=== PATIENT | male | born 1955 | race Caucasian/White ===

== ENCOUNTER 2020-08-30 06:54 | Outpatient (REF) | payer MEDICARE, BC, SELFPAY ==
[2020-08-30 11:08] LABS: Estimated Average Glucose 154 mg/dL
[2020-08-30 11:47] LABS: Alanine Aminotransferase 19 U/L (0-40); Albumin Level 4.5 g/dL (3.5-5.0); Alkaline Phosphatase 72 U/L (39-117); Aspartate Amino Transferase 17 U/L (5-37); Bilirubin Direct 0.6 mg/dL (0.0-0.5); Bilirubin Total 2.8 mg/dL (0.0-1.0); Cholesterol 121 mg/dL; Glucose Fasting 132 mg/dL (60-99); HDL Cholesterol 34 mg/dL; LDL Cholesterol Calculated 72 mg/dl; Total Protein 7.1 g/dL (6.5-8.0); Triglycerides 76 mg/dL
[2020-08-30 12:05] LABS: Reflex LDLD? No
== END 2020-08-30 06:55 | disposition home or self-care (01) ==
LOC: HO.WFDLDS 06:54
PROVIDERS: PCP Internal Medicine; Visit Provider Internal Medicine
DX: E78.00 Pure hypercholesterolemia, unspecified (principal); E11.9 Type 2 diabetes mellitus without complications
CPT/HCPCS: 80061; 80076; 82947; 83036

== ENCOUNTER 2020-12-03 10:57 | Outpatient (REF) | payer MEDICARE, BC, SELFPAY ==
[2020-12-03 11:55] LABS: Estimated Average Glucose 140 mg/dL; Hemoglobin A1c % 6.5 %
[2020-12-03 12:10] LABS: Blood Urea Nitrogen 22 mg/dL (9-16); Estimated Glomerular Filt Rate > 60; Glucose Fasting 138 mg/dL (60-99)
== END 2020-12-03 10:58 | disposition home or self-care (01) ==
LOC: HO.LNP 10:57
PROVIDERS: Visit Provider Internal Medicine
DX: E11.40 Type 2 diabetes mellitus with diabetic neuropathy, unspecified (principal); R79.89 Other specified abnormal findings of blood chemistry
CPT/HCPCS: 82565; 82947; 83036; 84520

== ENCOUNTER 2021-03-01 10:14 | Outpatient (REF) | payer MEDICARE, BC, SELFPAY ==
[2021-03-01 10:18] LABS: MANUAL DIFF FLAG NO
[2021-03-01 10:48] LABS: Basophils Absolute Auto 0.1 X10*3/uL (0.0-0.2); Basophils Percent Auto 0.7 % (0-2); Eosinophils Absolute Auto 0.4 X10*3/uL (0.0-0.4); Eosinophils Percent Auto 5.1 % (0-4); Hematocrit 44.6 % (42-52); Hemoglobin 14.6 g/dl (14.0-18.0); Imm Gran Abs Auto 0.03 X10*3/uL (0.00-0.03); Imm Gran Pct Auto 0.4 % (0.0-0.4); Lymphocytes Absolute Auto 1.7 X10*3/uL (1.2-4.9); Lymphocytes Percent Auto 24.7 % (20-40); Mean Corpuscular HGB Conc 32.7 g/dl (31.0-36.0); Mean Corpuscular Hemoglobin 30.9 pg (27.0-33.0); Mean Corpuscular Volume 94.5 fL (80-98); Mean Platelet Volume 11.5 fL (9.4-12.4); Monocytes Absolute Auto 0.7 X10*3/uL (0.1-1.2); Monocytes Percent Auto 10.4 % (2-11); Neutrophils Absolute Auto 4.1 X10*3/uL (2.0-8.3); Neutrophils Percent Auto 58.7 % (45-73); Platelet Count 254 X10*3/uL (160-400); Red Blood Count 4.72 X10*6/uL (4.60-5.80); White Blood Count 6.9 X10*3/uL (4.8-10.8)
[2021-03-01 11:00] LABS: Glucose Urine UA NEG (NEG); Leukocyte Esterase Urine NEG (NEG); Nitrite Urine NEG (NEG); PH 5.5 (5.0-8.0); Urine Blood NEG (NEG); Urine Ketones NEG (NEG); Urine Protein NEG (NEG-TRACE)
[2021-03-01 11:02] LABS: Estimated Average Glucose 146 mg/dL; Hemoglobin A1c % 6.7 %
[2021-03-01 11:04] LABS: Appearance Urine CLEAR; Color Urine YELLOW
[2021-03-01 11:47] LABS: Alanine Aminotransferase 18 U/L (0-40); Albumin Level 4.2 g/dL (3.5-5.0); Alkaline Phosphatase 72 U/L (39-117); Anion Gap 13 (12-20); Aspartate Amino Transferase 18 U/L (5-37); Blood Urea Nitrogen 28 mg/dL (9-16); Calcium 9.8 mg/dL (8.4-10.2); Carbon Dioxide 27 mmol/L (22-29); Chloride 106 mmol/L (96-108); Cholesterol 130 mg/dL; Estimated Glomerular Filt Rate > 60; Glucose Fasting 148 mg/dL (60-99); HDL Cholesterol 38 mg/dL; LDL Cholesterol Calculated 79 mg/dl; Sodium 142 mmol/L (135-145); Total Protein 6.8 g/dL (6.5-8.0); Triglycerides 65 mg/dL
[2021-03-01 11:50] LABS: Creatinine Urine 98.66 mg/dL; Microalbum/Creatinine Ratio Ur 10.1 ug/mg cr
[2021-03-01 12:10] LABS: PSA,Total (Free>4and<10) 1.53 ng/mL (0.00-4.00)
[2021-03-01 12:21] LABS: Reflex LDLD? No
== END 2021-03-01 10:15 | disposition home or self-care (01) ==
LOC: HO.LNP 10:14
PROVIDERS: Visit Provider Internal Medicine
DX: Z12.5 Encounter for screening for malignant neoplasm of prostate (principal); E11.9 Type 2 diabetes mellitus without complications; R79.9 Abnormal finding of blood chemistry, unspecified; I10 Essential (primary) hypertension; E78.00 Pure hypercholesterolemia, unspecified; N40.0 Benign prostatic hyperplasia without lower urinary tract symptoms
CPT/HCPCS: 80053; 80061; 81003; 82043; 83036; 84153; 85025

== ENCOUNTER 2021-07-29 10:41 | Outpatient (REF) | payer MEDICARE, BC, SELFPAY ==
[2021-07-29 10:56] LABS: Blood Urea Nitrogen 21 mg/dL (9-16); Estimated Glomerular Filt Rate > 60
== END 2021-07-29 10:42 | disposition home or self-care (01) ==
LOC: HO.LNP 10:41
PROVIDERS: Visit Provider Internal Medicine
DX: R79.9 Abnormal finding of blood chemistry, unspecified (principal)
CPT/HCPCS: 82565; 84520

== ENCOUNTER 2021-10-28 11:52 | Outpatient (REF) | payer MEDICARE, BC, SELFPAY ==
[2021-10-28 12:24] LABS: Estimated Average Glucose 148 mg/dL; Hemoglobin A1c % 6.8 %
[2021-10-28 12:29] LABS: Alanine Aminotransferase 20 U/L (0-40); Albumin Level 4.1 g/dL (3.5-5.0); Alkaline Phosphatase 69 U/L (39-117); Aspartate Amino Transferase 18 U/L (5-37); Bilirubin Direct 0.7 mg/dL (0.0-0.5); Bilirubin Total 2.3 mg/dL (0.0-1.0); Cholesterol 112 mg/dL; Glucose Fasting 149 mg/dL (60-99); HDL Cholesterol 30 mg/dL; LDL Cholesterol Calculated 68 mg/dl; Total Protein 6.9 g/dL (6.5-8.0); Triglycerides 74 mg/dL
[2021-10-28 13:41] LABS: Reflex LDLD? No
== END 2021-10-28 11:53 | disposition home or self-care (01) ==
LOC: HO.LNP 11:52
PROVIDERS: Visit Provider Internal Medicine
DX: E11.9 Type 2 diabetes mellitus without complications (principal); E78.00 Pure hypercholesterolemia, unspecified
CPT/HCPCS: 80061; 80076; 82947; 83036

== ENCOUNTER 2022-03-07 10:40 | Outpatient (REF) | payer MEDICARE, BC, SELFPAY ==
[2022-03-07 10:44] LABS: MANUAL DIFF FLAG NO
[2022-03-07 11:30] LABS: Basophils Absolute Auto 0.1 X10*3/uL (0.0-0.2); Basophils Percent Auto 0.8 % (0-2); Eosinophils Absolute Auto 0.2 X10*3/uL (0.0-0.4); Eosinophils Percent Auto 3.2 % (0-4); Hematocrit 41.5 % (42.0-52.0); Hemoglobin 13.4 g/dl (14.0-18.0); Imm Gran Abs Auto 0.01 X10*3/uL (0.00-0.03); Imm Gran Pct Auto 0.2 % (0.0-0.4); Lymphocytes Absolute Auto 1.9 X10*3/uL (1.2-4.9); Lymphocytes Percent Auto 28.8 % (20-40); Mean Corpuscular HGB Conc 32.3 g/dl (31.0-36.0); Mean Corpuscular Hemoglobin 30.5 pg (27.0-33.0); Mean Corpuscular Volume 94.5 fL (80.0-98.0); Mean Platelet Volume 12.1 fL (9.4-12.4); Monocytes Absolute Auto 0.7 X10*3/uL (0.1-1.2); Monocytes Percent Auto 10.7 % (2-11); Neutrophils Absolute Auto 3.7 x10*3/uL (2.0-8.3); Neutrophils Percent Auto 56.3 % (45-73); Platelet Count 244 X10*3/uL (160-400); Red Blood Count 4.39 X10*6/uL (4.60-5.80); Red Cell Distribution Width 14.3 % (11.0-16.0); White Blood Count 6.5 X10*3/uL (4.8-10.8)
[2022-03-07 11:39] LABS: Estimated Average Glucose 140 mg/dL; Hemoglobin A1c % 6.5 %
[2022-03-07 11:46] LABS: Alanine Aminotransferase 25 U/L (0-40); Albumin Level 4.1 g/dL (3.5-5.0); Alkaline Phosphatase 69 U/L (39-117); Anion Gap 12 (12-20); Appearance Urine CLEAR; Aspartate Amino Transferase 22 U/L (5-37); Bilirubin Total 1.6 mg/dL (0.0-1.0); Blood Urea Nitrogen 20 mg/dL (9-16); Calcium 9.5 mg/dL (8.4-10.2); Carbon Dioxide 28 mmol/L (22-29); Chloride 105 mmol/L (96-108); Cholesterol 121 mg/dL; Color Urine YELLOW; Estimated Glomerular Filt Rate > 60; Glucose Fasting 142 mg/dL (60-99); Glucose Urine UA NEG (NEG); HDL Cholesterol 38 mg/dL; LDL Cholesterol Calculated 74 mg/dl; Leukocyte Esterase Urine NEG (NEG); Nitrite Urine NEG (NEG); PH 5.5 (5.0-8.0); Potassium 3.9 mmol/L (3.3-5.1); Sodium 141 mmol/L (135-145); Specific Gravity - Urine 1.025 (1.005-1.025); Total Protein 6.5 g/dL (6.5-8.0); Triglycerides 45 mg/dL; Urine Blood NEG (NEG); Urine Ketones NEG (NEG); Urine Protein NEG (NEG-TRACE)
[2022-03-07 12:09] LABS: PSA,Total (Free>4and<10) 1.18 ng/mL (0.00-4.00)
[2022-03-07 12:18] LABS: Hyaline Casts Urine 0-2 /LPF; RBC Urine 0-2 /HPF (0); WBC Urine 0 /HPF (0-4)
[2022-03-07 12:38] LABS: Creatinine Urine 139.88 mg/dL; Microalbum/Creatinine Ratio Ur 12.1 ug/mg cr
== END 2022-03-07 10:41 | disposition home or self-care (01) ==
LOC: HO.LNP 10:40
PROVIDERS: Visit Provider Internal Medicine
DX: Z12.5 Encounter for screening for malignant neoplasm of prostate (principal); I10 Essential (primary) hypertension; E11.9 Type 2 diabetes mellitus without complications; N40.0 Benign prostatic hyperplasia without lower urinary tract symptoms
CPT/HCPCS: 80053; 80061; 81001; 82043; 83036; 84153; 85025

== ENCOUNTER 2022-06-30 11:11 | Outpatient (REF) | payer MEDICARE, BC, SELFPAY ==
--- NOTE | ~2022-06-30 | XR_ITS ---
EXAMINATION: XR CHEST CLINICAL INFORMATION: Cough COMPARISON: None TECHNIQUE: 2 views of the chest were obtained. FINDINGS: No significant abnormality is noted involving the heart, lungs, mediastinum, bony thorax or soft tissues. XR/XR chest 2V IMPRESSION: No acute disease.
== END 2022-06-30 11:12 | disposition home or self-care (01) ==
LOC: HO.XRAY 11:11
PROVIDERS: PCP Internal Medicine; Visit Provider Internal Medicine
DX: R05.9 Cough, unspecified (principal)
CPT/HCPCS: 71046

== ENCOUNTER 2022-08-01 11:28 | Outpatient (REF) | payer MEDICARE, BC, SELFPAY ==
[2022-08-01 11:32] LABS: MANUAL DIFF FLAG NO
[2022-08-01 12:16] LABS: Basophils Absolute Auto 0.1 X10*3/uL (0.0-0.2); Basophils Percent Auto 0.9 % (0-2); Eosinophils Absolute Auto 0.5 X10*3/uL (0.0-0.4); Eosinophils Percent Auto 6.1 % (0-4); Hemoglobin 14.4 g/dl (14.0-18.0); Imm Gran Abs Auto 0.03 X10*3/uL (0.00-0.03); Imm Gran Pct Auto 0.4 % (0.0-0.4); Lymphocytes Absolute Auto 2.2 X10*3/uL (1.2-4.9); Lymphocytes Percent Auto 26.3 % (20-40); Mean Corpuscular HGB Conc 32.7 g/dl (31.0-36.0); Mean Corpuscular Volume 94.6 fL (80.0-98.0); Mean Platelet Volume 11.8 fL (9.4-12.4); Monocytes Percent Auto 12.2 % (2-11); Neutrophils Absolute Auto 4.5 x10*3/uL (2.0-8.3); Neutrophils Percent Auto 54.1 % (45-73); Platelet Count 232 X10*3/uL (160-400); Red Blood Count 4.65 X10*6/uL (4.60-5.80); Red Cell Distribution Width 13.5 % (11.0-16.0); White Blood Count 8.2 X10*3/uL (4.8-10.8)
[2022-08-01 12:27] LABS: Potassium 3.7 mmol/L (3.3-5.1)
== END 2022-08-01 11:29 | disposition home or self-care (01) ==
LOC: HO.LNP 11:28
PROVIDERS: Visit Provider Internal Medicine
DX: I10 Essential (primary) hypertension (principal); D64.9 Anemia, unspecified
CPT/HCPCS: 84132; 85025

== ENCOUNTER 2022-09-05 10:32 | Outpatient (REF) | payer MEDICARE, BC, SELFPAY ==
[2022-09-05 13:41] LABS: Alanine Aminotransferase 21 U/L (0-40); Alkaline Phosphatase 64 U/L (39-117); Aspartate Amino Transferase 15 U/L (5-37); Bilirubin Direct 0.7 mg/dL (0.0-0.5); Bilirubin Total 2.3 mg/dL (0.0-1.0); Cholesterol 139 mg/dL; HDL Cholesterol 50 mg/dL; LDL Cholesterol Calculated 71 mg/dl; Total Protein 6.4 g/dL (6.5-8.0); Triglycerides 94 mg/dL
[2022-09-05 15:10] LABS: Reflex LDLD? No
== END 2022-09-05 10:33 | disposition home or self-care (01) ==
LOC: HO.LNP 10:32
PROVIDERS: Visit Provider Internal Medicine
DX: E78.00 Pure hypercholesterolemia, unspecified (principal)
CPT/HCPCS: 80061; 80076

== ENCOUNTER 2022-09-12 10:32 | Outpatient (REF) | payer MEDICARE, BC, SELFPAY ==
--- NOTE | ~2022-09-12 | US_ITS ---
EXAMINATION: US VENOUS ULTRASOUND WITH DOPPLER LOWER EXTREMITY, BILATERAL CLINICAL INFORMATION: Pain COMPARISON: None TECHNIQUE: Ultrasound of the deep veins is performed from the hip to the calf with compression sonography and color and pulse Doppler assessment. Spectral analysis with color-flow imaging is performed. FINDINGS: RIGHT: There is normal venous compression and respiratory variation and augmented flow. The visualized common femoral vein, superficial femoral vein, profunda femoral vein, popliteal vein, and the trifurcation region shows no evidence of deep venous thrombosis. There is no significant popliteal fossa cyst. LEFT: There is normal venous compression and respiratory variation and augmented flow. The visualized common femoral vein, superficial femoral vein, profunda femoral vein, popliteal vein, and the trifurcation region shows no evidence of deep venous thrombosis. There is no significant popliteal fossa cyst. US/US venous duplex LE BI IMPRESSION: No DVT demonstrated in the bilateral lower extremity.
== END 2022-09-12 10:33 | disposition home or self-care (01) ==
LOC: HO.US 10:32
PROVIDERS: PCP Internal Medicine; Visit Provider Internal Medicine
DX: M79.662 Pain in left lower leg (principal); M79.661 Pain in right lower leg
CPT/HCPCS: 93970

== ENCOUNTER 2023-03-13 10:33 | Outpatient (REF) | payer MEDICARE, BC, SELFPAY ==
[2023-03-13 10:38] LABS: MANUAL DIFF FLAG NO
[2023-03-13 11:12] LABS: Basophils Absolute Auto 0.1 X10*3/uL (0.0-0.2); Basophils Percent Auto 0.8 % (0-2); Eosinophils Absolute Auto 0.3 X10*3/uL (0.0-0.4); Eosinophils Percent Auto 3.3 % (0-4); Hematocrit 44.6 % (42.0-52.0); Hemoglobin 14.6 g/dl (14.0-18.0); Imm Gran Abs Auto 0.03 X10*3/uL (0.00-0.03); Imm Gran Pct Auto 0.4 % (0.0-0.4); Lymphocytes Percent Auto 23.1 % (20-40); Mean Corpuscular HGB Conc 32.7 g/dl (31.0-36.0); Mean Corpuscular Volume 94.7 fL (80.0-98.0); Mean Platelet Volume 11.6 fL (9.4-12.4); Monocytes Absolute Auto 1.1 X10*3/uL (0.1-1.2); Monocytes Percent Auto 12.4 % (2-11); Neutrophils Absolute Auto 5.1 x10*3/uL (2.0-8.3); Platelet Count 241 X10*3/uL (160-400); Red Blood Count 4.71 X10*6/uL (4.60-5.80); Red Cell Distribution Width 14.6 % (11.0-16.0); White Blood Count 8.5 X10*3/uL (4.8-10.8)
[2023-03-13 11:15] LABS: Appearance Urine Clear; Color Urine Yellow; Glucose Urine UA Negative (Negative); Leukocyte Esterase Urine Negative (Negative); Nitrite Urine Negative (Negative); PH 7.5 (5.0-9.0); Urine Blood Negative (Negative); Urine Ketones Trace mg/dL (Negative); Urine Protein Negative (Neg-Trace)
[2023-03-13 11:18] LABS: Bacteria Urine None Seen (None Seen); Hyaline Casts Urine 0-2 /LPF (0-2); RBC Urine 0-2 /HPF (0-2); Squamous Epithelial Cell Urine 0-2 /HPF (0-2); WBC Urine 0-5 /HPF (0-5)
[2023-03-13 11:27] LABS: Estimated Average Glucose 134 mg/dL; Hemoglobin A1c % 6.3 %
[2023-03-13 11:48] LABS: Alanine Aminotransferase 22 U/L (0-40); Albumin Level 4.2 g/dL (3.5-5.0); Alkaline Phosphatase 71 U/L (39-117); Anion Gap 15 (12-20); Aspartate Amino Transferase 21 U/L (5-37); Bilirubin Total 3.4 mg/dL (0.0-1.0); Blood Urea Nitrogen 23 mg/dL (9-16); Carbon Dioxide 28 mmol/L (22-29); Chloride 105 mmol/L (96-108); Cholesterol 147 mg/dL; Estimated Glomerular Filt Rate > 60; Glucose Fasting 164 mg/dL (60-99); HDL Cholesterol 48 mg/dL; LDL Cholesterol Calculated 88 mg/dl; Potassium 3.8 mmol/L (3.3-5.1); Sodium 144 mmol/L (135-145); Total Protein 6.7 g/dL (6.5-8.0); Triglycerides 57 mg/dL
[2023-03-13 12:01] LABS: Creatinine Urine 86.42 mg/dL; Microalbum/Creatinine Ratio Ur 17.3 ug/mg cr
[2023-03-13 12:13] LABS: PSA,Total (Free>4and<10) 1.44 ng/mL (0.00-4.00)
== END 2023-03-13 10:34 | disposition home or self-care (01) ==
LOC: HO.LNP 10:33
PROVIDERS: PCP Internal Medicine; Visit Provider Internal Medicine
DX: Z12.5 Encounter for screening for malignant neoplasm of prostate (principal); I10 Essential (primary) hypertension; E11.9 Type 2 diabetes mellitus without complications; E78.00 Pure hypercholesterolemia, unspecified; N40.0 Benign prostatic hyperplasia without lower urinary tract symptoms
CPT/HCPCS: 80053; 80061; 81001; 82043; 83036; 84153; 85025

== ENCOUNTER 2023-09-14 10:55 | Outpatient (REF) | payer MEDICARE, BC, SELFPAY ==
[2023-09-14 11:19] LABS: Alanine Aminotransferase 21 U/L (0-40); Albumin Level 4.3 g/dL (3.5-5.0); Alkaline Phosphatase 72 U/L (39-117); Aspartate Amino Transferase 20 U/L (5-37); Bilirubin Direct 0.5 mg/dL (0.0-0.5); Bilirubin Total 2.2 mg/dL (0.0-1.0); Glucose Fasting 149 mg/dL (60-99); Total Protein 7.2 g/dL (6.5-8.0)
[2023-09-14 11:21] LABS: Cholesterol 110 mg/dL (<200); HDL Cholesterol 36 mg/dL (>40); LDL Cholesterol Calculated 59 mg/dL (<100); Triglycerides 77 mg/dL (<150)
[2023-09-14 11:30] LABS: Estimated Average Glucose 154 mg/dL
[2023-09-14 12:24] LABS: Reflex LDLD? No
== END 2023-09-14 10:56 | disposition home or self-care (01) ==
LOC: HO.LNP 10:55
PROVIDERS: Visit Provider Internal Medicine
DX: E11.9 Type 2 diabetes mellitus without complications (principal); E78.00 Pure hypercholesterolemia, unspecified
CPT/HCPCS: 80061; 80076; 82947; 83036

== ENCOUNTER 2024-05-15 10:47 | Outpatient (REF) | payer MEDICARE, BC, SELFPAY ==
[2024-05-15 10:50] LABS: MANUAL DIFF FLAG NO
[2024-05-15 11:03] LABS: Basophils Absolute Auto 0.1 X10*3/uL (0.0-0.2); Basophils Percent Auto 0.9 % (0-2); Eosinophils Absolute Auto 0.4 X10*3/uL (0.0-0.4); Eosinophils Percent Auto 4.7 % (0-4); Hematocrit 43.4 % (42.0-52.0); Hemoglobin 14.6 g/dl (14.0-18.0); Imm Gran Abs Auto 0.02 X10*3/uL (0.00-0.03); Imm Gran Pct Auto 0.3 % (0.0-0.4); Lymphocytes Percent Auto 25.6 % (20-40); Mean Corpuscular HGB Conc 33.6 g/dl (31.0-36.0); Mean Corpuscular Hemoglobin 31.5 pg (27.0-33.0); Mean Corpuscular Volume 93.7 fL (80.0-98.0); Mean Platelet Volume 11.2 fL (9.4-12.4); Monocytes Absolute Auto 0.9 X10*3/uL (0.1-1.2); Monocytes Percent Auto 11.5 % (2-11); Neutrophils Absolute Auto 4.4 x10*3/uL (2.0-8.3); Platelet Count 227 X10*3/uL (160-400); Red Blood Count 4.63 X10*6/uL (4.60-5.80); Red Cell Distribution Width 13.2 % (11.0-16.0); White Blood Count 7.7 X10*3/uL (4.8-10.8)
[2024-05-15 11:04] LABS: Appearance Urine Clear; Color Urine Yellow; Glucose Urine UA Negative (Negative); Leukocyte Esterase Urine Negative (Negative); Nitrite Urine Negative (Negative); PH 6.5 (5.0-9.0); Specific Gravity - Urine 1.015 (1.005-1.025); Urine Blood Negative (Negative); Urine Ketones Negative (Negative); Urine Protein Negative (Neg-Trace)
[2024-05-15 11:07] LABS: Bacteria Urine None Seen (None Seen); Hyaline Casts Urine 0-2 /LPF (0-2); RBC Urine 0-2 /HPF (0-2); Squamous Epithelial Cell Urine 0-2 /HPF (0-2); WBC Urine 0-5 /HPF (0-5)
[2024-05-15 11:18] LABS: Estimated Average Glucose 146 mg/dL; Hemoglobin A1c % 6.7 % (<6.0)
[2024-05-15 11:28] LABS: Alanine Aminotransferase 21 U/L (0-40); Alkaline Phosphatase 64 U/L (39-117); Anion Gap 10 (12-20); Aspartate Amino Transferase 18 U/L (5-37); Bilirubin Total 2.1 mg/dL (0.0-1.0); Blood Urea Nitrogen 24 mg/dL (9-16); Calcium 10.2 mg/dL (8.4-10.2); Carbon Dioxide 29 mmol/L (22-29); Chloride 106 mmol/L (96-108); Cholesterol 107 mg/dL (<200); Estimated Glomerular Filt Rate > 60; Glucose Fasting 158 mg/dL (60-99); HDL Cholesterol 37 mg/dL (>40); LDL Cholesterol Calculated 56 mg/dL (<100); Potassium 3.6 mmol/L (3.3-5.1); Sodium 141 mmol/L (135-145); Total Protein 6.7 g/dL (6.5-8.0); Triglycerides 72 mg/dL (<150)
[2024-05-15 11:32] LABS: PSA,Total (Free>4and<10) 1.36 ng/mL (0.00-4.00)
[2024-05-15 11:59] LABS: Creatinine Urine 101.21 mg/dL; Microalbum/Creatinine Ratio Ur 17.7 ug/mg cr (<30)
== END 2024-05-15 10:48 | disposition home or self-care (01) ==
LOC: HO.LNP 10:47
PROVIDERS: Visit Provider Internal Medicine
DX: I10 Essential (primary) hypertension (principal); E11.9 Type 2 diabetes mellitus without complications; E78.00 Pure hypercholesterolemia, unspecified; N40.0 Benign prostatic hyperplasia without lower urinary tract symptoms; Z12.5 Encounter for screening for malignant neoplasm of prostate
CPT/HCPCS: 80053; 80061; 81001; 82043; 82570; 83036; 84153; 85025

== ENCOUNTER → 2024-07-29 19:30 | Outpatient (REF) | payer MEDICARE, BC, SELFPAY | LOC: HO.SL 19:30 | PROVIDERS: PCP Internal Medicine; Visit Provider Internal Medicine | DX: Z13.89 Encounter for screening for other disorder (principal) ==

== ENCOUNTER 2024-09-01 10:39 | Day surgery (SDC) | payer MEDICARE, BC, SELFPAY ==
[2024-08-28 13:22] VITALS: BMI 41.3
--- NOTE | 2024-08-29 09:32 | P.CONAN_ITS ---
Documented by User: Princess Ramirez NP 08/29/24 09:33 HPI - Anesthesia Eval Consult details Narrative: 68yo M for Colonoscopy [facility] Past Medical History Medical History Diabetes Elevated cholesterol HTN (hypertension) Surgical History Surgical History Hx of nasal polypectomy History of bilateral knee replacement H/O colonoscopy Social History Social History Are you a primary home care manager to a significant other at home: No Do you presently have visiting nurse or other home services: No Patient Tobacco Use Status: Never used Tobacco Have you been hit, kicked, punched, or otherwise hurt by someone within the past year? If so, by whom?: No Are you DNR?: No Advance Directives: No Advance Directives Information Provided: Yes Recently lost weight without trying: No Nutrition Risks: No Nutritional Risk Meds Allergies Allergy/AdvReac Type Severity Reaction Status Date / Time No Known Allergies Allergy Verified 09/01/24 10:49 [No Known Allergies*] Home Medications ?Medication ?Instructions ?Recorded ?Confirmed ?Last Taken ?Type lisinopril 20 1 tab PO DAILY 08/28/24 08/28/24 Unknown History mg-hydrochlorothiazide 25 mg tablet metformin 500 mg tablet 1,000 mg PO BID 08/28/24 08/28/24 Unknown History nifedipine 60 mg tablet,extended 60 mg PO DAILY 08/28/24 08/28/24 Unknown History release potassium chloride 10 mEq 10 meq PO DAILY 08/28/24 08/28/24 Unknown History tablet,extended release rosuvastatin 20 mg tablet 20 mg PO DAILY 08/28/24 08/28/24 Unknown History Exam Height,Weight and Vital Signs: Height 5 ft 7 in Weight 119.748 kg Assessment and Plan Assessment Anesthesia Assessment: Chart Reviewed Documented by User: Jessica Glynn MD 09/01/24 13:57 [facility] Past Medical History Medical History Diabetes Elevated cholesterol HTN (hypertension) Family History Family history of problems with anesthesia: No Surgical History Surgical History Hx of nasal polypectomy History of bilateral knee replacement H/O colonoscopy History of Problems with Anesthesia: No Social History Social History Are you a primary home care manager to a significant other at home: No Do you presently have visiting nurse or other home services: No Patient Tobacco Use Status: Never used Tobacco Have you been hit, kicked, punched, or otherwise hurt by someone within the past year? If so, by whom?: No Are you DNR?: No Advance Directives: No Advance Directives Information Provided: Yes Recently lost weight without trying: No Nutrition Risks: No Nutritional Risk Meds Allergies Allergy/AdvReac Type Severity Reaction Status Date / Time No Known Allergies Allergy Verified 09/01/24 10:49 [No Known Allergies*] Home Medications ?Medication ?Instructions ?Recorded ?Confirmed ?Last Taken ?Type lisinopril 20 1 tab PO DAILY 08/28/24 08/28/24 Unknown History mg-hydrochlorothiazide 25 mg tablet metformin 500 mg tablet 1,000 mg PO BID 08/28/24 08/28/24 Unknown History nifedipine 60 mg tablet,extended 60 mg PO DAILY 08/28/24 08/28/24 Unknown History release potassium chloride 10 mEq 10 meq PO DAILY 08/28/24 08/28/24 Unknown History tablet,extended release rosuvastatin 20 mg tablet 20 mg PO DAILY 08/28/24 08/28/24 Unknown History Exam Airway Mallampati Class: II TM Dist: >3cm Neck ROM: Full Heart: rrr Lungs: cta Assessment and Plan Assessment Anesthesia Assessment: Anesthesia Plan Discussed Final Anesthetic Review Family History of Problems with Anesthesia: No History of Problems with Anesthesia: No NPO: Yes ASA Class: III Final Preanesthetic Review: No Changes in Pt Med Stat, Meds/Allgs Chart Reviewed, Consent Obtained/Reviewed and Anes Risks/Benef Reviewed Patient Risk: Intermediate Procedure Risk: Low Anesthetic Plan Anesthetic Plan: MAC: Disposition: Standard PACU
[2024-09-01 10:50] VITALS: BMI 40.2
[2024-09-01] MEDS: Lactated Ringers 1,000 ML 100 ML IVCONT (10:57)
[2024-09-01 11:44] VITALS: BP 167/96; PULSE 67; RESP 18; TEMP 36.7; O2SAT 96
[2024-09-01 11:51] LABS: Glucose, Whole Blood 154 mg/dL (60-115)
[2024-09-01 13:40] VITALS: BP 155/92; PULSE 80; RESP 16; TEMP 36.6; O2SAT 97
--- NOTE | 2024-09-01 13:44 | P.BOP_ITS ---
Brief Operative Note Date of Service: 09/01/24 Pre-op diagnosis: Screening Post-op diagnosis: other (Diverticulosis) Procedure: Colonoscopy to the cecum and TI Surgeon: Gómez Giraldo MD Anesthesia: MAC Was an Merchandise For Resale Purchasing Agent used for this Procedure?: No Estimated blood loss (mL): 0 Pathology: none sent Condition: stable Disposition: PACU
[2024-09-01 13:55] VITALS: BP 161/96; PULSE 66; RESP 18; TEMP 36.6; O2SAT 96
--- NOTE | 2024-09-01 14:42 | OP_ITS ---
DATE OF SERVICE: 09/01/2024 SURGEON: Gómez Giraldo MD INDICATIONS: The patient presents for evaluation of colorectal cancer screening. Full consent has been obtained from him for this, including risks of bleeding and perforation. PREOPERATIVE DIAGNOSIS: Colorectal cancer screening. POSTOPERATIVE DIAGNOSIS: PROCEDURE PERFORMED: Colonoscopy to the cecum and terminal ileum. ESTIMATED BLOOD LOSS: COMPLICATIONS: ANESTHESIA: Monitored anesthesia care. ASSISTANTS: SPECIMENS: POSTOPERATIVE DIAGNOSES: Colorectal cancer screening, diverticulosis and internal hemorrhoids. DESCRIPTION OF PROCEDURE: The patient was placed in the left lateral decubitus position. The digital rectal exam revealed no abnormalities. The Olympus video pediatric colonoscope was entered into the rectum and advanced to the cecum with the assistance of abdominal wall pressure. Once in the cecum, I did identify normal-appearing cecal pouch with appendiceal orifice a normal-appearing ileocecal valve. The terminal ileum was cannulated and appeared normal. Scope was withdrawn back in the colon. The entire cecum and ileocecal valve appeared normal. The scope was slowly withdrawn assessing all mucosal surfaces carefully. Preparation was excellent. I did not visualize any sign of polyps, colitis, nor angiodysplasia. There was a mild amount of sigmoid diverticulosis. In the rectum, scope was retroflexed visualizing small internal hemorrhoids, but no other pathology. The rectal mucosa appeared normal. The scope was straightened and withdrawn from the patient. He tolerated the procedure well and was returned to the recovery area in stable condition. IMPRESSION: 1. Diverticulosis. 2. Internal hemorrhoids. PLAN: Given today's negative exam, negative previous colonoscopies, and no family history of colon cancer, I do not think he would need any further screening colonoscopies. He will otherwise see me on a p.r.n. basis. MD BRIA Brewer/JOSEFINA / [phone]
== END 2024-09-01 14:46 | disposition home or self-care (01) ==
PROVIDERS: PCP Internal Medicine; Visit Provider Internal Medicine
PROC: 0DJD8ZZ Inspection of Lower Intestinal Tract, Via Natural or Artificial Opening Endoscopic (ICD-10-PCS; CPT 45378; principal; 2024-09-01 12:40)
DX: Z12.11 Encounter for screening for malignant neoplasm of colon (principal); K57.30 Diverticulosis of large intestine without perforation or abscess without bleeding; K64.8 Other hemorrhoids; E11.9 Type 2 diabetes mellitus without complications; I10 Essential (primary) hypertension; E78.5 Hyperlipidemia, unspecified; Z79.84 Long term (current) use of oral hypoglycemic drugs; Z79.02 Long term (current) use of antithrombotics/antiplatelets; Z79.899 Other long term (current) drug therapy
CPT/HCPCS: G0121; 82947; J2003; J2704

== ENCOUNTER 2024-10-09 10:33 | Outpatient (AMB) | payer MEDICARE, BC, SELFPAY ==
[2024-10-09 10:43] VITALS: BP 108/70; PULSE 105; O2SAT 94
--- NOTE | 2024-10-09 10:43 | MHC.OFFVIS ---
Vital Signs 10/09/24 10:43 Weight 264 lb 8.875 oz BP 108/70 Blood Pressure Location Rt brachial Position Sitting Pulse 105 H Pulse Source Pulse Oximeter Pulse Oximetry (%) 94 Oxygen Delivery Method Room Air Intake Visit Reasons: sleep apnea Allergies No Known Allergies [No Known Allergies*] Allergy (Verified 10/09/24 10:46) Medication List - Last Reconciled 10/09/24 by Angie Guthrie LPN lisinopril-hydrochlorothiazide 20-25 mg 1 tab PO DAILY metformin 1,000 mg PO BID nifedipine ER 60 mg PO DAILY potassium chloride ER 10 mEq PO DAILY rosuvastatin 20 mg PO DAILY HPI HPI sleep apnea: Details: 68-year-old gentleman, nonsmoker, with underlying history moderate to severe obstructive sleep apnea on CPAP therapy who recently had a titration study showing that now he needs increase in his CPAP pressure up to 15 cm of water referred for pulmonary follow-up. Patient denies pulmonary related concerns complaints. Patient is compliant with his CPAP therapy. [facility] Medical History Diabetes Elevated cholesterol HTN (hypertension) Surgical History Hx of nasal polypectomy History of bilateral knee replacement H/O colonoscopy Social History Are you a primary patient care specialist to a significant other at home: No Do you presently have visiting nurse or other home services: No Patient Tobacco Use Status: Never used Tobacco Review of Systems Const Denies daytime sleepiness, Denies excessive sweating, Denies fatigue, Denies fever(s), Denies lethargy, Denies malaise, Denies night sweats, Denies snoring and Denies weight loss Eyes Denies blurry vision and Denies itchy eyes ENT Denies nasal congestion, Denies post nasal drip, Denies sinus pain, Denies sinus pressure and Denies other ( Thrush) Card Denies chest pain, Denies pedal edema, Denies dyspnea, Denies orthopnea and Denies paroxysmal nocturnal dyspnea Resp Denies cough, Denies hemoptysis, Denies excessive phlegm production, Denies dyspnea, Denies snoring and Denies wheezing GI Denies abdominal pain and Denies heartburn Musc Denies myalgias, Denies arthralgias and Denies joint swelling Skin/Breast Denies rash Neuro Denies memory loss and Denies seizure-like activity Psych Denies abnormal sleep pattern, Denies anxiety and Denies memory loss Endo Denies excessive sweating, Denies fatigue and Denies heat intolerance Miguelangel/Lymph Denies easy bruising Aller/Immun Denies itchy eyes, Denies seasonal rhinorrhea and Denies wheezing Physical Exam Vital Signs: Last Vital Signs Pulse 105 H 10/09/24 10:43 BP 108/70 10/09/24 10:43 Pulse Ox 94 10/09/24 10:43 Oxygen Delivery Method Room Air 10/09/24 10:43 Const General: no acute distress and alert Nutritional Appearance: obese Orientation/consciousness: Other orientation findings ( oriented) HEENT Head: Yes atraumatic Eyes General: appearance normal, both eyes and all related structures Sclerae: sclerae normal EOM: EOMs intact bilaterally Neck Neck: Yes supple Lymphatic: no lymphadenopathy noted Resp Effort & Inspection: normal respiratory effort and no use of accessory muscles Auscultation: clear to auscultation bilaterally Cardio Rate: regular rate Rhythm: regular rhythm Heart sounds: no gallops, no murmurs and no rubs Skin General skin exam: other ( warm) Extrem General: No clubbing, No cyanosis and No edema Assessment & Plan Assessment & Plan (1) ANIYAH (obstructive sleep apnea): Code(s): G47.33 - Obstructive sleep apnea (adult) (pediatric) Category: Medical Plan: Moderate to severe ANIYAH previously controlled on CPAP therapy, now with recent sleep study showing need to increase CPAP to 15 cm of water. Updated order placed with [facility]. Coding Level of Care Code New Pt Level 3 (49072) Diagnoses ANIYAH (obstructive sleep apnea) G47.33
== END 2024-10-09 11:01 | disposition home or self-care (01) ==
PROVIDERS: PCP Internal Medicine; Visit Provider Internal Medicine Pulmonary Disease
DX: G47.33 Obstructive sleep apnea (adult) (pediatric) (principal)
CPT/HCPCS: 99203

== ENCOUNTER → 2024-10-09 10:33 | Outpatient (BNVA) | payer MEDICARE, BC, SELFPAY | PROVIDERS: PCP Internal Medicine; Visit Provider Internal Medicine Pulmonary Disease | DX: G47.33 Obstructive sleep apnea (adult) (pediatric) (principal); Z99.89 Dependence on other enabling machines and devices | CPT/HCPCS: 99202 ==

== ENCOUNTER 2024-11-11 11:47 | Outpatient (REF) | payer MEDICARE, BC, SELFPAY ==
[2024-11-11 12:33] LABS: Estimated Average Glucose 169 mg/dL; Hemoglobin A1C 221.5677 umol/L; Hemoglobin A1c % 7.5 % (<6.0); Total Hemoglobin (HGBA1C) 3791.8273 umol/L
[2024-11-11 12:59] LABS: Alanine Aminotransferase 18 U/L (0-40); Alkaline Phosphatase 68 U/L (39-117); Aspartate Amino Transferase 24 U/L (5-37); Bilirubin Direct 0.5 mg/dL (0.0-0.5); Cholesterol 113 mg/dL (<200); Glucose Fasting 192 mg/dL (60-99); HDL Cholesterol 36 mg/dL (>40); LDL Cholesterol Calculated 62 mg/dL (<100); Total Protein 7.3 g/dL (6.5-8.0); Triglycerides 76 mg/dL (<150)
[2024-11-11 13:42] LABS: Reflex LDLD? No
--- OUTSIDE RECORDS SUMMARY | 2024-11-11 14:27 | XMS_ITS ---
Author Organization Pablo Schwartz MD Address [address] [place], [place] [phone] Care Team Providers Care Linseed Oil Press Tender Name Role Phone Pablo Schwartz Primary Care Provider Results Component Value Reference Range Notes Liver Panel (Not yet reviewe d by provider) Interpretation: Performing Lab:[address] [phone] Notes/Report: Bilirubin Total 2.0 0.0-1.0 mg/dL SLIGHT ICTE YOUNG Bilirubin Direct 0.5 0.0-0.5 mg/dL SLIGHT ICT ERUS Aspartate Amino Transferase 24 5-37 U/L Alanine Aminotransferase 18 0-40 U/L Total Protein 7.3 6.5-8.0 g/dL Albumin Level 4.0 3.5-5.0 g/dL Alkaline Phosphatase 68 39-117 U/L Glucose Fasting (Not yet rev iewed by provider) Interpretation: Performing Lab:[address] [phone] Notes/Report: Glucose Fasting 192 60-99 mg/dL A fasting glucose of 126 mg/dl or greater on more than one occasion is considered diagnostic of diabetes. Lipid Panel with Reflex (Not yet reviewed by provider) Interpretation: Performing Lab:[facility], [address] [place] [phone] Notes/Report: Triglycerides 76 <150 mg/dL Desirable Triglyceride: [...] A1c Reviewed date:11/11/2024 12:39:23 PM Interpretation: Performing Lab:[facility], [address] [place] [phone] Notes/Report: Hemoglobin A1c % 7.5 <6.0 % [...] average glucose, using the formula of the H7G-Yguppco Average Glucose study (ADAG), Diabetes Care, Vol.31,#8, Apr. 2007 REASON FOR VISIT fasting lipids Encounters Encounter Location Date Provider Diagnosis Pablo Schwartz MD [address] [place] [address] Drive [address] [place], [place] [phone] 11/11/2024 Pablo Schwartz Type 2 diabetes jhony itus without complication E11.9 and Pure hypercholesterolemia E78.00 Assessments Encounter Date Diagnosis (ICD Code) Assessment Notes Treatment Notes Treatment Clinical Notes Section Notes 11/11/2024 Type 2 diabetes jhony itus without complication (ICD-10 - E11.9) 11/11/2024 Pure hypercholesterolemia (ICD-10 - E78.00) Plan Of Treatment Pending Test Test Name Order Date Liver Panel 11/11/2024 Glucose Fasting 11/11/2024 Lipid Panel with Reflex 11/11/2024 Next Appt Details Provider Name:Pablo Paz Deanna ier, 11/17/2024 10:15:00 AM, [address], [address], [place], [place], [phone], Provider Name:Pablo Jackson Deanna ier, 05/15/2025 07:45:00 AM, [address], [address], [place], [place], [phone], Provider Name:Pablo Jackson Deanna ier, 05/22/2025 09:30:00 AM, [address], [address], [place], [place], [phone], Progress Notes * INDY MENDEZ MDOB: [birth year] (69 yo M)Acc No.[id number]:11/11/2024 Progress Note Patient:?INDY MENDEZ Provider:?Pablo Schwartz MD :1955???Age:69 Y???Sex:Male Juan e:11/11/2024 Address:[address] [place], [place] [phone] Subjective: * Chief Complaints: * ???1. Fasting lipids. * Medical History:? Objective: * Vitals:? Assessment: * Assessment: 1.?Type 2 diabetes mellitus without complication - E11.9 (Primary)???2.?Pure hypercholesterolemia - E78.00??? Plan: * Treatment: 2.?Pure hypercholesterolemia ?LAB: Liver Panel (Collection Date & Time - 11/11/2024 07:15 AM) ?LAB: Glucose Fasting (Collection Date & Time - 11/11/2024 07:15 AM) ?LAB: Lipid Panel with Reflex (Collection Date & Time - 11/11/2024 07:15 AM) ?LAB: Hemoglobin A1c (Collection Date & Time - 11/11/2024 07:15 AM) * Procedure Codes:?53560 VENIP UNCT, ROUTINE* * * The named appointment provid er may or may not be the originator of this progress note, and it is not deemed complete until electronically signed by the appointment provider. Sign off status: Pending * Provider:?Pablo Schwartz MD Date:?0 11/11/2024 Generated for Kenya navarrete/Carly/Jaxsonitting on:?11/11/2024 02:27 PM EST
--- OUTSIDE RECORDS SUMMARY | 2024-11-11 14:27 | XMS_ITS ---
Author Organization Pablo Schwartz MD Address [address] [place] [phone] Care Team Providers Care Bakery And Deli Sales Manager Name Role Phone Pablo Schwartz Primary Care Provider REASON FOR VISIT sleep study orders Problems Problem Type SNOMED Code ICD Code Onset Dates Problem Status W/U Status Risk Notes Problem Obstructive sleep apnea (40972951) Obstructive sleep apnea (G47.33) Active confirmed Problem Hypersomnia (16174022) Hypersomnia (G47.10) Active confirmed Problem Insomnia (754732418) Insomnia (G47.00) Active confirmed Encounters Encounter Location Date Provider Diagnosis Pablo Schwartz MD [address] [place] [phone] 07/22/2024 Pablo Schwartz Obstructive sleep apnea G47.33 [...] Next Appt Details Provider Name:Pablo Huerta ier, 11/17/2024 10:15:00 AM, [address], [address], [place], [phone], Provider Name:Pablo Huerta ier, 05/15/2025 07:45:00 AM, [address], [address], [place], [phone], Provider Name:Pablo Huerta ier, 05/22/2025 09:30:00 AM, [address], [address], [place], [phone], Progress Notes * INDY MENDEZ MDOB: [birth year] (68 yo M)Acc No.[id number]:07/22/2024 Patient:?INDY MENDEZ :1955???Age:68 Y???Sex:Male Address:[address] [place] [address], [address] Subjective: * Chief Complaints: * ???Sleep study orders * Medical History:? * Surgical History:? * Hospitalization/Major Diagno stic Procedure:? * Medications:? Objective: Assessment: * Assessment: 1.?Obstructive sleep apnea - G47.33?2.?Hypersomnia - G47.10?3.?Insomnia - G47.00? Plan: * Treatment: 2.?Hypersomnia?Imaging: Sleep Study - Baseline* FAXED TO [facility] need follow up appt with a manager of production for C-pap settings referral entered in [employer] 07-29-24 at 7:30pm [facility] Ruy [address] 3.?Insomnia?Imaging: Sleep Study - Baseline* FAXED TO [facility] need follow up appt with a manager of production for C-pap settings referral entered in [employer] 07-29-24 at 7:30pm [facility] R[address] [place] * Procedure Codes:? * true * Date:? Generated for Kenya navarrete/Carly/eTransmitting on:?11/11/2024 02:27 PM EST
--- OUTSIDE RECORDS SUMMARY | 2024-11-11 14:27 | XMS_ITS | Clinical Summary ---
Author Organization [facility] ity Address [address] [place] [address] Care Team Providers Care Body Care Manager Name Role Phone Unavailable Primary Care Provider Unavailabl e Social History Tobacco Use Types Packs/Day Years Used Date Smoking Tobacco: Never Assessed Sex and Gender Information Value Date Recorded Sex Assigned at Not on file Legal Sex Male 12:15 PM EST Gender Identity Not on file Sexual Orientation Not on file Plan of Treatment Health Maintenance Due Date Last Done Comments DTaP,Tdap,and Td Vaccines (1 - Tdap) 1972 Pneumococcal Vaccine: 50+ Ye ars (1 of 1 - PCV) 2003 Zoster Vaccines (1 of 2) 2003 COVID-19 Vaccine ( - 2023-2 5 season) 2024 Influenza Vaccine (#1) 2024 RSV Immunization Patients 60 + Years Old (1 - 1-dose 75+ series) 2028 HIB Vaccines Aged Out No longer eligi ble based on patient's age to complete this topic HPV Vaccines Aged Out No longer eligi ble based on patient's age to complete this topic Hepatitis A Vaccines Aged Out No long er eligible based on patient's age to complete this topic Hepatitis B Vaccines Aged Out No long er eligible based on patient's age to complete this topic IPV Vaccines Aged Out No longer eligi ble based on patient's age to complete this topic MMR Vaccines Aged Out No longer eligi ble based on patient's age to complete this topic Meningococcal ACWY Vaccine Aged Out N o longer eligible based on patient's age to complete this topic Meningococcal B Vacine Aged Out No lo nger eligible based on patient's age to complete this topic RSV Immunization Patients Un george 20 months Aged Out No longer eligible b ased on patient's age to complete this topic Varicella Vaccines Aged Out No longer eligible based on patient's age to complete this topic
--- OUTSIDE RECORDS SUMMARY | 2024-11-11 14:28 | XMS_ITS ---
Author Organization Pablo Schwartz MD Address [address] [place], [place] [id number] Care Team Providers Care Gaming Table Operator Name Role Phone Pablo Schwartz Primary Care Provider Allergies No Known Allergies REASON FOR VISIT needs sleep study, orders entered and faxed to [facility].. Per Medicare guide line patient needs a visit with his PCP explaining why, before he has sleep study done. This came from [facility] referral entered for [facility] judicial assistant for follow up for his setting on [...] Location Date Provider Diagnosis Pablo Schwartz MD [address] [place] [address] [place] [phone] 07/24/2024 Pablo Schwartz Obstructive sleep apnea G47.33 Assessments Encounter Date Diagnosis (ICD Code) Assessment Notes Treatment Notes Treatment Clinical Notes Section Notes 07/24/2024 Obstructive sleep apnea (ICD-10 - G47.33) has ANIYAH and in need of sleep study since his old one is too old/ patient is booked for 07-29-2024 at 7:30pm [facility] Plan Of Treatment Treatment Notes Assessment Notes Obstructive sleep apnea has ANIYAH and in n eed of sleep study since his old one is too old/ patient is booked for 07-29-2024 at 7:30pm [facility] Next Appt Details Provider Name:Pablo lozoya, 11/17/2024 10:15:00 AM, [address] [place] [address], [address] [place] [address], [phone], Provider Name:Pablo lozoya, 05/15/2025 07:45:00 AM, [address] [place] [address], [address], [phone], Provider Name:Pablo lozoya, 05/22/2025 09:30:00 AM, [address] [place] [address], [address], [phone], Progress Notes * INDY MENDEZ MDOB: [birth year] (68 yo M)Acc No.[id number]:07/24/2024 Progress Notes Patient:?INDY MENDEZ Provider:?Pablo Schwartz MD :1955???Age:68 Y???Sex:Male Juan e:07/24/2024 Address: [address], [facility] Subjective: * Chief Complaints: * ???needs sleep study, orders entered and faxed to [facility] Per Medicare guide line patient needs a visit with his PCP explaining why, before he has sleep study done. This came from [facility].referral entered for [facility] judicial assistant for follow up for his setting on the C-pap machine * HPI: ???Symptom(s):? patient is a 68 yo male has sleep apnea. needs sleep study because his machine is too old/needs new sleep study. is getting in house study/. * ROS:?General/Constitutional:?Denies?Chills.?Denies?Fatigue.?Denies?Fever.?Denies?Headache.?ENT:?Patient denies?decreased sense of smell , any loss of taste , sore throat.?Denies?Sore throat.?Respiratory:?Denies?Cough.?Denies?Shortness of breath at rest.?Denies?Shortness of breath with exertion.?Gastrointestinal:?Denies?Diarrhea.?Denies?Nausea.?Musculoskeletal:?Patient denies?muscle aches.?Peripheral Vascular:?Patient denies?red and blue toes.? * Medical History:? * Surgical History:? * Hospitalization/Major Diagno stic Procedure:? * Medications:?TakingOneTouch Verio - Strip TEST ONCE A DAY [...] reviewed and reconciled with the patient * Allergies:?N.K.D.A.yes[Aller gies Verified] Objective: * Vitals:?Ht: 68, Wt:263, BMI: 39.98, BP:122/94, Repeat BP:120/78. * Examination: ???General Examination: ?GENERAL APPEARANCE:?well developed, well nourished.?HEAD:?normocephalic.?SKIN:?good turgor.?HEART:?regular rate and rhythm , no rubs , no murmurs, rubs, gallops.?LUNGS:?no wheezes, rales, rhonchi , good air movement , clear to auscultation bilaterally.? Assessment: * Assessment: 1.?Obstructive sleep apnea - G47.33? Plan: * Treatment: * Procedure Codes:? * * Sign off status: Completed true * Provider:?Pablo Schwartz MD Date:?09/23/2023 Generated for Kenya navarrete/Carly/Jaxsonitting on:?11/11/2024 02:27 PM EST History and Physical Notes * [...]
== END 2024-11-11 11:48 | disposition home or self-care (01) ==
LOC: HO.LNP 11:47
PROVIDERS: Visit Provider Internal Medicine
DX: E11.9 Type 2 diabetes mellitus without complications (principal); E78.00 Pure hypercholesterolemia, unspecified
CPT/HCPCS: 80061; 80076; 82947; 83036

== ENCOUNTER 2025-01-27 14:31 | Outpatient (REF) | payer MEDICARE, BC, SELFPAY ==
--- NOTE | ~2025-01-27 | XR_ITS ---
EXAMINATION: XR CHEST 2 VIEWS HISTORY: COUGH COMPARISON: Comparison is made with the prior examination dated 06/30/2022. FINDINGS: PA and lateral views of the chest are submitted. There are low lung volumes. The lungs are clear. There is no pleural effusion, pneumothorax, or pulmonary vascular congestion. The heart is normal in size. There is degenerative disc disease of the spine. XR/XR chest 2V IMPRESSION: Low lung volumes. No acute cardiopulmonary abnormality. Electronically signed by: Gómez Tarore MD 01/27/2025 03:51 PM EDT
--- OUTSIDE RECORDS SUMMARY | 2025-01-27 15:39 | XMS_ITS | Patient Health Record ---
Author Organization [facility] Address [address] [place] [address] Care Team Providers Care Hypertrichologist Name Role Phone Lana SAAB, Pablo Primary Care Provider Gómez Lopez Unavailable [phone] Allergies No Known Allergies Results Component Value Reference Range Notes Glucose, Whole Blood Reviewed date:09/01/2024 10:19:54 PM Interpretation: Performing Lab:[facility], [address] [place] [phone] Notes/Report: Glucose, Whole Blood 154 60-115 mg/dL METER # : [id number] Reason For Referral No Information Medications Medication SIG (Take, Route, Frequency, Duration) Notes Start Date End Date Status NIFEdipine 62mg Acti ve Meloxicam 15 MG 1 tablet Orally Once a day for 30 day(s) Not-Taking potassium 1 tab Oral for 14 days Active Rosuvastatin Calcium 20 MG 1 tablet Oral ly Once a day for 30 day(s) Active metFORMIN HCl 500 MG 1 tablet with a michelle l Orally Once a day for 30 day(s) Active Lisinopril 20mg Acti ve hydroCHLOROthiazide 25mg Active Immunizations Vaccine Route Administration Date Status Comme nts Influenza Unknown 08/07/2023 Administered Social History Alcohol Screen Question Answer Notes Did you have a drink contain ing alcohol in the past year? Yes How often did you have a dri nk containing alcohol in the past year? 4 or more times a week (4 points) How many drinks did you have on a typical day when you were drinking in the past year? 1 or 2 drinks (0 point) How often did you have 6 or more drinks on one occasion in the past year? Never (0 point) Points 4 Interpretation Positive Section Notes: He does not smoke nor use an y significant amounts of alcohol He does not smoke; [address] duncan occasionally Problems Problem Type SNOMED Code ICD Code Onset Dates Problem Status W/U Status Risk Notes Problem Colon cancer screening (927122683) Colon cancer screening (Z12.11) Active confirmed Problem Pre-procedure evaluation check (939670471) Encounter for other preprocedural examination (Z01.818) Active confirmed Problem Diverticulosis o f large intestine without perforation or abscess without bleeding (K57.30) Active confirmed Problem Long-term current use of drug therapy (722155912) Encounter for long-term (current) use of high-risk medication (Z79.899) Active confirmed Vital Signs Temperature 98.9 degrees Fahrenheit 05/28/2024 Blood pressure diastolic 00 mm Hg 05/28/2024 Height 67 in 05/28/2024 Blood pressure systolic 000 mm Hg 05/28/2024 Weight 264 lb 4 oz lbs 05/28/2024 BMI 41.38 kg/m2 05/28/2024 Encounters Encounter Location Date Provider Diagnosis [facility] [address] [place] [phone] 09/01/2024 Gómez Giraldo Colon cancer screeni ng Z12.11 ; Diverticulosis of large intestine without perforation or abscess without bleeding K57.30 and Other hemorrhoids K64.8 [facility] [address] [place] [phone] 05/28/2024 Gómez Giraldo Colon cancer screeni ng Z12.11 ; Encounter for other preprocedural examination Z01.818 and Encounter for long-term (current) use of high-risk medication Z79.899 [facility] [address] [place] [phone] 05/28/2024 Gómez Giraldo Assessments Encounter Date Diagnosis (ICD Code) Assessment Notes Treatment Notes Treatment Clinical Notes Section Notes 09/01/2024 Colon cancer screening (ICD-10 - Z12.11) 09/01/2024 Diverticulosis of large intestine without perforation or abscess without bleeding (ICD-10 - K57.30) 05/28/2024 Colon cancer screening (ICD-10 - Z12.11) Do not take the Metformin the night before nor on the morning of the procedure. Do not take the Potassium and Hydrochlorothiazide the day before or on the day of the colonoscopy. Overall, Anselmo appears to be doing well. Given his age, his last colonoscopy being over 10 years ago, and his good clinical appearance, I did recommend a followup colonoscopy for further screening purposes. We did review the rationale for that in regard to colon cancer prevention. Full consent was obtained for this, including risks of bleeding and perforation. The procedure will be done with monitored anesthesia care. He was given the below instructions regarding adjustment of his medications for the procedure. Anselmo was comfortable with this plan. Thank you again for allowing me to participate in Anselmo's care. I shall continue to keep you advised of his progress. 05/28/2024 Encounter for other preprocedural examination (ICD-10 - Z01.818) Overall, Anselmo appears to be doing well. Given his age, his last colonoscopy being over 10 years ago, and his good clinical appearance, I did recommend a followup colonoscopy for further screening purposes. We did review the rationale for that in regard to colon cancer prevention. Full consent was obtained for this, including risks of bleeding and perforation. The procedure will be done with monitored anesthesia care. He was given the below instructions regarding adjustment of his medications for the procedure. Anselmo was comfortable with this plan. Thank you again for allowing me to participate in Anselmo's care. I shall continue to keep you advised of his progress. 09/01/2024 Other hemorrhoids (ICD-10 - K64.8) 05/28/2024 Encounter for long-term (current) use of high-risk medication (ICD-10 - Z79.899) Overall, Anselmo appears to be doing well. Given his age, his last colonoscopy being over 10 years ago, and his good clinical appearance, I did recommend a followup colonoscopy for further screening purposes. We did review the rationale for that in regard to colon cancer prevention. Full consent was obtained for this, including risks of bleeding and perforation. The procedure will be done with monitored anesthesia care. He was given the below instructions regarding adjustment of his medications for the procedure. Anselmo was comfortable with this plan. Thank you again for allowing me to participate in Anselmo's care. I shall continue to keep you advised of his progress. Plan Of Treatment Future Test Test Name Order Date COLONOSCOPY 01/07/2013 COLONOSCOPY 05/28/2024 Insurance Providers Payer Name Payer Address Payer Phone Subscriber Number Group Number Insured Name Patient Relationship to Insured Coverage Start Date Coverage End Date MEDICARE OF [place] PO [address] [place] [address] [id number] INDY MENDEZ Self - patient is the insured [facility] [address] [place], [place] [id number] INDY MENDEZ Self - patient is the insured Medical (General) History Medical History History ICD Code Hyperlipidemia Hypertension He describes a hospitalizati on in early s for some type of infectious diarrhea, and describes undergoing [facility]oscop[facility] during his evaluation-these were negative for polyps and he was advised to have another colonoscopy 10 years thereafter for screening Denies CO,CVA,Lung disease,renal disease Negative screening colonoscopy in 2012 Surgical History Surgery Date(Month/Year) Nasal polyps Bilateral knee replacements in approx 20 19
--- OUTSIDE RECORDS SUMMARY | 2025-01-27 15:39 | XMS_ITS | Patient Health Record ---
Author Organization Pablo Schwartz MD Address [address] [place], [place] [id number] Care Team Providers Care Field Sales Agent Name Role Phone Pablo Schwartz Primary Care Provider Allergies No Known Allergies Results Component Value Reference Range Notes Hemoglobin A1c Reviewed date:01/27/2025 02:03:46 PM Interpretation: Performing Lab: Notes/Report: Hemoglobin A1c 6.7 Complete Blood Count Auto Di ff Reviewed date:05/15/2024 12:10:36 PM Interpretation: Performing Lab:[facility], [address] [place] [phone] Notes/Report: White Blood Count 7.7 4.8-10.8 X10*3/uL Red Blood Count 4.63 4.60-5.80 X10*6/uL Hemoglobin 14.6 14.0-18.0 g/dl Hematocrit 43.4 42.0-52.0 % Mean Corpuscular Volume 93.7 80.0-98.0 fL Mean Corpuscular Hemoglobin 31.5 27.0-33.0 pg Mean Corpuscular HGB Conc 33.6 31.0-36.0 g/dl Red Cell Distribution Width 13.2 11.0-16.0 % Platelet Count 227 160-400 X10*3/uL Mean Platelet Volume 11.2 9.4-12.4 fL Neutrophils Percent Auto 57.0 45-73 % Imm Gran Pct Auto 0.3 0.0-0.4 % Lymphocytes Percent Auto 25.6 20-40 % Monocytes Percent Auto 11.5 2-11 % Eosinophils Percent Auto 4.7 0-4 % Basophils Percent Auto 0.9 0-2 % NRBC Pct Auto 0.0 0.0-0.2 /100WBC Neutrophils Absolute Auto 4.4 2.0-8.3 x10*3/u L Imm Gran Abs Auto 0.02 0.00-0.03 X10*3/uL Lymphocytes Absolute Auto 2.0 1.2-4.9 X10*3/u L Monocytes Absolute Auto 0.9 0.1-1.2 X10*3/uL Eosinophils Absolute Auto 0.4 0.0-0.4 X10*3/u L Basophils Absolute Auto 0.1 0.0-0.2 X10*3/uL NRBC Abs Auto 0.000 0.0-0.012 X10*3/uL Comprehensive Reading. Panel Fa st Reviewed date:05/15/2024 12:13:30 PM Interpretation: Performing Lab:[facility], [address] [place] [phone] Notes/Report: Sodium 141 135-145 mmol/L Potassium 3.6 3.3-5.1 mmol/L Chloride 106 96-108 mmol/L Carbon Dioxide 29 22-29 mmol/L Anion Gap 10 12-20 Blood Urea Nitrogen 24 9-16 mg/dL Creatinine 1.02 0.5-1.4 mg/dL Estimated Glomerular Filt Rate > 60 NOTE: For -Slovenian individuals, multiply the result by 1.210. Chronic Kidney Disease: Estimated GFR < 60 mL/min/1.73m2 Severe Kidney Disease: Estimated GFR < 15 mL/min/1.73m2 Glucose Fasting 158 60-99 mg/dL A fasting glucose of 126 mg/dl or greater on more than one occasion is considered diagnostic of diabetes. Calcium 10.2 8.4-10.2 mg/dL Bilirubin Total 2.1 0.0-1.0 mg/dL Aspartate Amino Transferase 18 5-37 U/L Alanine Aminotransferase 21 0-40 U/L Total Protein 6.7 6.5-8.0 g/dL Albumin Level 4.0 3.5-5.0 g/dL Alkaline Phosphatase 64 39-117 U/L Lipid Panel Reviewed date:05/15/2024 12:05:41 PM Interpretation: Performing Lab:[facility], [address] [place] [phone] Notes/Report: Triglycerides 72 <150 mg/dL Desirable Triglyceride: less than 150 mg/dL Borderline High Triglyceride 150-199 mg/dL High Triglyceride: 200-499 mg/dL Very High Triglyceride: greater than or equal to 5OO mg/dL Cholesterol 107 <200 mg/dL Desirable Cholesterol: less than 200 mg/dL Borderline High Cholesterol: 200-239 mg/dL High Cholesterol: greater than 239 mg/dL LDL Cholesterol Calculated 56 <100 mg/dL Desirable LDL: less than 100 mg/dL Near Optimal/Above Optimal LDL: 110-129 mg/dL Borderline High LDL: 130-159 mg/dL High LDL: 160-189 mg/dL Very High LDL: greater than or equal to 190 mg/dL HDL Cholesterol 37 >40 mg/dL Desirable HDL: greater than 40 mg/dL Note: This HDL assay may give artificially low results in patients with liver disease. PSA,Total (Free>4and<10) Reviewed date:05/15/2024 12:05:01 PM Interpretation: Performing Lab:[address] [phone] Notes/Report: PSA,Total (Free>4and<10) 1.36 0.00-4.00 ng/mL A Free PSA was not performed: The percentage of Free PSA can be used to enhance the differentiation of prostate cancer from benign prostatic disease in subjects whose PSA levels are between 4.0 and 10.0 ng/mL. For subjects whose PSA levels are below 4.0 or above 10.0 ng/mL, the risk of prostate cancer is determined on the basis of the PSA alone. Therefore the % Free PSA is recommended only for those subjects whose PSA levels are between 4.0 and 10.0 ng/mL. PSA methodology: Pyle Alinity i Chemiluminescent Microparticle Immunoassay (CMIA) Microalbumin, Random Reviewed date:05/15/2024 12:09:01 PM Interpretation: Performing Lab:[address] [phone] Notes/Report: Creatinine Urine 101.21 Microalbumin Urine 18.0 Microalbum/Creatinine Ratio Ur 17.7 <30 ug/mg cr Albumin/Creatinine Ratio Reference Ranges: Normal: < 30 ug/mg creatinine Microalbuminuria: 30 - 300 ug/mg creatinine Clinical Albuminuria: > 300 ug/mg creatinine Hemoglobin A1c Reviewed date:05/15/2024 12:02:46 PM Interpretation: Performing Lab:[address] [phone] Notes/Report: Hemoglobin A1c % 6.7 <6.0 % Hemoglobin A1C Reference Range Adults: 4.8 - 6.0 % Non diabetic: < 6.0 % Goal: < 7.0 % Additional Action Suggested: > 8.0 % Note: Hemoglobin A1c results are invalid for patients with abnormal amounts of HbF. Blood transfusions may impact the HbA1c concentration in the patient sample. Estimated Average Glucose 146 eAG = Estimated average glucose which is %A1C expressed as average glucose, using the formula of the E9M-Jacmlti Average Glucose study (ADAG), Diabetes Care, Vol.31,#8, Apr. 2007 UA ClnCatch+Micro w/rflx Cul t Reviewed date:05/15/2024 05:09:09 PM Interpretation: Performing Lab:[address] [phone] Notes/Report: Urine, Clean Catch Color Urine Yellow Appearance Urine Clear PH 6.5 5.0-9.0 Glucose Urine UA Negative Negative mg/dL Urine Blood Negative Negative Specific [place] - Urine 1.015 1.005-1.025 Urine Protein Negative Neg-Trace mg/dL Urine Ketones Negative Negative mg/dL Nitrite Urine Negative Negative Leukocyte Esterase Urine Negative Negative RBC Urine 0-2 0-2 /HPF WBC Urine 0-5 0-5 /HPF Squamous Epithelial Cell Urine 0-2 0-2 /HPF Bacteria Urine None Seen None Seen Hyaline Casts Urine 0-2 0-2 /LPF Liver Panel Reviewed date:11/11/2024 02:49:48 PM Interpretation: Performing Lab:[address] [phone] Notes/Report: Bilirubin Total 2.0 0.0-1.0 mg/dL SLIGHT ICTE YOUNG Bilirubin Direct 0.5 0.0-0.5 mg/dL SLIGHT ICT ERUS Aspartate Amino Transferase 24 5-37 U/L Alanine Aminotransferase 18 0-40 U/L Total Protein 7.3 6.5-8.0 g/dL Albumin Level 4.0 3.5-5.0 g/dL Alkaline Phosphatase 68 39-117 U/L Glucose Fasting Reviewed date:11/11/2024 02:41:45 PM Interpretation: Performing Lab:[address] [phone] Notes/Report: Glucose Fasting 192 60-99 mg/dL A fasting glucose of 126 mg/dl or greater on more than one occasion is considered diagnostic of diabetes. Lipid Panel with Reflex Reviewed date:11/11/2024 04:44:08 PM Interpretation: Performing Lab:[facility], [address] [place] [phone] Notes/Report: Triglycerides 76 <150 mg/dL Desirable Triglyceride: [...] A1c Reviewed date:11/11/2024 12:39:23 PM Interpretation: Performing Lab:[address] [phone] Notes/Report: Hemoglobin A1c % 7.5 <6.0 % [...] average glucose, using the formula of the S4Y-Bgrhurz Average Glucose study (ADAG), Diabetes Care, Vol.31,#8, Apr. 2007 Glucose, finger stick Reviewed date:01/27/2025 01:57:03 PM Interpretation: Performing Lab: Notes/Report: Value 146 Occult Blood, Stool, Guaiac Reviewed date:05/20/2024 12:14:00 PM Interpretation:Negative Performing Lab: Notes/Report: Negative Occult Blood, Stool, Guaiac Neg Glucose, finger stick Reviewed date:11/17/2024 10:07:43 AM Interpretation: Performing Lab: Notes/Report: Value 191 Glucose, Whole Blood Reviewed date:09/01/2024 12:18:10 PM Interpretation: Performing Lab:[facility], [address] [place] [phone] Notes/Report: Glucose, Whole Blood 154 60-115 mg/dL METER # : [id number] Derek Briones Reviewed date:11/11/2024 12:27:43 PM Interpretation: Performing Lab:[facility], [address] [place] [phone] Notes/Report: Derek Briones See Note Specimen held untested for 24 hours; Call to request Chemistry testing. Reason For Referral Reason left rotator cuff Diagnosis 1 Strain of left rotat or cuff capsule, initial encounter (S46.012A) Referral Organization Pablo Schwartz MD Referring Provider First Name Pablo Referring Provider Last Name Lana Referring Provider Speciality Internal M edicine Referred Provider KARTHIK POOL Referred Provider Specialty Orthopedic S urgery General Notes Alisson Dyson 09:23:39 AM EDT > patient will be calling to make his own appt , Alisson Dyson 06/17/2024 01:34:31 PM EDT > left message for candice to call Referral Priority Routine Referral Appointment Date 06/26/2024 Reason ANIYAH need to go over sleep study result for C-pap settings Diagnosis 1 Obstructive sleep ap rosario (G47.33) Diagnosis 2 Hypersomnia (G47.10) Diagnosis 3 Insomnia (G47.00) Referral Organization Pablo Schwartz MD Referring Provider First Name Pablo Referring Provider Last Name Lana Referring Provider Speciality Internal M edicine Referred Provider VALENTINA DUMONT Referred Provider Specialty Pulmonary Di seases General Notes Alisson Dyson 11:06:41 AM EST > Sleep study booked for 07-29-2024 at 7:30pm being done [place] [facility] [place] Darrel SamanKiel Annette 07/22/2024 11:09:55 AM EST > needs sleep study, orders entered and faxed to [facility] CS dept.. Per Medicare guide line patient needs a visit with his PCP explaining why, before he has sleep study done. This came from [facility] referral entered for [facility] vulnerability assessment analyst for follow up for his setting on the C-pap machine. appt with PC on 07-24-2024, Alisson Dyson 09/04/2024 12:52:58 PM EST > left message for the [facility] to call, no reports yet , Alisson Dyson 09/04/2024 03:17:50 PM EST >referral , notes and Sleep study report faxed , Alisson Dyson 09/12/2024 10:45:53 AM EST > was told by office patient is aware of appt Referral Priority Routine Referral Appointment Date 10/09/2024 Reason prostatism Diagnosis 1 Prostatism (N40.0) Referral Organization Pablo Schwartz MD Referring Provider First Name Pablo Referring Provider Last Name Lana Referring Provider Speciality Internal edicine Referred Provider KATE DACOSTA Referred Provider Specialty Urology Referral Priority Routine Medications Medication SIG (Take, Route, Frequency, Duration) Notes Start Date End Date Status OneTouch Verio - TEST ONCE A DAY for 90 Active OneTouch Verio - as directed In Vitro daily for 90 days 04/28/2019 Active metFORMIN HCl 500 MG TAKE 2 TABLET BY MO UTH TWICE A DAY WITH MEALS Active Sildenafil Citrate 100 MG TAKE ONE TABLE T BY MOUTH ONCE DAILY IF NEEDED for 30 Active Tamsulosin HCl 0.4 MG take 1 capsule by mouth every day for 90 days twice a day Active Rosuvastatin Calcium 20 MG TAKE 1 TABLET BY MOUTH EVERY DAY for 90 Active NIFEdipine ER 60 MG TAKE 1 TABLET BY CARMEN TH EVERY DAY Active Potassium Chloride ER 10 MEQ TAKE 1 TABLET BY MOUTH EVERY DAY WITH FOOD for 90 Active Lisinopril-hydroCHLOROthiaz shyla 20-25 MG TAKE 1 TABLET BY MOUTH EVERY DAY for 90 Active Immunizations Vaccine Route Administration Date Status Comme nts Flu Vaccine Unknown 07/05/2015 Administered recived it at work at [facility] Fluarix Quadrivalent Unknown 06/26/2016 Administered BM C Tetanus Unknown 07/18/2016 Administered given at [facility] Flu Vaccine Unknown 07/03/2017 Administered given at [facility]. PPSV23 (Pnemovax) IM Intramuscular 01/28/2018 Administered Fluarix Quadrivalent IM Intramuscular 08/13/2018 Administe red Prevnar 13 IM Intramuscular 02/17/2019 Administered Influenza High Dose IM Intramuscular 07/31/2019 Administer ed pt was given the vaccine at [facility]. Fluarix Quadrivalent Unknown 07/30/2020 Administered CV S SARS-COV-2 Pfizer Unknown 11/23/2020 Administered SARS-COV-2 Pfizer Unknown 11/09/2020 Administered Influenza High Dose IM Intramuscular 07/29/2021 Administer ed Influenza High Dose IM Intramuscular 08/01/2022 Administer ed Influenza High Dose IM Intramuscular 06/14/2023 Administer ed Influenza High Dose Unknown 07/03/2024 Administered Social History Tobacco Use: Social History Observation [...] Never (0 point) Points 3 Interpretation Negative Problems Problem Type SNOMED Code ICD Code Onset Dates Problem Status W/U Status Risk Notes Problem Prostatism (76376602) Prostatism (N40.0) Active confirmed Problem Insomnia (577451332) Insomnia (G47.00) Active confirmed Problem Gilbert syndrome (64714554) Gilbert syndrome (E80.4) Active confirmed Problem 39566107 Essential hypert ension (I10) Active confirmed Problem 72438471 Type 2 diabetes mellitus without complication (E11.9) Active confirmed Problem 98963097 Type 2 diabetes, controlled, with neuropathy (E11.40) Active confirmed Problem Obstructive sleep apnea (15674734) Obstructive sleep apnea (G47.33) Active confirmed Problem 4276512585153 Vasculogenic ere ctile dysfunction, unspecified vasculogenic erectile dysfunction type (N52.9) Active confirmed Problem 95598453 Dysthymia (F34.1) Active confirmed Problem Hypersomnia (43241979) Hypersomnia (G47.10) Active confirmed Problem 362356079 Pure hypercholesterolemia (E78.00) Active confirmed Vital Signs Blood pressure diastolic 90 mm Hg 01/27/2025 michael ght is down 5 pounds since 11-17-24 Height 68 in 01/27/2025 weight is down 5 pounds since 11-17-24 Blood pressure systolic 142 mm Hg 01/27/2025 weig ht is down 5 pounds since 11-17-24 Weight 258 lbs 01/27/2025 weight is down 5 pounds since 11-17-24 BMI 39.22 kg/m2 01/27/2025 weight is down 5 pounds since 11-17-24 Encounters Encounter Location Date Provider Diagnosis Pablo Schwartz MD [address] [place] [id number] 05/15/2024 Pablo Schwartz Essential hypertensi on I10 ; Type 2 diabetes mellitus without complication E11.9 ; Pure hypercholesterolemia E78.00 and Prostatism N40.0 Pablo Schwartz MD [address] [place] [id number] 11/11/2024 Pablo Schwartz Type 2 diabetes jhony itus without complication E11.9 and Pure hypercholesterolemia E78.00 Pablo Schwartz MD [address] [place] [id number] 01/27/2025 Pablo Schwartz Type 2 diabetes jhony itus without complication E11.9 ; Cough R05.9 and Prostatism N40.0 Pablo Schwartz MD [address] [place] [id number] 05/20/2024 Pablo Schwartz Strain of left rotat or cuff capsule, initial encounter S46.012A ; Essential hypertension I10 ; Type 2 diabetes mellitus without complication E11.9 ; Prostatism N40.0 ; Pure hypercholesterolemia E78.00 ; Colon cancer screening Z12.11 and Depression screening Z13.31 Pablo Schwartz MD [address] [place] [id number] 07/24/2024 Pablo Schwartz Obstructive sleep ap rosario G47.33 Pablo Schwartz MD [address] [place] [id number] 11/17/2024 Pablo Schwartz Type 2 diabetes jhony itus without complication E11.9 ; Pure hypercholesterolemia E78.00 and Cough R05.9 Pablo Schwartz MD [address] [place] [id number] 07/22/2024 Pablo Schwartz Obstructive sleep ap rosario G47.33 ; Hypersomnia G47.10 and Insomnia G47.00 Assessments Encounter Date Diagnosis (ICD Code) Assessment Notes Treatment Notes Treatment Clinical Notes Section Notes 05/15/2024 Essential hypertensi on (ICD-10 - I10) 05/15/2024 Type 2 diabetes mellitus without complication (ICD-10 - E11.9) 11/11/2024 Type 2 diabetes mellitus without complication (ICD-10 - E11.9) 01/27/2025 Type 2 diabetes mellitus without complication (ICD-10 - E11.9) stable, will continue current regiment 01/27/2025 Cough (ICD-10 - R05.9) pendi ng diagnostic testing/ order given to patient 05/20/2024 Strain of left rotat or cuff capsule, initial encounter (ICD-10 - S46.012A) referral to dr alexandra 07/24/2024 Obstructive sleep ap rosario (ICD-10 - G47.33) has ANIYAH and in need of sleep study since his old one is too old/ patient is booked for 07-29-2024 at 7:30pm [facility] site 11/17/2024 Type 2 diabetes mellitus without complication (ICD-10 - E11.9) stable, running a bit high, will continue current regiment and continue to monitor 11/17/2024 Pure hypercholesterolemia (ICD-10 - E78.00) stable, will continue current regiment 05/15/2024 Pure hypercholesterolemia (ICD-10 - E78.00) 11/11/2024 Pure hypercholesterolemia (ICD-10 - E78.00) 01/27/2025 Prostatism (ICD-10 - N40.0) referral to dr dacosta in [place] 05/20/2024 Essential hypertensi on (ICD-10 - I10) stable, at goal, albert continue current regiment 05/20/2024 Type 2 diabetes mellitus without complication (ICD-10 - E11.9) will continue current regiment and will continue to monitor 11/17/2024 Cough (ICD-10 - R05.9) patie nt states that it started out as an illness like the flu. sounds allergic at present 07/22/2024 Obstructive sleep ap rosario (ICD-10 - G47.33) 05/15/2024 Prostatism (ICD-10 - N40.0) 05/20/2024 Prostatism (ICD-10 - N40.0) patient verbalized understanding of medication and directions for use 07/22/2024 Hypersomnia (ICD-10 - G47.10) 05/20/2024 Pure hypercholesterolemia (ICD-10 - E78.00) stable, willcontinue current regiment 07/22/2024 Insomnia (ICD-10 - G47.00) 05/20/2024 Colon cancer screeni ng (ICD-10 - Z12.11) guaiac negative 05/20/2024 Depression screening (ICD-10 - Z13.31) negative screen Plan Of Treatment Pending Test Test Name Order Date Electrocardiogram (EKG) 02/21/2019 XR CHEST 2 VIEW PA & LAT 01/27/2025 US LEG BILATERAL VENOUS DOPPLER 09/12/20 22 Sleep Study - Baseline 07/22/2024 Next Appt Details Provider Name:Pablo lozoya, 05/15/2025 07:45:00 AM, [address] [place] [address], [address], [place], [place], [phone], Provider Name:Pablo lozoya, 05/22/2025 09:30:00 AM, [address] [place] [address], [address], [place], [place], [phone], Insurance Providers Payer Name Payer Address Payer Phone Subscriber Number Group Number Insured Name Patient Relationship to Insured Coverage Start Date Coverage End Date [employer] [address] [place] [address] [id number] INDY MENDEZ Self - patient is the insured 9 [employer] [address] [place], [place] [phone] [id number] INDY MENDEZ Self - patient is the insured Medical (General) History Medical History History ICD Code 2002 had an infection from [employer] was in hospital for 6 mo. colonoscopy 01/2013. repeat 1 0 years09/01/24 colonoscopy, no further testing required Surgical History Surgery Date(Month/Year) Excision of dermal lesion in lt buttocks by Dr. Mandujano 08/2016
--- OUTSIDE RECORDS SUMMARY | 2025-01-27 15:39 | XMS_ITS ---
Author Organization [facility] Address [address] [place] [address] Care Team Providers Care Public Safety Director Name Role Phone Pabol Schwartz MD Primary Care Provider Gómez Lopez [phone] REASON FOR VISIT screening Problems Problem Type SNOMED Code ICD Code Onset Dates Problem Status W/U Status Risk Notes Problem Diverticular disease of colon (800255160) Diverticulosis of large intestine without perforation or abscess without bleeding (K57.30) Active confirmed Encounters Encounter Location Date Provider Diagnosis [facility] [address] [place] [id number] 09/01/2024 Gómez Giraldo Colon cancer scree [facility]erson [...] * INDY MENDEZDOB: 4 (69 yo M)Acc No.[id number]:09/01/2024 COLON WITH MAC Patient:?VANESSA INDY Provider:?Gómez Giraldo MD :1955???Age:68 Y???Sex:Male Juan e:09/01/2024 Address:[address] [place], [place] [phone] Pcp:Pablo Schwartz MD Subjective: * Chief Complaints: * ???1. Screening. * Medical History:? Objective: * Vitals:? Assessment: * Assessment: 1.?Colon cancer screening - Z12.11 (Primary)???2.?Diverticulosis of large intestine without perforation or abscess without bleeding - K57.30???3.?Other hemorrhoids - K64.8??? Plan: * Treatment: * Procedure Codes:?G0121 COLOR EC CNCR SCR;COLNSCPY NO HI RSK, 0529F INTRVL 3+YRS PTS CLNSCP DOCD, 0528F RCMND FLW-UP 10 YRS DOCD, Modifiers: 1P * * The named appointment provid er may or may not be the originator of this progress note, and it is not deemed complete until electronically signed by the appointment provider. Sign off status: Pending * Provider:?Gómez Giraldo MD Date:? 024 Generated for Kenya navarrete/Carly/eTloismitting on:?01/27/2025 12:49 PM EDT
--- OUTSIDE RECORDS SUMMARY | 2025-01-27 15:39 | XMS_ITS ---
Author Organization Pablo Schwartz MD Address [address] [place], [place] [id number] Care Team Providers Care Weed Thinner Name Role Phone Pablo Schwartz Primary Care Provider Results Component Value Reference Range Notes Liver Panel Reviewed date:11/11/2024 02:49:48 PM Interpretation: Performing Lab:[facility], [address] [place] [phone] Notes/Report: Bilirubin Total 2.0 0.0-1.0 mg/dL SLIGHT ICTE YOUNG Bilirubin Direct 0.5 0.0-0.5 mg/dL SLIGHT ICT ERUS Aspartate Amino Transferase 24 5-37 U/L Alanine Aminotransferase 18 0-40 U/L Total Protein 7.3 6.5-8.0 g/dL Albumin Level 4.0 3.5-5.0 g/dL Alkaline Phosphatase 68 39-117 U/L Glucose Fasting Reviewed date:11/11/2024 02:41:45 PM Interpretation: Performing Lab:[facility], [address] [place] [phone] Notes/Report: Glucose Fasting 192 60-99 mg/dL A fasting glucose of 126 mg/dl or greater on more than one occasion is considered diagnostic of diabetes. Lipid Panel with Reflex Reviewed date:11/11/2024 04:44:08 PM Interpretation: Performing Lab:[facility], [address] [place] [phone] Notes/Report: Triglycerides 76 <150 mg/dL Desirable Triglyceride: [...] A1c Reviewed date:11/11/2024 12:39:23 PM Interpretation: Performing Lab:[facility], [address] [place] [phone] Notes/Report: Hemoglobin A1c % 7.5 <6.0 % [...] average glucose, using the formula of the Q5K-Oevaflg Average Glucose study (ADAG), Diabetes Care, Vol.31,#8, 2007 REASON FOR VISIT fasting lipids Encounters Encounter Location Date Provider Diagnosis Pablo Schwartz MD [address] [place] [address] [address] [place], [place] [phone] 11/11/2024 Pablo Schwartz Type 2 diabetes jhony itus without complication E11.9 and Pure hypercholesterolemia E78.00 Assessments Encounter Date Diagnosis (ICD Code) Assessment Notes Treatment Notes Treatment Clinical Notes Section Notes 11/11/2024 Type 2 diabetes jhony itus without complication (ICD-10 - E11.9) 11/11/2024 Pure hypercholesterolemia (ICD-10 - E78.00) Plan Of Treatment Next Appt Details Provider Name:Pablo Paz Deanna lozoya, 05/15/2025 07:45:00 AM, [address], [address], [place], [place], [phone], Provider Name:Pablo Jackson Richardosmin daciar, 05/22/2025 09:30:00 AM, [address], [address], [place], [place], [phone], Progress Notes * INDY MENDEZ MDOB: [birth year] (69 yo M)Acc No.[id number]:11/11/2024 Progress Note Patient:?VANESSAINDY LUIS Provider:?Pablo Schwartz MD :1955???Age:69 Y???Sex:Male Juan e:11/11/2024 Address:[address] [place], [place] [phone] Subjective: * Chief Complaints: * ???1. Fasting [...] Time - 11/11/2024 07:15 AM) * Procedure Codes:?19885 VENIP UNCT, ROUTINE* * * The named appointment provid er may or may not be the originator of this progress note, and it is not deemed complete until electronically signed by the appointment provider. Sign off status: Pending * Provider:?Pablo Schwartz MD Date:?0 11/11/2024 Generated for Kenya navarrete/Carly/Jaxsnoitting on:?01/27/2025 03:39 PM EDT
--- OUTSIDE RECORDS SUMMARY | 2025-01-27 15:39 | XMS_ITS | Clinical Summary ---
Author Organization [facility] ity Address [address] [place] [address] Care Team Providers Care Quality Checker Name Role Phone Unavailable Primary Care Provider [...] - 2023-2 5 season) 2024 Influenza Vaccine (Season Ended) 2025 RSV Immunization Adult Patie nts (1 - 1-dose 75+ series) 2028 HIB [...] age to complete this topic Meningococcal B Vaccine Aged Out No l onger eligible based on patient's age to complete this topic RSV Immunization Patients Un george 20 months Aged Out No longer eligible b ased on patient's age to complete this topic Varicella Vaccines Aged Out No longer eligible based on patient's age to complete this topic
--- OUTSIDE RECORDS SUMMARY | 2025-01-27 15:39 | XMS_ITS ---
Author Organization [facility] Address [address] [place] [phone] Care Team Providers Care Potash Flaker Name Role Phone Pbalo Schwartz MD Primary Care Provider Gómez Lopez [phone] Encounters Encounter Location Date Provider Diagnosis [facility] [address] [place] [phone] 05/28/2024 Gómez Giraldo Plan Of Treatment No Information Progress Notes * INDY MENDEZDOB: (68 yo M)Acc No.[id number]:05/28/2024 Patient:?INDY MENDEZ :1955???Age:68 Y???Sex:Male Address:[address] [place] [address], [address] Subjective: * Chief Complaints: * ??? * Medical History:? * Surgical History:? * Hospitalization/Major Diagno stic Procedure:? * Medications:? Objective: Assessment: Plan: * Treatment: * Procedure Codes:? * Preventive Medicine:? ??Screenings:?Fall Risk Screening?Plan of Care:?Documented,?Type of fall plan of care:?Balance, strength and gait training or instruction provided.? * true * Date:? Generated for Kenya navarrete/Carly/eTloismitting on:?01/27/2025 12:49 PM EDT
--- OUTSIDE RECORDS SUMMARY | 2025-01-27 15:40 | XMS_ITS ---
Author Organization Pablo Schwartz MD Address [address] [place], [place] [phone] Care Team Providers Care Color Television Console Monitor Name Role Phone Pablo Schwartz Primary Care [...] Referred Provider Specialty Urology Referral Priority Routine REASON FOR VISIT Wants a referral to [...] kg/m2 01/27/2025 weight is down 5 pounds [facility] e 11-17-24 Encounters Encounter Location Date Provider Diagnosis Pablo Schwartz MD [address] [place] [address] [place] [phone] 01/27/2025 Pablo Schwartz Type 2 diabetes mellitus [...] - N40.0) referral to dr dacosta in [place] Plan Of Treatment Medication Medication Name Sig [...] patient Prostatism referral to dr dacosta [place] Pending Test Test Name Order Date XR CHEST 2 VIEW PA & LAT 01/27/2025 Referrals Referral Date Details 01/27/2025 01/27/2025, prostati KATE rice Next Appt Details Provider Name:Pablo lozoya, 05/15/2025 07:45:00 AM, [address], [address], [place], [phone], Provider Name:Pablo Huerta ier, 05/22/2025 09:30:00 AM, [address], [address], [place], [phone], Progress Notes * INDY MENDEZ MDOB: [birth year] (69 yo M)Acc No.[id number]:01/27/2025 Progress Notes Patient:?INDY MENDEZ Provider:?Pablo Schwartz MD :1955???Age:69 Y???Sex:Male Juan e:01/27/2025 Address:[address] [place], [place] [phone] Subjective: * Chief Complaints: * ???1. Wants a referral to Ur ology. * HPI: ???Symptom(s):?patient is a 69 yo male here to discuss referral to Urology/ having frequent uriantion. / also having a lot of coughing and phlegm. losing voice when talking and getting diarrhea from the metformin. having erectile dysfunction. * ROS:?General/Constitutional:?Denies?Chills.?Denies?Fatigue.?Denies?Fever.?Denies?Headache.?ENT:?Denies?Sore throat.?Endocrine:?Admits?Difficulty sleeping.?Denies?Dizziness.?Denies?Excessive sweating.?Denies?Excessive thirst.?Admits?Frequent urination.?Respiratory:?Denies?Cough.?Denies?Shortness of breath at rest.?Denies?Shortness of breath with exertion.?Gastrointestinal:?Admits?Diarrhea.?Denies?Nausea.?Genitourinary:?Denies?Abdominal pain/swelling.?Denies?Blood in urine.?Denies?Difficulty urinating.?Admits?Frequent urination.? * Medical History:?2002 had an infection from nereida lozadaard was in hospital for 6 mo., Colonoscopy 01/2013. repeat 10 09/01/24 colonoscopy, no further testing required. * Medications:?Taking OneTouch Verio - Strip TEST ONCE A DAY , Taking OneTouch Verio - Strip as directed In Vitro daily , Taking Sildenafil Citrate 100 MG Tablet TAKE ONE TABLET BY MOUTH ONCE DAILY IF NEEDED , Taking Tamsulosin HCl 0.4 MG Capsule take 1 capsule by mouth every day for 90 days twice a day , Taking NIFEdipine ER 60 MG Tablet Extended Release 24 Hour TAKE 1 TABLET BY MOUTH EVERY DAY , Taking metFORMIN HCl 500 MG Tablet TAKE 2 TABLET BY MOUTH TWICE A DAY WITH MEALS , Taking Rosuvastatin Calcium 20 MG Tablet TAKE 1 TABLET BY MOUTH EVERY DAY , Taking Potassium Chloride ER 10 MEQ Tablet Extended Release TAKE 1 TABLET BY MOUTH EVERY DAY WITH FOOD , Taking Lisinopril-hydroCHLOROthiazide 20-25 MG Tablet TAKE 1 TABLET BY MOUTH EVERY DAY , Medication List reviewed and reconciled with the patient * Allergies:?N.K.D.A. Objective: * Vitals:?Ht: 68, Wt: 258, BMI :39.22, BP:142/90, Repeat BP:120/78, Wt-k.03. weight is down 5 pounds since 11-17-24. * Examination: ???General Examination: ?GENERAL APPEARANCE:?hoarse voice at times. comes and goes..?HEAD:?normocephalic.?SKIN:?good turgor.?HEART:?regular rate and rhythm.?LUNGS:?no wheezes, rales, rhonchi, good air movement, clear to auscultation bilaterally.? Assessment: * Assessment: 1.?Type 2 diabetes mellitus without complication - E11.9 (Primary)???2.?Cough - R05.9???3.?Prostatism - N40.0??? Plan: * Treatment: ? Value Reference Range ?Hemoglobin A1c 6.7 ?LAB: Glucose, finger stick (Collection Date & Time - 01/27/2025)* ? Value Reference Range ?Value 146 Notes: stable, will continue current regiment??2.?Cough?Imaging: XR CHEST 2 VIEW PA & LAT Notes: pending diagnostic testing/ order given to patient??3.?Prostatism? Continue Tamsulosin HCl Capsule, 0.4 MG, take 1 capsule by mouth every day for 90 days, twice a day.?? Notes: referral to dr dacosta in [place]? Referral To:KATE DACOSTA??Urology ?Reason:prostatism * Procedure Codes:?93326 ASSAY , GLUCOSE, BLOOD QUANT, Modifiers: QW , 65259 GLYCATED HEMOGLOBIN TEST, Modifiers: QW * * The named appointment provid er may or may not be the originator of this progress note, and it is not deemed complete until electronically signed by the appointment provider. Sign off status: Pending * Provider:?Pablo Schwartz MD Date:?0 01/27/2025 Generated for Kenya navarrete/Carly/Jaxsonitting on:?01/27/2025 03:39 PM EDT History and Physical Notes * HPI [...] Provider Not es 01/27/2025 Pablo Schwartz ADAM prostatisjewel
--- OUTSIDE RECORDS SUMMARY | 2025-01-27 15:40 | XMS_ITS ---
Author Organization Pablo Schwartz MD Address [address] [place], [place] [phone] Care Team Providers Care Manager Packaging Name Role Phone Pablo Schwartz Primary Care [...] Location Date Provider Diagnosis Pablo Schwartz MD [address] [place] [phone] 11/17/2024 Pablo Schwartz Type 2 diabetes jhony [...] Up: 6 Months, Reason: Provider Name:Pablo lozoya, 05/15/2025 07:45:00 AM, [address] [place] [address], [address], [phone], Provider Name:Pablo lozoya, 05/22/2025 09:30:00 AM, [address] [place] [address], [address], [phone], Progress Notes * INDY MENDEZ MDOB: [birth year] (69 yo M)Acc No.[id number]:11/17/2024 Progress Notes Patient:?INDY MENDEZ Provider:?Pablo Schwartz MD :1955???Age:69 Y???Sex:Male Juan e:11/17/2024 Address: [place] , [facility] Subjective: * Chief Complaints: * ???6 months * HPI: ???Symptom(s):?patient is a 69 yo male her for 6 month follow up visit, complaining he ?has been coughing and sneezing for 5 weeks. going to rehab for shoulder. at times bad to sleep on. * ROS:?General/Constitutional:?Denies?Chills.?Denies?Fatigue.?Denies?Fever.?Denies?Headache.?ENT:?Patient denies?decreased sense of smell, any loss of taste, sore throat.?Patient complaining of?sneezing and congestion x 5 weeks.?Denies?Sore throat.?Respiratory:?Admits?Cough,?c/o cough x 5 weeks.?Denies?Shortness of breath at rest.?Denies?Shortness of breath with [...] Allergies:?N.K.D.A.yes[Aller gies Verified] Objective: * Vitals:?Ht: 68, Wt: 263, BMI :39.98, BP:120/78, Wt-k.3. * ???Past Orders: ???Lab:Lipid Panel with Refl ex (Order Date - 11/11/2024) (Collection Date & Time - 11/11/2024 07:15 AM) ? Value Reference Range ?Triglycerides 76 <150 - mg/dL ?Cholesterol 113 <200 - m g/dL ?LDL Cholesterol Calculated 62 <100 - mg/dL ?HDL Cholesterol 36 L >40 - mg/dL ???Lab:Hemoglobin A1c (Order - 11/11/2024) (Collection Date & Time - 11/11/2024 07:15 AM) ? Value Reference Range ?Hemoglobin A1c % 7.5 H <6. 0 - % ?Estimated Average Glucose 169 - mg/dL ???Lab:Liver Panel (Order Da te 11/11/2024) (Collection Date & Time - 11/11/2024 07:15 AM) ? Value Reference Range ?Bilirubin Total 2.0 H 0.0- 1.0 - mg/dL ?Bilirubin Direct 0.5 0.0 -0.5 - mg/dL ?Aspartate Amino Transferase 24 5-37 - U/L ?Alanine Aminotransferase 18 0-40 - U/L ?Total Protein 7.3 6.5-8. 0 - g/dL ?Albumin Level 4.0 3.5-5. 0 - g/dL ?Alkaline Phosphatase 68 39-117 - U/L ???Lab:Glucose Fasting (Orde r Date - 11/11/2024) (Collection Date & Time - 11/11/2024 07:15 AM) ? Value Reference Range ?Glucose Fasting 192 H 60-9 9 - mg/dL * Examination: ???General Examination: ?GENERAL APPEARANCE:?alert, well hydrated, in no distress.?HEAD:?normocephalic.?SKIN:?good turgor.?HEART:?regular rate and rhythm, no murmurs, rubs, gallops.?LUNGS:?no wheezes, rales, rhonchi, good air movement, clear to auscultation bilaterally.? Assessment: * Assessment: 1.?Type 2 diabetes mellitus without complication - E11.9 (Primary)???2.?Pure hypercholesterolemia - E78.00???3.?Cough - R05.9??? Plan: * Treatment: ? Value Reference Range ?Value 191 Notes: stable, running a bit high, will continue current regiment and continue to monitor? 2.?Pure hypercholesterolemia? Notes: stable, will continue current regiment??3.?Cough? Notes: patient states that it started out as an illness like the flu. sounds allergic at present ? * Procedure Codes:?80347 ASSAY , GLUCOSE, BLOOD QUANT, Modifiers: QW * Follow Up:?6 Months * * Sign off status: Completed true * Provider:?Pablo Schwartz MD Date:?0 11/17/2024 Generated for Kenya navarrete/Carly/eTransmitting on:?01/27/2025 03:39 PM EDT History and Physical [...]
--- OUTSIDE RECORDS SUMMARY | 2025-01-27 15:40 | XMS_ITS | Clinical Summary ---
Author Organization [facility] Address [address] [place] [address] Care Team Providers Care Cuff Presser Name Role Phone Pablo Schwartz MD Primary Care Provider [phone] Encounters Date Type Department Care Team Description 01/22/2025 Telephone [facility] [address] [facility] [address] [place] [phone] Provider, Generic Appointment; Other from Last 3 Months Social History Tobacco Use Types Packs/Day Years Used Date Smoking Tobacco: Never Assessed Sex and Gender Information Value Date Recorded Sex Assigned at Not on file Legal Sex Male 8:51 AM EDT Gender Identity Not on file Sexual Orientation Not on file Plan of Treatment Upcoming Encounters Date Type Department Care Team (Late st Contact Info) Description 06/11/2025 11:15 AM EDT Office Visit [facility] Urologic Surgery [address] [place] [phone] Mark Navarro MD [address] [place] [address] [place] [phone] Health Maintenance Due Date Last Done Comments Hepatitis C Virus Screening 1955 DTaP/Tdap/Td Vaccines (1 - Tdap) 1972 Colonoscopy 1998 Pneumococcal Vaccines 50+ (1 of 1 - PCV) 2003 Zoster (Shingles) Vaccine (1 of 2) 2003 RSV Vaccine 60 years and old er and Patients (1 - Risk 60-74 years 1-dose series) 2013 COVID-19 Vaccine (2023-2 5 season) 2024 Influenza Vaccine 04/17/2025 Hepatitis B Vaccines Aged Out No long er eligible based on patient's age to complete this topic Insurance [facility] MEDICARE PART A & B Care Teams Cuff Presser Relationship Specialty Start Date End Date Pablo Schwartz MD [address] [place] [address] [place] [address] PCP - General Internal Medicine 01/22/25
--- OUTSIDE RECORDS SUMMARY | 2025-01-27 15:40 | XMS_ITS ---
Author Organization [facility] Address [address] [place] [phone] Care Team Providers Care Mortgage Loan Reviewer Name Role Phone Pablo Schwartz MD Primary Care Provider Gómez Lopez Unavailable [phone] Allergies No Known Allergies REASON FOR VISIT Patient presents today for a COLON SCREENING Medications Medication SIG (Take, Route, Frequency, Duration) Notes Start Date End Date Status NIFEdipine 62mg Acti ve Meloxicam 15 MG 1 tablet Orally Once a day for 30 day(s) Not-Taking Lisinopril 20mg Acti ve hydroCHLOROthiazide 25mg Active potassium 1 tab Oral for 14 days Active Rosuvastatin Calcium 20 MG 1 tablet Oral ly Once a day for 30 day(s) Active metFORMIN HCl 500 MG 1 tablet with a michelle l Orally Once a day for 30 day(s) Active Social History Tobacco Use: Social History Observation Description Date Details (start date - stop date) Never Smoker NA - NA Tobacco Use/Smoking Question Answer Notes Patient is a nonsmoker Alcohol Screen Question Answer Notes Did you [...] Interpretation Positive Section Notes: He does not smoke; [address] inks occasionally Problems Problem Type SNOMED Code ICD Code Onset Dates Problem Status W/U Status Risk Notes Problem Colon cancer screening (967294856) Colon cancer screening (Z12.11) Active confirmed Problem Pre-procedure evaluation check (487894239) Encounter for other preprocedural examination (Z01.818) Active confirmed Problem Long-term current use of drug therapy (330710429) Encounter for long-term (current) use of high-risk medication (Z79.899) Active confirmed Vital Signs Temperature 98.9 degrees Fahrenheit 05/28/20 24 Blood pressure systolic 000 mm Hg 05/28/20 24 Blood pressure diastolic 00 mm Hg 024 Height 67 in 05/28/2024 Weight 264 lb 4 oz lbs 05/28/2024 BMI 41.38 kg/m2 05/28/2024 Encounters Encounter Location Date Provider Diagnosis [facility] [address] [place] [address] 05/28/2024 Gómez Giraldo Colon cancer screeni ng Z12.11 ; Encounter for other preprocedural examination Z01.818 and Encounter for long-term (current) use of high-risk medication Z79.899 Assessments Encounter Date Diagnosis (ICD Code) Assessment Notes Treatment Notes Treatment Clinical Notes Section Notes 05/28/2024 Colon cancer screening (ICD-10 - Z12.11) [...] again for allowing me to participate in Anselom's care. I shall continue to keep you advised of his progress. 05/28/2024 Encounter for long-term (current) use of [...] advised of his progress. Plan Of Treatment Treatment Notes Assessment Notes Colon cancer screening Do not take the Metformin the night before nor on the morning of the procedure. Do not take the Potassium and Hydrochlorothiazide the day before or on the day of the colonoscopy. Future Test Test Name Order Date COLONOSCOPY 05/28/2024 Next Appt Details Follow Up: prn, Reason: Progress Notes * INDY MENDEZDOB: [birth year] (68 yo M)Acc No.[id number]:05/28/2024 Progress Notes Patient:?INDY MENDEZ Provider:?Gómez Giraldo MD :1955???Age:68 Y???Sex:Male Juan e:05/28/2024 Address:[address] [place], [place] [phone] Pcp:Pablo Schwartz MD Subjective: * Chief Complaints: * ???Patient presents today fo r a COLON SCREENING * HPI: ???incontinence:? I saw Anselmo in the office today for evaluation of colorectal cancer screening. ?I last saw Anselmo in 2012, at which time he underwent a negative screening colonoscopy. He presently feels well. He enjoys a good appetite, without any significant heartburn or dysphagia. His bowel movements have been regular and without any signs of bleeding. He denies abdominal pain, jaundice, nor unintentional weight loss. He denies any known family history of colon cancer. * ROS:?General/Constitutional:?Change in appetite?denies.?Chills?denies.?Fatigue?denies.?Ophthalmologic:?Patient denies? Negative..?ENT:?Patient denies?Negative..?Respiratory:?Patient denies?No coughing/hemoptysis..?Cardiovascular:?Patient denies? No chest pain/orthopnea..?Gastrointestinal:?Comments?See HPI for details.?Genitourinary:?Patient denies? No dysuria/hematuria..?Musculoskeletal:?Patient denies? No specific arthralgias/myalgias..?Skin:?Patient denies?No rash/pruritus..?Neurologic:?Patient denies? No headaches/seizures..?Psychiatric:?Patient denies?Negative..? * Medical History:? * Surgical History:?Nasal poly ps Bilateral knee replacements in approx 2018 * Hospitalization/Major Diagno stic Procedure:?No Hospitalization History. * Family History:?Father: dece ased.?Mother: .? Negative for colorectal cancer. Brother of pancreatic cancer. * Social History:?Tobacco Use:?Tobacco Use/Smoking?Patient is a?nonsmoker.?Drugs/Alcohol:?Alcohol Screen?Did you have a drink containing alcohol in the past year??Yes,?How often did you have a drink containing alcohol in the past year??4 or more times a week (4 points),?How many drinks did you have on a typical day when you were drinking in the past year??1 or 2 drinks (0 point),?How often did you have 6 or more drinks on one occasion in the past year??Never (0 point),?Points?4,?Interpretation?Positive.?Miscellaneous:?Marital status: . Occupation: Retired. ???He does not smoke; 2 or 3 drinks occasionally. * Medications:?Takingpotassium 1 tab Oral Rosuvastatin Calcium 20 MG Tablet 1 tablet Orally Once a daymetFORMIN HCl 500 MG Tablet 1 tablet with a meal Orally Once a dayLisinopril 20mg hydroCHLOROthiazide 25mg NIFEdipine 62mg Taking potassium 1 tab Oral Taking Rosuvastatin Calcium 20 MG Tablet 1 tablet Orally Once a dayTaking metFORMIN HCl 500 MG Tablet 1 tablet with a meal Orally Once a dayTaking Lisinopril 20mg Taking hydroCHLOROthiazide 25mg Taking NIFEdipine 62mg Not- Taking/PRNMeloxicam 15 MG Tablet 1 tablet Orally Once a dayNot-Taking/PRN Meloxicam 15 MG Tablet 1 tablet Orally Once a dayDiscontinuedMoviPrep 100 GM Solution Reconstituted as directed Orally as directedMedication List reviewed and reconciled with the patientDiscontinued MoviPrep 100 GM Solution Reconstituted as directed Orally as directedMedication List reviewed and reconciled with the patient * Allergies:?N.K.D.A.yes[Aller gies Verified] Objective: * Vitals:?Wt: 264 lb 4 oz, Ht: 67 in, BMI:41.38 Index, BP: 000/00 mm Hg, Temp: 98.9. * Examination: ???General Examination: ?GENERAL APPEARANCE:?pleasant, well nourished, well developed, in no acute distress.?EYES:?sclera non-icteric.?ORAL CAVITY:?mucosa moist.?NECK/THYROID:?no cervical lymphadenopathy, neck supple.?SKIN:?nonjaundiced, no spider angiomata..?HEART:?S1, S2 normal.?LUNGS:?clear to auscultation bilaterally.?ABDOMEN:?normal bowel sounds, no guarding or rigidity, no hepatosplenomegaly, no masses palpable, soft, nontender, nondistended..?EXTREMITIES:?no edema.?NEUROLOGIC:?alert and oriented.? Assessment: * Assessment: 1.?Encounter for other prepr ocedural examination - Z01.818 (Primary)?2.?Colon cancer screening - Z12.11?3.?Encounter for long-term (current) use of high-risk medication - Z79.899? Overall, Anselmo appears to be d oing well. Given his age, his last colonoscopy [...] to keep you advised of his progress. Plan: * Treatment: Notes: Do not take the Metformin the night before nor on the morning of the procedure. Do not take the Potassium and Hydrochlorothiazide the day before or on the day of the colonoscopy. ? * Procedure Codes:?3017F COLOR ECTAL CA SCREEN DOC [id number] TOBACCO [id number] BP SCR NOT PRFRM REC REASON NOS * Preventive Medicine:? ??Counseling:?Care goal follow-up plan:?Above Normal BMI Follow-up?Giving encouragement to exercise,?BMI management provided?Yes.? ??Screenings:?Fall Risk Screening?Fall Risk Assessment:?One fall with injury in the past year.? * Follow Up:?prn * * Sign off status: Completed true * Provider:?Gómez Giraldo MD Date:? 024 Generated for Kenya navarrete/Carly/Max on:?01/27/2025 12:50 PM EDT History and Physical Notes * HPI (History of Present Illness) Category Sub-Category Detail Notes Category Not es incontinence I saw Anselmo in the office today for evaluation of colorectal cancer screening. I last saw Anselmo in 2012, at which time he underwent a negative screening colonoscopy. He presently feels well. He enjoys a good appetite, without any significant heartburn or dysphagia. His bowel movements have been regular and without any signs of bleeding. He denies abdominal pain, jaundice, nor unintentional weight loss. He denies any known family history of colon cancer. Examination Category Sub-Category Detail Notes Category Not es General Examination GENERAL APPEARANCE: pleasant , well nourished, well developed, in no acute distress EYES: sclera non-icteric NECK/THYROID: no cervical lymphade nopathy, neck supple HEART: S1, S2 normal LUNGS: clear to auscultatio n bilaterally ABDOMEN: normal bowel sounds, no guarding or rigidity, no hepatosplenomegaly, no masses palpable, soft, nontender, nondistended. NEUROLOGIC: alert and oriented SKIN: nonjaundiced, no spi george angiomata. EXTREMITIES: no edema ORAL CAVITY: mucosa moist
--- OUTSIDE RECORDS SUMMARY | 2025-01-27 15:40 | XMS_ITS ---
[facility] Care Team Organization Name Specialty Phone Email Start Date End Da te [facility] NARESH BLAKE Primary Care 01/22/2025 [facility] NO PCP Primary Care 06/03/2024
--- OUTSIDE RECORDS SUMMARY | 2025-01-27 15:40 | XMS_ITS | Data Portability ---
Author Organization [place] - [facility], [facility] Address [address] [place] [address] Care Team Providers Care [place] Tribunal Member Name Role Phone NARESH BLAKE Primary Care Provider Assessment No assessment recorded. Plan of Treatment Reminders Order Date Submit Date Provider Last Modified By Organization Details Last Modified Time Details Appointments None recorded. Lab None recorded. Referral physical therapist referral - DIAGNOSIS : Left shoulder calcific tendoniti s, slight contractu res; cervicalg ia2-3x/we ek x 6 weeksEval uate and TreatGoal : - Decrease pain/swel ling - Increase range of motion - Increase strength and/or endurance Recommend ed Modalitie s: - Heat prior to stretchin g- Ice at the end of the session- Additiona l modalitie s prn, but emphasis should be on manual therapyPr ecautions : WBAT, no motion restricti onsTherap eutic Exercise: - Cervical spine ROM and care - Passive, active-as sist, active range of motion as tolerated , focusing on gradual progressi on over time- Scapular shrugs/re tractions - should be major focus!- Submaxima l isometric rotator cuff strengthe jerson- Build to theraband and weight resistanc e (max 3lbs) as ableEmpha size importanc e of home program, 2x/day 2024 025 cstamand Not available 12:47:28 Procedures None recorded. Surgeries None recorded. Imaging XR, shoulder, 2 or more view - rm 111 l shoulder 4v 2023 024 [facility], [address], [place], [address], 07:44:19 Medication Orders None recorded. Patient TargetsNo targets recorded. Patient InstructionsNo instructions recorded. Reason for Referral Physical Therapist Referral for Calcific tendinitis of left shoulder DIAGNOSIS: Left shoulder calcific tendonitis, slight contractures; cervicalgia2-3x/week x 6 weeksEvaluate and TreatGoal: - Decrease pain/swelling - Increase range of motion - Increase strength and/or enduranceRecommended Modalities: - Heat prior to stretching- Ice at the end of the session- Additional modalities prn, but emphasis should be on manual therapyPrecautions: WBAT, no motion restrictionsTherapeutic Exercise: - Cervical spine ROM and care - Passive, active-assist, active range of motion as tolerated, focusing on gradual progression over time- Scapular shrugs/retractions - should be major focus!- Submaximal isometric rotator cuff strengthening- Build to theraband and weight resistance (max 3lbs) as ableEmphasize importance of home program, 2x/day Referring Physician: Soni Akins, Orthopedic Surgery, Encounter Date: 09/19/2024 Results Created Date Observation Date Name Description Value Unit Range Abnormal Flag Note LastModifiedBy Organization Detail LastModifiedTime 06/26/2006/26/2024 XR, shoul george, 2 or more view http:/ [email or web address] ?Encry pted=s hAaTro YD8dLq bEUv6g %2BXZw aYqtaq 0bqfl% 2Fg9IQ a4ajBk vP9nXo QUaueC m3YtLR FvZlgJ JJ8mAn HZtai3 0k5621 AC0Kqa 3iHVKG mKiQtr MwF INTERFACE [facility] [address] [facility] [address], [place], [address], 06/26/2024 11:01:19 06/26/2006/26/2024 XR, shoul george, 2 or more view http:/ [email or web address] ?Encry pted=s hAaTro YD8dLq bEUv6g %2BXZw aYqtaq 0bqfl% 2Fg9IQ a4ajBk vP9nXo QUaueC m3YtLR FvZlgJ JJ8mAn HZtai3 9j9960 AC0Kqa 3iHVKG mKiQtr MwF INTERFACE [facility] [address], [place], [address], 06/26/2024 11:01:22 09/07/20 24 09/06/2024 MRI, shoul george, w/o contr ast No observ ation record ed. [facility] [address], [place], [address], 09/08/2024 15:56:42 Result Notes None recorded. Problems Name Problem SNOMED Code Status Onset Date Resolution Date Notes Provider Name and Address Organization Details Recorded Time No complaints 426334851 Active Status : 'A'; Not Available [facility] 09:10:52 Problem Notes None recorded. Procedures Surgical History Date Name Laterality Status Provider Name and Address Organization Details Recorded Time Sports Shoulder completed Vilma Harry, SURVEY CREW CHIEF [address] [facility], [place], [address], [place] - [facility] 06/26/2024 12:08:39 Imaging Results Imaging Date Name Status LastModified by Organiz ation Details LastModified Time 06/26/2024 XR, shoulder, 2 or more view completed INTERFACE [facility] [address], [place], [address], 06/26/2024 11:01:19 06/26/2024 XR, shoulder, 2 or more view completed INTERFACE [facility] [address], [place], [address], 06/26/2024 11:01:22 09/06/2024 MRI, shoulder, w/o contrast [facility] [address], [place], [address], 09/08/2024 15:56:42 Procedure Notes None recorded. Medical Equipment None Reported. Allergies No known drug allergies Medications Name Sig Start Date Stop Date Status Note LastModified by Organization Details LastModified Time metformin 500 mg tablet TAKE 2 TABLET BY MOUTH TWICE A DAY WITH MEALS 90 active Not Available Not Available No t Available azithromycin 250 mg tablet TAKE 2 TABLETS BY MOUTH TODAY, THEN TAKE 1 TABLET DAILY FOR 4 DAYS DIRECTED active Not Available Not Available No t Available potassium chloride ER 10 mEq tablet,extende d release TAKE 1 TABLET BY MOUTH EVERY DAY WITH FOOD active Not Available Not Available No t Available sildenafil 100 mg tablet TAKE ONE TABLET BY MOUTH ONCE A DAY IF NEEDED active Not Available Not Available No t Available tamsulosin 0.4 mg capsule TAKE 1 CAPSULE BY MOUTH EVERY DAY active Not Available Not Available No t Available cephalexin 500 mg capsule TAKE 2 CAPSULES BY MOUTH 1 HOUR BEFORE APPT AND 2 CAPSULES 6 HOURS LATER active Not Available Not Available No t Available lisinopril 20 mg-hydrochloro thiazide 25 mg tablet TAKE 1 TABLET BY MOUTH EVERY DAY active Not Available Not Available No t Available nifedipine ER 60 mg tablet,extende d release TAKE 1 TABLET BY MOUTH EVERY DAY active Not Available Not Available No t Available rosuvastatin 20 mg tablet TAKE 1 TABLET BY MOUTH EVERY DAY active Not Available Not Available No t Available Vitals Date Recorded Body height Body mass index (BMI) Body weight Provider Name and Address Organization Details Last Updated DateTime 06/26/2024 175.26 cm 36.9 kg/m2 150285.[address] [facility] 06/26/2024 10:54:30 Date Recorded Body height Body mass index (BMI) Body weight Provider Name and Address Organization Details Last Updated DateTime 09/19/2024 175.26 cm 36.9 kg/m2 421337.09 g NARA ROBLERO [facility] 09/19/2024 14:55:33 Date Recorded Body height Body mass index (BMI) Body weight Provider Name and Address Organization Details Last Updated DateTime 11/13/2024 175.26 cm 36.9 kg/m2 138020.[address] [facility] 11/13/2024 08:34:45 Social History None recorded. Functional Status None recorded. Mental Status None recorded. Family History Nothing Reported. Medical History Condition Response Coronary Artery Disease N Anxiety/Depression N Emphysema N COPD N Pacemaker N Vascular Disease N Heart Trouble N Gastrointestinal Disease N Autoimmune disease N Inflammatory Joint disease N Orthotics N Arthritis N Blood Clot N Acid Reflux (GERD) N Cancer N Stroke N Circulation Problems N Rheumatoid Arthritis N Arrhythmia N Headaches N Fibromyalgia N Allergies/Hayfever N Breathing or lung disorders N Nerve Disorders N Thyroid Problems N Kidney/Bladder Problems N Anemia N Heart Attack (MS) N Cholesterol N Diabetes Y Bleeding Disorder N Seizures/Epilepsy N AIDS/HIV N Congestive Heart Failure (CHF) N Asthma N Peripheral Vascular Disease N Sleep Apnea Y Hepatitis N Heart Disease N Pulmonary Embolism N Hypertension Y Osteoporosis N Past Encounters Encounter ID Performer Location Encounter Start Date Encounter Closed Date Diagnosis/Indication Diagnosis SNOMED-CT Code Diagnosis ICD10 Code Diagnosis Note [id number] Vilma Piero, SURVEY CREW CHIEF [facility] [address] [place] [address] 06/26/2024 09:54:32 07/16/2024 07:44:18 Pain of left shoulder joint 4674591930 [id number] M25.788 [id number] MD [facility] [address] [place] [address] [place] [address] 09/19/2024 14:11:22 10/03/2024 12:47:28 Calcific tendinitis of left shoulder [id number] 57291 M75.32 [id number] Vilma Harry CNP [facility] [address] [place] [address] 11/13/2024 08:24:28 11/25/2024 12:47:26 Health Concerns Section Related Observation LastModified by Organization Detai ls LastModified Time None Recorded Concern Status LastModified by Organization Details LastModified Time None Recorded Advance Directives Directive None Recorded Payers Encounter Date Sequence Insurance Name Policy Number Policy [place] Covered Member ID [place] Member ID Guarantor Name 06/26/2024 1 [place] [employer] James Quintanilla [id number] James Quintanilla 06/26/2024 2 [place] [id number] James Quintanilla [id number] James Quintanilla 09/19/2024 2 [place] [id number] James Quintanilla [id number] James Quintanilla 09/19/2024 1 [place] [facility] James Quintanilla [id number] James Quintanilla 11/13/2024 2 [facility] [id number] James Quintanilla [id number] James Quintanilla 11/13/2024 1 [place] [facility] James Quintanilla [id number] James Quintanilla Notes Date Note Type Note Provider Name and Address Organization Details Recorded Time 06/26/2024 text/html is a 68-year-old gentleman who is here today for evaluation of his left shoulder. He reports that he was on a deck when he fell injuring his left shoulder. He reports ongoing shoulder pain since then no neurovascular changes no obvious weakness. He is here today for further evaluation. Vilma Harry, SURVEY CREW CHIEF [address] [facility] [address], [place], [address], [facility] 06/26/2024 12:09:07 09/19/2024 text/html Issue: Cervicalg ia, left shoulder impingement, calcific tendonitis Interval History: This is a 68-year-old gentleman who presents to clinic today for discussion of options for management of left shoulder pain. Notes a fall in February with mild pain following this episode. No improvement in symptoms with injection. It has been getting gradually worse over time. Pain is felt over the anterior aspect of the shoulder as well as in the neck and trapezial region. Exacerbated by abduction but also by neck range of motion. Aware of pain at nighttime. Past family, medical, social history and review of systems have been reviewed and updated on the medical history sheet saved to the patient's chart. A 12-point review of systems is negative x12 except as noted above and/or on the medical history sheet. Examination: Pleasant 68-year-old gentleman in no acute distress. 5 feet 9 inches, 250 pounds. On exam of the left upper extremity, skin over the shoulder is intact. No effusion, no gross atrophy. No point tenderness to palpation about the shoulder. Active and passive forward elevation 155 with fairly firm endpoint. Passive external rotation 60 with negative ER lag. Internal rotation L4. Mild pain at all end ranges of motion. 5/5 strength with scaption, IR, ER. Does have some pain with empty can testing. Negative Yergason's. Sensation intact in an axillary distribution. Fires EPL, FPL and intrinsics. Hand is warm and well-perfused. Cervical spine range of motion is well-preserved, however lateral rotation to the left and Spurling's to the left both reproduce some of his presenting complaint, particularly pain radiating over the superior aspect of the shoulder. Imagin views of the left shoulder ordered and obtained at [facility] 06/26/2024 were reviewed during the visit. These demonstrate a medium sized calcium deposit sitting within the substance of the rotator cuff on Grashey view. Type III acromion. Humeral head centered on axillary view. No proximal migration humeral head. Left shoulder MRI performed at [facility] 09/06/2024 independently reviewed by me on Ortho PACS during the visit today. This demonstrates mild tendinopathy of the posterior superior cuff. Possible calcific tendinitis. At least moderate AC arthrosis. Quite degenerative appearance to the biceps anchor, consistent with at least type I SLAP tear. Focal glenohumeral articular cartilage degeneration. Subscapularis appears to be intact with tendinopathy, no full-thickness tears that I can appreciate. Sublabral foramen is not Dundee complex anatomy. Long head biceps tendon once more normally within the bicipital groove. Modest subcoracoid effusion. Type III acromion. She is well I will Impression: 68-year-old xuhzr-nevm-pmszlcid gentleman with left shoulder pain following a fall in February, getting gradually worse over time. Imaging consistent with impingement and calcific tendinitis. On exam, also has evidence for impingement and rotator cuff distribution pain. His biggest complaint, however, is more neck and trapezial discomfort, which is elicited on cervical spine range of motion exam today. Plan: Findings and options for management reviewed with the patient. Given failure of cortisone injection to provide any meaningful relief, again some concern that some of the symptoms may actually be manifestation of cervical spine pathology. Would recommend a course of physical therapy to work both on shoulder range of motion and scapular posture as well as cervical spine range of motion care. Hopefully this helps alleviate a lot of his symptoms. If not, surgery for the shoulder would be last resort, to include calcium excision, SAD DCE and likely biceps tenotomy versus tenodesis. I would have some trepidation about recommending surgery, however, given the absence of improvement in his symptoms with previous cortisone injection and would reserve this for last resort only. [facility] speech recognition mobile battery technician software was used to create portions of this document. An attempt at proofreading has been made to minimize errors. Please call for corrections. Soni Akins MD [address], [place], [address], [facility] 10/08/2024 16:19:09 11/13/2024 text/html This is a 69-year-old gentleman here today for follow-up of his left shoulder. He had previous cortisone injection with limited relief followed up with Dr. Akins he had some calcific tendinitis along with a component of the discomfort coming from his cervical spine. He was referred to therapy and is here today for follow-up. He reports that he is feeling better in 2 nights where she developed some discomfort through the shoulder that seems to resolve Vilma Haryr CNP [address], [place], [address], [facility] 11/13/2024 09:02:57
--- OUTSIDE RECORDS SUMMARY | 2025-01-27 15:40 | XMS_ITS | Encounter Summary ---
Author Organization [facility] Address [address] [place] [address] Care Team Providers Care Fountain Helper Name Role Phone Pablo Schwartz MD Primary Care Provider [phone] Reason for Visit * Reason Onset Date Comments Appointment 01/22/2025 Other 01/22/2025 Encounter Details Date Type Department Care Team (Late st Contact Info) Description 01/22/2025 Telephone [facility] CALL [facility] [address] [facility] [address] [place] [address] Provider, Generic Appointment; Other Social History Tobacco Use Types Packs/Day Years Used Date Smoking Tobacco: Never Assessed Sex and Gender Information Value Date Recorded Sex Assigned at Not on file Legal Sex Male 8:51 AM EDT Gender Identity Not on file Sexual Orientation Not on file documented as of this encounter Plan of Treatment Upcoming Encounters Date Type Department Care Team (Late st Contact Info) Description 06/11/2025 11:15 AM EDT Office Visit [facility] Urologic Surgery [address] [place] [phone] Mark Navarro MD [address] [place] [address] [address] [place] [address] documented as of this encounter Visit Diagnoses Not on filedocumented in this encounter Care Teams Fountain Helper Relationship Specialty Start Date End Date Pablo Schwartz MD [address] [place] [address] [place] [address] PCP - General Internal Medicine 5/8/25 documented as of this encounter
== END 2025-01-27 14:32 | disposition home or self-care (01) ==
LOC: HO.XRAY 14:31
PROVIDERS: PCP Internal Medicine; Visit Provider Internal Medicine
DX: R05.9 Cough, unspecified (principal)
CPT/HCPCS: 71046

== ENCOUNTER → 2025-01-27 14:50 | Outpatient (BNV) | payer MEDICARE, BC, SELFPAY | PROVIDERS: PCP Internal Medicine; Visit Provider Radiology Diagnostic Radiology | DX: R05.9 Cough, unspecified (principal) | CPT/HCPCS: 71046 ==

== ENCOUNTER 2025-03-31 06:17 | Outpatient (REF) | payer MEDICARE, BC, SELFPAY ==
--- OUTSIDE RECORDS SUMMARY | 2025-03-31 06:21 | XMS_ITS | Clinical Summary ---
Author Organization [facility] Address [address] [place] [address] Care Team Providers Care [employer] Flatbed Truck Driver Name Role Phone Unavailable Primary Care Provider [...] 2023-2 5 season) 2024 Influenza Vaccine (#1) 2025 RSV Immunization Adult Patie nts (1 [...]
--- OUTSIDE RECORDS SUMMARY | 2025-03-31 06:21 | XMS_ITS ---
Author Name [facility] Unknown Care Team Organization Name Specialty Phone Email Start Date End Da te [facility] NARESH BLAKE Primary Care 01/22/2025 [facility] NO PCP Primary Care 06/03/2024
--- OUTSIDE RECORDS SUMMARY | 2025-03-31 06:21 | XMS_ITS | Encounter Summary ---
Author Organization [facility] Address [address] [place] [address] Care Team Providers Care White Goods Appliance Tech Name Role Phone Pablo Schwartz MD Primary Care Provider [phone] Reason for Visit * Reason Onset Date Comments Appointment 01/22/2025 Other 01/22/2025 Encounter Details Date Type Department Care Team (Late st Contact Info) Description 01/22/2025 Telephone [facility] UROLOGY CALL [facility] [address] [facility] [address] [place] [phone] Provider, Generic Appointment; Other Social History Tobacco [...] Office Visit [facility] Urolog[facility] Surgery [address] [place] [phone] Mark Navarro MD [address] [place] [address] [address] [place] [address] documented as of this encounter Visit Diagnoses Not on filedocumented in this encounter Care Teams [employer] App[employer] Tech Relationship Specialty Start Date End Date Pablo Schwartz MD [address] [place] [address] [place] [address] PCP - General Internal Medicine 5/8/25 documented as of this encounter
--- OUTSIDE RECORDS SUMMARY | 2025-03-31 06:21 | XMS_ITS | Data Portability ---
Author Organization [place] [facility], [facility] Address [address] [place] [address] Care Team Providers Care Warp Tier Name Role Phone NARESH BLAKE Primary Care Provider [phone] Assessment No assessment recorded. Plan of Treatment Reminders Order Date Submit Date Provider Last Modified By Organization Details Last Modified Time Details Appointments None recorded. Lab None recorded. Referral physical therapist referral - DIAGNOSIS : Left shoulder calcific tendoniti s, slight contractu res; cervicalg ia 2-3x/week x 6 weeks Evaluate and Treat Goal: - Decrease pain/swel ling - Increase range of motion - Increase strength and/or endurance Recommend ed Modalitie s: - Heat prior to stretchin g - Ice at the end of the session - Additiona l modalitie s prn, but emphasis should be on manual therapy Precautio ns: WBAT, no motion restricti ons Therapeut ic Exercise: - Cervical spine ROM and care - Passive, active-as sist, active range of motion as tolerated , focusing on gradual progressi on over time - Scapular shrugs/re tractions - should be major focus! - Submaxima l isometric rotator cuff strengthe jerson - Build to theraband and weight resistanc e (max 3lbs) as able Emphasize importanc e of home program, 2x/day 2024 025 cstamand Not available 12:47:28 Procedures None recorded. Surgeries None recorded. Imaging XR, shoulder, 2 or more view - rm 111 l shoulder 4v 2023 024 uyen [facility], [address], [place], [address], 07:44:19 Medication Orders None recorded. Patient TargetsNo [...] Flag Note LastModifiedBy Organization Detail LastModifiedTime 06/26/2006/26/2024 sheyla APONTE, 2 or more view [email or web address]:/ [email or web address] ?Encry pted=s hAaTro YD8dLq bEUv6g %2BXZw aYqtaq 0bqfl% 2Fg9IQ a4ajBk vP9nXo QUaueC m3YtLR FvZlgJ JJ8mAn HZtai3 1f1217 AC0Kqa 3iHVKG mKiQtr MwF INTERFACE [facility] Office [address] [facility] [address], [place], [address], 06/26/2024 11:01:19 06/26/20 24 06/26/2024 XRsheyla, 2 or more view http:/ [email or web address] ?Encry pted=s hAaTro YD8dLq bEUv6g %2BXZw aYqtaq 0bqfl% 2Fg9IQ a4ajBk vP9nXo QUaueC m3YtLR FvZlgJ JJ8mAn HZtai3 5a9404 AC0Kqa 3iHVKG mKiQtr MwF INTERFACE [facility] [address], [place], [address], 06/26/2024 11:01:22 09/07/20 24 09/06/2024 MRI, shoul george, w/o contr ast No observ ation record ed. ecarreiro [facility] [address], [place], [address], 09/08/2024 15:56:42 Result Notes Documentation Provider Name and Address Organization Details Recorded Time Xr, Shoulder, 2 Or More View : [email or web address] Encrypted=yrQeOtbCW9cJqtL Uv6g%1LPSlsWkdhr8fpwi%2Fg 0CJa5egQsyU0sOeQNkwnIh1Uq MMUvKcjHDL8sOyKOzvo84v271 4CO2Hem4fPXYWrZxUlzUkQ Not Available [facility] 06/26/2024 11:01: 20 Xr, Shoulder, 2 Or More View : [email or web address] Encrypted=jnPtHfnIE8jTkqK Uv6g%0JCHwpSridi4galy%2Fg 0ZRb1bzFqgW6dOrPIedzIn5Mw YZVeYipDJN9oVeXIslh13f127 7TJ7Bua3fWSXYyKhImaMrD Not Available [facility] 06/26/2024 11:01: 23 Problems Name Problem SNOMED Code Status Onset Date Resolution Date Notes Provider Name and Address Organization Details Recorded Time No complaints [id number] Active Status : 'A'; Not Available [facility] 4 09:10:52 Problem Notes None recorded. Procedures Surgical History Date Name Laterality Status Provider Name and Address Organization Details Recorded Time 4 Sports Shoulder completed Vilma Harry, DIRECTOR CHEMISTRY [address], [place], [address], [facility] 06/26/2024 12:08:39 Imaging Results None recorded. Procedure Notes None recorded. Medical Equipment None [...] Updated DateTime 09/19/2024 175.26 cm 36.9 kg/m2 600697.09 g NARA ROBLERO [facility] 09/19/2024 14:55:33 Date Recorded Body height Body mass index (BMI) Body weight Provider Name and Address Organization Details Last Updated DateTime 11/13/2024 175.26 cm 36.9 kg/m2 865637.09 g MOISÉS BUTLER [facility] 11/13/2024 08:34:45 Date Recorded Body height Body mass index (BMI) Body weight Provider Name and Address Organization Details Last Updated DateTime 06/26/2024 175.26 cm 36.9 kg/m2 982378.09 g MOISÉS BUTLER [facility] 06/26/2024 10:54:30 Social History None recorded. Functional Status None recorded. Mental Status None recorded. Family History Nothing Reported. Medical History Condition Response Allergies/Hayfever N Coronary Artery Disease N Anxiety/Depression N Breathing or lung disorders N Emphysema N Nerve Disorders N Thyroid Problems N COPD N Pacemaker N Anemia N Kidney/Bladder Problems N Vascular Disease N Heart Trouble N Heart Attack (AL) N Gastrointestinal Disease N Cholesterol N Diabetes Y Autoimmune disease N Bleeding Disorder N Inflammatory Joint disease N Orthotics N Arthritis N Seizures/Epilepsy N Blood Clot N AIDS/HIV N Congestive Heart Failure (CHF) N Acid Reflux (GERD) N Cancer N Stroke N Asthma N Circulation Problems N Peripheral Vascular Disease N Sleep Apnea Y Hepatitis N Heart Disease N Rheumatoid Arthritis N Arrhythmia N Pulmonary Embolism N Headaches N Fibromyalgia N Hypertension Y Osteoporosis N Past Encounters Encounter ID Performer Location Encounter Start Date Encounter Closed Date Diagnosis/Indication Diagnosis SNOMED-CT Code Diagnosis ICD10 Code Diagnosis Note [id number] Vilma Harry CNP [facility] [address] [place] [address] 06/26/2024 09:54:32 07/16/2024 07:44:18 Pain of left shoulder joint [id number] 9669841 M25.642 [id number] MD [facility] [place] [address] 09/19/2024 14:11:22 10/03/2024 12:47:28 Calcific tendinitis of left shoulder 9836295828 37575 M75.32 [id number] Vilma Harry CNP K[facility] [address] [address] 11/13/2024 08:24:28 11/25/2024 12:47:26 Health Concerns Section Related Observation LastModified by Organization Detai ls LastModified Time None Recorded Concern Status LastModified by Organization Details LastModified Time None Recorded Advance Directives Directive None Recorded Payers Insurance Date Sequence Insurance Name Policy Number Policy [place] Covered Member ID [place] Member ID Guarantor Name 11/11/2024 1 [place] [employer] James Quintanilla [id number] James Quintanilla 11/25/2024 2 [place] [id number] James Quintanilla [id number] James Quintanilla Notes Date Note Type Note [...] here today for further evaluation. Vilma Harry, DIRECTOR CHEMISTRY [address], [place], [address], [facility] 06/26/2024 12:09:07 09/19/2024 text/html Issue: Cervicalg ia, [...] the left shoulder ordered and obtained at [facility] 06/26/2024 were reviewed during the visit. These demonstrate a medium sized calcium deposit sitting within the substance of the rotator cuff on Grashey view. Type III acromion. Humeral head centered on axillary view. No proximal migration humeral head. Left shoulder MRI performed at [facility] 09/06/2024 independently reviewed by me on Ortho [...] I can appreciate. Sublabral foramen is not Trout complex anatomy. Long head biceps tendon once more normally within the bicipital groove. Modest subcoracoid effusion. Type III acromion. She is well I will Impression: 68-year-old kbazr-pmua-npszkbkn gentleman with left shoulder pain following a [...] would reserve this for last resort only. [facility] speech recognition marketing graphics specialist software was used to create portions of this document. An attempt at proofreading has been made to minimize errors. Please call for corrections. Soni Akins MD [address] [place], [address], [facility] 10/08/2024 16:19:09 11/13/2024 text/html This is a [...] the shoulder that seems to resolve Vilma Harry, DIRECTOR CHEMISTRY [address], [place], [address], [facility] 11/13/2024 09:02:57
--- OUTSIDE RECORDS SUMMARY | 2025-03-31 06:21 | XMS_ITS | Patient Health Record ---
Author Organization [facility] Address [address] [place] [address] Care Team Providers Care Lacing Operator Name Role Phone Lana SAAB, Pablo Primary Care Provider Gómez Lopez Unavailable [phone] Allergies No Known Allergies Results Component Value Reference Range Notes Glucose, Whole Blood Reviewed date:09/01/2024 10:19:54 PM Interpretation: Performing Lab:[facility], [address] [place] [address] Notes/Report: Glucose, Whole Blood 154 60-115 mg/dL METER # : [id number] Reason For Referral No Information Medications Medication [...] Status Risk Notes Problem Colon cancer screening (933452256) Colon cancer screening (Z12.11) Active confirmed Problem Pre-procedure evaluation check (693227895) Encounter for other preprocedural examination (Z01.818) Active confirmed Problem Diverticulosis o f large intestine without perforation or abscess without bleeding (K57.30) Active confirmed Problem Long-term current use of drug therapy (122851735) Encounter for long-term (current) use of high-risk medication (Z79.899) Active confirmed Vital Signs Temperature 98.9 degrees Fahrenheit 05/28/2024 Blood pressure diastolic 00 mm Hg 05/28/2024 Height 67 in 05/28/2024 Blood pressure systolic 000 mm Hg 05/28/2024 Weight 264 lb 4 oz lbs 05/28/2024 BMI 41.38 kg/m2 05/28/2024 Encounters Encounter Location Date Provider Diagnosis [facility] [address] [place] [id number] 09/01/2024 Gómez Giraldo Colon cancer screeni ng Z12.11 ; Diverticulosis of large intestine without perforation or abscess without bleeding K57.30 and Other hemorrhoids K64.8 [facility] [place] [address] 05/28/2024 Gómez Giraldo Colon cancer screeni ng Z12.11 ; Encounter for other preprocedural examination Z01.818 and Encounter for long-term (current) use of high-risk medication Z79.899 [facility] [address] [place] [address] 05/28/2024 Gómez Giraldo Assessments Encounter Date Diagnosis [...] [place] PO THELMA [address] [place] [address] [id number] INDY MENDEZ Self - patient is the insured [facility] [address] [place], [place] [id number] INDY MENDEZ Self - patient is the insured Medical (General) History Medical History History ICD Code Hyperlipidemia Hypertension He describes a hospitalizati on in early s for some type of infectious diarrhea, and describes undergoing colonoscopies at [facility] and [facility] during his evaluation-these were negative for polyps and he was advised to have another colonoscopy 10 years thereafter for screening Denies MT,CVA,Lung disease,renal disease Negative screening colonoscopy in 2012 Surgical History Surgery Date(Month/Year) Nasal polyps Bilateral knee replacements in approx 20 19
[2025-03-31 08:51] LABS: Prostate Specific Antigen 1.48 ng/mL (<0.05-4.0)
== END 2025-03-31 06:18 | disposition home or self-care (01) ==
LOC: HO.LAB 06:17
PROVIDERS: PCP Internal Medicine; Visit Provider Urology
DX: N40.1 Benign prostatic hyperplasia with lower urinary tract symptoms (principal); Z12.5 Encounter for screening for malignant neoplasm of prostate
CPT/HCPCS: 36415; 84153

== ENCOUNTER 2025-05-15 10:49 | Outpatient (REF) | payer MEDICARE, BC, SELFPAY ==
--- OUTSIDE RECORDS SUMMARY | 2024-09-01 08:40 | XMS_ITS ---
Author Organization [facility] Address [address] [place] [address] Care Team Providers Care Hostage Negotiator Name Role Phone Lana SAAB, Pablo Primary Care Provider Gómez Lopez [phone] REASON FOR VISIT screening Problems Problem Type SNOMED Code ICD Code Onset Dates Problem Status W/U Status Risk Notes Problem Diverticulosis o f large intestine without perforation or abscess without bleeding (K57.30) Active confirmed Encounters Encounter Location Date Provider Diagnosis [facility] [place] [address] [place] [phone] 09/01/2024 Gómez Giraldo Colon cancer scree jerson [...] Of Treatment No Information Progress Notes * INDY MENDEZDOB: 4 (69 yo M)Acc No.[id number]:09/01/2024 COLON WITH MAC Patient: INDY OLIVAS Provider: Adriana Giraldo MD :1955 A ge:68 Y S ex:Male Date:09/01/2024 Address:[address] [place], [place] [phone] Pcp:Pablo Schwartz MD Subjective: * Chief Complaints: [...] Pending * Provider: Adriana Giraldo MD Date: 1 11/02/2023 Generated for Kenya navarrete/Carly/Jaxsonitting on: 0 05/15/2025 11:28 AM EDT
--- OUTSIDE RECORDS SUMMARY | 2024-11-11 03:15 | XMS_ITS ---
Author Organization Pablo Schwartz MD Address [address] [place], [place] [phone] Care Team Providers Care Ship'S Pilot Name Role Phone Pablo Schwartz Primary Care Provider [phone] Results Component Value Reference Range Notes Liver Panel Reviewed date:11/11/2024 02:49:48 PM Interpretation: Performing Lab:[facility], [address] [place] [phone] Notes/Report: Bilirubin Total 2.0 0.0-1.0 mg/dL SLIGHT ICTE YOUNG Bilirubin Direct 0.5 0.0-0.5 mg/dL SLIGHT ICT ERUS Aspartate Amino Transferase 24 5-37 U/L Alanine Aminotransferase 18 0-40 U/L Total Protein 7.3 6.5-8.0 g/dL Albumin Level 4.0 3.5-5.0 g/dL Alkaline Phosphatase 68 39-117 U/L Glucose Fasting Reviewed date:11/11/2024 02:41:45 PM Interpretation: Performing Lab:[facility], [address] [place] [phone] Notes/Report: Glucose Fasting 192 60-99 mg/dL A fasting glucose of 126 mg/dl or greater on more than one occasion is considered diagnostic of diabetes. Lipid Panel with Reflex Reviewed date:11/11/2024 04:44:08 PM Interpretation: Performing Lab:[facility], [address] [place] [phone] Notes/Report: Triglycerides 76 <150 mg/dL Desirable Triglyceride: [...] A1c Reviewed date:11/11/2024 12:39:23 PM Interpretation: Performing Lab:[facility], [address] [place] [phone] Notes/Report: Hemoglobin A1c % 7.5 <6.0 % [...] average glucose, using the formula of the R5O-Xeujgow Average Glucose study (ADAG), Diabetes Care, Vol.31,#8, 2007 REASON FOR VISIT fasting lipids Encounters Encounter Location Date Provider Diagnosis Pablo Schwartz MD [address] [place] [address] [address] [place], [place] [phone] 11/11/2024 Pablo Schwartz Type 2 diabetes jhony itus without complication E11.9 and Pure hypercholesterolemia E78.00 Assessments Encounter Date Diagnosis (ICD Code) Assessment Notes Treatment Notes Treatment Clinical Notes Section Notes 11/11/2024 Type 2 diabetes jhony itus without complication (ICD-10 - E11.9) 11/11/2024 Pure hypercholesterolemia (ICD-10 - E78.00) Plan Of Treatment Next Appt Details Provider Name:Pablo Huerta ier, 05/22/2025 09:30:00 AM, [address] [facility] [address], [address], [place], [place], [phone], Progress Notes * INDY MENDEZ MDOB: [birth year] (69 yo M)Acc No.[id number]:11/11/2024 Progress Note Patient: INDY OLIVAS Provider: Prabhu Schwartz MD :1955 A ge:69 Y S ex:Male Date:11/11/2024 Address:[address] [place], [place] [phone] Subjective: * Chief Complaints: * 1 . [...] 0 11/11/2024 Generated for Kenya navarrete/Carly/Jaxsonitting on: 0 05/15/2025 11:29 AM EDT
--- OUTSIDE RECORDS SUMMARY | 2024-11-17 06:15 | XMS_ITS ---
Author Organization Pablo Schwartz MD Address [address] [place], [place] [phone] Care Team Providers Care Professor Of Historical Theology Name Role Phone Pablo Schwartz Primary Care Provider [phone] Allergies No Known Allergies Results Component Value [...] Location Date Provider Diagnosis Pablo Schwartz MD [address] [place] [address] [address] [place], [place] [phone] 11/17/2024 Pablo Schwartz Type 2 diabetes jhony [...] Follow Up: 6 Months, Reason: Provider Name:Pablo Huerta ier, 05/22/2025 09:30:00 AM, [address], [address], [place], [place], [phone], Progress Notes * INDY MENDEZ MDOB: [birth year] (69 yo M)Acc No.[id number]:11/17/2024 Progress Notes Patient: INDY OLIVAS Provider: Prabhu Schwartz MD :1955 A ge:69 Y S ex:Male Date:11/17/2024 Address:[address] [place], [place] [phone] Subjective: * Chief Complaints: * 6 months [...] Hospitalization/Major Diagno stic Procedure: * Medications: T akingOneTbhanuch Verio - Strip TEST ONCE A DAY [...] - mg/dL L ab:Liver Panel (Order Date 11/11/2024) (Collection Date & Time - 11/11/2024 [...] MD Date: 0 11/17/2024 Generated for [place] navarrete/Carly/eTloismitting on: 0 05/15/2025 11:29 AM EDT History and Physical Notes * HPI (History [...]
--- OUTSIDE RECORDS SUMMARY | 2025-01-27 10:30 | XMS_ITS ---
Author Organization Pablo Schwartz MD Address [address] [place], [place] [phone] Care Team Providers Care Traffic Engineering Director Name Role Phone Pablo Schwartz Primary Care [...] kg/m2 01/27/2025 weight is down 5 pounds [facility] e 11-17-24 Encounters Encounter Location Date Provider Diagnosis Pablo Schwartz MD [address] [place] [address] [place] [phone] 01/27/2025 Pablo Schwartz Type 2 diabetes mellitus [...] - N40.0) referral to dr dacosta in [place] Plan Of Treatment Medication Medication Name Sig [...] patient Prostatism referral to dr dacosta in [place] Pending Test Test Name Order Date XR CHEST 2 VIEW PA & LAT 01/27/2025 Referrals Referral Date Details 01/27/2025 01/27/2025, prostati sm, KATE DACOSTA Next Appt Details Provider Name:Pablo Huerta ier, 05/22/2025 09:30:00 AM, [address], [address], [place], [place], [phone], Progress Notes * INDY MENDEZ MDOB: [birth year] (69 yo M)Acc No.[id number]:01/27/2025 Progress Notes Patient: Gilberto MARTINEZTOBY INDY June Provider: Prabhu Schwartz MD :1955 A ge:69 Y S ex:Male Date:01/27/2025 Address:[address] [place], [place] [phone] Subjective: * Chief Complaints: * W ants [...] day.?? Notes: referral to dr dacosta in [place]? Referral To:KATE DACOSTA??Urology ?Reason:prostatism * Procedure Codes: 8 2947 ASSAY, GLUCOSE, BLOOD QUANT, Modifiers: QW 02257 GLYCATED HEMOGLOBIN TEST, Modifiers: QW * * Sign off status: Completed true * Provider: Prabhu Schwartz MD Date: 0 01/27/2025 Generated for Kenya navarrete/Carly/eTransmitting on: 0 05/15/2025 11:29 AM EDT History [...] Provider Not es 01/27/2025 Pablo Schwartz ADAM prostdomo
--- OUTSIDE RECORDS SUMMARY | 2025-02-05 05:46 | XMS_ITS ---
Author Organization Pablo Schwartz MD Address [address] [place] [phone] Care Team Providers Care All Source Collection Manager Name Role Phone Pablo Schwartz Primary Care Provider [phone] REASON FOR VISIT chest x-ray results Encounters Encounter Location Date Provider Diagnosis Pablo Schwartz MD [address] [facility] [address] [place] [phone] 02/05/2025 Pablo Schwartz Plan Of Treatment Next Appt Details Provider Name:Pablo Huerta ier, 05/22/2025 09:30:00 AM, [address] [place] [address], [address] [facility], [place], [place], [phone], Progress Notes * INDY MENDEZ MDOB: [birth year] (69 yo M)Acc No.[id number]:02/05/2025 Patient: INDY OLIVAS :1955 A ge:69 Y S ex:Male Address:[address] [place], [address] * true * Date: Generated for Printi ng/Faxing/eTransmitting on: 0 05/15/2025 11:28 AM EDT
--- OUTSIDE RECORDS SUMMARY | 2025-05-15 03:45 | XMS_ITS ---
Author Organization Pablo Schwartz MD Address [address] [place], [place] [phone] Care Team Providers Care Endocrinology Specialist Name Role Phone Pablo Schwartz Primary Care Provider Results Component Value Reference Range Notes Complete Blood Count Auto Di ff (Not yet reviewed by provider) Interpretation: Performing Lab:[facility], [address] [place] [phone] Notes/Report: White Blood Count 8.0 4.8-10.8 X10*3/uL [...] X10*3/uL NRBC Abs Auto 0.000 0.0-0.012 X10*3/uL UA ClnCatch+Micro w/rflx Cul t (Not yet reviewed by provider) Interpretation: Performing Lab:[facility], [address] [place] [phone] Notes/Report: Urine, Clean Catch Color Urine Dark Yellow Appearance Urine Clear PH 6.0 5.0-9.0 Glucose Urine UA 100 Negative mg/dL Urine Blood Negative Negative Specific [place] - Urine 1.025 1.005-1.025 Urine Protein Trace [...] Encounters Encounter Location Date Provider Diagnosis Pablo cShwartz MD [address] [place], [place] [phone] 05/15/2025 Pablo Schwartz Essential hypertensi on I10 [...] Prostatism (ICD-10 - N40.0) Plan Of Treatment Pending Test Test Name Order Date Complete Blood Count Auto Diff Comprehensive [place]. Panel Fast Lipid Panel 05/15/2025 PSA,Total (Free>4and<10) 05/15/2025 Microalbumin, Random 05/15/2025 Hemoglobin A1c 05/15/2025 UA ClnCatch+Micro w/rflx Cult 05/15/2025 Next Appt Details Provider Name:Pablo Huerat ier, 05/22/2025 09:30:00 AM, [address] [place] [address], [address], [place], [place], [phone], Progress Notes * INDY MENDEZ MDOB: [birth year] (69 yo M)Acc No.[id number]:05/15/2025 Progress Note Patient: Gilberto INDY MICHAUD Provider: Prabhu Schwartz MD :1955 A ge:69 Y S ex:Male Date:05/15/2025 Address:[address] [place], [place] [phone] Subjective: * Chief Complaints: * 1 . [...] - 05/15/2025 07:45 AM) L AB: Comprehensive [place]. Panel Fast L AB: Lipid Panel L AB: PSA,Total (Free>4and<10) L AB: Microalbumin, Random L AB: Hemoglobin A1c L AB: UA ClnCatch+Micro w/rflx Cult (Collection Date & Time - 05/15/2025 07:45 AM) 3. P ure hypercholesterolemia L AB: Complete Blood Count Auto Diff (Collection Date & Time - 05/15/2025 07:45 AM) L AB: Comprehensive [place]. Panel Fast L AB: Lipid Panel L AB: PSA,Total (Free>4and<10) L AB: Microalbumin, Random L AB: Hemoglobin A1c L AB: UA ClnCatch+Micro w/rflx Cult (Collection Date & Time - 05/15/2025 07:45 AM) 4. P rostatism L AB: Complete Blood Count Auto Diff (Collection Date & Time - 05/15/2025 07:45 AM) L AB: Comprehensive [place]. Panel Fast L AB: Lipid Panel L AB: PSA,Total (Free>4and<10) L AB: Microalbumin, Random L AB: Hemoglobin A1c L AB: UA ClnCatch+Micro w/rflx Cult (Collection [...] 0 05/15/2025 Generated for [place] navarrete/Carly/Jaxsonitting on: 0 05/15/2025 11:29 AM EDT
[2025-05-15 10:54] LABS: MANUAL DIFF FLAG NO
[2025-05-15 11:10] LABS: Appearance Urine Clear; Glucose Urine UA 100 mg/dL (Negative); PH 6.0 (5.0-9.0); Specific Gravity - Urine 1.025 (1.005-1.025)
[2025-05-15 11:11] LABS: Hematocrit 44.2 % (42.0-52.0); Hemoglobin 14.3 g/dl (14.0-18.0); Imm Gran Abs Auto 0.03 X10*3/uL (0.00-0.03); Imm Gran Pct Auto 0.4 % (0.0-0.4); Lymphocytes Absolute Auto 0.8 X10*3/uL (1.2-4.9); Mean Corpuscular HGB Conc 32.4 g/dl (31.0-36.0); Mean Corpuscular Hemoglobin 30.8 pg (27.0-33.0); Mean Corpuscular Volume 95.3 fL (80.0-98.0); NRBC Abs Auto 0.000 X10*3/uL (0.0-0.012); NRBC Pct Auto 0.0 /100WBC (0.0-0.2); Platelet Count 224 X10*3/uL (160-400); Red Blood Count 4.64 X10*6/uL (4.60-5.80); White Blood Count 8.0 X10*3/uL (4.8-10.8)
--- OUTSIDE RECORDS SUMMARY | 2025-05-15 11:29 | XMS_ITS | Clinical Summary ---
Author Organization [facility] Address [address] [place] [phone] Phone Care Team Providers Care Electric Screw Driver Operator Name Role Phone Pablo Schwartz MD Primary Care Provider Allergies No known active allergies Active Problems No known active problems Social History Tobacco Use Types Packs/Day Years Used Date Smoking Tobacco: Never Assessed Education Answer Date Recorded Are you interested in more education? Not on erica e 01/28/2023 Are you concerned about learning? Not on file 01/28/2023 No 01/28/2023 No 01/28/2023 Digital Access Answer Date Recorded No 02/11/2023 No 02/11/2023 No 02/11/2023 Reliable internet access at home? Not on file 02/11/2023 Device with a working camera? Not on file Sex and Gender Information Value Date Recorded Sex Assigned at Not on file Legal Sex Male 4:49 PM EST Gender Identity Not on file Sexual Orientation Not on file Plan of Treatment Health Maintenance Due Date Last Done Comments Adult Td,Tdap Booster 1955 LIPID PANEL 1955 DEPRESSION SCREENING 1965 SMOKING Hx and SMOKELESS TOB ACCO SCREENING 1966 HEPATITIS C SCREENING 1971 COLOGUARD 1998 FIT TEST 1998 FOBT 1998 SIGMOIDOSCOPY 1998 VIRTUAL COLONOSCOPY 1998 PNEUMOCOCCAL VACCINES (50+ y ears) (1 of 1 - PCV) 2003 ZOSTER VACCINES (1 of 2) 2003 COLONOSCOPY 10/06/2014 10/06/2004 COLORECTAL CANCER SCREENING 10/06/2014 COVID-19 VACCINE (2023-2 5 season) 2024 RSV VACCINE (1 - 1-dose 75+ series) 2028 HEPATITIS A VACCINES Aged Out No long er eligible based on patient's age to complete this topic HIB VACCINES Aged Out No longer eligi ble based on patient's age to complete this topic MENINGOCOCCAL VACCINES (ACWY) Aged Out No longer eligible based on patient's age to complete this topic MENINGOCOCCAL VACCINES (B) Aged Out N o longer eligible based on patient's age to complete this topic Medical Devices Not on file Procedures Procedure Name Priority Date/Time Associated Diagnosis Comments ENDOSCOPY, COLON 10/06/2004 12:0 0 AM EST from Last 3 Months or Most Recently Relevant to Health Maintenance Results * ENDOSCOPY, COLON (10/06/2004 12:00 AM EST) 10/06/2004 Narrative 10/06/2004 12:00 AM EST Report Number: [id number] Report Status: Final Type: Colonoscopy Date: 10/06/2004 Gastrointestinal Endoscopy Unit Patient Name: James Quintanilla Gender: M Exam Date: 10/06/2004 02:50 PM Procedure: Colonoscopy Indications: Chronic diarrhea, Weight loss. Previous colonoscopy showing colitis Providers: Gómez Ramos MD, Viola Shaffer RN Medicines: Midazolam 3 mg IV, Meperidine 60 mg IV Complications: No immediate complications Procedure: The risks and benefits of the procedure and the sedation options and risks were discussed with the patient. All questions were answered and informed consent was obtained. ASA Grade Assessment: P2 A patient with mild systemic disease. After obtaining informed consent, the endoscope was passed under direct vision. Throughout the procedure, the patient's blood pressure, pulse, and oxygen saturations were monitored continuously. The Colonoscope was introduced through the anus and advanced to the the ileum. The quality of the prep was excellent. The colonoscopy was accomplished without difficulty. The patient tolerated the procedure well. Findings: The terminal ileum was normal. Biopsies were taken with a cold forceps for histology. The colon (entire examined portion) was normal. Random biopsies were taken with a cold forceps for histology. Impression: - The terminal ileum is normal. This was biopsied. - The colon is normal. This was biopsied. - This procedure was done in [facility] [place], [id number] Signed Date: 10/06/2004 3:12:47 PM Note generated on 10/06/2004 2:51:06 PM CC letter to: Procedure Note Sys, Conversion Provider Not In - 10/06/2004 12:00 AM EST Report Number: [id number] Report Status:Final Type: Colonoscopy Date: 10/06/2004 Gastrointestinal Endoscopy Unit Patient Name: James Quintanilla Gender: M Exam Date: 10/06/2004 02:50 PM Procedure: Colonoscopy Indications: Chronic diarrhea, Weight loss. Previous colonoscopy showing colitis Providers: Gómez Ramos MD, Viola Shaffer RN Medicines: Midazolam 3 mg IV, Meperidine 60 mg IV Complications: No immediate complications Procedure: The risks and benefits of the procedure and the sedation options and risks were discussed with the patient. All questions were answered and informed consent was obtained. ASA Grade Assessment: P2 A patient with mild systemic disease. After obtaining informed consent, the endoscope was passed under direct vision. Throughout the procedure, the patient's blood pressure, pulse, and oxygen saturations were monitored continuously. The Colonoscope was introduced through the anus and advanced to the the ileum. The quality of the prep was excellent. The colonoscopy was accomplished without difficulty. The patient tolerated the procedure well. Findings: The terminal ileum was normal. Biopsies were taken with a cold forceps for histology. The colon (entire examined portion) was normal. Random biopsies were taken with a cold forceps for histology. Impression: - The terminal ileum is normal. This was biopsied. - The colon is normal. This was biopsied. - This procedure was done in [facility] [place], [address] Signed Date: 10/06/2004 3:12:47 PM Note generated on 10/06/2004 2:51:06 PM CC letter to: us Conversion Provider Not In Sys GI PROCEDURE ORDE RABHAM Final Result from Last 3 Months or Most Recently Relevant to Health Maintenance Insurance MEDICARE PART A & B Member Subscriber Plan / Payer (Ef fective 2018-Present) Name:James Quintanilla Member ID:[id number] Relation to Subscriber:Self Name:James Quintanilla Subscriber ID:[id number] Payer ID:[id number] Group ID:Not on file Type:Medicare Address: [employer] [address] MEDICARE PART A & B Member Subscriber Plan / Payer ( fective 2018-Present) Name:James Quintanilla Member ID:[id number] Relation to Subscriber:Self Name:James Quintanilla Subscriber ID:[id number] Payer ID:[id number] Group ID:Not on file Type:Medicare Address: [employer] [address] [place] [phone] [place] [address] MEDICARE PART A & B Member Subscriber Plan / Payer (Ef fective 2018-Present) Name:James Quintanilla Member ID:[id number] Relation to Subscriber:Self Name:James Quintanilla Subscriber ID:[id number] Payer ID:[id number] Group ID:Not on file Type:Medicare Address: [employer] [address] [place] [address] MEDICARE PART A & B Member Subscriber Plan / Payer (Ef fective 2018-Present) Name:James Quintanilla Member ID:[id number] Relation to Subscriber:Self Name:James Quintanilla Subscriber ID:[id number] Payer ID:[id number] Group ID:Not on file Type:Medicare Address: [employer] [address] [place] [address] MEDICARE PART A & B Member Subscriber Plan / Payer (Ef fective 2018-Present) Name:James Quintanilla Member ID:[id number] Relation to Subscriber:Self Name:James Quintanilla Subscriber ID:[id number] Payer ID:[id number] Group ID:Not on file Type:Medicare Address: [employer] [address] [place] [phone] [facility] MEDICARE PART A & B Member Subscriber Plan / Payer ( fective 2018-) Name:James Quintanilla Member ID:[id number] Relation to Subscriber:Self Name:James Quintanilla Subscriber ID:[id number] Payer ID:[id number] Group ID:Not on file Type:Medicare Address: [employer] [address] [place] [phone] [facility] MEDICARE PART A & B Member Subscriber Plan / Payer ( fective 2018-Present) Name:James Quintanilla Member ID:[id number] Relation to Subscriber:Self Name:James Qunitanilla June Subscriber ID:[id number] Payer ID:[id number] Group ID:Not on file Type:Medicare Address: [employer] [address] [place] [address] [place] [address] MEDICARE PART A & B Member Subscriber Plan / Payer (Ef fective 2018-Present) Name:James Quintanilla Member ID:[id number] Relation to Subscriber:Self Name:SocorroJames Subscriber ID:[id number] Payer ID:[id number] Group ID:Not on file Type:Medicare Address: [employer] [address] [place], [place] [phone] MEDICARE PART A & B Member Subscriber Plan / Payer (Ef fective 2018-Present) Name:James Quintanilla Member ID:[id number] Relation to Subscriber:Self Name:James Quintanilla Subscriber ID:[id number] Payer ID:[id number] Group ID:Not on file Type:Medicare Address: [employer] [address] [facility] [place] [address] [facility] Care Teams Electric Screw Driver Operator Relationship Specialty Start Date End Date Pablo Schwartz MD [address] [place] [address] [place] [address] PCP - General Internal Medicine 06/21/22 Additional Source Comments The information contained in this document represents components of the legal health record. It is not the complete legal health record.[facility]
--- OUTSIDE RECORDS SUMMARY | 2025-05-15 11:29 | XMS_ITS | Clinical Summary ---
Author Organization [facility] Address [address] [place] [address] Care Team Providers Care Metals Sales Representative Name Role Phone Unavailable Primary Care Provider [...] Vaccine ( - 2023-2 5 season) 2024 Depression Screening 09/17/2024 Influenza Vaccine (#1) 2025 RSV Immunization Adult [...]
--- OUTSIDE RECORDS SUMMARY | 2025-05-15 11:29 | XMS_ITS | Patient Health Record ---
Author Organization [facility] Address [address] [place] [address] Care Team Providers Care Refractory Products Supervisor Name Role Phone Lana SAAB, Pablo Primary Care Provider Gómez Lopez Unavailable [phone] Allergies No Known Allergies Results Component Value Reference Range Notes Glucose, Whole Blood Reviewed date:09/01/2024 10:19:54 PM Interpretation: Performing Lab:[facility], [address] [place] [phone] Notes/Report: Glucose, Whole Blood 154 60-115 mg/dL METER # : [id number] Reason For Referral No Information Medications Medication [...] Status Risk Notes Problem Colon cancer screening (899686560) Colon cancer screening (Z12.11) Active confirmed Problem Pre-procedure evaluation check (385601484) Encounter for other preprocedural examination (Z01.818) Active confirmed Problem Diverticulosis o f large intestine without perforation or abscess without bleeding (K57.30) Active confirmed Problem Long-term current use of drug therapy (742337270) Encounter for long-term (current) use of high-risk medication (Z79.899) Active confirmed Vital Signs Temperature 98.9 degrees Fahrenheit 05/28/2024 Blood pressure diastolic 00 mm Hg 05/28/2024 Height 67 in 05/28/2024 Blood pressure systolic 000 mm Hg 05/28/2024 Weight 264 lb 4 oz lbs 05/28/2024 BMI 41.38 kg/m2 05/28/2024 Encounters Encounter Location Date Provider Diagnosis [facility] [address] [place] [phone] 09/01/2024 Gómez Giraldo Colon cancer screeni ng Z12.11 ; Diverticulosis of large intestine without perforation or abscess without bleeding K57.30 and Other hemorrhoids K64.8 [facility] [address] [place] [phone] 05/28/2024 Gómez Giraldo Colon cancer screeni ng Z12.11 ; Encounter for other preprocedural examination Z01.818 and Encounter for long-term (current) use of high-risk medication Z79.899 [facility] [address] [place] [phone] 05/28/2024 Gómez Giraldo Assessments Encounter Date Diagnosis [...] [place] PO THELMA [address] [place] [address] [id number] INDY MENDEZ Self - patient is the insured [facility] [address] [place], [place] [phone] [id number] INDY MENDEZ Self - patient is the insured Medical (General) History Medical History History ICD Code Hyperlipidemia Hypertension He describes a hospitalizati on in early s for some type of infectious diarrhea, and describes undergoing [place] [facility] during his evaluation-these were negative for polyps and he was advised to have another colonoscopy 10 years thereafter for screening Denies OK,CVA,Lung disease,renal disease Negative screening colonoscopy in 2012 Surgical History Surgery Date(Month/Year) Nasal polyps Bilateral knee replacements in approx 20 19
--- OUTSIDE RECORDS SUMMARY | 2025-05-15 11:29 | XMS_ITS | Encounter Summary ---
Author Organization [facility] Address [address] [place] [address] Care Team Providers Care Biscuit Factory Worker Name Role Phone Pablo Schwartz MD Primary Care Provider [phone] Reason for Visit * Reason Onset Date Comments Appointment 01/22/2025 Other 01/22/2025 Encounter Details Date Type Department Care Team (Late st Contact Info) Description 01/22/2025 Telephone [facility] [address] [facility] [address] [place] [phone] Provider, Generic Appointment; Other Social History Tobacco [...] Description 06/11/2025 11:15 AM EDT Office Visit [facility] Urologic Surgery [address] [place] [phone] Mark Navarro MD [address] [place] [address] [address] [place] [address] documented as of this encounter Visit Diagnoses Not on filedocumented in this encounter Care Teams Biscuit Factory Worker Relationship Specialty Start Date End Date Pablo Schwartz MD [address] [place] [address] [place] [address] PCP - General Internal Medicine 5/8/25 documented as of this encounter
--- OUTSIDE RECORDS SUMMARY | 2025-05-15 11:29 | XMS_ITS | Patient Health Record ---
Author Organization Pablo Schwartz MD Address [address] [place], [place] [id number] Care Team Providers Care Technology Auditor Name Role Phone Pablo Schwartz Primary Care Provider Allergies No Known Allergies Results Component Value Reference Range Notes Hemoglobin A1c Reviewed date:01/27/2025 02:03:46 PM Interpretation: Performing Lab: Notes/Report: Hemoglobin A1c 6.7 Complete Blood Count Auto Di ff Reviewed date:05/15/2024 12:10:36 PM Interpretation: Performing Lab:[facility], [address] [place] [phone] Notes/Report: White Blood Count 7.7 4.8-10.8 X10*3/uL [...] 0.0-0.2 /100WBC Neutrophils Absolute Auto 4.4 2.0-8.3 x10*3/uL Imm Gran Abs Auto 0.02 0.00-0.03 X10*3/uL Lymphocytes Absolute Auto 2.0 1.2-4.9 X10*3/uL Monocytes Absolute Auto 0.9 0.1-1.2 X10*3/uL Eosinophils Absolute Auto 0.4 0.0-0.4 X10*3/uL Basophils Absolute Auto 0.1 0.0-0.2 X10*3/uL NRBC Abs Auto 0.000 0.0-0.012 X10*3/uL Comprehensive [place]. Panel Fa st Reviewed date:05/15/2024 12:13:30 PM Interpretation: Performing Lab:[facility], [address] [place] [phone] Notes/Report: Sodium 141 135-145 mmol/L Potassium 3.6 3.3-5.1 mmol/L Chloride 106 96-108 mmol/L Carbon Dioxide 29 22-29 mmol/L Anion Gap 10 12-20 Blood Urea Nitrogen 24 9-16 mg/dL Creatinine 1.02 0.5-1.4 mg/dL Estimated Glomerular Filt Rate > 60 NOTE: For -Bahrain[place] individuals, multiply the result by 1.210. Chronic [...] Panel Reviewed date:05/15/2024 12:05:41 PM Interpretation: Performing Lab:[address] [phone] Notes/Report: Triglycerides 72 <150 mg/dL Desirable Triglyceride: [...] (Free>4and<10) Reviewed date:05/15/2024 12:05:01 PM Interpretation: Performing Lab:[address] [phone] Notes/Report: PSA,Total (Free>4and<10) 1.36 0.00-4.00 ng/mL A [...] Random Reviewed date:05/15/2024 12:09:01 PM Interpretation: Performing Lab:[address] [address] Notes/Report: Creatinine Urine 101.21 Microalbumin Urine 18.0 Microalbum/Creatinine Ratio Ur 17.7 <30 ug/mg cr Albumin/Creatinine Ratio Reference Ranges: Normal: < 30 ug/mg creatinine Microalbuminuria: 30 - 300 ug/mg creatinine Clinical Albuminuria: > 300 ug/mg creatinine Hemoglobin A1c Reviewed date:05/15/2024 12:02:46 PM Interpretation: Performing Lab:[address] [phone] Notes/Report: Hemoglobin A1c % 6.7 <6.0 % [...] average glucose, using the formula of the M7J-Dbnswsm Average Glucose study (ADAG), Diabetes Care, Vol.31,#8, Apr. 2007 UA ClnCatch+Micro w/rflx Cul t Reviewed date:05/15/2024 05:09:09 PM Interpretation: Performing Lab:[address] [address] Notes/Report: Urine, Clean Catch Color Urine Yellow Appearance Urine Clear PH 6.5 5.0-9.0 Glucose Urine UA Negative Negative mg/dL Urine Blood Negative Negative Specific [place] - Urine 1.015 1.005-1.025 Urine Protein Negative Neg-Trace mg/dL Urine Ketones Negative Negative mg/dL Nitrite Urine Negative Negative Leukocyte Esterase Urine Negative Negative RBC Urine 0-2 0-2 /HPF WBC Urine 0-5 0-5 /HPF Squamous Epithelial Cell Urine 0-2 0-2 /HPF Bacteria Urine None Seen None Seen Hyaline Casts Urine 0-2 0-2 /LPF Liver Panel Reviewed date:11/11/2024 02:49:48 PM Interpretation: Performing Lab:[address] [phone] Notes/Report: Bilirubin Total 2.0 0.0-1.0 mg/dL SLIGHT ICTE YOUNG Bilirubin Direct 0.5 0.0-0.5 mg/dL SLIGHT ICT ERUS Aspartate Amino Transferase 24 5-37 U/L Alanine Aminotransferase 18 0-40 U/L Total Protein 7.3 6.5-8.0 g/dL Albumin Level 4.0 3.5-5.0 g/dL Alkaline Phosphatase 68 39-117 U/L Glucose Fasting Reviewed date:11/11/2024 02:41:45 PM Interpretation: Performing Lab:[address] [address] Notes/Report: Glucose Fasting 192 60-99 mg/dL A fasting glucose of 126 mg/dl or greater on more than one occasion is considered diagnostic of diabetes. Lipid Panel with Reflex Reviewed date:11/11/2024 04:44:08 PM Interpretation: Performing Lab:[facility], [address] [place] [phone] Notes/Report: Triglycerides 76 <150 mg/dL Desirable Triglyceride: [...] A1c Reviewed date:11/11/2024 12:39:23 PM Interpretation: Performing Lab:[address] [address] Notes/Report: Hemoglobin A1c % 7.5 <6.0 % [...] average glucose, using the formula of the O7J-Uqxmrtp Average Glucose study (ADAG), Diabetes Care, Vol.31,#8, Apr. 2007 Complete Blood Count Auto Di ff (Not yet reviewed by provider) Interpretation: Performing Lab:[facility], [address] [place] [phone] Notes/Report: White Blood Count 8.0 4.8-10.8 X10*3/uL [...] 0.0-0.2 /100WBC Neutrophils Absolute Auto 6.0 2.0-8.3 x10*3/uL Imm Gran Abs Auto 0.03 0.00-0.03 X10*3/uL Lymphocytes Absolute Auto 0.8 1.2-4.9 X10*3/uL Monocytes Absolute Auto 0.9 0.1-1.2 X10*3/uL Eosinophils Absolute Auto 0.3 0.0-0.4 X10*3/uL Basophils Absolute Auto 0.1 0.0-0.2 X10*3/uL NRBC Abs Auto 0.000 0.0-0.012 X10*3/uL UA ClnCatch+Micro w/rflx Cul t (Not yet reviewed by provider) Interpretation: Performing Lab:[facility], [address] [place] [phone] Notes/Report: Urine, Clean Catch Color Urine Dark Yellow Appearance Urine Clear PH 6.0 5.0-9.0 Glucose Urine UA 100 Negative mg/dL Urine Blood Negative Negative Specific [place] - Urine 1.025 1.005-1.025 Urine Protein Trace Neg-Trace mg/dL Urine Ketones Trace Negative mg/dL Nitrite Urine Negative Negative Leukocyte Esterase Urine Negative Negative RBC Urine 0-2 0-2 /HPF WBC Urine 0-5 0-5 /HPF Squamous Epithelial Cell Urine 0-2 0-2 /HPF Bacteria Urine None Seen None Seen Hyaline Casts Urine 0-2 0-2 /LPF Occult Blood, Stool, Guaiac Reviewed date:05/20/2024 12:14:00 PM Interpretation:Negative Performing Lab: Notes/Report: Negative Occult Blood, Stool, Guaiac Neg Glucose, finger stick Reviewed date:11/17/2024 10:07:43 AM Interpretation: Performing Lab: Notes/Report: Value 191 Glucose, finger stick Reviewed date:01/27/2025 01:57:03 PM Interpretation: Performing Lab: Notes/Report: Value 146 Glucose, Whole Blood Reviewed date:09/01/2024 12:18:10 PM Interpretation: Performing Lab:[facility], [address] [place] [phone] Notes/Report: Glucose, Whole Blood 154 60-115 mg/dL METER # : [id number] Derek Briones Reviewed date:11/11/2024 12:27:43 PM Interpretation: Performing Lab:[facility], [address] [place] [phone] Notes/Report: Derek Briones See Note Specimen held untested for 24 hours; Call to request Chemistry testing. XR chest 2V Reviewed date:01/27/2025 08:16:26 PM Interpretation: Performing Lab: Notes/Report: [address] [address] XRay Report Signed Patient: Indy Mendez MR#: [id number] : 1955 Acct:[id number] Age/Sex: 69 / M ADM Date: 01/27/25 Loc: HO.XRAY Attending Dr: Pablo Schwartz MD Ordering Physician: Pablo Schwartz MD Date of Service: 01/27/25 Procedure(s): XR chest 2V Accession Number(s): [id number] cc: Pablo Schwartz MD EXAMINATION: XR CHEST 2 VIEWS HISTORY: COUGH COMPARISON: Comparison is made with the prior examination dated 06/30/2022. FINDINGS: PA and lateral views of the chest are submitted. There are low lung volumes. The lungs are clear. There is no pleural effusion, pneumothorax, or pulmonary vascular congestion. The heart is normal in size. There is degenerative disc disease of the spine. XR/XR chest 2V IMPRESSION: Low lung volumes. No acute cardiopulmonary abnormality. Electronically signed by: Gómez Traore MD 01/27/2025 03:51 PM EDT RP Dictated By: Gómez Traore MD Signed By: <Electronically signed by Gómez Traore MD in OV> 01/27/25 1551 DD/ 1450 TD/TT: 01/27/25 1455 Collections Attorney: [place] [phone] XRay Report Signed Patient: Felipe Mendez MR#: [id number] : 1955 Acct:[id number] Age/Sex: 69 / M ADM Date: 01/27/25 Loc: [facility] Attending Dr: Pablo Schwartz MD Ordering Physician: Pablo Schwartz MD Date of Service: 01/27/25 Procedure(s): XR cristine st 2V Accession Number(s): [id number] cc: Pablo Schwartz MD EXAMINATION: XR CHES T 2 VIEWS HISTORY: COUGH COMPARISON: Comparis on is made with the prior examination dated 06/30/2022. FINDINGS: PA and lateral views of the chest are submitted. There are low lung volumes. Th e lungs are clear. There is no pleural effusion, pneumothorax, or pulmonary vascular congestion. The heart is normal in size. There is degenerative disc disease of the spine. XR/XR chest 2V IMPRESSION: Low lung volumes. No acute cardiopulmonary abnormality. Electronically yomaira d by: Gómez Traore MD 01/27/2025 03:51 PM EDT RP Dictated By: Gómez Traore MD Signed By: <Electronically signed by Gómez Traore MD in OV> 01/27/25 1551 DD/ 1450 TD/TT: 01/27/25 1455 Collections Attorney: Reason For Referral Reason left rotator cuff [...] 01:34:31 PM EDT > left message for pateitn to call Referral Priority Routine Referral Appointment Date 06/26/2024 Reason ANIYAH need to go over sleep study result for C-pap settings Diagnosis 1 Obstructive sleep ap rosario (G47.33) Diagnosis 2 Hypersomnia (G47.10) Diagnosis 3 Insomnia (G47.00) Referral Organization Pablo Schwartz MD Referring Provider First Name Pablo Referring Provider Last Name Lana Referring Provider Speciality Internal edicine Referred Provider VALENTINA DUMONT Referred Provider Specialty Pulmonary Di seases General Notes Alisson Dyson 11:06:41 AM EST > Sleep study booked for 07-29-2024 at 7:30pm [place] [facility] [address], Annette 07/22/2024 11:09:55 AM EST > needs sleep study, orders entered and faxed to [facility] dept.. Per Medicare guide line patient needs a visit with his PCP explaining why, before he has sleep study done. This came from [facility] referral entered for [facility] client technical support associate for follow up for his setting on the C-pap machine. appt with PC on 07-24-2024Kiel Annette 09/04/2024 12:52:58 PM EST > left message for the Sleep Center to call, no reports yet , Alisson Dyson 09/04/2024 03:17:50 PM EST >referral , notes and Sleep study report faxed Kiel Annette 09/12/2024 10:45:53 AM EST > was told [...] Referral Priority Routine Referral Appointment Date 02/13/2025 Medications Medication SIG (Take, Route, Frequency, Duration) Notes Start Date End Date Status Tamsulosin HCl 0.4 MG TAKE 1 CAPSULE BY MOUTH EVERY DAY for 90 Active OneTouch Verio - TEST ONCE A DAY for 90 Active OneTouch Verio - as directed In Vitro daily for 90 days 04/28/2019 Active Sildenafil Citrate 100 MG TAKE ONE TABLE T BY MOUTH ONCE DAILY IF NEEDED for 30 Active metFORMIN HCl 500 MG TAKE 2 TABLET BY MO UTH TWICE A DAY WITH MEALS 90 for 90 Active Rosuvastatin Calcium 20 MG TAKE 1 TABLET BY MOUTH EVERY DAY for 90 Active Potassium Chloride ER 10 MEQ TAKE 1 TABLET BY MOUTH EVERY DAY WITH FOOD for 90 Active NIFEdipine ER 60 MG TAKE 1 TABLET BY CARMEN TH EVERY DAY for 90 Active Lisinopril-hydroCHLOROthiaz shyla 20-25 MG TAKE 1 TABLET BY MOUTH EVERY DAY for 90 Active Immunizations Vaccine Route Administration Date Status Comme nts Flu Vaccine Unknown 07/05/2015 Administered recived it at work at [facility] Fluarix Quadrivalent Unknown 06/26/2016 Administered BM C Tetanus Unknown 07/18/2016 Administered given at [facility] Flu Vaccine Unknown 07/03/2017 Administered given at [facility]. PPSV23 (Pnemovax) IM Intramuscular 01/28/2018 Administered Fluarix Quadrivalent IM Intramuscular 08/13/2018 Administe red Prevnar 13 IM Intramuscular 02/17/2019 Administered Influenza High Dose IM Intramuscular 07/31/2019 Administer ed pt was given the vaccine at [facility]. Fluarix Quadrivalent Unknown 07/30/2020 Administered CV S [...] Status W/U Status Risk Notes Problem Prostatism (83916200) Prostatism (N40.0) Active confirmed Problem Insomnia (881130502) Insomnia (G47.00) Active confirmed Problem Gilbert syndrome (69357474) Gilbert syndrome (E80.4) Active confirmed Problem 12258503 Essential hypert ension (I10) Active confirmed Problem 02347243 Type 2 diabetes mellitus without complication (E11.9) Active confirmed Problem 65117697 Type 2 diabetes, controlled, with neuropathy (E11.40) Active confirmed Problem Obstructive slee p apnea (G47.33) Active confirmed Problem 1456601336789 Vasculogenic ere ctile dysfunction, unspecified vasculogenic erectile dysfunction type (N52.9) Active confirmed Problem 95252391 Dysthymia (F34.1) Active confirmed Problem Hypersomnia (84999568) Hypersomnia (G47.10) Active confirmed Problem 695374437 Pure hypercholesterolemia (E78.00) Active confirmed Vital Signs [...] Pablo Schwartz MD [address] [place] [id number] 05/15/2024 Pablo Schwartz Essential hypertensi on I10 ; Type 2 diabetes mellitus without complication E11.9 ; Pure hypercholesterolemia E78.00 and Prostatism N40.0 Pablo Schwartz MD [address] [place] [id number] 11/11/2024 Pablo Schwartz Type 2 diabetes jhony itus without complication E11.9 and Pure hypercholesterolemia E78.00 Pablo Schwartz MD [address] [place] [id number] 05/15/2025 Pablo Schwartz Essential hypertensi on I10 ; Type 2 diabetes mellitus without complication E11.9 ; Pure hypercholesterolemia E78.00 and Prostatism N40.0 Pablo Schwartz MD [address] [place] [id number] 05/20/2024 Pablo Schwartz Strain of left rotat or cuff capsule, initial encounter S46.012A ; Essential hypertension I10 ; Type 2 diabetes mellitus without complication E11.9 ; Prostatism N40.0 ; Pure hypercholesterolemia E78.00 ; Colon cancer screening Z12.11 and Depression screening Z13.31 Pablo Schwartz MD [address] [place] [id number] 07/24/2024 Pablo Schwartz Obstructive sleep ap rosario G47.33 Pablo Schwartz MD [address] [facility] [address] [place] [id number] 11/17/2024 Pablo Schwartz Type 2 diabetes jhony itus without complication E11.9 ; Pure hypercholesterolemia E78.00 and Cough R05.9 Pablo Schwartz MD [address] [place] [id number] 01/27/2025 Pablo Schwartz Type 2 diabetes jhony itus without complication E11.9 ; Cough R05.9 and Prostatism N40.0 Pablo Schwartz MD [address] [facility] [address] [place] [id number] 07/22/2024 Pablo Schwartz Obstructive sleep ap rosario G47.33 ; Hypersomnia G47.10 and Insomnia G47.00 Pablo Schwartz MD [address] [facility] [address] [place] [id number] 02/05/2025 Pablo Schwartz Assessments Encounter Date Diagnosis (ICD Code) Assessment Notes Treatment Notes Treatment Clinical Notes Section Notes 05/15/2024 Essential hypertensi on (ICD-10 - I10) 05/15/2024 Type 2 diabetes mellitus without complication (ICD-10 - E11.9) 11/11/2024 Type 2 diabetes mellitus without complication (ICD-10 - E11.9) 05/15/2025 Essential hypertensi on (ICD-10 - I10) 05/20/2024 Strain of left rotat or cuff capsule, initial encounter (ICD-10 - S46.012A) referral to dr alexandra 07/24/2024 Obstructive sleep ap rosario (ICD-10 - G47.33) has ANIYAH and in need of sleep study since his old one is too old/ patient is booked for 07-29-2024 at 7:30pm [facility] site 11/17/2024 Type 2 diabetes mellitus without complication (ICD-10 - E11.9) stable, running a bit high, will continue current regiment and continue to monitor 11/17/2024 Pure hypercholesterolemia (ICD-10 - E78.00) stable, will continue current regiment 01/27/2025 Type 2 diabetes mellitus without complication (ICD-10 - E11.9) stable, will continue current regiment 01/27/2025 Cough (ICD-10 - R05.9) pendi ng diagnostic testing/ order given to patient 05/15/2024 Pure hypercholesterolemia (ICD-10 - E78.00) 11/11/2024 Pure hypercholesterolemia (ICD-10 - E78.00) 05/15/2025 Type 2 diabetes mellitus without complication (ICD-10 - E11.9) 05/20/2024 Essential hypertensi on (ICD-10 - I10) stable, at goal, albert continue current regiment 05/20/2024 Type 2 diabetes mellitus without complication (ICD-10 - E11.9) will continue current regiment and will continue to monitor 11/17/2024 Cough (ICD-10 - R05.9) taras nt states that it started out as an illness like the flu. sounds allergic at present 01/27/2025 Prostatism (ICD-10 - N40.0) referral to dr dacosta in [place] 07/22/2024 Obstructive sleep ap rosario (ICD-10 - G47.33) 05/15/2024 Prostatism (ICD-10 - N40.0) 05/15/2025 Pure hypercholesterolemia (ICD-10 - E78.00) 05/20/2024 Prostatism (ICD-10 - N40.0) patient verbalized understanding of medication and directions for use 07/22/2024 Hypersomnia (ICD-10 - G47.10) 05/15/2025 Prostatism (ICD-10 - N40.0) 05/20/2024 Pure hypercholesterolemia (ICD-10 - E78.00) stable, [...] 09/12/20 22 Sleep Study - Baseline 07/22/2024 Complete Blood Count Auto Diff 5 Comprehensive [place]. Panel Fast 5 Lipid Panel 05/15/2025 PSA,Total (Free>4and<10) 05/15/2025 Microalbumin, Random 05/15/2025 Hemoglobin A1c 05/15/2025 UA ClnCatch+Micro w/rflx Cult 05/15/2025 Next Appt Details Provider Name:Pablo lozoya, 05/22/2025 09:30:00 AM, [address], [address], [place], [place], [id number], Insurance Providers Payer Name Payer Address Payer Phone Subscriber Number Group Number Insured Name Patient Relationship to Insured Coverage Start Date Coverage End Date [employer] [address] [place] [address] [id number] INDY MENDEZ Self - patient is the insured [address] [employer] [facility] [address] [place], [place] [id number] INDY MENDEZ Self - patient is the insured Medical (General) History Medical History History ICD Code 2002 had an infection from [employer] [place] was in hospital for 6 mo. colonoscopy 01/2013. repeat 1 0 years09/01/24 colonoscopy, no further testing required Surgical History Surgery Date(Month/Year) Excision of dermal lesion in lt buttocks by Dr. Mandujano 08/2016
--- OUTSIDE RECORDS SUMMARY | 2025-05-15 11:30 | XMS_ITS | Clinical Summary ---
Author Organization [facility] Address [address] [place] [address] Care Team Providers Care Technician'S Helper Name Role Phone Pablo Schwartz MD Primary Care Provider [phone] Social History Tobacco Use Types Packs/Day Years Used Date Smoking Tobacco: Never Assessed Sex and Gender Information Value Date Recorded Sex Assigned at Not on file Legal Sex Male 8:51 AM EDT Gender Identity Not on file Sexual Orientation Not on file Plan of Treatment Upcoming Encounters Date Type Department Care Team (Late st Contact Info) Description 06/11/2025 11:15 AM EDT Office Visit [facility] Urologic Surgery [address] [place] [phone] Mark Navarro MD [address] [place] [address] [place] [phone] Health Maintenance Due Date Last Done Comments Advance Care Planning 1955 Hepatitis C Virus Screening 1955 DTaP/Tdap/Td Vaccines (1 - Tdap) 1972 Colonoscopy 1998 Pneumococcal Vaccines 50+ (1 of 1 - PCV) 2003 Zoster (Shingles) Vaccine (1 of 2) 2003 COVID-19 Vaccine ( - 2023-2 5 season) 2024 Influenza Vaccine 04/17/2025 RSV Vaccine 60 years and old er and Patients (1 - 1-dose 75+ series) 2028 Hepatitis B Vaccines Aged Out No long er eligible based on patient's age to complete this topic Insurance [facility] MEDICARE PART A & B Care Teams Technician'S Helper Relationship Specialty Start Date End Date Pablo Schwartz MD [address] [place] [address] [place] [address] PCP - General Internal Medicine 01/22/25
[2025-05-15 11:40] LABS: Alanine Aminotransferase 27 U/L (0-40); Albumin Level 4.0 g/dL (3.5-5.0); Alkaline Phosphatase 67 U/L (39-117); Anion Gap 12 (12-20); Aspartate Amino Transferase 31 U/L (5-37); Blood Urea Nitrogen 25 mg/dL (9-16); Calcium 9.5 mg/dL (8.4-10.2); Carbon Dioxide 28 mmol/L (22-29); Chloride 105 mmol/L (96-108); Cholesterol 119 mg/dL (<200); Estimated Glomerular Filt Rate > 60; HDL Cholesterol 42 mg/dL (>40); Hemoglobin A1C 202.4791 umol/L; Potassium 4.1 mmol/L (3.3-5.1); Sodium 141 mmol/L (135-145); Total Hemoglobin (HGBA1C) 3731.5487 umol/L; Total Protein 6.7 g/dL (6.5-8.0); Triglycerides 52 mg/dL (<150)
[2025-05-15 12:05] LABS: PSA,Total (Free>4and<10) 1.37 ng/mL (0.00-4.00)
[2025-05-15 12:09] LABS: Microalbum/Creatinine Ratio Ur 16.9 ug/mg cr (<30)
== END 2025-05-15 10:50 | disposition home or self-care (01) ==
LOC: HO.LNP 10:49
PROVIDERS: Visit Provider Internal Medicine
DX: Z12.5 Encounter for screening for malignant neoplasm of prostate (principal); I10 Essential (primary) hypertension; E11.9 Type 2 diabetes mellitus without complications; E78.00 Pure hypercholesterolemia, unspecified; N40.0 Benign prostatic hyperplasia without lower urinary tract symptoms
CPT/HCPCS: 80053; 80061; 81001; 82043; 82570; 83036; 84153; 85025

== ENCOUNTER 2025-07-24 11:13 | Outpatient (REF) | payer MEDICARE, BC, SELFPAY ==
--- OUTSIDE RECORDS SUMMARY | 2024-05-20 06:00 | XMS_ITS ---
Author Organization Pablo Schwartz MD Address [address] [place], [place] [id number] Care Team Providers Care Kitchen Mechanic Name Role Phone Pablo Schwartz Primary Care Provider Allergies No Known Allergies Results Component Value Reference Range Notes Occult Blood, Stool, Guaiac Reviewed date:05/20/2024 12:14:00 PM Interpretation:Negative Performing Lab: Notes/Report: Negative Occult Blood, Stool, Guaiac Neg REASON FOR VISIT labs reviewed, c/o left shoulder pain after a fall 3 months ago Medications Medication SIG (Take, Route, Frequency, Duration) Notes Start Date End Date Status Tamsulosin HCl 0.4 MG take 1 capsule by mouth every day for 90 days twice a day Active NIFEdipine ER 60 MG TAKE 1 TABLET BY CARMEN TH EVERY DAY Active Sildenafil Citrate 100 MG TAKE ONE TABLE T BY MOUTH ONCE DAILY IF NEEDED for 30 Active Rosuvastatin Calcium 20 MG TAKE 1 TABLET BY MOUTH EVERY DAY Active metFORMIN HCl 500 MG take 2 tablet by mo uth twice a day with meals Orally twice a day Active Lisinopril-hydroCHLOROthiaz shyla 20-25 MG TAKE 1 TABLET BY MOUTH EVERY DAY FOR 90 DAYS Active OneTouch Verio - TEST ONCE A DAY for 90 Active Potassium Chloride ER 10 MEQ TAKE 1 TABLET BY MOUTH EVERY DAY WITH FOOD for 90 Active OneTouch Verio - as directed In Vitro daily for 90 days 04/28/2019 Active Social History Tobacco Use: Social History Observation Description Date Details (start date - stop date) Never Smoker NA - NA Tobacco Use/Smoking Question Answer Notes Patient is a nonsmoker Additional Findings: Tobacco Non-User Cu rrent non-smoker, currently using no form of tobacco Alcohol Screen Question Answer Notes Did you have a drink contain ing alcohol in the past year? Yes How often did you have a dri nk containing alcohol in the past year? 2 to 3 times a week (3 points) How many drinks did you have on a typical day when you were drinking in the past year? 1 or 2 drinks (0 point) How often did you have 6 or more drinks on one occasion in the past year? Never (0 point) Points 3 Interpretation Negative Vital Signs Blood pressure systolic 128 mm Hg 05/20/20 24 Blood pressure diastolic 80 mm Hg 024 Height 68 in 05/20/2024 Weight 263 lbs 05/20/2024 BMI 39.98 kg/m2 05/20/2024 weight is up 13 pounds since 24 Encounters Encounter Location Date Provider Diagnosis Pablo Schwartz MD [address] [place] [address] [place] [phone] 05/20/2024 Pablo Schwartz Strain of left rotat or cuff capsule, initial encounter S46.012A ; Essential hypertension I10 ; Type 2 diabetes mellitus without complication E11.9 ; Prostatism N40.0 ; Pure hypercholesterolemia E78.00 ; Colon cancer screening Z12.11 and Depression screening Z13.31 Assessments Encounter Date Diagnosis (ICD Code) Assessment Notes Treatment Notes Treatment Clinical Notes Section Notes 05/20/2024 Strain of left rotat or cuff capsule, initial encounter (ICD-10 - S46.012A) referral to dr alexandra 05/20/2024 Essential hypertensi on (ICD-10 - I10) stable, at goal, albert continue current regiment 05/20/2024 Type 2 diabetes mellitus without complication (ICD-10 - E11.9) will continue current regiment and will continue to monitor 05/20/2024 Prostatism (ICD-10 - N40.0) patient verbalized understanding of medication and directions for use 05/20/2024 Pure hypercholesterolemia (ICD-10 - E78.00) stable, willcontinue current regiment 05/20/2024 Colon cancer screeni ng (ICD-10 - Z12.11) guaiac negative 05/20/2024 Depression screening (ICD-10 - Z13.31) negative screen Plan Of Treatment Medication Medication Name Sig Start Date Stop Date Notes Tamsulosin HCl 0.4 MG take 1 capsule by mouth every day for 90 days twice a day NIFEdipine ER 60 MG TAKE 1 TABLET BY CARMEN TH EVERY DAY Rosuvastatin Calcium 20 MG TAKE 1 TABLET BY MOUTH EVERY DAY metFORMIN HCl 500 MG take 2 tablet by mo uth twice a day with meals Orally twice a day Lisinopril-hydroCHLOROthiazi de 20-25 MG TAKE 1 TABLET BY MOUTH EVERY DAY FOR 90 DAYS Treatment Notes Assessment Notes Strain of left rotator cuff capsule, initial encounter referral to dr alexandra Essential hypertension stable, at goal, albert continue current regiment Type 2 diabetes mellitus without complic ation will continue current regiment and will continue to monitor Prostatism patient verbalized u nderstanding of medication and directions for use Pure hypercholesterolemia stable, willco ntinue current regiment Colon cancer screening guaiac negative Depression screening negative screen Next Appt Details Follow Up: 6 Months, Reason: Provider Name:Pablo lozoya, 08/25/2025 10:15:00 AM, [address] [place] [address], [address], [phone], Provider Name:Pablo lozoya, 11/20/2025 07:30:00 AM, [address] [place] [address], [address], [phone], Provider Name:Pablo lozoya, 11/26/2025 09:00:00 AM, [address] [place] [address], [address], [phone], Provider Name:Pablo lozoya, 05/18/2026 07:45:00 AM, [address] [place] [address], [address], [phone], Provider Name:Pablo lozoya, 05/25/2026 10:30:00 AM, [address] [place] [address], [address], [phone], Progress Notes * INDY MENDEZ MDOB: [birth year] (68 yo M)Acc No.[id number]:05/20/2024 Patient: INDY OLIVAS Provider: Prabhu Schwartz MD :1955 A ge:68 Y S ex:Male Date:05/20/2024 Address:[address] [place], [place] [phone] Subjective: * Chief Complaints: * L abs reviewedC/o left shoulder pain after a fall 3 months ago * HPI: D epression Screening: PHQ-9 L ittle interest or pleasure in doing things N ot at all, F eeling down, depressed, or hopeless N ot at all, T rouble falling or staying asleep, or sleeping too much N ot at all, F eeling tired or having little energy N ot at all, P oor appetite or overeating N ot at all, F eeling bad about yourself or that you are a failure, or have let yourself or your family down N ot at all, T rouble concentrating on things, such as reading the newspaper or watching television N ot at all, M oving or speaking so slowly that other people could have noticed; or the opposite, being so fidgety or restless that you have been moving around a lot more than usual N ot at all, T houghts that you would be better off or of hurting yourself in some way N ot at all, T otal Score 0 . I nterpretation and Intervention D epression Screening Findings N egative, F ollow-Up for Depression : review of PHQ-9 found negative result, no follow-up needed. pt is a 68 yo male here today for follow up of BP and has complaint that his shoulder hurts every so often. C ommunication Needs: Communication Needs D oes the patient have a hearing impairment N o, D oes the patient have a vision impairment? Y es, I f yes, what is the vision impairment? G lasses, D oes the patient have a cognition impairment? N o. S VIV Questions: SDOH Questions I n the past year have you been worried about losing housing? N o, I n the past year have you or any family members you live with been unable to get any of the following when it was really needed? Check all that apply: N one. F all Risk: History H ave you had any falls with injury in the past year? Y es Fell 3 months ago building a deck fell on left shoulder did not go to the ER, H ave you had two or more falls in the past year? N o. * ROS: R espiratory: Patient denies s hortness of breath at rest shortness of breath with exertion. P atient complaining of c oughing occasionally and then loses voice.? C ardiovascular: Patient denies c hest pain with exertion chest pain with exertion. G astrointestinal: Patient denies c hange in bowel habits change in bowel habits. G enitourinary: Patient complaining of f requent urination. ? * Medical History: * Surgical History: * Hospitalization/Major Diagno stic Procedure: * Family History: F ather: 89 yrs, diagnosed with Diabetes, Hypertension. M other: 95 yrs.?4 brother(s) , 3 sister(s) . 1 son(s) , 1 daughter(s) . . Mother-Healthy, Denies mental health/substance abuse family history, Denies mental health/substance abuse family history, No pertinent family medical history, No pertinent family medical history. * Social History: T obacco Use: T obacco Use/Smoking P atkristy is a n onsmoker, A dditional Findings: Tobacco Non-User C urrent non-smoker, currently using no form of tobacco. D rugs/Alcohol: A lcohol Screen D id you have a drink containing alcohol in the past year? Y es, H ow often did you have a drink containing alcohol in the past year? 2 to 3 times a week (3 points), H ow many drinks did you have on a typical day when you were drinking in the past year? 1 or 2 drinks (0 point), H ow often did you have 6 or more drinks on one occasion in the past year? N ever (0 point), P oints 3 , I nterpretation N egative. M iscellaneous: C affeine: yes, frequency:, 3-4 cups per day. Children: yes. Exercise: yes, walks daily for 30 minutes. Home smoke detector use: yes. Housing: owning. Living with: alone. Marital status: single. Occupation: works part-time. Pets: none. no Travel outside of the [place]. * Medications: T akingOneTouch Verio - Strip TEST ONCE A DAY OneTouch Verio - Strip as directed In Vitro dailyPotassium Chloride ER 10 MEQ Tablet Extended Release TAKE 1 TABLET BY MOUTH EVERY DAY WITH FOOD Rosuvastatin Calcium 20 MG Tablet TAKE 1 TABLET BY MOUTH EVERY DAY metFORMIN HCl 500 MG Tablet take 2 tablet by mouth twice a day with meals Orally twice a dayTamsulosin HCl 0.4 MG Capsule TAKE 1 CAPSULE BY MOUTH EVERY DAY FOR 90 DAYS Lisinopril-hydroCHLOROthiazide 20-25 MG Tablet TAKE 1 TABLET BY MOUTH EVERY DAY FOR 90 DAYS NIFEdipine ER 60 MG Tablet Extended Release 24 Hour TAKE 1 TABLET BY MOUTH EVERY DAY Sildenafil Citrate 100 MG Tablet TAKE ONE TABLET BY MOUTH ONCE DAILY IF NEEDED Medication List reviewed and reconciled with the patientTaking OneTouch Verio - Strip TEST ONCE A DAY Taking OneTouch Verio - Strip as directed In Vitro dailyTaking Potassium Chloride ER 10 MEQ Tablet Extended Release TAKE 1 TABLET BY MOUTH EVERY DAY WITH FOOD Taking Rosuvastatin Calcium 20 MG Tablet TAKE 1 TABLET BY MOUTH EVERY DAY Taking metFORMIN HCl 500 MG Tablet take 2 tablet by mouth twice a day with meals Orally twice a dayTaking Tamsulosin HCl 0.4 MG Capsule TAKE 1 CAPSULE BY MOUTH EVERY DAY FOR 90 DAYS Taking Lisinopril-hydroCHLOROthiazide 20-25 MG Tablet TAKE 1 TABLET BY MOUTH EVERY DAY FOR 90 DAYS Taking NIFEdipine ER 60 MG Tablet Extended Release 24 Hour TAKE 1 TABLET BY MOUTH EVERY DAY Taking Sildenafil Citrate 100 MG Tablet TAKE ONE TABLET BY MOUTH ONCE DAILY IF NEEDED Medication List reviewed and reconciled with the patient * Allergies: N .K.D.A.yes[Allergies Verified] Objective: * Vitals: H t: 68, Wt:263, BMI:39.98, BP:128/80 weight is up 13 pounds since 01-21-24. * P ast Orders: L ab:Microalbumin, Random (Order Date - 05/15/2024) (Collection Date - 05/15/2024) Value Reference Range Creatinine Urine 101.21 - mg/dL Microalbumin Urine 18.0 - mg/L Microalbum Creatinine Ratio Ur 17.7 <30 - ug/ mg cr L ab:Hemoglobin A1c (Order Date - 05/15/2024) (Collection Date - 05/15/2024) Value Reference Range Hemoglobin A1c % 6.7 H <6.0 - % Estimated Average Glucose 146 - mg/dL L ab:Complete Blood Count Auto Diff (Order Date - 05/15/2024) (Collection Date - 05/15/2024) Value Reference Range White Blood Count 7.7 4.8-10.8 - X10*3/uL Red Blood Count 4.63 4.60-5.80 - X10*6/uL Hemoglobin 14.6 14.0-18.0 - g/dl Hematocrit 43.4 42.0-52.0 - % Mean Corpuscular Volume 93.7 80.0-98.0 - fL Mean Corpuscular Hemoglobin 31.5 27.0-33.0 - pg Mean Corpuscular HGB Conc 33.6 31.0-36.0 - g/ dl Red Cell Distribution Width 13.2 11.0-16.0 - % Platelet Count 227 160-400 - X10*3/uL Mean Platelet Volume 11.2 9.4-12.4 - fL Neutrophils Percent Auto 57.0 45-73 - % Imm Gran Pct Auto 0.3 0.0-0.4 - % Lymphocytes Percent Auto 25.6 20-40 - % Monocytes Percent Auto 11.5 H 2-11 - % Eosinophils Percent Auto 4.7 H 0-4 - % Basophils Percent Auto 0.9 0-2 - % NRBC Pct Auto 0.0 0.0-0.2 - /100WBC Neutrophils Absolute Auto 4.4 2.0-8.3 - x10* 3/uL Imm Gran Abs Auto 0.02 0.00-0.03 - X10*3/uL Lymphocytes Absolute Auto 2.0 1.2-4.9 - X10* 3/uL Monocytes Absolute Auto 0.9 0.1-1.2 - X10*3/ uL Eosinophils Absolute Auto 0.4 0.0-0.4 - X10* 3/uL Basophils Absolute Auto 0.1 0.0-0.2 - X10*3/ uL NRBC Abs Auto 0.000 0.0-0.012 - X10*3/uL L ab:Comprehensive [place]. Panel Fast (Order Date - 05/15/2024) (Collection Date - 05/15/2024) Value Reference Range Sodium 141 135-145 - mmol/L Bilirubin Total 2.1 H 0.0-1.0 - mg/dL Aspartate Amino Transferase 18 5-37 - U/L Alanine Aminotransferase 21 0-40 - U/L Total Protein 6.7 6.5-8.0 - g/dL Albumin Level 4.0 3.5-5.0 - g/dL Alkaline Phosphatase 64 39-117 - U/L Potassium 3.6 3.3-5.1 - mmol/L Chloride 106 96-108 - mmol/L Carbon Dioxide 29 22-29 - mmol/L Anion Gap 10 L 12-20 - Blood Urea Nitrogen 24 H 9-16 - mg/dL Creatinine 1.02 0.5-1.4 - mg/dL Estimated Glomerular Filt Rate > 60 - Glucose Fasting 158 H 60-99 - mg/dL Calcium 10.2 8.4-10.2 - mg/dL L ab:Lipid Panel (Order Date - 05/15/2024) (Collection Date - 05/15/2024) Value Reference Range Triglycerides 72 <150 - mg/dL Cholesterol 107 <200 - mg/dL LDL Cholesterol Calculated 56 <100 - mg/dL HDL Cholesterol 37 L >40 - mg/dL L ab:PSA,Total (Free>4and<10) (Order Date - 05/15/2024) (Collection Date - 05/15/2024) Value Reference Range PSA,Total (Free>4and<10) 1.36 0.00-4.00 - ng/ mL * Examination: G eneral Examination: GENERAL APPEARANCE: alert, well hydrated, in no distress . HEAD: normocephalic. EYES: BOTH EYES, normal. EARS: BOTH EARS, normal. THROAT: clear, no erythema, no exudate, pharynx normal.? NECK/THYROID: no cervical lymphadenopathy, no carotid bruit. SKIN: good turgor. HEART: no murmurs, rubs, gallops, regular rate and rhythm. LUNGS: no wheezes, rales, rhonchi, good air movement.? ABDOMEN: soft, nontender, nondistended, no rebound tenderness, no organomegaly . RECTAL EXAM: no masses palpable, prostate enlarged, firm, stool guaiac negative. MALE GENITOURINARY: uncircumcised, testes descended bilaterally, no testicular mass. PODIATRIC: n ormal pinprick,normal pulse, normal light touch. FOOT EXAM: . Assessment: * Assessment: 1. E ssential hypertension - I10 (Primary) 2 . S train of left rotator cuff capsule, initial encounter - S46.012A 3 . T ype 2 diabetes mellitus without complication - E11.9 4 . P rostatism - N40.0 5 . P ure hypercholesterolemia - E78.00 6 . C olon cancer screening - Z12.11 7 . D epression screening - Z13.31 Plan: * Treatment: 2. S train of left rotator cuff capsule, initial encounter Notes: referral to dr alexandra 3. T ype 2 diabetes mellitus without complication Continue metFORMIN HCl Tablet, 500 MG, take 2 tablet by mouth twice a day with meals, Orally, twice a day. Notes: will continue current regiment and will continue to monitor 4. P rostatism Increase Tamsulosin HCl Capsule, 0.4 MG, take 1 capsule by mouth every day for 90 days, twice a day. Notes: patient verbalized understanding of medication and directions for use 5. P ure hypercholesterolemia Continue Rosuvastatin Calcium Tablet, 20 MG, TAKE 1 TABLET BY MOUTH EVERY DAY. Notes: stable, willcontinue current regiment 6. C olon cancer screening L AB: Occult Blood, Stool, Guaiac N egative Value Reference Range O ccult Blood, Stool, Guaiac Neg Notes: guaiac negative??7.?Depression screening? Notes: negative screen?? * Procedure Codes: 8 2270 TEST FOR BLOOD, FECES * Preventive Medicine: Counseling: C are goal follow-up plan: C bhanunseling for abnormal BMI provided?Yes, A fernando Normal BMI Follow-up G tali encouragement to exercise. Diabetes Care Plan: P atient Lifestyle Goals N eeds to maintain diet control.?Treatment Goals A 1C< 7. B arriers m gisela good diet control. S elf-Managment Plan I ncrease light exercise to 3 times a week for 30 minutes. * Follow Up: 6 Months * * Sign off status: Completed true * Provider: Prabhu Schwartz MD Date: 0 05/20/2024 Generated for Kenya navarrete/Carly/Khadarsmitting on: 1 09/23/2024 01:34 PM EST History and Physical Notes * HPI (History of Present Illness) Category Sub-Category Detail Notes Category Not es Depression Screening PHQ-9 Little inte rest or pleasure in doing things: Not at all pt is a 68 yo male here today for follow up of BP and has complaint that his shoulder hurts every so often Feeling down, depressed, or hopeless: No t at all Trouble falling or staying asleep, or sl eeping too much: Not at all Feeling tired or having little energy: N ot at all Poor appetite or overeating: Not at all Feeling bad about yourself o r that you are a failure, or have let yourself or your family down: Not at all Trouble concentrating on thi ngs, such as reading the newspaper or watching television: Not at all Moving or speaking so slowly that other people could have noticed; or the opposite, being so fidgety or restless that you have been moving around a lot more than usual: Not at all Thoughts that you would be b joy off or of hurting yourself in some way: Not at all Total Score: 0 Interpretation and Intervention Depression Romain arthur Findings: Negative Follow-Up for Depression: : review of PH Q-9 found negative result, no follow-up needed SDOH Questions SDOH Questions In the past year have you been worried about losing housing?: No In the past year have you or any family members you live with been unable to get any of the following when it was really needed? Check all that apply:: None Fall Risk History Have you had any falls with injury in the past year?: Yes Fell 3 months ago building a deck fell on left shoulder did not go to the ER Have you had two or more falls in the year?: No Communication Needs Communication Needs Does the patient have a hearing impairment: No Does the patient have a vision impairmen t?: Yes If yes, what is the vision impairment?: Glasses Does the patient have a cognition impair ment?: No Examination Category Sub-Category Detail Notes Category Not es General Examination GENERAL APPEARANCE: alert, w ell hydrated, in no distress HEAD: normocephalic EYES: BOTH EYES, normal EARS: BOTH EARS, normal THROAT: clear, no erythema, no exudate, pharynx normal NECK/THYROID: no cervical lymphade nopathy, no carotid bruit HEART: no murmurs, rubs, ga llops, regular rate and rhythm LUNGS: no wheezes, rales, r honchi, good air movement ABDOMEN: soft, nontender, non distended, no rebound tenderness, no organomegaly SKIN: good turgor MALE GENITOURINARY: uncircumcised, teste s descended bilaterally, no testicular mass RECTAL EXAM: no masses palpable, prostate enlarged, firm, stool guaiac negative FOOT EXAM: Date: 05/20/2024 normal pinprick . normal pulse. normal light touch. PODIATRIC: normal pinprick,norm al pulse, normal light touch
--- OUTSIDE RECORDS SUMMARY | 2024-07-22 03:24 | XMS_ITS ---
Author Organization Pablo Schwartz MD Address [address] [place] [phone] Care Team Providers Care Chemical Instrumentation Officer Name Role Phone Pablo Schwartz Primary Care Provider REASON FOR VISIT sleep study orders Problems Problem Type SNOMED Code ICD Code Onset Dates Problem Status W/U Status Risk Notes Problem Obstructive sleep apnea (21392644) Obstructive sleep apnea (G47.33) Active confirmed Problem Hypersomnia (06887133) Hypersomnia (G47.10) Active confirmed Problem Insomnia (346943629) Insomnia (G47.00) Active confirmed Encounters Encounter Location Date Provider Diagnosis Pablo Schwartz MD [address] [place] [phone] 07/22/2024 Pablo Schwartz Obstructive sleep apnea G47.33 ; Hypersomnia G47.10 and Insomnia G47.00 Assessments Encounter Date Diagnosis (ICD Code) Assessment Notes Treatment Notes Treatment Clinical Notes Section Notes 07/22/2024 Obstructive sleep apnea (ICD-10 - G47.33) 07/22/2024 Hypersomnia (ICD-10 - G47.10) 07/22/2024 Insomnia (ICD-10 - G47.00) Plan Of Treatment Pending Test Test Name Order Date Sleep Study - Baseline 07/22/2024 Next Appt Details Provider Name:Pablo Huerta ier, 08/25/2025 10:15:00 AM, [address], [address], [place], [phone], Provider Name:Pablo Huerta ier, 11/20/2025 07:30:00 AM, [address], [address], [place], [id number], Provider Name:Pablo Huerta ier, 11/26/2025 09:00:00 AM, [address], [address], [place], [id number], Provider Name:Pablo Huerta ier, 05/18/2026 07:45:00 AM, [address], [address], [place], [phone], Provider Name:Pablo Huerta ier, 05/25/2026 10:30:00 AM, [address], [address], [place], [phone], Progress Notes * INDY MENDEZ MDOB: [birth year] (68 yo M)Acc No.[id number]:07/22/2024 Patient: Gilberto MICHELLETOBYINDY :1955 A ge:68 Y S ex:Male Address:[address] [place] [address], [id number] Subjective: * Chief Complaints: * S leep study orders * Medical History: * Surgical History: * Hospitalization/Major Diagno stic Procedure: * Medications: Objective: Assessment: * Assessment: 1. O bstructive sleep apnea - G47.33 2 . H ypersomnia - G47.10 3 . I nsomnia - G47.00 Plan: * Treatment: 2.?Hypersomnia?Imaging: Sleep Study - Baseline* FAXED TO [facility]-My need follow up appt with a bee raiser for C-pap settings referral entered in systemappt 07-29-24 at 7:30pm [facility] Ruy Davison 3.?Insomnia?Imaging: Sleep Study - Baseline* FAXED TO [facility]-My need follow up appt with a bee raiser for C-pap settings referral entered in systemappt 07-29-24 at 7:30pm [facility] Ruy Davison * Procedure Codes: * true * Date: Generated for Kenya navarrete/Carly/Max on: 09/23/2024 01:35 PM EST
--- OUTSIDE RECORDS SUMMARY | 2024-07-24 05:30 | XMS_ITS ---
Author Organization Pablo Schwartz MD Address [address] [place], [place] [id number] Care Team Providers Care Customer Service Driver Name Role Phone Pablo Schwartz Primary Care Provider Allergies No Known Allergies REASON FOR VISIT needs sleep study, orders entered and faxed to [facility] de[facility].. Per Medicare guide line patient needs a visit with his PCP explaining why, before he has sleep study done. 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 Medications Medication SIG (Take, Route, Frequency, Duration) Notes Start Date End Date Status Potassium Chloride ER 10 MEQ TAKE 1 TABLET BY MOUTH EVERY DAY WITH FOOD for 90 Active Sildenafil Citrate 100 MG TAKE ONE TABLE T BY MOUTH ONCE DAILY IF NEEDED for 30 Active Tamsulosin HCl 0.4 MG take 1 capsule by mouth every day for 90 days twice a day Active OneTouch Verio - TEST ONCE A DAY for 90 Active OneTouch Verio - as directed In Vitro daily for 90 days 04/28/2019 Active Lisinopril-hydroCHLOROthiaz shyla 20-25 MG TAKE 1 TABLET BY MOUTH EVERY DAY FOR 90 DAYS Active metFORMIN HCl 500 MG take 2 tablet by mo uth twice a day with meals Orally twice a day Active Rosuvastatin Calcium 20 MG TAKE 1 TABLET BY MOUTH EVERY DAY Active NIFEdipine ER 60 MG TAKE 1 TABLET BY CARMEN TH EVERY DAY Active Vital Signs Blood pressure systolic 122 mm Hg 07/24/20 24 Blood pressure diastolic 94 mm Hg 024 Height 68 in 07/24/2024 Weight 263 lbs 07/24/2024 BMI 39.98 kg/m2 07/24/2024 Encounters Encounter Location Date Provider Diagnosis Pablo Schwartz MD [address] [place] [phone] 07/24/2024 Pablo Schwartz Obstructive sleep apnea G47.33 Assessments Encounter Date Diagnosis (ICD Code) Assessment Notes Treatment Notes Treatment Clinical Notes Section Notes 07/24/2024 Obstructive sleep apnea (ICD-10 - G47.33) has ANIYAH and in need of sleep study since his old one is too old/ patient is booked for 07-29-2024 at 7:30pm [facility] Plan Of Treatment Treatment Notes Assessment Notes Obstructive sleep apnea has ANIYAH and in n eed of sleep study since his old one is too old/ patient is booked for 07-29-2024 at 7:30pm [facility] Next Appt Details Provider Name:Pablo lozoya, 08/25/2025 10:15:00 AM, [address] [place] [address], [address], [phone], Provider Name:Pablo lozoya, 11/20/2025 07:30:00 AM, [address] [place] [address], [address], [phone], Provider Name:Pablo lozoya, 11/26/2025 09:00:00 AM, [address] [place] [address], [address], [phone], Provider Name:Pablo lozoya, 05/18/2026 07:45:00 AM, [address] [place] [address], [address], [phone], Provider Name:Pablo lozoya, 05/25/2026 10:30:00 AM, [address] [place] [address], [address], [phone], Progress Notes * INDY MENDEZ MDOB: [birth year] (68 yo M)Acc No.[id number]:07/24/2024 Progress Notes Patient: INDY OLIVAS Provider: Prabhu Schwartz MD :1955 A ge:68 Y S ex:Male Date:07/24/2024 Address:[address] [place] [address], [id number] Subjective: * Chief Complaints: * n eeds sleep study, orders entered and faxed to [facility] de[facility].. Per Medicare guide line patient needs a visit with his PCP explaining why, before he has sleep study done. 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 needs sleep study because his machine is too old/needs new sleep study. is getting in house study/. * ROS: G eneral/Constitutional: Denies C hills. D enies F atigue. D enies F ever. D enies H eadache. E NT: Patient denies d ecreased sense of smell , any loss of taste , sore throat. D enies S ore throat. R espiratory: Denies C ough. D enies S hortness of breath at rest. D enies S hortness of breath with exertion. G astrointestinal: Denies D iarrhea. D enies N ausea. M usculoskeletal: Patient denies m uscle aches. P eripheral Vascular: Patient denies r ed and blue toes. * Medical History: * Surgical History: * Hospitalization/Major Diagno stic Procedure: * Medications: T akingOneTouch Verio - Strip TEST ONCE A DAY OneTouch Verio - Strip as directed In Vitro dailyPotassium Chloride ER 10 MEQ Tablet Extended Release TAKE 1 TABLET BY MOUTH EVERY DAY WITH FOOD Sildenafil Citrate 100 MG Tablet TAKE ONE TABLET BY MOUTH ONCE DAILY IF NEEDED Tamsulosin HCl 0.4 MG Capsule take 1 capsule by mouth every day for 90 days twice a dayLisinopril-hydroCHLOROthiazide 20-25 MG Tablet TAKE 1 TABLET BY MOUTH EVERY DAY FOR 90 DAYS NIFEdipine ER 60 MG Tablet Extended Release 24 Hour TAKE 1 TABLET BY MOUTH EVERY DAY metFORMIN HCl 500 MG Tablet take 2 tablet by mouth twice a day with meals Orally twice a dayRosuvastatin Calcium 20 MG Tablet TAKE 1 TABLET BY MOUTH EVERY DAY Medication List reviewed and reconciled with the patientTaking OneTouch Verio - Strip TEST ONCE A DAY Taking OneTouch Verio - Strip as directed In Vitro dailyTaking Potassium Chloride ER 10 MEQ Tablet Extended Release TAKE 1 TABLET BY MOUTH EVERY DAY WITH FOOD Taking Sildenafil Citrate 100 MG Tablet TAKE ONE TABLET BY MOUTH ONCE DAILY IF NEEDED Taking Tamsulosin HCl 0.4 MG Capsule take 1 capsule by mouth every day for 90 days twice a dayTaking Lisinopril-hydroCHLOROthiazide 20-25 MG Tablet TAKE 1 TABLET BY MOUTH EVERY DAY FOR 90 DAYS Taking NIFEdipine ER 60 MG Tablet Extended Release 24 Hour TAKE 1 TABLET BY MOUTH EVERY DAY Taking metFORMIN HCl 500 MG Tablet take 2 tablet by mouth twice a day with meals Orally twice a dayTaking Rosuvastatin Calcium 20 MG Tablet TAKE 1 TABLET BY MOUTH EVERY DAY Medication List reviewed and reconciled with the patient * Allergies: N .K.D.A.yes[Allergies Verified] Objective: * Vitals: H t: 68, Wt:263, BMI:39.98, BP:122/94, Repeat BP:120/78. * Examination: G eneral Examination: GENERAL APPEARANCE: w ell developed, well nourished. HEAD: n ormocephalic. SKIN: g ood turgor. HEART: r egular rate and rhythm , no rubs , no murmurs, rubs, gallops. LUNGS: n o wheezes, rales, rhonchi , good air movement , clear to auscultation bilaterally. Assessment: * Assessment: 1. O bstructive sleep apnea - G47.33 Plan: * Treatment: * Procedure Codes: * * Sign off status: Completed true * Provider: Prabhu Schwartz MD Date: 09/23/2023 Generated for Kenya navarrete/Carly/Max on: 09/23/2024 01:33 PM EST History and Physical Notes * HPI (History of Present Illness) Category Sub-Category Detail Notes Category Not es Symptom(s) patient is a 68 yo male has sleep apnea. needs sleep study because his machine is too old/needs new sleep study. is getting in house study/ Examination Category Sub-Category Detail Notes Category Not es General Examination GENERAL APPEARANCE: well developed , well nourished HEAD: normocephalic HEART: regular rate and rhy thm , no rubs , no murmurs, rubs, gallops LUNGS: no wheezes, rales, r honchi , good air movement , clear to auscultation bilaterally SKIN: good turgor
--- OUTSIDE RECORDS SUMMARY | 2024-09-01 07:40 | XMS_ITS ---
Author Organization [facility] Address [address] [place] [address] Care Team Providers Care Product Strategy Director Name Role Phone Pablo Schwartz MD Primary Care Provider Gómez Lopez [phone] REASON FOR VISIT screening Problems Problem Type SNOMED Code ICD Code Onset Dates Problem Status W/U Status Risk Notes Problem Diverticular disease of colon (362890757) Diverticulosis of large intestine without perforation or abscess without bleeding (K57.30) Active confirmed Encounters Encounter Location Date Provider Diagnosis [facility] [place] [address] [place] [phone] 09/01/2024 Gómez Giraldo Colon cancer scree jerson [...] * VANESSAINDY LUISDOB: 4 (69 yo M)Acc No.[id number]:09/01/2024 COLON WITH MAC Patient: INDY OLIVAS Provider: Adriana Giraldo MD :1955 A ge:68 Y S ex:Male Date:09/01/2024 Address:[address] [place], [place] [phone] Pcp:Pablo Schwartz MD Subjective: * Chief Complaints: * 1 . Screening. * Medical History: Objective: * Vitals: Assessment: * Assessment: 1. C olon cancer screening - Z12.11 (Primary) 2 . D iverticulosis of large intestine without perforation or abscess without bleeding - K57.30 3 . O ther hemorrhoids - K64.8 Plan: * Treatment: * Procedure Codes: G 0121 COLOREC CNCR SCR;COLNSCPY NO HI RSK, 0529F INTRVL 3+YRS PTS CLNSCP DOCD, 0528F RCMND FLW-UP 10 YRS DOCD, Modifiers: 1P * * The named appointment provid er may or may not be the originator of this progress note, and it is not deemed complete until electronically signed by the appointment provider. Sign off status: Pending * Provider: Adriana Giraldo MD Date: 11/02/2023 Generated for Kenya navarrete/Carly/Jaxsonitting on: 09/23/2024 01:33 PM EST
--- OUTSIDE RECORDS SUMMARY | 2024-11-11 02:15 | XMS_ITS ---
Author Organization Pablo Schwartz MD Address [address] [place], [place] [phone] Care Team Providers Care Twisting Frame Changer Name Role Phone Pablo Schwartz Primary Care Provider Results Component Value Reference Range Notes Liver Panel Reviewed date:11/11/2024 02:49:48 PM Interpretation: Performing Lab:[facility], [address] [place] [phone] Notes/Report: Bilirubin Total 2.0 0.0-1.0 mg/dL SLIGHT ICTE YOUNG Bilirubin Direct 0.5 0.0-0.5 mg/dL SLIGHT ICT ERUS Aspartate Amino Transferase 24 5-37 U/L Alanine Aminotransferase 18 0-40 U/L Total Protein 7.3 6.5-8.0 g/dL Albumin Level 4.0 3.5-5.0 g/dL Alkaline Phosphatase 68 39-117 U/L Glucose Fasting Reviewed date:11/11/2024 02:41:45 PM Interpretation: Performing Lab:[facility], [address] [place] [phone] Notes/Report: Glucose Fasting 192 60-99 mg/dL A fasting glucose of 126 mg/dl or greater on more than one occasion is considered diagnostic of diabetes. Lipid Panel with Reflex Reviewed date:11/11/2024 04:44:08 PM Interpretation: Performing Lab:[facility], [address] [place] [phone] Notes/Report: Triglycerides 76 <150 mg/dL Desirable Triglyceride: [...] A1c Reviewed date:11/11/2024 12:39:23 PM Interpretation: Performing Lab:[facility], [address] [place] [phone] Notes/Report: Hemoglobin A1c % 7.5 <6.0 % [...] average glucose, using the formula of the O7D-Jzlpple Average Glucose study (ADAG), Diabetes Care, Vol.31,#8, 2007 REASON FOR VISIT fasting lipids Encounters Encounter Location Date Provider Diagnosis Pablo Schwartz MD [address] [place] [address] [address] [place], [place] [phone] 11/11/2024 Pablo Schwartz Type 2 diabetes jhony [...] 10:15:00 AM, [address], [address], [place], [place], [phone], Provider Name:Pablo Huerta ier, 11/20/2025 07:30:00 AM, [address], [address], [place], [place], [phone], Provider Name:Pablo Huerta ier, 11/26/2025 09:00:00 AM, [address], [address], [place], [place], [phone], Provider Name:Pablo Huerta ier, 05/18/2026 07:45:00 AM, [address], Suite [facility], [place], [place], [phone], Provider Name:Pablo Huerta ier, 05/25/2026 10:30:00 AM, [address], [address], [place], [place], [phone], Progress Notes * INDY MENDEZ MDOB: [birth year] (69 yo M)Acc No.[id number]:11/11/2024 Progress Note Patient: INDY OLIVAS Provider: Prabhu Schwartz MD :1955 A ge:69 Y S ex:Male Date:11/11/2024 Address:[address] [place], [place] [phone] Subjective: * Chief Complaints: * 1 . [...] 11/11/2024 Generated for Kenya navarrete/Carly/Jaxsonitting on: 1 09/23/2024 01:35 PM EST
--- OUTSIDE RECORDS SUMMARY | 2024-11-17 05:15 | XMS_ITS ---
Author Organization Pablo Schwartz MD Address [address] [place], [place] [id number] Care Team Providers Care Process Manager Name Role Phone Pablo Schwartz Primary Care Provider [phone] Allergies No Known Allergies Results Component Value Reference Range Notes Glucose, finger stick Reviewed date:11/17/2024 10:07:43 AM Interpretation: Performing Lab: Notes/Report: Value 191 REASON FOR VISIT 6 months Medications Medication SIG (Take, Route, Frequency, Duration) Notes Start Date End Date Status Rosuvastatin Calcium 20 MG TAKE 1 TABLET BY MOUTH EVERY DAY for 90 Active Tamsulosin HCl 0.4 MG take 1 capsule by mouth every day for 90 days twice a day Active Lisinopril-hydroCHLOROthiaz shyla 20-25 MG TAKE 1 TABLET BY MOUTH EVERY DAY FOR 90 DAYS Active NIFEdipine ER 60 MG TAKE 1 TABLET BY CARMEN TH EVERY DAY Active metFORMIN HCl 500 MG TAKE 2 TABLET BY MO UTH TWICE A DAY WITH MEALS for 90 Active OneTouch Verio - TEST ONCE A DAY for 90 Active OneTouch Verio - as directed In Vitro daily for 90 days 04/28/2019 Active Potassium Chloride ER 10 MEQ TAKE 1 TABLET BY MOUTH EVERY DAY WITH FOOD for 90 Active Sildenafil Citrate 100 MG TAKE ONE TABLE T BY MOUTH ONCE DAILY IF NEEDED for 30 Active Vital Signs Blood pressure systolic 120 mm Hg 11/18/19 25 Blood pressure diastolic 78 mm Hg 025 Height 68 in 11/17/2024 Weight 263 lbs 11/17/2024 BMI 39.98 kg/m2 11/17/2024 Encounters Encounter Location Date Provider Diagnosis Pablo Schwartz MD [address] [place] [phone] 11/17/2024 Pablo Schwartz Type 2 diabetes jhony itus without complication E11.9 ; Pure hypercholesterolemia E78.00 and Cough R05.9 Assessments Encounter Date Diagnosis (ICD Code) Assessment Notes Treatment Notes Treatment Clinical Notes Section Notes 11/17/2024 Type 2 diabetes jhony itus without complication (ICD-10 - E11.9) stable, running a bit high, will continue current regiment and continue to monitor 11/17/2024 Pure hypercholesterolemia (ICD-10 - E78.00) stable, will continue current regiment 11/17/2024 Cough (ICD-10 - R05.9) patie nt states that it started out as an illness like the flu. sounds allergic at present Plan Of Treatment Treatment Notes Assessment Notes Type 2 diabetes mellitus without complic ation stable, running a bit high, will continue current regiment and continue to monitor Pure hypercholesterolemia stable, will c ontinue current regiment Cough patient states that it started out as an illness like the flu. sounds allergic at present Next Appt Details Follow Up: 6 Months, Reason: Provider Name:Pablo lozoya, 08/25/2025 10:15:00 AM, [address] [place] [address], [address], [phone], Provider Name:Pablo lozoya, 11/20/2025 07:30:00 AM, [address] [place] [address], [address], [phone], Provider Name:Pablo lozoya, 11/26/2025 09:00:00 AM, [address] [place] [address], [phone], Provider Name:Pablo lozoya, 05/18/2026 07:45:00 AM, [address] [place] [address], [address], [phone], Provider Name:Pablo Huerta ier, 05/25/2026 10:30:00 AM, [address], [address], [place], [phone], Progress Notes * INDY MENDEZ MDOB: [birth year] (69 yo M)Acc No.[id number]:11/17/2024 Progress Notes Patient: INDY OLIVAS Provider: Prabhu Schwartz MD :1955 A ge:69 Y S ex:Male Date:11/17/2024 Address:[address] [place], [place] [phone] Subjective: * Chief Complaints: * 6 months * HPI: S ymptom(s): patient is a 69 yo male her for 6 month follow up visit, complaining he h as been coughing and sneezing for 5 weeks. going to rehab for shoulder. at times bad to sleep on. * ROS: G eneral/Constitutional: Denies C hills. D enies F atigue. D enies F ever. D enies H eadache. E NT: Patient denies d ecreased sense of smell, any loss of taste, sore throat. P atient complaining of s neezing and congestion x 5 weeks. D enies S ore throat. R espiratory: Admits C ough, c /o cough x 5 weeks. D enies S hortness of breath at [...] Verio - Strip as directed In Vitro daily Potassium Chloride ER 10 MEQ Tablet Extended Release TAKE 1 TABLET BY MOUTH EVERY DAY WITH FOOD Sildenafil Citrate 100 MG Tablet TAKE ONE TABLET BY MOUTH ONCE DAILY IF NEEDED Tamsulosin HCl 0.4 MG Capsule take 1 capsule by mouth every day for 90 days twice a day Lisinopril-hydroCHLOROthiazide 20-25 MG Tablet TAKE 1 TABLET BY MOUTH EVERY DAY FOR 90 DAYS NIFEdipine ER 60 MG Tablet Extended Release 24 Hour TAKE 1 TABLET BY MOUTH EVERY DAY metFORMIN HCl 500 MG Tablet TAKE 2 TABLET BY MOUTH TWICE A DAY WITH MEALS Rosuvastatin Calcium 20 MG Tablet TAKE 1 TABLET BY MOUTH EVERY DAY Medication List reviewed and reconciled with the patientTaking OneTouch Verio - Strip TEST ONCE A DAY Taking OneTouch Verio - Strip as directed In Vitro daily Taking Potassium Chloride ER 10 MEQ Tablet Extended Release TAKE 1 TABLET BY MOUTH EVERY DAY WITH FOOD Taking Sildenafil Citrate 100 MG Tablet TAKE ONE TABLET BY MOUTH ONCE DAILY IF NEEDED Taking Tamsulosin HCl 0.4 MG Capsule take 1 capsule by mouth every day for 90 days twice a day Taking Lisinopril-hydroCHLOROthiazide 20-25 MG Tablet TAKE 1 TABLET BY MOUTH EVERY DAY FOR 90 DAYS Taking NIFEdipine ER 60 MG Tablet Extended Release 24 Hour TAKE 1 TABLET BY MOUTH EVERY DAY Taking metFORMIN HCl 500 MG Tablet TAKE 2 TABLET BY MOUTH TWICE A DAY WITH MEALS Taking Rosuvastatin Calcium 20 MG Tablet TAKE 1 TABLET BY MOUTH EVERY DAY Medication List reviewed and reconciled with the patient * Allergies: N .K.D.A.yes[Allergies Verified] Objective: * Vitals: H t: 68, Wt: 263, BMI:39.98, BP:120/78, Wt-k.3. * P ast Orders: L ab:Lipid Panel with Reflex (Order Date - 11/11/2024) (Collection Date & Time - 11/11/2024 07:15 AM) Value Reference Range Triglycerides 76 <150 - mg/dL Cholesterol 113 <200 - mg/dL LDL Cholesterol Calculated 62 <100 - mg/dL HDL Cholesterol 36 L >40 - mg/dL L ab:Hemoglobin A1c (Order Date - 11/11/2024) (Collection Date & Time - 11/11/2024 07:15 AM) Value Reference Range Hemoglobin A1c % 7.5 H <6.0 - % Estimated Average Glucose 169 - mg/dL L ab:Liver Panel (Order Date - 11/11/2024) (Collection Date & Time - 11/11/2024 07:15 AM) Value Reference Range Bilirubin Total 2.0 H 0.0-1.0 - mg/dL Bilirubin Direct 0.5 0.0-0.5 - mg/dL Aspartate Amino Transferase 24 5-37 - U/L Alanine Aminotransferase 18 0-40 - U/L Total Protein 7.3 6.5-8.0 - g/dL Albumin Level 4.0 3.5-5.0 - g/dL Alkaline Phosphatase 68 39-117 - U/L L ab:Glucose Fasting (Order Date - 11/11/2024) (Collection Date & Time - 11/11/2024 07:15 AM) Value Reference Range Glucose Fasting 192 H 60-99 - mg/dL * Examination: G eneral Examination: GENERAL APPEARANCE: a lert, well hydrated, in no distress.? HEAD: n ormocephalic. SKIN: g ood turgor. HEART: r egular rate and rhythm, no murmurs, rubs, gallops.? LUNGS: n o wheezes, rales, rhonchi, good air movement, clear to auscultation bilaterally. Assessment: * Assessment: 1. T ype 2 diabetes mellitus without complication - E11.9 (Primary) 2 . P ure hypercholesterolemia - E78.00 3 . C ough - R05.9 Plan: * Treatment: Value Reference Range V alue 191 Notes: stable, running a bit high, will continue current regiment and continue to monitor? 2.?Pure hypercholesterolemia? Notes: stable, will continue current regiment??3.?Cough? Notes: patient states that it started out as an illness like the flu. sounds allergic at present ? * Procedure Codes: 8 2947 ASSAY, GLUCOSE, BLOOD QUANT, Modifiers: QW * Follow Up: 6 Months * * Sign off status: Completed true * Provider: Prabhu Schwartz MD Date: 0 11/17/2024 Generated for [place] navarrete/Carly/aJxsonitting on: 1 09/23/2024 01:35 PM EST History and Physical Notes * HPI (History of Present Illness) Category Sub-Category Detail Notes Category Not es Symptom(s) patient is a 69 yo male her for 6 month follow up visit, complaining he has been coughing and sneezing for 5 weeks. going to rehab for shoulder. at times bad to sleep on. Examination Category Sub-Category Detail Notes Category Not es General Examination GENERAL APPEARANCE: alert, w ell hydrated, in no distress HEAD: normocephalic HEART: regular rate and rhy thm, no murmurs, rubs, gallops LUNGS: no wheezes, rales, r honchi, good air movement, clear to auscultation bilaterally SKIN: good turgor
--- OUTSIDE RECORDS SUMMARY | 2025-01-27 09:30 | XMS_ITS ---
Author Organization Pablo Schwartz MD Address [address] [place], [place] [phone] Care Team Providers Care Flooring Sales Manager Name Role Phone Pablo Schwartz Primary Care Provider [phone] Allergies No Known Allergies Results Component Value [...] kg/m2 01/27/2025 weight is down 5 pounds [facility] e 11-17-24 Encounters Encounter Location Date Provider Diagnosis Pablo Schwartz MD [address] [place] [address] [place] [phone] 01/27/2025 Pablo Schwartz Type 2 diabetes mellitus [...] - N40.0) referral to dr dacosta in [place] Plan Of Treatment Medication Medication Name Sig [...] patient Prostatism referral to dr dacosta in [place] Pending Test Test Name Order Date XR CHEST 2 VIEW PA & LAT 01/27/2025 Referrals Referral Date Details 01/27/2025 01/27/2025, prostati sm, KATE DACOSTA Next Appt Details Provider Name:Pablo Huerta ier, 08/25/2025 10:15:00 AM, [address], [place], [place], [phone], Provider Name:Pablo Ramososmin ier, 11/20/2025 07:30:00 AM, [address], [place], [place], [phone], Provider Name:Pablo Huerta ier, 11/26/2025 09:00:00 AM, [address] [place] [address], Suite [facility], [place], [place], [phone], Provider Name:Pablo Huerta ier, 05/18/2026 07:45:00 AM, [address], [address] [facility], [place], [place], [phone], Provider Name:Pablo Huerta ier, 05/25/2026 10:30:00 AM, [address] [place] [address] Drive, Suite [facility], [place], [place], [phone], Progress Notes * INDY MENDEZ MDOB: [birth year] (69 yo M)Acc No.[id number]:01/27/2025 Progress Notes Patient: Gilberto INDY MICHAUD Provider: Prabhu Schwartz MD :1955 A ge:69 Y S ex:Male Date:01/27/2025 Address:[address] [place], [place] [phone] Subjective: * Chief Complaints: * W ants [...] day.?? Notes: referral to dr dacosta in [place]? Referral To:KATE DACOSTA??Urology ?Reason:prostatism * Procedure Codes: 8 2947 ASSAY, GLUCOSE, BLOOD QUANT, Modifiers: QW 57613 GLYCATED HEMOGLOBIN TEST, Modifiers: QW * * Sign off status: Completed true * Provider: Prabhu Schwartz MD Date: 0 01/27/2025 Generated for Printi ng/Carly/eTransmitting on: 09/23/2024 01:35 PM EST History and Physical [...]
--- OUTSIDE RECORDS SUMMARY | 2025-02-05 04:46 | XMS_ITS ---
Author Organization Pablo Schwartz MD Address [address] [place] [phone] Care Team Providers Care Rush Seater Name Role Phone Pablo Schwartz Primary Care Provider REASON FOR VISIT chest x-ray results Encounters Encounter Location Date Provider Diagnosis Pablo Schwartz MD [address] [place] [address] [place] [phone] 02/05/2025 Pablo Schwartz Plan Of Treatment Next Appt Details Provider Name:Pablo lozoya, 08/25/2025 10:15:00 AM, [address] [place] [address], [address], [phone], Provider Name:Pablo lozoya, 11/20/2025 07:30:00 AM, [address] [place] [address], [address], [phone], Provider Name:Pablo lzooya, 11/26/2025 09:00:00 AM, [address] [place] [address], [address], [phone], Provider Name:Pablo lozoya, 05/18/2026 07:45:00 AM, [address], [place], [place], [phone], Provider Name:Pablo Huerta ier, 05/25/2026 10:30:00 AM, [address], [address], [place], [place], [phone], Progress Notes * INDY MENDEZ MDOB: [birth year] (69 yo M)Acc No.[id number]:02/05/2025 Patient: INDY OLIVAS :1955 A ge:69 Y S ex:Male Address: [address], [place] [address] * true * Date: Generated for Kenya navarrete/Carly/Khadarsmitting on: 09/23/2024 01:33 PM EST
--- OUTSIDE RECORDS SUMMARY | 2025-05-15 02:45 | XMS_ITS ---
Author Organization Pablo Schwartz MD Address [address] [place], [place] [id number] Care Team Providers Care Sys Dir Name Role Phone Pablo Schwartz Primary Care Provider Results Component Value Reference Range Notes Complete Blood Count Auto Di ff Reviewed date:05/15/2025 06:51:54 PM Interpretation: Performing Lab:[facility], [address] [place] [phone] Notes/Report: White Blood Count 8.0 4.8-10.8 X10*3/uL [...] NRBC Abs Auto 0.000 0.0-0.012 X10*3/uL Comprehensive [place]. Panel Fa st Reviewed date:05/15/2025 06:51:36 PM Interpretation: Performing Lab:[facility], [address] [place] [phone] Notes/Report: Sodium 141 135-145 mmol/L Potassium 4.1 [...] Panel Reviewed date:05/15/2025 06:41:15 PM Interpretation: Performing Lab:[facility], [address] [place] [phone] Notes/Report: Triglycerides 52 <150 mg/dL Desirable Triglyceride: [...] (Free>4and<10) Reviewed date:05/15/2025 06:40:45 PM Interpretation: Performing Lab:[facility], [address] [place] [phone] Notes/Report: PSA,Total (Free>4and<10) 1.37 0.00-4.00 ng/mL A [...] Random Reviewed date:05/15/2025 06:41:04 PM Interpretation: Performing Lab:[facility], [address] [place] [phone] Notes/Report: Creatinine Urine 147.30 Microalbumin Urine 25.0 Microalbum/Creatinine Ratio Ur 16.9 <30 ug/mg cr Albumin/Creatinine Ratio Reference Ranges: Normal: < 30 ug/mg creatinine Microalbuminuria: 30 - 300 ug/mg creatinine Clinical Albuminuria: > 300 ug/mg creatinine Hemoglobin A1c Reviewed date:05/15/2025 06:40:56 PM Interpretation: Performing Lab:[facility], [address] [place] [phone] Notes/Report: Hemoglobin A1c % 7.1 <6.0 % [...] average glucose, using the formula of the T7U-Puunzjj Average Glucose study (ADAG), Diabetes Care, Vol.31,#8, Apr. 2007 UA ClnCatch+Micro w/rflx Cul t Reviewed date:05/15/2025 06:52:13 PM Interpretation: Performing Lab:[facility], [address] [place] [phone] Notes/Report: Urine, Clean Catch Color Urine Dark Yellow Appearance Urine Clear PH 6.0 5.0-9.0 Glucose Urine UA 100 Negative mg/dL Urine Blood Negative Negative Specific [place] - Urine 1.025 1.005-1.025 Urine Protein Trace [...] Date Provider Diagnosis Pablo Schwartz MD [address] [place], [place] [phone] 05/15/2025 Pablo Schwartz Essential hypertensi on I10 [...] Appt Details Provider Name:Pablo Paz Deanna ier, 08/25/2025 10:15:00 AM, [address], Suite [facility], [place], [place], [phone], Provider Name:Pablo Jackson Deanna ier, 11/20/2025 07:30:00 AM, [address] [place] [address], Suite [facility], [place], [place], [phone], Provider Name:Pablo Paz Deanna ier, 11/26/2025 09:00:00 AM, [address] [place] [address], Suite [facility], [place], [place], [phone], Provider Name:Pablo Jackson Deanna ier, 05/18/2026 07:45:00 AM, [address] [place] [address], Suite [facility], [place], [place], [phone], Provider Name:Pablo Huerta ier, 05/25/2026 10:30:00 AM, [address] [place] [address] Drive, Suite [facility], [place], [place], [phone], Progress Notes * INDY MENDEZ MDOB: [birth year] (69 yo M)Acc No.[id number]:05/15/2025 Progress Note Patient: Gilberto MICHAUDINDY Provider: Prabhu Schwartz MD :1955 A ge:69 Y S ex:Male Date:05/15/2025 Address:[address] [place], [place] [phone] Subjective: * Chief Complaints: * 1 . [...] - 05/15/2025 07:45 AM) L AB: Comprehensive [place]. Panel Fast (Collection Date & Time - [...] - 05/15/2025 07:45 AM) L AB: Comprehensive [place]. Panel Fast (Collection Date & Time - [...] - 05/15/2025 07:45 AM) L AB: Comprehensive [place]. Panel Fast (Collection Date & Time - [...] 05/15/2025 Generated for [place] navarrete/Carly/Max on: 1 09/23/2024 01:34 PM EST
--- OUTSIDE RECORDS SUMMARY | 2025-05-22 04:30 | XMS_ITS ---
Author Organization Pablo Schwartz MD Address [address] [place], [place] [id number] Care Team Providers Care Bank Accountant Name Role Phone Pablo Schwartz Primary Care Provider [phone] Allergies No Known Allergies REASON FOR VISIT Comp visit Medications Medication SIG (Take, Route, Frequency, Duration) Notes Start Date End Date Status NIFEdipine ER 60 MG TAKE 1 TABLET BY CARMEN TH EVERY DAY Active Sildenafil Citrate 100 MG TAKE ONE TABLE T BY MOUTH ONCE DAILY IF NEEDED for 30 Active Potassium Chloride ER 10 MEQ TAKE 1 TABLET BY MOUTH EVERY DAY WITH FOOD for 90 Active OneTouch Verio - TEST ONCE A DAY for 90 Active OneTouch Verio - as directed In Vitro daily for 90 days 04/28/2019 Active metFORMIN HCl 500 MG TAKE 2 TABLET BY MO UTH TWICE A DAY WITH MEALS 90 Active Tamsulosin HCl 0.4 MG TAKE 1 CAPSULE BY MOUTH EVERY DAY Active Lisinopril-hydroCHLOROthiaz shyla 20-25 MG TAKE 1 TABLET BY MOUTH EVERY DAY Active Rosuvastatin Calcium 20 MG TAKE 1 TABLET BY MOUTH EVERY DAY Active Immunizations Vaccine Route Administration Date Status Comme nts Influenza High Dose IM Intramuscular 05/22/2025 Administer ed Social History Tobacco Use: Social History Observation [...] Interpretation Negative Vital Signs Blood pressure systolic 122 mm Hg 05/22/20 25 Blood pressure diastolic 60 mm Hg 025 Height 68 in 05/22/2025 Weight 250 lbs 05/22/2025 BMI 38.01 kg/m2 05/22/2025 weight is down 8 pounds [facility] tania 01-27-25 Encounters Encounter Location Date Provider Diagnosis Pablo Schwartz MD [address] [place] [address] [place] [phone] 05/22/2025 Pablo Schwartz Obstructive sleep ap rosario G47.33 ; Type 2 diabetes mellitus without complication E11.9 ; Pure hypercholesterolemia E78.00 ; Essential hypertension I10 ; Prostatism N40.0 ; Encounter for administration of vaccine Z23 ; Colon cancer screening Z12.11 and Depression screening Z13.31 Assessments Encounter Date Diagnosis (ICD Code) Assessment Notes Treatment Notes Treatment Clinical Notes Section Notes 05/22/2025 Obstructive sleep ap rosario (ICD-10 - G47.33) cpap machine is broken was using it all the time and benefits from it 05/22/2025 Type 2 diabetes mellitus without complication (ICD-10 - E11.9) needs to diet, will continue current regiment 05/22/2025 Pure hypercholesterolemia (ICD-10 - E78.00) order calcium score/ booked for 06-09-25 at 11am at [facility], stable, will cntinue current regiment 05/22/2025 Essential hypertensi on (ICD-10 - I10) stable, will continue current regiment 05/22/2025 Prostatism (ICD-10 - N40.0) 05/22/2025 Encounter for administration of vaccine (ICD-10 - Z23) HD flu vaccine admnistered 05/22/2025 Colon cancer screeni ng (ICD-10 - Z12.11) guaiac negative 05/22/2025 Depression screening (ICD-10 - Z13.31) Negative screen Plan Of Treatment Medication Medication Name Sig Start Date Stop Date Notes NIFEdipine ER 60 MG TAKE 1 TABLET BY CARMEN TH EVERY DAY metFORMIN HCl 500 MG TAKE 2 TABLET BY MO UTH TWICE A DAY WITH MEALS 90 Tamsulosin HCl 0.4 MG TAKE 1 CAPSULE BY MOUTH EVERY DAY Lisinopril-hydroCHLOROthiazi de 20-25 MG TAKE 1 TABLET BY MOUTH EVERY DAY Rosuvastatin Calcium 20 MG TAKE 1 TABLET BY MOUTH EVERY DAY Treatment Notes Assessment Notes Obstructive sleep apnea cpap machine is broken was using it all the time and benefits from it Type 2 diabetes mellitus without complic ation needs to diet, will continue current regiment Pure hypercholesterolemia order calcium score/ booked for 06-09-25 at 11am at [facility], stable, will cntinue current regiment Essential hypertension stable, will cont inue current regiment Encounter for administration of vaccine HD flu vaccine admnistered Colon cancer screening guaiac negative Depression screening Negative screen Pending Test Test Name Order Date CT Coronary Calcium Score 05/22/2025 Next Appt Details Follow Up: 2 Months, Reason: Provider Name:Pablo lozoya, 08/25/2025 10:15:00 AM, [address] [place] [address], [address], [phone], Provider Name:Pablo lozoya, 11/20/2025 07:30:00 AM, [address] [place] [address], [address], [phone], Provider Name:Pablo lozoya, 11/26/2025 09:00:00 AM, [address] [place] [address], [address], [phone], Provider Name:Pablo lozoya, 05/18/2026 07:45:00 AM, [address] [place] [address], [address], [phone], Provider Name:Pablo lozoya, 05/25/2026 10:30:00 AM, [address] [place] [address], [address], [phone], Progress Notes * INDY MENDEZ MDOB: [birth year] (69 yo M)Acc No.[id number]:05/22/2025 Patient: INDY OLIVAS Provider: Prabhu Schwartz MD :1955 A ge:69 Y S ex:Male Date:05/22/2025 Address:[address] [place], [place] [phone] Subjective: * Chief Complaints: * C omp visit * HPI: D epression Screening: PHQ-9 L [...] PHQ-9 found negative result, no follow-up needed. C ommunication Needs: Communication Needs D oes the patient have a hearing impairment N o, D oes the patient have a vision impairment? Y es, I f yes, what is the vision impairment? G lasses, D oes the patient have a cognition impairment? N o. F all Risk: History H ave you had any falls with injury in the past year? N o, H ave you had two or more falls in the past year? N o. S VIV Questions: SDOH Questions I n the past year have you been worried about losing housing? N o, I n the past year have you or any family members you live with been unable to get any of the following when it was really needed? Check all that apply: N one. S ymptom(s): patient is a 69 yo male here for visit with review of recent labs and follow up of chronic issues. * ROS: G eneral/Constitutional: Change in appetite d enies. C hills d enies. F ever d enies. O phthalmologic: Blurred vision d enies. D ischarge d enies. P ain d enies. E NT: Decreased hearing d enies. S ore throat d enies.?Swollen glands d enies. E ndocrine: Cold intolerance d enies. E xcessive thirst d enies. H eat intolerance d enies. W eight loss d enies. R espiratory: Cough d enies. S hortness of breath at rest d enies. S hortness of breath with exertion d enies. W heezing d enies. C ardiovascular: Chest pain at rest d enies. C hest pain with exertion?denies. I rregular heartbeat d enies. S hortness of breath d enies. ? G astrointestinal: Abdominal pain d enies. C hange in bowel habits d enies. D iarrhea d enies. N ausea d enies. R ectal bleeding d enies. V omiting d enies . G enitourinary: Blood in urine d enies. D ifficulty urinating d enies. F requent urination d enies. M usculoskeletal: Painful joints d enies. W eakness d enies. ? S kin: Dry skin d enies. I tching d enies. D enies?Mole(s), changes in moles, new moles or any lesions of concern. D enies P hotosensitivity. R earnest d enies. N eurologic: Dizziness d enies. F ainting d enies. H eadache?denies. * Medical History: * Surgical History: * Hospitalization/Major Diagno stic Procedure: * Family History: F ather: 89 yrs, diagnosed with Hypertension, Diabetes. M other: 95 yrs.?4 brother(s) , 3 sister(s) . 1 son(s) , 1 daughter(s) . . Mother-Healthy, Denies mental health/substance abuse family history, Denies mental health/substance abuse family history, No pertinent family medical history, No pertinent family medical history. * Social History: T obacco Use: T obacco Use/Smoking P atient is a n onsmoker, A dditional Findings: [...] status: single. Occupation: works part-time. Pets: none. * Medications: T akingOneTouch Verio - Strip TEST ONCE A DAY OneTouch Verio - Strip as directed In Vitro daily Sildenafil Citrate 100 MG Tablet TAKE ONE TABLET BY MOUTH ONCE DAILY IF NEEDED Rosuvastatin Calcium 20 MG Tablet TAKE 1 TABLET BY MOUTH EVERY DAY Potassium Chloride ER 10 MEQ Tablet Extended Release TAKE 1 TABLET BY MOUTH EVERY DAY WITH FOOD Lisinopril-hydroCHLOROthiazide 20-25 MG Tablet TAKE 1 TABLET BY MOUTH EVERY DAY Tamsulosin HCl 0.4 MG Capsule TAKE 1 CAPSULE BY MOUTH EVERY DAY metFORMIN HCl 500 MG Tablet TAKE 2 TABLET BY MOUTH TWICE A DAY WITH MEALS 90 NIFEdipine ER 60 MG Tablet Extended Release 24 Hour TAKE 1 TABLET BY MOUTH EVERY DAY Medication List reviewed and reconciled with the patientTaking OneTouch Verio - Strip TEST ONCE A DAY Taking OneTouch Verio - Strip as directed In Vitro daily Taking Sildenafil Citrate 100 MG Tablet TAKE ONE TABLET BY MOUTH ONCE DAILY IF NEEDED Taking Rosuvastatin Calcium 20 MG Tablet TAKE 1 TABLET BY MOUTH EVERY DAY Taking Potassium Chloride ER 10 MEQ Tablet Extended Release TAKE 1 TABLET BY MOUTH EVERY DAY WITH FOOD Taking Lisinopril-hydroCHLOROthiazide 20-25 MG Tablet TAKE 1 TABLET BY MOUTH EVERY DAY Taking Tamsulosin HCl 0.4 MG Capsule TAKE 1 CAPSULE BY MOUTH EVERY DAY Taking metFORMIN HCl 500 MG Tablet TAKE 2 TABLET BY MOUTH TWICE A DAY WITH MEALS 90 Taking NIFEdipine ER 60 MG Tablet Extended Release 24 Hour TAKE 1 TABLET BY MOUTH EVERY DAY Medication List reviewed and reconciled with the patient * Allergies: N .K.D.A.yes[Allergies Verified] Objective: * Vitals: H t: 68, Wt: 250, BMI:38.01, BP:122/60, Wt-k.4. weight is down 8 pounds since 01-27-25. * P ast Orders: L ab:Microalbumin, Random (Order Date - 05/15/2025) (Collection Date & Time - 05/15/2025 07:45 AM) Value Reference Range Creatinine Urine 147.30 - mg/dL Microalbumin Urine 25.0 - mg/L Microalbum Creatinine Ratio Ur 16.9 <30 - ug/ mg cr L ab:Hemoglobin A1c (Order Date - 05/15/2025) (Collection Date & Time - 05/15/2025 07:45 AM) Value Reference Range Hemoglobin A1c % 7.1 H <6.0 - % Estimated Average Glucose 157 - mg/dL L ab:Complete Blood Count Auto Diff (Order Date - 05/15/2025) (Collection Date & Time - 05/15/2025 07:45 AM) Value Reference Range White Blood Count 8.0 4.8-10.8 - X10*3/uL Red Blood Count 4.64 4.60-5.80 - X10*6/uL Hemoglobin 14.3 14.0-18.0 - g/dl Hematocrit 44.2 42.0-52.0 - % Mean Corpuscular Volume 95.3 80.0-98.0 - fL Mean Corpuscular Hemoglobin 30.8 27.0-33.0 - pg Mean Corpuscular HGB Conc 32.4 31.0-36.0 - g/ dl Red Cell Distribution Width 14.0 11.0-16.0 - % Platelet Count 224 160-400 - X10*3/uL Mean Platelet Volume 11.3 9.4-12.4 - fL Neutrophils Percent Auto 74.3 H 45-73 - % Imm Gran Pct Auto 0.4 0.0-0.4 - % Lymphocytes Percent Auto 10.5 L 20-40 - % Monocytes Percent Auto 10.6 2-11 - % Eosinophils Percent Auto 3.6 0-4 - % Basophils Percent Auto 0.6 0-2 - % NRBC Pct Auto 0.0 0.0-0.2 - /100WBC Neutrophils Absolute Auto 6.0 2.0-8.3 - x10* 3/uL Imm Gran Abs Auto 0.03 0.00-0.03 - X10*3/uL Lymphocytes Absolute Auto 0.8 L 1.2-4.9 - X10* 3/uL Monocytes Absolute Auto 0.9 0.1-1.2 - X10*3/ uL Eosinophils Absolute Auto 0.3 0.0-0.4 - X10* 3/uL Basophils Absolute Auto 0.1 0.0-0.2 - X10*3/ uL NRBC Abs Auto 0.000 0.0-0.012 - X10*3/uL L ab:UA ClnCatch+Micro w/rflx Cult (Order Date - 05/15/2025) (Collection Date & Time - 05/15/2025 07:45 AM) Value Reference Range Color Urine Dark Yellow - Appearance Urine Clear - PH 6.0 5.0-9.0 - Glucose Urine UA 100 A Negative - mg/dL Urine Blood Negative Negative - Specific [place] - Urine 1.025 1.005-1.025 - Urine Protein Trace Neg-Trace - mg/dL Urine Ketones Trace Negative - mg/dL Nitrite Urine Negative Negative - Leukocyte Esterase Urine Negative Negative - RBC Urine 0-2 0-2 - /HPF WBC Urine 0-5 0-5 - /HPF Squamous Epithelial Cell Urine 0-2 0-2 - /HP F Bacteria Urine None Seen None Seen - Hyaline Casts Urine 0-2 0-2 - /LPF L ab:Comprehensive [place]. Panel Fast (Order Date - 05/15/2025) (Collection Date & Time - 05/15/2025 07:45 AM) Value Reference Range Sodium 141 135-145 - mmol/L Bilirubin Total 1.4 H 0.0-1.0 - mg/dL Aspartate Amino Transferase 31 5-37 - U/L Alanine Aminotransferase 27 0-40 - U/L Total Protein 6.7 6.5-8.0 - g/dL Albumin Level 4.0 3.5-5.0 - g/dL Alkaline Phosphatase 67 39-117 - U/L Potassium 4.1 3.3-5.1 - mmol/L Chloride 105 96-108 - mmol/L Carbon Dioxide 28 22-29 - mmol/L Anion Gap 12 12-20 - Blood Urea Nitrogen 25 H 9-16 - mg/dL Creatinine 1.00 0.5-1.4 - mg/dL Estimated Glomerular Filt Rate > 60 - Glucose Fasting 189 H 60-99 - mg/dL Calcium 9.5 8.4-10.2 - mg/dL L ab:Lipid Panel (Order Date - 05/15/2025) (Collection Date & Time - 05/15/2025 07:45 AM) Value Reference Range Triglycerides 52 <150 - mg/dL Cholesterol 119 <200 - mg/dL LDL Cholesterol Calculated 67 <100 - mg/dL HDL Cholesterol 42 >40 - mg/dL L ab:PSA,Total (Free>4and<10) (Order Date - 05/15/2025) (Collection Date & Time - 05/15/2025 07:45 AM) Value Reference Range PSA,Total (Free>4and<10) 1.37 0.00-4.00 - ng/ mL * Examination: G eneral Examination: GENERAL APPEARANCE: w ell developed, well nourished, in no acute distress. HEAD: n ormocephalic, atraumatic. EYES: p upils equal, round, reactive to light and accommodation, sclera non-icteric. EARS: n ormal. ORAL CAVITY: m ucosa moist. THROAT: c lear. NECK/THYROID: n moe supple, full range of motion, no cervical lymphadenopathy, no bruits. SKIN: w arm and dry, no suspicious lesions. HEART: r egular rate and rhythm, S1, S2 normal, no murmurs.? LUNGS: c lear to auscultation bilaterally. ABDOMEN: s oft, nontender, nondistended, bowel sounds present, normal, no organomegaly , no masses palpable. RECTAL EXAM: n ormal tone, no external hemorrhoids, no masses palpable, prostate normal, stool guaiac negative. MALE GENITOURINARY: c ircumcised, no penile lesions or discharge, no testicular mass, testes descended bilaterally rt one hard to palpate. EXTREMITIES: n o clubbing, cyanosis, or edema. NEUROLOGIC: n onfocal, motor strength normal upper and lower extremities, sensory exam intact. FOOT EXAM: . Assessment: * Assessment: 1. O bstructive sleep apnea - G47.33 (Primary) 2 . T ype 2 diabetes mellitus without complication - E11.9 3 . P ure hypercholesterolemia - E78.00 ? 4 . E ssential hypertension - I10 5 . P rostatism - N40.0 6. E ncounter for administration of vaccine - Z23 7 . C olon cancer screening - Z12.11 8 . D epression screening - Z13.31 Plan: * Treatment: 2. T ype 2 diabetes mellitus without complication Continue metFORMIN HCl Tablet, 500 MG, TAKE 2 TABLET BY MOUTH TWICE A DAY WITH MEALS 90. Notes: needs to diet, will continue current regiment 3. P ure hypercholesterolemia Continue Rosuvastatin Calcium Tablet, 20 MG, TAKE 1 TABLET BY MOUTH EVERY DAY. I maging: CT Coronary Calcium Score Notes: order calcium score/ booked for 06-09-25 at 11am at [facility], stable, will cntinue current regiment 4. E ssential hypertension Continue Lisinopril-hydroCHLOROthiazide Tablet, 20-25 MG, TAKE 1 TABLET BY MOUTH EVERY DAY; C ontinue NIFEdipine ER Tablet Extended Release 24 Hour, 60 MG, TAKE 1 TABLET BY MOUTH EVERY DAY. ? Notes: stable, will continue current regiment 5. P rostatism Continue Tamsulosin HCl Capsule, 0.4 MG, TAKE 1 CAPSULE BY MOUTH EVERY DAY. 6. E ncounter for administration of vaccine Notes: HD flu vaccine admnistered 7. C olon cancer screening Notes: guaiac negative 8. D epression screening Notes: Negative screen * Immunizations: Influenza High Dose : 0.5 mL (Dose No:1) (Route: Intramuscular) given by Rani Beck , Office Staff on Left Deltoid * Procedure Codes: 9 0662 FLU VACC PRSV FREE INC [id number] ADMN FLU VAC NO FEE SCHED SAME DAY * Preventive Medicine: Diabetes Care Plan: P atient Lifestyle Goals N eeds to maintain diet control.?Treatment Goals A 1C< 7. B arriers N o specific barriers, doing well. S elf-Managment Plan I ncrease light exercise to 3 times a week for 30 minutes. E xpected Outcome maintaining stable blood sugar levels within a target range. * Follow Up: 2 Months * * Sign off status: Completed true * Provider: Prabhu Schwartz MD Date: 0 05/22/2025 Generated for Kenya navarrete/Carly/eTransmitting on: 1 09/23/2024 01:34 PM EST History and Physical Notes * HPI (History of Present Illness) Category Sub-Category Detail Notes Category Not es Symptom(s) patient is a 69 yo male here for visit with review of recent labs and follow up of chronic issues Depression Screening PHQ-9 Little inte rest or pleasure in doing things: Not at all Feeling down, depressed, or hopeless: No t [...] Total Score: 0 Interpretation and Intervention Depression Carolinee jerson Findings: Negative Follow-Up for Depression: : review [...] Have you had any falls with injury i n the past year?: No Have you had two or more falls in the year?: No Communication Needs Communication Needs Does the patient have a hearing impairment: No Does the patient have a vision impairmen t?: Yes If yes, what is the vision impairment?: Glasses Does the patient have a cognition impair ment?: No Examination Category Sub-Category Detail Notes Category Not es General Examination GENERAL APPEARANCE: well dev eloped, well nourished, in no acute distress HEAD: normocephalic, atrau matic EYES: pupils equal, round, reactive to light and accommodation, sclera non-icteric EARS: normal THROAT: clear NECK/THYROID: neck supple, full ra nge of motion, no cervical lymphadenopathy, no bruits HEART: regular rate and rhy thm, S1, S2 normal, no murmurs LUNGS: clear to auscultatio n bilaterally ABDOMEN: soft, nontender, non distended, bowel sounds present, normal, no organomegaly , no masses palpable NEUROLOGIC: nonfocal, motor stre ngth normal upper and lower extremities, sensory exam intact SKIN: warm and dry, no nivia picious lesions EXTREMITIES: no clubbing, cyanosi s, or edema MALE GENITOURINARY: circumcised, no peni le lesions or discharge, no testicular mass, testes descended bilaterally rt one hard to palpate RECTAL EXAM: normal tone, no exte rnal hemorrhoids, no masses palpable, prostate normal, stool guaiac negative ORAL CAVITY: mucosa moist FOOT EXAM: Date: 05/22/2025 normal pinprick . normal pulse. normal light touch.
--- OUTSIDE RECORDS SUMMARY | 2025-07-24 04:00 | XMS_ITS ---
Author Organization Pablo Schwartz MD Address [address] [place], [place] [phone] Care Team Providers Care Brand Development Manager Name Role Phone Pablo Schwartz Primary Care Provider Allergies No Known Allergies Results Component Value Reference Range Notes Glucose, finger stick Reviewed date:07/24/2025 08:47:59 AM Interpretation: Performing Lab: Notes/Report: Value 178 TSH reflex Free T4 Reviewed date:07/24/2025 12:26:24 PM Interpretation: Performing Lab:[facility], [address] [place] [phone] Notes/Report: TSH reflex Free T4 0.84 0.32-4.0 [...] Location Date Provider Diagnosis Pablo Schwartz MD [address] [place] [address] [place] [phone] 07/24/2025 Pablo Schwartz Type 2 diabetes mellitus [...] Up: 6 Weeks, Reason: Provider Name:Pablo lozoya, 08/25/2025 10:15:00 AM, [address] [place] [address], [place] [address], [place], [place], [phone], Provider Name:Pablo lozoya, 11/20/2025 07:30:00 AM, [address] [place] [address], [place] [address], [place], [place], [phone], Provider Name:Pablo Huerta ier, 11/26/2025 09:00:00 AM, [address], [address], [place], [phone], Provider Name:Pablo Huerta ier, 05/18/2026 07:45:00 AM, [address], [address], [place], [phone], Provider Name:Pablo Huerta ier, 05/25/2026 10:30:00 AM, [address], [address], [place], [place], [phone], Progress Notes * INDY MENDEZ MDOB: [birth year] (69 yo M)Acc No.[id number]:07/24/2025 Progress Notes Patient: Gilberto MARTINEZTOBY INDY Watkins Provider: Prabhu Schwartz MD :1955 A ge:69 Y S ex:Male Date:07/24/2025 Address:[address] [place], [place] [phone] Subjective: * Chief Complaints: * 1 . 2 MO F/U. * HPI: S ymptom(s): patient is a [...] D enies N ausea. 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 repeat 10 years12/16/24 colonoscopy, no further testing required. * Medications: T aking OneTouch Verio - Strip TEST ONCE A DAY , Taking OneTouch Verio - Strip as directed In Vitro daily , Taking Potassium Chloride ER 10 MEQ Tablet Extended Release TAKE 1 TABLET BY MOUTH EVERY DAY WITH FOOD , Taking Rosuvastatin Calcium 20 MG Tablet TAKE 1 TABLET BY MOUTH EVERY DAY , Taking Lisinopril-hydroCHLOROthiazide 20-25 MG Tablet TAKE 1 TABLET BY MOUTH EVERY DAY , Taking Tamsulosin HCl 0.4 MG Capsule TAKE 1 CAPSULE BY MOUTH EVERY DAY , Taking metFORMIN HCl 500 MG Tablet TAKE 2 TABLET BY MOUTH TWICE A DAY WITH MEALS 90 , Taking NIFEdipine ER 60 MG Tablet Extended Release 24 Hour TAKE 1 TABLET BY MOUTH EVERY DAY , Taking Sildenafil Citrate 100 MG Tablet TAKE ONE TABLET BY MOUTH ONCE A DAY IF NEEDED , Medication List reviewed and reconciled with the patient * Allergies: N .K.D.A. Objective: * Vitals: H t: 68, Wt: [...] regiment?? * Procedure Codes: 3 6415 VENIPUNCT, ROUTINE*, 54576 ASSAY, GLUCOSE, BLOOD QUANT, Modifiers: QW * Follow Up: 6 Weeks * * The named appointment provid er may or may not be the originator of this progress note, and it is not deemed complete until electronically signed by the appointment provider. Sign off status: Pending * Provider: Prabhu Schwartz MD Date: 09/23/2024 Generated for [place] navarrete/Carly/Jaxsonitting on: 09/23/2024 01:35 PM EST History and [...]
--- OUTSIDE RECORDS SUMMARY | 2025-07-24 13:33 | XMS_ITS | Clinical Summary ---
Author Organization [facility] Address [address] [place] [phone] Phone Care Team Providers Care Director Of Cardiology Name Role Phone Unavailable Primary Care Provider Unavailabl e Social History Tobacco Use Types Packs/Day Years Used Date Smoking Tobacco: Never Assessed Sex and Gender Information Value Date Recorded Sex Assigned at Not on file Legal Sex Male 12:15 PM EST Gender Identity Not on file Sexual Orientation Not on file Plan of Treatment Upcoming Encounters Date Type Department Care Team (Latest Contact Info) Description 09/04/2025 7:30 AM EST Hospital Encounter [address] [phone] Augustine Adan MD [address] [phone] 09/04/2025 7:30 AM EST - 09/04/2025 9:00 AM EST Surgery [address] [phone] Augustine Adan MD [address] [phone] CYSTOSCOPY TUR PROSTATE [61001 (CPT )] Scheduled Procedures Name Priority Associated Diagnoses Date/Ti me CYSTOSCOPY TUR PROSTATE Benign prostatic hyperplasia with lower urinary tract symptoms 09/04/2025 7:30 AM EST Health Maintenance Due Date Last Done Comments Colorectal Cancer Screening: Colonoscopy 1955 DTaP,Tdap,and Td Vaccines (1 - Tdap) 1972 Pneumococcal Vaccine: 50+ Years (1 of 1 - PCV) 2003 Zoster Vaccines (1 of 2) 2003 Depression Screening 09/17/2024 COVID-19 Vaccine (3 - 2024-2 6 season) 2025 11/23/2020, 11/02/2020 Influenza Vaccine (#1) 2025 Abdominal Aortic Aneurysm (AAA) Screen 06/26/2025 Cholesterol Screening (Lipid Panel) 06/26/2025 Falls Risk Assessment 06/26/2025 Hepatitis C Screening 06/26/2025 Medicare Annual Wellness Visit 06/26/2025 Social Influencers of Health Screening 06/26/2025 RSV Immunization Adult Patients (1 - 1-dose 75+ series) 2028 HIB [...] to complete this topic RSV Immunization Patients Under 20 months Aged Out No longer eligible b ased on patient's age to complete this topic Varicella Vaccines Aged Out No longer eligible based on patient's age to complete this topic Goals Goal Patient Goal Type Associated Problems Recent Progress Patient-Stated? Author Autogenerat ed Goal Care Plan Autogenerated Problem No Urmila Rushing Additional Health Concerns Active Problems Noted Date Diagnosed Date Autogenerated Problem 06/25/2025 Insurance MEDICARE [facility]
--- OUTSIDE RECORDS SUMMARY | 2025-07-24 13:34 | XMS_ITS | Patient Health Record ---
Author Organization Pablo Schwartz MD Address [address] [place], [place] [address] Care Team Providers Care Air Traffic Control Manager Name Role Phone Pablo Schwartz Primary Care Provider [phone] Allergies No Known Allergies Results Component Value Reference Range Notes Hemoglobin A1c Reviewed date:01/27/2025 02:03:46 PM Interpretation: Performing Lab: Notes/Report: Hemoglobin A1c 6.7 Liver Panel Reviewed date:11/11/2024 02:49:48 PM Interpretation: Performing Lab:[facility], [address] [place] [phone] Notes/Report: Bilirubin Total 2.0 0.0-1.0 mg/dL SLIGHT ICTE YOUNG Bilirubin Direct 0.5 0.0-0.5 mg/dL SLIGHT ICT ERUS Aspartate Amino Transferase 24 5-37 U/L Alanine Aminotransferase 18 0-40 U/L Total Protein 7.3 6.5-8.0 g/dL Albumin Level 4.0 3.5-5.0 g/dL Alkaline Phosphatase 68 39-117 U/L Glucose Fasting Reviewed date:11/11/2024 02:41:45 PM Interpretation: Performing Lab:[facility], [address] [place] [address] Notes/Report: Glucose Fasting 192 60-99 mg/dL A fasting glucose of 126 mg/dl or greater on more than one occasion is considered diagnostic of diabetes. Lipid Panel with Reflex Reviewed date:11/11/2024 04:44:08 PM Interpretation: Performing Lab:[facility], [address] [place] [address] Notes/Report: Triglycerides 76 <150 mg/dL Desirable Triglyceride: [...] A1c Reviewed date:11/11/2024 12:39:23 PM Interpretation: Performing Lab:[facility], [address] [place] [address] Notes/Report: Hemoglobin A1c % 7.5 <6.0 % [...] average glucose, using the formula of the Z7F-Kznlkjy Average Glucose study (ADAG), Diabetes Care, Vol.31,#8, Apr. 2007 Complete Blood Count Auto Di ff Reviewed date:05/15/2025 06:51:54 PM Interpretation: Performing Lab:[facility], [address] [place] [address] Notes/Report: White Blood Count 8.0 4.8-10.8 X10*3/uL [...] NRBC Abs Auto 0.000 0.0-0.012 X10*3/uL Comprehensive Sawyer. Panel Fa st Reviewed date:05/15/2025 06:51:36 PM Interpretation: Performing Lab:[facility], [address] [place] [address] Notes/Report: Sodium 141 135-145 mmol/L Potassium 4.1 [...] Panel Reviewed date:05/15/2025 06:41:15 PM Interpretation: Performing Lab:[address] [address] Notes/Report: Triglycerides 52 <150 mg/dL Desirable Triglyceride: [...] (Free>4and<10) Reviewed date:05/15/2025 06:40:45 PM Interpretation: Performing Lab:[address] [address] Notes/Report: PSA,Total (Free>4and<10) 1.37 0.00-4.00 ng/mL A [...] Random Reviewed date:05/15/2025 06:41:04 PM Interpretation: Performing Lab:[address] [address] Notes/Report: Creatinine Urine 147.30 Microalbumin Urine 25.0 Microalbum/Creatinine Ratio Ur 16.9 <30 ug/mg cr Albumin/Creatinine Ratio Reference Ranges: Normal: < 30 ug/mg creatinine Microalbuminuria: 30 - 300 ug/mg creatinine Clinical Albuminuria: > 300 ug/mg creatinine Hemoglobin A1c Reviewed date:05/15/2025 06:40:56 PM Interpretation: Performing Lab:[address] [address] Notes/Report: Hemoglobin A1c % 7.1 <6.0 % [...] average glucose, using the formula of the G1E-Opfqlxt Average Glucose study (ADAG), Diabetes Care, Vol.31,#8, Apr. 2007 UA ClnCatch+Micro w/rflx Cul t Reviewed date:05/15/2025 06:52:13 PM Interpretation: Performing Lab:[address] [address] Notes/Report: Urine, Clean Catch Color Urine Dark Yellow Appearance Urine Clear PH 6.0 5.0-9.0 Glucose Urine UA 100 Negative mg/dL Urine Blood Negative Negative Specific [place] - Urine 1.025 1.005-1.025 Urine Protein Trace Neg-Trace mg/dL Urine Ketones Trace Negative mg/dL Nitrite Urine Negative Negative Leukocyte Esterase Urine Negative Negative RBC Urine 0-2 0-2 /HPF WBC Urine 0-5 0-5 /HPF Squamous Epithelial Cell Urine 0-2 0-2 /HPF Bacteria Urine None Seen None Seen Hyaline Casts Urine 0-2 0-2 /LPF Glucose, finger stick Reviewed date:07/24/2025 08:47:59 AM Interpretation: Performing Lab: Notes/Report: Value 178 TSH reflex Free T4 Reviewed date:07/24/2025 12:26:24 PM Interpretation: Performing Lab:[facility], [address] [place] [address] Notes/Report: TSH reflex Free T4 0.84 0.32-4.0 uIU/mL Glucose, finger stick Reviewed date:11/17/2024 10:07:43 AM Interpretation: Performing Lab: Notes/Report: Value 191 Glucose, finger stick Reviewed date:01/27/2025 01:57:03 PM Interpretation: Performing Lab: Notes/Report: Value 146 Glucose, Whole Blood Reviewed date:09/01/2024 12:18:10 PM Interpretation: Performing Lab:[facility], [address] [place] [address] Notes/Report: Glucose, Whole Blood 154 60-115 mg/dL METER # : [id number] Derek Briones Reviewed date:11/11/2024 12:27:43 PM Interpretation: Performing Lab:[facility], [address] [place] [phone] Notes/Report: Derek Briones See Note Specimen held untested for 24 hours; Call to request Chemistry testing. XR chest 2V Reviewed date:01/27/2025 08:16:26 PM Interpretation: Performing Lab: Notes/Report: [address] [address] XRay Report Signed Patient: Indy Mendez MR#: [id number] : 1955 Acct:[id number] Age/Sex: 69 / M ADM Date: 01/27/25 Loc: LY Attending Dr: Pablo Schwartz MD Ordering Physician: Pablo Schwartz MD Date of Service: 01/27/25 Procedure(s): XR chest 2V Accession Number(s): [id number] cc: Pablo Schwartz MD EXAMINATION: XR CHEST [...] in OV> 01/27/25 1551 DD/ 1450 TD/TT: 01/27/251454 Die Sinking Machine Operator: [place] [address] XRay Report Signed Patient: Felipe Mendez MR#: [id number] : 1955 Acct:[id number] Age/Sex: 69 / M ADM Date: 01/27/25 Loc: HO.XRAY Attending Dr: Pablo Schwartz MD Ordering Physician: Pablo Schwartz MD Date of Service: 01/27/25 Procedure(s): XR cristine st 2V Accession Number(s): [id number] cc: Pablo Schwartz MD EXAMINATION: XR CHES [...] 01/27/25 1551 DD/ 1450 TD/TT: 01/27/25 1455 Die Sinking Machine Operator: Derek Briones Reviewed date:07/24/2025 12:26:16 PM Interpretation: Performing Lab:[facility], [address] [place] [address] Notes/Report: Derek Briones See Note Specimen held untested for 24 hours; Call to request Chemistry testing. Reason For Referral Reason prostatism Diagnosis 1 Prostatism (N40.0) Referral Organization Pablo Schwartz MD Referring Provider First Name Pablo Referring Provider Last Name Lana Referring Provider Speciality Internal edicine Referred Provider KATE DACOSTA Referred Provider Specialty Urology General Notes Alisson Dyson 0 01/29/2025 08:58:59 AM > info Kiel aviles Annette 02/06/2025 03:20:45 PM > patient is aware of appt, Concha Mandujano 02/13/2025 01:00:14 PM >OFFICE NOTE RECD Referral Priority Routine Referral Appointment Date 02/13/[address] heart Diagnosis 1 Abnormal CAT scan (R 93.89) Referral Organization Pablo Schwartz MD Referring Provider First Name Pablo Referring Provider Last Name Lana Referring Provider Speciality Internal edicine Referred Provider JHONNY RYAN Referred Provider Specialty Cardiology General Notes Alisson Dyson 0 06/12/2025 12:40:17 PM >referral info Kiel aviles Annette 07/06/2025 03:11:20 PM >patient is aware of appt Referral Priority Routine Referral Appointment Date 08/10/2025 Medications Medication SIG (Take, Route, Frequency, Duration) [...] TABLET BY CARMEN TH EVERY DAY Active Tamsulosin HCl 0.4 MG TAKE 1 CAPSULE BY MOUTH EVERY DAY Active Sildenafil Citrate 100 MG TAKE ONE TABLE T BY MOUTH ONCE A DAY IF NEEDED for 30 Active Immunizations Vaccine Route Administration Date Status Comme nts Flu Vaccine Unknown 07/05/2015 Administered recived it at work at [facility] Fluarix Quadrivalent Unknown 06/26/2016 Administered BM C Tetanus Unknown 07/18/2016 Administered given at [facility] Flu Vaccine Unknown 07/03/2017 Administered given at [facility]. PPSV23 (Pnemovax) IM Intramuscular 01/28/2018 Administered Fluarix Quadrivalent IM Intramuscular 08/13/2018 Administe red Prevnar 13 IM Intramuscular 02/17/2019 Administered Influenza High Dose IM Intramuscular 07/31/2019 Administer ed pt was given the vaccine at [facility]. Fluarix Quadrivalent Unknown 07/30/2020 Administered CV S SARS-COV-2 Pfizer Unknown 11/23/2020 Administered SARS-COV-2 Pfizer Unknown 11/09/2020 Administered Influenza High Dose IM Intramuscular 07/29/2021 Administer ed Influenza High Dose IM Intramuscular 08/01/2022 Administer ed Influenza High Dose IM Intramuscular 06/14/2023 Administer ed Influenza High Dose Unknown 07/03/2024 Administered Influenza High Dose IM Intramuscular 05/22/2025 Administer [...] Status W/U Status Risk Notes Problem Prostatism (65236789) Prostatism (N40.0) Active confirmed Problem Insomnia (696194675) Insomnia (G47.00) Active confirmed Problem Gilbert syndrome (90508069) Gilbert syndrome (E80.4) Active confirmed Problem 83587686 Essential hypert ension (I10) Active confirmed Problem 46390700 Type 2 diabetes mellitus without complication (E11.9) Active confirmed Problem 74298144 Type 2 diabetes, controlled, with neuropathy (E11.40) Active confirmed Problem Obstructive sleep apnea (15093074) Obstructive sleep apnea (G47.33) Active confirmed Problem 4714798226484 Vasculogenic ere ctile dysfunction, unspecified vasculogenic erectile dysfunction type (N52.9) Active confirmed Problem 61702499 Dysthymia (F34.1) Active confirmed Problem Hypersomnia (61978961) Hypersomnia (G47.10) Active confirmed Problem 402824882 Pure hypercholesterolemia (E78.00) Active confirmed Problem Computed tomography result abnormal (838234190) Abnormal CAT scan (R93.89) Active confirmed Vital Signs Blood pressure diastolic 72 mm Hg 07/24/2025 michael ght is up 20 pounds since 05-22-25 Height 68 in 07/24/2025 weight is up 20 pounds since 05-22-25 Blood pressure systolic 140 mm Hg 07/24/2025 weig ht is up 20 pounds since 05-22-25 Weight 270 lbs 07/24/2025 weight is up 20 pounds since 05-22-25 BMI 41.05 kg/m2 07/24/2025 weight is up 20 pounds since 05-22-25 Encounters Encounter Location Date Provider Diagnosis Pablo Schwartz MD [address] [place] [id number] 11/11/2024 Pablo Schwartz Type 2 diabetes jhony itus without complication E11.9 and Pure hypercholesterolemia E78.00 Pablo Schwartz MD [address] [place] [id number] 05/15/2025 Pablo Schwartz Essential hypertensi on I10 ; Type 2 diabetes mellitus without complication E11.9 ; Pure hypercholesterolemia E78.00 and Prostatism N40.0 Pablo Schwartz MD [address] [place] [id number] 07/24/2025 Pablo Schwartz Type 2 diabetes jhony itus without complication E11.9 ; Lethargy R53.83 and Essential hypertension I10 Pablo Schwartz MD [address] [place] [id number] 07/24/2024 Pablo Schwartz Obstructive sleep ap rosario G47.33 Pablo Schwartz MD [address] [place] [id number] 11/17/2024 Pablo Schwartz Type 2 diabetes jhony itus without complication E11.9 ; Pure hypercholesterolemia E78.00 and Cough R05.9 Palbo Schwartz MD [address] [place] [id number] 01/27/2025 Pablo Schwartz Type 2 diabetes jhony itus without complication E11.9 ; Cough R05.9 and Prostatism N40.0 Pablo Schwartz MD [address] [place] [id number] 05/22/2025 Pablo Schwartz Obstructive sleep ap rosario G47.33 ; Type 2 diabetes mellitus without complication E11.9 ; Pure hypercholesterolemia E78.00 ; Essential hypertension I10 ; Prostatism N40.0 ; Encounter for administration of vaccine Z23 ; Colon cancer screening Z12.11 and Depression screening Z13.31 Pablo Schwartz MD [address] [place] [id number] 02/05/2025 Pablo Schwartz Assessments Encounter Date Diagnosis (ICD Code) Assessment Notes Treatment Notes Treatment Clinical Notes Section Notes 11/11/2024 Type 2 diabetes mellitus without complication (ICD-10 - E11.9) 05/15/2025 Essential hypertensi on (ICD-10 - I10) 07/24/2025 Type 2 diabetes mellitus without complication (ICD-10 - E11.9) stable, will continue current regiment and will continue to monitor 07/24/2025 Lethargy (ICD-10 - R53.83) 07/24/2024 Obstructive sleep ap rosario (ICD-10 - G47.33) has ANIYAH and in need of sleep study since his old one is too old/ patient is booked for 07-29-2024 at 7:30pm [facility] site 11/17/2024 Type [...] ng diagnostic testing/ order given to patient 05/22/2025 Obstructive sleep ap rosario (ICD-10 - G47.33) cpap machine is broken was using it all the time and benefits from it 05/22/2025 Type 2 diabetes mellitus without complication (ICD-10 - E11.9) needs to diet, will continue current regiment 11/11/2024 Pure hypercholesterolemia (ICD-10 - E78.00) 05/15/2025 Type 2 diabetes mellitus without complication (ICD-10 - E11.9) 07/24/2025 Essential hypertensi on (ICD-10 - I10) stable, will continue current regiment 11/17/2024 Cough (ICD-10 - R05.9) patie nt states that it started out as an illness like the flu. sounds allergic at present 01/27/2025 Prostatism (ICD-10 - N40.0) referral to dr dacosta in [place] [facility] 05/22/2025 Pure hypercholesterolemia (ICD-10 - E78.00) order calcium score/ booked for 06-09-25 at 11am at [facility], stable, will cntinue current regiment 05/15/2025 Pure hypercholesterolemia (ICD-10 - E78.00) 05/22/2025 Essential hypertensi on (ICD-10 - I10) stable, will continue current regiment 05/15/2025 Prostatism (ICD-10 - N40.0) 05/22/2025 Prostatism (ICD-10 - N40.0) 05/22/2025 Encounter for administration of vaccine (ICD-10 - Z23) HD flu vaccine admnistered 05/22/2025 Colon cancer screeni ng (ICD-10 - Z12.11) guaiac negative 05/22/2025 Depression screening (ICD-10 - Z13.31) Negative screen Plan Of Treatment Pending Test Test Name Order Date Electrocardiogram (EKG) 02/21/2019 XR CHEST 2 VIEW PA & LAT 01/27/2025 US LEG BILATERAL VENOUS DOPPLER 09/12/20 22 Sleep Study - Baseline 07/22/2024 CT Coronary Calcium Score 05/22/2025 Next Appt Details Provider Name:Pablo Huerta ier, 08/25/2025 10:15:00 AM, [address] [facility], [address], [place], [phone], Provider Name:Pablo Huerta ier, 11/20/2025 07:30:00 AM, [address], [address], [place], [phone], Provider Name:Pablo Huerta ier, 11/26/2025 09:00:00 AM, [address] [place] [address], [address], [place], [phone], Provider Name:Pablo Huerta ier, 05/18/2026 07:45:00 AM, [address] [place] [address], [address], [place], [phone], Provider Name:Pablo Huerta ier, 05/25/2026 10:30:00 AM, [address] [place] [address], [place] [address], [place], [phone], Insurance Providers Payer Name Payer Address Payer Phone Subscriber Number Group Number Insured Name Patient Relationship to Insured Coverage Start Date Coverage End Date [employer] [address] [place] [address] [id number] INDY MENDEZ Self - patient is the insured 9 [facility] [facility] [address] [place], [place] [id number] INDY MENDEZ Self - patient is the insured Medical (General) History Medical History History ICD Code 2002 had an infection from [place] was in hospital for 6 mo. colonoscopy 01/2013. repeat 1 0 years09/01/24 colonoscopy, no further testing required Surgical History Surgery Date(Month/Year) Excision of dermal lesion in lt buttocks by Dr. Mandujano 08/2016
--- OUTSIDE RECORDS SUMMARY | 2025-07-24 13:34 | XMS_ITS | Data Portability ---
Author Organization [place] [facility], [facility] Address [address] [place] [address] Care Team Providers Care Wine Consultant Name Role Phone NARESH BLAKE Primary Care Provider [phone] Assessment No assessment recorded. Plan of Treatment [...] [facility], [address], [place], [address], 07:44:19 Medication Orders None recorded. Patient TargetsNo [...] a4ajBk vP9nXo QUaueC m3YtLR FvZlgJ JJ8mAn HZtai3 3r4328 AC0Kqa 3iHVKG mKiQtr MwF INTERFACE [facility] Office [address] [facility] [address], [place], [address], 06/26/2024 11:01:19 06/26/20 24 06/26/2024 XRsheyla, 2 or more view http:/ [email or web address] ?Encry pted=s hAaTro YD8dLq bEUv6g %2BXZw aYqtaq 0bqfl% 2Fg9IQ a4ajBk vP9nXo QUaueC m3YtLR FvZlgJ JJ8mAn HZtai3 3r3105 AC0Kqa 3iHVKG mKiQtr MwF INTERFACE [facility] [address], [place], [address], 06/26/2024 11:01:22 09/07/20 24 09/06/2024 MRI, shoul george, w/o contr ast No observ ation record ed. ecarreiro [facility] [address], [place], [address], 09/08/2024 15:56:42 Result Notes Documentation Provider Name and Address Organization Details Recorded Time Xr, Shoulder, 2 Or More View : [email or web address]? Encrypted=ppSsLlyKN5sVljI Uv6g%9ZHTobFhuiq8llhy%2Fg 5RGb5qcVcsJ5nHjFAgdoRr9Ag VEScUipFAH1kOkVEwsb21p611 3QD1Xpo2nNIMFxCyRtcCaZ Not Available [facility] 06/26/2024 11:01: 20 Xr, Shoulder, 2 Or More View : [email or web address]? Encrypted=nmVfPcjKZ8gDxuQ Uv6g%8WQUsrRabzo4hssq%2Fg 8YEx8jpYmjE1tTlCKzjxGh2Rr JIGhVsiPMJ5sMwJBnjt74i540 8KM4Bye5cUKVGtOmIjvFaP Not Available [facility] 06/26/2024 11:01: 23 Problems Name Problem SNOMED Code Status Onset Date Resolution Date Notes Provider Name and Address Organization Details Recorded Time No complaints 410213029 Active Status : 'A'; Not Available [facility] 4 09:10:52 Problem Notes None recorded. Procedures Surgical History Date Name Laterality Status Provider Name and Address Organization Details Recorded Time 4 Sports Shoulder completed Vilma Harry, ACETYLENE BURNER [address], [place], [address], [facility] 06/26/2024 12:08:39 Imaging [...] Updated DateTime 09/19/2024 175.26 cm 36.9 kg/m2 245785.09 g NARA ROBLERO [facility] 09/19/2024 14:55:33 Date Recorded Body height Body mass index (BMI) Body weight Provider Name and Address Organization Details Last Updated DateTime 11/13/2024 175.26 cm 36.9 kg/m2 580782.09 g MOISÉS BUTLER [facility] 11/13/2024 08:34:45 Date Recorded Body height Body mass index (BMI) Body weight Provider Name and Address Organization Details Last Updated DateTime 06/26/2024 175.26 cm 36.9 kg/m2 097858.09 g MOISÉS BUTLER [facility] 06/26/2024 10:54:30 Social History None recorded. Functional Status None recorded. Mental Status None recorded. Family History Nothing Reported. Medical History Condition Response Allergies/Hayfever N Coronary Artery Disease N Breathing or lung disorders N Anxiety/Depression N Emphysema N Nerve Disorders N Thyroid Problems N COPD N Pacemaker N Kidney/Bladder Problems N Anemia N Vascular Disease N Heart Trouble N Gastrointestinal Disease N Heart Attack (RI) N Cholesterol N Diabetes Y Autoimmune disease [...] Diagnosis SNOMED-CT Code Diagnosis ICD10 Code Diagnosis IMO Codes Diagnosis Note [id number] Vilma Harry CNP [facility] [address] [place] [address] 06/26/2024 09:54:32 07/16/2024 07:44:18 Pain of left shoulder joint [id number] 9152218 M25.222 [id number] MD KAT [facility] [address] [place] [address] 09/19/2024 14:11:22 10/03/2024 12:47:28 Calcific tendinitis of left shoulder 8141032298 86618 M75.32 [id number] Vilma Harry CNP [facility] - [facility] [address] [place] [address] 11/13/2024 08:24:28 11/25/2024 12:47:26 Health Concerns Section Related Observation LastModified by Organization Detai ls LastModified Time None Recorded Concern Status LastModified by Organization Details LastModified Time None Recorded Advance Directives Directive None Recorded Payers Insurance Date Sequence Insurance Name Policy Number Policy [place] Covered Member ID [place] Member ID Guarantor Name 11/11/2024 1 [place] [employer] James Quintanilla [id number] James Quintanilla 11/25/2024 2 [place] [place] [id number] James Quintanilla [id number] James Quintanilla Notes Date Note Type Note Provider Name and Address Organization Details Recorded Time 06/26/2024 text/html ROS as noted in the HPI is a 68-year-old gentleman who is here today for evaluation of his left shoulder. He reports that he was on a deck when he fell injuring his left shoulder. He reports ongoing shoulder pain since then no neurovascular changes no obvious weakness. He is here today for further evaluation. Vilma Harry, ACETYLENE BURNER [address], [place], [address], [facility] 06/26/2024 12:09:07 09/19/2024 text/html Issue: Cervicalgia, left shoulder impingement, calcific tendonitis Interval History: [...] the left shoulder ordered and obtained at [facility] 06/26/2024 were reviewed during the visit. These demonstrate a medium sized calcium deposit sitting within the substance of the rotator cuff on Grashey view. Type III acromion. Humeral head centered on axillary view. No proximal migration humeral head. Left shoulder MRI performed at [facility] 09/06/2024 independently reviewed by me on [...] I can appreciate. Sublabral foramen is not [place] complex anatomy. Long head biceps tendon once more normally within the bicipital groove. Modest subcoracoid effusion. Type III acromion. She is well I will Impression: 68-year-old yqwqa-wgtg-wmasbnyj gentleman with left shoulder pain following a [...] would reserve this for last resort only. [email or web address] speech recognition senior oracle developer software was used to create portions of this document. An attempt at proofreading has been made to minimize errors. Please call for corrections. Soni Akins MD [address], [place], [address], [facility] 10/08/2024 16:19:09 11/13/2024 text/html ROS as noted in the HPI This is a 69-year-old gentleman here today [...] the shoulder that seems to resolve Vilma Harry CNP [address], [place], [address], [facility] 11/13/2024 09:02:57
--- OUTSIDE RECORDS SUMMARY | 2025-07-24 13:35 | XMS_ITS | Patient Health Record ---
Author Organization [facility] Address [address] [place] [address] Care Team Providers Care Well Point Pumping Supervisor Name Role Phone Lana SAAB, Pablo Primary Care Provider Gómez Lopez Unavailable [phone] Allergies No Known Allergies Results Component Value Reference Range Notes Glucose, Whole Blood Reviewed date:09/01/2024 10:19:54 PM Interpretation: Performing Lab:[facility], [address] [place] [phone] Notes/Report: Glucose, Whole Blood 154 60-115 mg/dL METER # : [id number] Reason For Referral No Information Medications Medication SIG (Take, Route, Frequency, Duration) Notes Start Date End Date Status NIFEdipine 62mg Acti ve Meloxicam 15 MG 1 tablet Orally Once a day; Duration: 30 day(s) Not-Taking potassium 1 tab Oral; Duration : 14 days Active Rosuvastatin Calcium 20 MG 1 tablet Oral ly Once a day; Duration: 30 day(s) Active metFORMIN HCl 500 MG 1 tablet with a michelle l Orally Once a day; Duration: 30 day(s) Active Lisinopril 20mg Acti ve [...] Status Risk Notes Problem Colon cancer screening (442338090) Colon cancer screening (Z12.11) Active confirmed Problem Pre-procedure evaluation check (742663169) Encounter for other preprocedural examination (Z01.818) Active confirmed Problem Diverticular disease of colon (265661334) Diverticulosis of large intestine without perforation or abscess without bleeding (K57.30) Active confirmed Problem Long-term current use of drug therapy (105835512) Encounter for long-term (current) use of high-risk medication (Z79.899) Active confirmed Encounters Encounter Location Date Provider Diagnosis [facility] [place] [address] [place] [phone] 09/01/2024 Gómez Giraldo Colon cancer scree jerson [...] hemorrhoids (ICD-10 - K64.8) Plan Of Treatment Future Test Test Name Order Date COLONOSCOPY 01/07/2013 COLONOSCOPY 05/28/2024 Insurance Providers Payer Name Payer Address Payer Phone Subscriber Number Group Number Insured Name Patient Relationship to Insured Coverage Start Date Coverage End Date MEDICARE OF [place] [address] [place] [address] [phone] [id number] INDY MENDEZ Self - patient is the insured [facility] [address] [place], [place] [id number] [phone] [id number] INDY MENDEZ Self - patient is the insured Medical (General) History Medical History History ICD Code Hyperlipidemia Hypertension He describes a hospitalizati on in early for some type of infectious diarrhea, and describes undergoing colonoscopies at [facility] during his evaluation-these were negative for polyps and he was advised to have another colonoscopy 10 years thereafter for screening Denies NC,CVA,Lung disease,renal disease Negative screening colonoscopy in 2013 Surgical History Surgery Date(Month/Year) Nasal polyps Bilateral knee replacements in approx 20 19
== END 2025-07-24 11:14 | disposition home or self-care (01) ==
LOC: HO.LNP 11:13
PROVIDERS: Visit Provider Internal Medicine
DX: E11.9 Type 2 diabetes mellitus without complications (principal)
CPT/HCPCS: 84443

== ENCOUNTER 2025-08-10 14:47 | Outpatient (AMB) | payer MEDICARE, BC, SELFPAY ==
[2025-08-10 14:54] VITALS: BP 120/62; PULSE 86; BMI 41.4
--- NOTE | 2025-08-10 14:54 | A.OFFVIS_ITS ---
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 He underwent a calcium scoring CT scan which was abnormal and hence he has been referred here. Patient does not have any known cardiac issues including coronary disease or myocardial infarction or cardiomyopathy. Multiple cardiovascular risk factors including obesity, hypertension, diabetes, dyslipidemia. Within limits of his activity, he does not have any clear-cut cardiac concerns. No angina or other symptoms. [facility] Medical History (Updated 08/10/25 @ 15:33 by Zay Kovacs MD) Diabetes Elevated cholesterol HTN (hypertension) Surgical History Hx of nasal polypectomy History of bilateral knee replacement H/O colonoscopy Family History (Updated 08/10/25 @ 15:04 by Imelda Johnson) Mother No problems noted. Father Heart attack Social History (Updated 08/10/25 @ 15:04 by Imelda Johnson) Are you a primary day care supervisor to a significant other at home: No Do you presently have visiting nurse or other home services: No Alcohol intake: never Patient Tobacco Use Status: Never used Tobacco Review of Systems Const Denies weakness ENT Denies dizziness Card Denies chest pain, Denies chest pain with activity, Denies syncope, Denies rapid heart rate, Denies pedal edema, Denies edema, Denies leg edema, Denies lightheadedness, Denies palpitations, Denies dyspnea, Denies dyspnea on exertion and Denies orthopnea Resp Denies cough, Denies dyspnea and Denies dyspnea on exertion GI Denies hematochezia and Denies change in stool character Musc Denies abnormal gait, Denies muscle cramps, Denies muscle weakness, Denies numbness, Denies radiating pain into limb and Denies tingling Neuro Denies abnormal gait, Denies dizziness, Denies syncope, Denies numbness, Denies tingling and Denies weakness Endo Denies palpitations Physical Exam Vital Signs: Last Vital Signs Pulse 86 08/10/25 14:54 BP 120/62 08/10/25 14:54 BMI result Body Mass Index 41.4 Const General: comfortable and no acute distress Orientation/consciousness: patient oriented x3 HEENT Other: Unremarkable Head: Yes normal to inspection Neck Neck: Yes normal visual inspection Chest Chest palpation & inspection: normal inspection of the chest Resp Auscultation: clear to auscultation bilaterally Cardio Palpation: normal PMI Heart sounds: S1 normal heart sound present, S2 normal heart sound present, no gallops, no murmurs and no rubs GI Palpation (GI): Soft to palpation Back/Spine/Pelvis Other: unremarkable Skin General skin exam: no rashes or lesions noted Neuro General: patient oriented x3 Extrem General: Yes normal to inspection Psych Mental Status: mental status grossly normal Office Procedures EKG Details: EKG with underlying sinus rhythm at 86/Min; no ischemic changes; [place] [address]-Ufaqajohpgvejukdl, Complete Assessment & Plan Assessment & Plan (1) Coronary artery calcification seen on CAT scan: Code(s): I25.10 - Atherosclerotic heart disease of [place] coronary artery without angina pectoris Category: Medical (2) Ascending aorta dilatation: Code(s): I77.810 - Thoracic aortic ectasia Category: Medical (3) Diabetes: Code(s): E11.9 - Type 2 diabetes mellitus without complications Category: Medical (4) HTN (hypertension): Code(s): I10 - Essential (primary) hypertension Category: Medical (5) Elevated cholesterol: Code(s): E78.00 - Pure hypercholesterolemia, unspecified Category: Medical Plan Calcium scoring CT reviewed. Total score 1124. Left main 97. LAD 550. Circumflex 5.85. Right coronary artery 459. Ramus 13. Ascending aortic size 4.2 cm. Small pericardial effusion. Findings discussed with patient. Overall, he has no symptoms, but numerous cardiovascular risk factors and above evidence of coronary disease. We will investigate this further with an exercise stress perfusion imaging study on an echocardiogram. Plan discussed with patient and he agrees. Orders: Orders NM cardiolite stress test Today I25.10 - Atherosclerotic heart disease of [place] coronary artery without angina pectoris CA echo transthoracic complete Today I25.10 - Atherosclerotic heart disease of [place] coronary artery without angina pectoris CA stress test Today I25.10 - Atherosclerotic heart disease of [place] coronary artery without angina pectoris Coding Level of Care Code New Pt Level 4 (77182) Complex visit Add On G2211 Diagnoses Coronary artery calcification seen on CAT scan I25.10 Ascending aorta dilatation I77.810 Diabetes E11.9 HTN (hypertension) I10 Elevated cholesterol E78.00 CPT Codes EKG - CPT: 77082-Yknopvgzxvcnwfzyg, Complete ([id number])
--- OUTSIDE RECORDS SUMMARY | 2025-08-10 19:37 | XMS_ITS | Clinical Summary ---
Author Organization [facility] Address [address] [place] [address] Phone Care Team Providers Care Biometrics Experimentalist Name Role Phone Pablo Schwartz MD Primary [...] COLONOSCOPY 10/06/2014 10/06/2004 COLORECTAL CANCER SCREENING 10/06/2014 INFLUENZA VACCINE (#1) 2025 COVID-19 VACCINE ( - 2024-2 6 season) 2025 RSV VACCINE (1 - 1-dose 75+ series) [...] Narrative 10/06/2004 12:00 AM EST Report Number: [id number] Report Status: Final Type: Colonoscopy Date: 10/06/2004 [...] biopsied. - This procedure was done in [facility] [place], [id number] Signed Date: 10/06/2004 3:12:47 PM Note generated on 10/06/2004 2:51:06 PM CC letter to: Procedure Note Sys, Conversion Provider Not In - 10/06/2004 12:00 AM EST Report Number: [id number] Report Status:Final Type: Colonoscopy Date: 10/06/2004 Gastrointestinal [...] biopsied. - This procedure was done in [facility] [place], [id number] Signed Date: 10/06/2004 3:12:47 PM Note generated on 10/06/2004 2:51:06 PM CC letter to: us Conversion Provider Not In Sys GI PROCEDURE ORDE LORENZO Final Result from Last 3 Months or Most Recently Relevant to Health Maintenance Insurance MEDICARE PART A & B [facility] MEDICARE PART A & B [facility] MEDICARE PART A & B MEDICARE PART A & B MEDICARE PART A & B [facility] MEDICARE PART A & B [facility] MEDICARE PART A & B MEDICARE PART A & B MEDICARE PART A & B [facility] Care Teams Biometrics Experimentalist Relationship Specialty Start Date End Date Pablo Schwartz MD [address] [place] [address] [place] [address] PCP - General Internal Medicine 06/21/22 Additional Source Comments The information contained in this document represents components of the legal health record. It is not the complete legal health record.[facility]
--- OUTSIDE RECORDS SUMMARY | 2025-08-10 19:37 | XMS_ITS | Clinical Summary ---
Author Organization [facility] Address [address] [place] [address] Phone Care Team Providers Care Administration Manager Name Role Phone Unavailable Primary Care [...] Description 09/04/2025 7:30 AM EST Hospital Encounter [address] [phone] Augustine Adan MD [address] [phone] 09/04/2025 7:30 AM EST - 09/04/2025 9:00 AM EST Surgery [address] [phone] Augustine Adan MD [address] [phone] CYSTOSCOPY TUR PROSTATE [75760 (CPT )] Scheduled Procedures Name Priority Associated [...] Diagnosed Date Autogenerated Problem 06/25/2025 Insurance MEDICARE [facility]
--- OUTSIDE RECORDS SUMMARY | 2025-08-10 19:37 | XMS_ITS | Data Portability ---
Author Organization [place] - [facility] Address [address] [place] [address] Care Team Providers Care Enterprise Software Developer Name Role Phone NARESH BLAKE Primary Care [...] [facility], [address], [place], [address], 07:44:19 Medication Orders None recorded. Patient TargetsNo [...] a4ajBk vP9nXo QUaueC m3YtLR FvZlgJ JJ8mAn HZtai3 2j5484 AC0Kqa 3iHVKG mKiQtr MwF INTERFACE [facility] Office [address] [facility] [address], [place], [address], 06/26/2024 11:01:19 06/26/20 24 06/26/2024 XRsheyla, 2 or more view http:/ [email or web address]:[email or web address] ?Encry pted=s hAaTro YD8dLq bEUv6g %2BXZw aYqtaq 0bqfl% 2Fg9IQ a4ajBk vP9nXo QUaueC m3YtLR FvZlgJ JJ8mAn HZtai3 3g5543 AC0Kqa 3iHVKG mKiQtr MwF INTERFACE [facility] [address], [place], [address], 06/26/2024 11:01:22 09/07/20 24 09/06/2024 MRI, shoul george, w/o contr ast No observ ation record ed. ecarreiro [facility] [address], [place], [address], 09/08/2024 15:56:42 Result Notes Documentation Provider Name and Address Organization Details Recorded Time Xr, Shoulder, 2 Or More View : [email or web address] Encrypted=enPaYcuST0uHciQ Uv6g%5ESNajTbugv6sofh%2Fg 3BVl8beTxfP4yRpMNpcuJy1He UKLiPheDUF0rKmHJzyx37z708 6FN5Egm7yPFMEdRrKtjKlQ Not Available [facility] 06/26/2024 11:01: 20 Xr, Shoulder, 2 Or More View : [email or web address] Encrypted=muTlYygXT7xLzxK Uv6g%3PTLjkBckbt5oxly%2Fg 2HSj1loQykG2yCtBDtooTh9Oq FWItAigIYB6oClYYslh44m717 9YP9Cmh8qAAIQmImFvcIbM Not Available [facility] 06/26/2024 11:01: 23 Problems Name Problem SNOMED Code Status Onset Date Resolution Date Notes Provider Name and Address Organization Details Recorded Time No complaints 608876434 Active Status : 'A'; Not Available [facility] 4 09:10:52 Problem Notes None recorded. Procedures Surgical History Date Name Laterality Status Provider Name and Address Organization Details Recorded Time 4 Sports Shoulder completed Vilma Harry, CASE MANAGEMENT SPECIALIST [address], [place], [address], [facility] 06/26/2024 12:08:39 Imaging Results [...] Updated DateTime 09/19/2024 175.26 cm 36.9 kg/m2 193758.09 g NARA ROBLERO [facility] 09/19/2024 14:55:33 Date Recorded Body height Body mass index (BMI) Body weight Provider Name and Address Organization Details Last Updated DateTime 11/13/2024 175.26 cm 36.9 kg/m2 130719.09 g MOISÉS BUTLER [facility] 11/13/2024 08:34:45 Date Recorded Body height Body mass index (BMI) Body weight Provider Name and Address Organization Details Last Updated DateTime 06/26/2024 175.26 cm 36.9 kg/m2 880786.09 g MOISÉS BUTLER [facility] 06/26/2024 10:54:30 Social History [...] Trouble N Gastrointestinal Disease N Heart Attack ([place]) N Cholesterol N Diabetes Y Autoimmune disease [...] ICD10 Code Diagnosis IMO Codes Diagnosis Note [id number] Vilma Harry CNP [facility] [address] [place] [address] 06/26/2024 09:54:32 07/16/2024 07:44:18 Pain of left shoulder joint 0358651620 [id number] M25.891 [id number] MD KAT [address] [place] [address] 09/19/2024 14:11:22 10/03/2024 12:47:28 Calcific tendinitis of left shoulder [id number] 43438 M75.32 [id number] Vilma Harry CNP [facility] - [facility] [address] [place] [place] [address] 11/13/2024 08:24:28 11/25/2024 12:47:26 Health Concerns Section Related Observation LastModified by Organization Detai ls LastModified Time None Recorded Concern Status LastModified by Organization Details LastModified Time None Recorded Advance Directives Directive None Recorded Payers Insurance Date Sequence Insurance Name Policy Number Policy [place] Covered Member ID [place] Member ID Guarantor Name 11/11/2024 1 [place] [employer] James Quintanilla [id number] James Quintanilla 11/25/2024 2 [place] [id number] James Quintanilla [id number] James Quintanilla Notes Date Note Type Note [...] here today for further evaluation. Vilma Harry, CASE MANAGEMENT SPECIALIST [address] [facility] [facility], [place], [address], [facility] 06/26/2024 12:09:07 09/19/2024 text/html [...] the left shoulder ordered and obtained at [facility] 06/26/2024 were reviewed during the visit. These demonstrate a medium sized calcium deposit sitting within the substance of the rotator cuff on Grashey view. Type III acromion. Humeral head centered on axillary view. No proximal migration humeral head. Left shoulder MRI performed at [facility] 09/06/2024 independently reviewed by me on [...] I can appreciate. Sublabral foramen is not Liberty complex anatomy. Long head biceps tendon once more normally within the bicipital groove. Modest subcoracoid effusion. Type III acromion. She is well I will Impression: 68-year-old vllca-espv-vfrlwaum gentleman with left shoulder pain following a [...] would reserve this for last resort only. [employer] speech recognition veterinary hospital shift lead software was used to create portions of this document. An attempt at proofreading has been made to minimize errors. Please call for corrections. Soni Akins MD [address], [place], [address], [facility] 10/08/2024 16:19:09 11/13/2024 text/html [...] Harry CNP [address], [place], [address], [facility] 11/13/2024 09:02:57
== END 2025-08-10 15:24 | disposition home or self-care (01) ==
LOC: HO.HCS 14:48
PROVIDERS: PCP Internal Medicine; Visit Provider Internal Medicine
DX: I25.10 Atherosclerotic heart disease of native coronary artery without angina pectoris (principal); I77.810 Thoracic aortic ectasia; E11.9 Type 2 diabetes mellitus without complications; I10 Essential (primary) hypertension; E78.00 Pure hypercholesterolemia, unspecified
CPT/HCPCS: 93010; 99204; G2211

== ENCOUNTER → 2025-08-10 14:47 | Outpatient (BNVA) | payer MEDICARE, BC, SELFPAY | PROVIDERS: PCP Internal Medicine; Visit Provider Internal Medicine | DX: I10 Essential (primary) hypertension (principal); I25.10 Atherosclerotic heart disease of native coronary artery without angina pectoris; I25.84 Coronary atherosclerosis due to calcified coronary lesion; I77.810 Thoracic aortic ectasia; E11.9 Type 2 diabetes mellitus without complications; Z79.84 Long term (current) use of oral hypoglycemic drugs; E78.00 Pure hypercholesterolemia, unspecified; E66.9 Obesity, unspecified; Z68.41 Body mass index [BMI] 40.0-44.9, adult | CPT/HCPCS: 93005; 99202 ==

== ENCOUNTER → 2025-08-12 07:39 | Outpatient (REF) | payer MEDICARE, BC, SELFPAY ==
--- OUTSIDE RECORDS SUMMARY | 2024-07-24 05:30 | XMS_ITS ---
Author Organization Pablo Schwartz MD Address [address] [place], [place] [id number] Care Team Providers Care Foster Winder Name Role Phone Pablo Schwartz Primary Care Provider Allergies No Known Allergies REASON FOR VISIT needs sleep study, orders entered and faxed to [facility] dept.. Per Medicare guide line patient needs a visit with his PCP explaining why, before he has sleep study done. 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 on [...] Location Date Provider Diagnosis Pablo Schwartz MD [address] [place] [phone] 07/24/2024 Pablo Schwartz Obstructive sleep apnea G47.33 Assessments Encounter Date Diagnosis (ICD Code) Assessment Notes Treatment Notes Treatment Clinical Notes Section Notes 07/24/2024 Obstructive sleep apnea (ICD-10 - G47.33) has ANIYAH and in need of sleep study since his old one is too old/ patient is booked for 07-29-2024 at 7:30pm [facility] Plan Of Treatment Treatment Notes Assessment Notes Obstructive sleep apnea has ANIYAH and in n eed of sleep study since his old one is too old/ patient is booked for 07-29-2024 at 7:30pm [facility] Next Appt Details Provider Name:Pablo lozoya, 09/14/2025 10:00:00 AM, [address] [place] [address], [address], [phone], Provider Name:Pablo lozoya, 11/20/2025 07:30:00 AM, [address] [place] [address], [address], [phone], Provider Name:Pablo lozoya, 11/26/2025 09:00:00 AM, [address] [place] [address], [address], [phone], Provider Name:Pablo loozya, 05/18/2026 07:45:00 AM, [address] [place] [address], [address], [phone], Provider Name:Pablo lozoya, 05/25/2026 10:30:00 AM, [address] [place] [address], [address], [phone], Progress Notes * INDY MENDEZ MDOB: [birth year] (68 yo M)Acc No.[id number]:07/24/2024 Progress Notes Patient: INDY OLIVAS Provider: Prabhu Schwartz MD :1955 A ge:68 Y S ex:Male Date:07/24/2024 Address:[address] [place] [address], [id number] Subjective: * Chief Complaints: * n eeds sleep study, orders entered and faxed to [facility] dept.. Per Medicare guide line patient needs a visit with his PCP explaining why, before he has sleep study done. 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
--- OUTSIDE RECORDS SUMMARY | 2024-09-01 07:40 | XMS_ITS ---
Author Organization [facility] Address [address] [place] [address] Care Team Providers Care Gas Load Dispatcher Name Role Phone Pablo Schwartz MD Primary Care Provider Gómez Lopez [phone] REASON FOR VISIT screening Problems Problem Type SNOMED Code ICD Code Onset Dates Problem Status W/U Status Risk Notes Problem Diverticular disease of colon (692438467) Diverticulosis of large intestine without perforation or abscess without bleeding (K57.30) Active confirmed Encounters Encounter Location Date Provider Diagnosis [facility] [place] [address] [place] [phone] 09/01/2024 Gómez Giraldo Colon cancer scree jerson [...] * VANESSAINDY LUISDOB: 4 (69 yo M)Acc No.[id number]:09/01/2024 COLON WITH MAC Patient: INDY OLIVAS Provider: Adriana Giraldo MD :1955 A ge:68 Y S ex:Male Date:09/01/2024 Address:[address] [place], [place] [phone] Pcp:Pablo Schwartz MD Subjective: * Chief Complaints: * S creening Assessment: * Assessment: 1. C olon cancer screening - Z12.11 (Primary) 2 . D iverticulosis of large intestine without perforation or abscess without bleeding - K57.30 3 . O ther hemorrhoids - K64.8 Plan: * Procedure Codes: G 0121 COLOREC CNCR SCR;COLNSCPY NO HI [id number] INTRVL 3+YRS PTS CLNSCP [id number] RCMND FLW-UP 10 YRS DOCD, Modifiers: 1P [...] Date: 11/02/2023 Generated for Kenya navarrete/Carly/Jaxsonitting on: 10/12/2024 07:42 AM EST
--- OUTSIDE RECORDS SUMMARY | 2024-11-11 02:15 | XMS_ITS ---
Author Organization Pablo Schwartz MD Address [address] [place], [place] [phone] Care Team Providers Care Cargo And Ramp Services Manager Name Role Phone Pablo Schwartz Primary Care Provider Results Component Value Reference Range Notes Liver Panel Reviewed date:11/11/2024 02:49:48 PM Interpretation: Performing Lab:[facility], [address] [place] [phone] Notes/Report: Bilirubin Total 2.0 0.0-1.0 mg/dL SLIGHT ICTE YOUNG Bilirubin Direct 0.5 0.0-0.5 mg/dL SLIGHT ICT ERUS Aspartate Amino Transferase 24 5-37 U/L Alanine Aminotransferase 18 0-40 U/L Total Protein 7.3 6.5-8.0 g/dL Albumin Level 4.0 3.5-5.0 g/dL Alkaline Phosphatase 68 39-117 U/L Glucose Fasting Reviewed date:11/11/2024 02:41:45 PM Interpretation: Performing Lab:[facility], [address] [place] [phone] Notes/Report: Glucose Fasting 192 60-99 mg/dL A fasting glucose of 126 mg/dl or greater on more than one occasion is considered diagnostic of diabetes. Lipid Panel with Reflex Reviewed date:11/11/2024 04:44:08 PM Interpretation: Performing Lab:[facility], [address] [place] [phone] Notes/Report: Triglycerides 76 <150 mg/dL Desirable Triglyceride: less than 150 mg/dL Borderline High Triglyceride 150-199 mg/dL High Triglyceride: 200-499 mg/dL Very High Triglyceride: greater than or equal to 5OO mg/dL Cholesterol 113 <200 mg/dL Desirable Cholesterol: less than 200 mg/dL Borderline High Cholesterol: 200-239 mg/dL High Cholesterol: greater than 239 mg/dL LDL Cholesterol Calculated 62 <100 mg/dL Desirable LDL: less than 100 mg/dL Near Optimal/Above Optimal LDL: 110-129 mg/dL Borderline High LDL: 130-159 mg/dL High LDL: 160-189 mg/dL Very High LDL: greater than or equal to 190 mg/dL HDL Cholesterol 36 >40 mg/dL Desirable HDL: greater than 40 mg/dL Note: This HDL assay may give artificially low results in patients with liver disease. Hemoglobin A1c Reviewed date:11/11/2024 12:39:23 PM Interpretation: Performing Lab:[facility], [address] [place] [phone] Notes/Report: Hemoglobin A1c % 7.5 <6.0 % Hemoglobin A1C Reference Range Adults: 4.8 - 6.0 % Non diabetic: < 6.0 % Goal: < 7.0 % Additional Action Suggested: > 8.0 % Note: Hemoglobin A1c results are invalid for patients with abnormal amounts of HbF. Blood transfusions may impact the HbA1c concentration in the patient sample. Estimated Average Glucose 169 eAG = Estimated average glucose which is %A1C expressed as average glucose, using the formula of the N6P-Gssmnmp Average Glucose study (ADAG), Diabetes Care, Vol.31,#8, 2007 REASON FOR VISIT fasting lipids Encounters Encounter Location Date Provider Diagnosis Pablo Schwartz MD [address] [place] [address] [address] [place], [place] [phone] 11/11/2024 Pablo Schwartz Type 2 diabetes jhony itus without complication E11.9 and Pure hypercholesterolemia E78.00 Assessments Encounter Date Diagnosis (ICD Code) Assessment Notes Treatment Notes Treatment Clinical Notes Section Notes 11/11/2024 Type 2 diabetes jhony itus without complication (ICD-10 - E11.9) 11/11/2024 Pure hypercholesterolemia (ICD-10 - E78.00) Plan Of Treatment Next Appt Details Provider Name:Pablo Huerta ier, 09/14/2025 10:00:00 AM, [address], [address], [place], [place], [phone], Provider Name:Pablo Huerta ier, 11/20/2025 07:30:00 AM, [address], [address], [place], [place], [id number], Provider Name:Pablo Huerta ier, 11/26/2025 09:00:00 AM, [address], [address], [place], [place], [phone], Provider Name:Pablo Huerta ier, 05/18/2026 07:45:00 AM, [address], Suite [facility], [place], [place], [phone], Provider Name:Pablo Huerta ier, 05/25/2026 10:30:00 AM, [address], [address], [place], [place], [phone], Progress Notes * INDY MENDEZ MDOB: [birth year] (69 yo M)Acc No.[id number]:11/11/2024 Progress Note Patient: INDY OLIVAS Provider: Prabhu Schwartz MD :1955 A ge:69 Y S ex:Male Date:11/11/2024 Address:[address] [place], [place] [phone] Subjective: * Chief Complaints: * 1 . Fasting lipids. * Medical History: Objective: * Vitals: Assessment: * Assessment: 1. T ype 2 diabetes mellitus without complication - E11.9 (Primary) 2 . P ure hypercholesterolemia - E78.00 Plan: * Treatment: 2. P ure hypercholesterolemia L AB: Liver Panel (Collection Date & Time - 11/11/2024 07:15 AM) L AB: Glucose Fasting (Collection Date & Time - 11/11/2024 07:15 AM) L AB: Lipid Panel with Reflex (Collection Date & Time - 11/11/2024 07:15 AM) L AB: Hemoglobin A1c (Collection Date & Time - 11/11/2024 07:15 AM) * Procedure Codes: 3 6415 VENIPUNCT, ROUTINE* * * The named appointment provid er may or may not be the originator of this progress note, and it is not deemed complete until electronically signed by the appointment provider. Sign off status: Pending * Provider: Prabhu Schwartz MD Date: 0 11/11/2024 Generated for Kenya navarrete/Carly/Jaxsonitting on: 1 10/12/2024 07:44 AM EST
--- OUTSIDE RECORDS SUMMARY | 2024-11-17 05:15 | XMS_ITS ---
Author Organization Pablo Schwartz MD Address [address] [place], [place] [phone] Care Team Providers Care Contractor Broomcorn Threshing Name Role Phone Pablo Schwartz Primary Care Provider [phone] Allergies No Known Allergies Results Component Value [...] Location Date Provider Diagnosis Pablo Schwartz MD [address] [place] [phone] 11/17/2024 Pablo Schwartz Type 2 diabetes jhony [...] Up: 6 Months, Reason: Provider Name:Pablo lozoya, 09/14/2025 10:00:00 AM, [address] [place] [address], [address], [phone], Provider Name:Pablo lozoya, 11/20/2025 07:30:00 AM, [address] [place] [address], [address], [phone], Provider Name:Pablo lozoya, 11/26/2025 09:00:00 AM, [address] [place] [address], [address], [phone], Provider Name:Pablo olzoya, 05/18/2026 07:45:00 AM, [address] [place] [address], [address], [phone], Provider Name:Pablo Huerta ier, 05/25/2026 10:30:00 AM, [address], [address], [place], [phone], Progress Notes * INDY MENDEZ MDOB: [birth year] (69 yo M)Acc No.[id number]:11/17/2024 Progress Notes Patient: INDY OLIVAS Provider: Prabhu Schwartz MD :1955 A ge:69 Y S ex:Male Date:11/17/2024 Address:[address] [place], [place] [phone] Subjective: * Chief Complaints: * 6 months [...] MD Date: 0 11/17/2024 Generated for [place] navarrete/Carly/Jaxsonitting on: 1 10/12/2024 07:44 AM EST History and Physical Notes * [...]
--- OUTSIDE RECORDS SUMMARY | 2025-01-27 09:30 | XMS_ITS ---
Author Organization Pablo Schwartz MD Address [address] [place], [place] [phone] Care Team Providers Care Physician Scientist Name Role Phone Pablo Schwartz Primary Care Provider [phone] Allergies No Known Allergies Results Component Value [...] Provider Speciality Internal M edicine Referred Provider AKTE DACOSTA Referred Provider Specialty Urology General Notes [...] kg/m2 01/27/2025 weight is down 5 pounds [facility] e 11-17-24 Encounters Encounter Location Date Provider Diagnosis Pablo Schwartz MD [address] [place] [address] [place] [phone] 01/27/2025 Pablo Schwartz Type 2 diabetes mellitus [...] - N40.0) referral to dr dacosta in [place] Plan Of Treatment Medication Medication Name Sig [...] patient Prostatism referral to dr dacosta in [place] Pending Test Test Name Order Date XR CHEST 2 VIEW PA & LAT 01/27/2025 Referrals Referral Date Details 01/27/2025 01/27/2025, prostati sm, KATE DACOSTA Next Appt Details Provider Name:Pablo Huerta ier, 09/14/2025 10:00:00 AM, [address], [place], [place], [phone], Provider Name:Pablo Huerta ier, 11/20/2025 07:30:00 AM, [address], [place], [place], [phone], Provider Name:Pablo Huerta ier, 11/26/2025 09:00:00 AM, [address] [place] [address] Drive, Suite [facility], [place], [place], [phone], Provider Name:Pablo Huerta ier, 05/18/2026 07:45:00 AM, [address], Suite [facility], [place], [place], [phone], Provider Name:Pablo Huerta ier, 05/25/2026 10:30:00 AM, [address] [place] [address] Drive, Suite [facility], [place], [place], [phone], Progress Notes * INDY MENDEZ MDOB: [birth year] (69 yo M)Acc No.[id number]:01/27/2025 Progress Notes Patient: Gilberto INDY MICHAUD Provider: Prabhu Schwartz MD :1955 A ge:69 Y S ex:Male Date:01/27/2025 Address:[address] [place], [place] [phone] Subjective: * Chief Complaints: * W ants [...] Hospitalization/Major Diagno stic Procedure: * Medications: T akingOneTmila Verio - Strip TEST ONCE A DAY [...] day.?? Notes: referral to dr dacosta in [place]? Referral To:KATE DACOSTA??Urology ?Reason:prostatism * Procedure Codes: 8 2947 ASSAY, GLUCOSE, BLOOD QUANT, Modifiers: QW 35359 GLYCATED HEMOGLOBIN TEST, Modifiers: QW * * Sign off status: Completed true * Provider: Prabhu Schwartz MD Date: 0 01/27/2025 Generated for Printi ng/Caryl/eTransmitting on: 10/12/2024 07:44 AM EST History and Physical [...]
--- OUTSIDE RECORDS SUMMARY | 2025-02-05 04:46 | XMS_ITS ---
Author Organization Pablo Schwartz MD Address [address] [place] [phone] Care Team Providers Care Sea Kayaking Guide Name Role Phone Pablo Schwartz Primary Care Provider REASON FOR VISIT chest x-ray results Encounters Encounter Location Date Provider Diagnosis Pablo Schwartz MD [address] [place] [address] [place] [phone] 02/05/2025 Pablo Schwartz Plan Of Treatment Next Appt Details Provider Name:Pablo lozoya, 09/14/2025 10:00:00 AM, [address] [place] [address], [address], [phone], Provider Name:Pablo lozoya, 11/20/2025 07:30:00 AM, [address] [place] [address], [address], [phone], Provider Name:Pablo lozoya, 11/26/2025 09:00:00 AM, [address] [place] [address], [address], [phone], Provider Name:Pablo lozoya, 05/18/2026 07:45:00 AM, [address], [place], [place], [phone], Provider Name:Pablo Huerta ier, 05/25/2026 10:30:00 AM, [address], [address], [place], [place], [phone], Progress Notes * INDY MENDEZ MDOB: [birth year] (69 yo M)Acc No.[id number]:02/05/2025 Patient: INDY OLIVAS :1955 A ge:69 Y S ex:Male [facility] [address] [address] * true * Date: Generated for Kenya navarrete/Carly/hKadarsmitting on: 10/12/2024 07:42 AM EST
--- OUTSIDE RECORDS SUMMARY | 2025-05-15 02:45 | XMS_ITS ---
Author Organization Pablo Schwartz MD Address [address] [place], [place] [id number] Care Team Providers Care Air Control Electronics Operator Name Role Phone Pablo Schwartz Primary Care Provider [phone] Results Component Value Reference Range Notes Complete Blood Count Auto Di ff Reviewed date:05/15/2025 06:51:54 PM Interpretation: Performing Lab:[facility], [address] [place] [address] Notes/Report: White Blood Count 8.0 4.8-10.8 X10*3/uL Red Blood Count 4.64 4.60-5.80 X10*6/uL Hemoglobin 14.3 14.0-18.0 g/dl Hematocrit 44.2 42.0-52.0 % Mean Corpuscular Volume 95.3 80.0-98.0 fL Mean Corpuscular Hemoglobin 30.8 27.0-33.0 pg Mean Corpuscular HGB Conc 32.4 31.0-36.0 g/dl Red Cell Distribution Width 14.0 11.0-16.0 % Platelet Count 224 160-400 X10*3/uL Mean Platelet Volume 11.3 9.4-12.4 fL Neutrophils Percent Auto 74.3 45-73 % Imm Gran Pct Auto 0.4 0.0-0.4 % Lymphocytes Percent Auto 10.5 20-40 % Monocytes Percent Auto 10.6 2-11 % Eosinophils Percent Auto 3.6 0-4 % Basophils Percent Auto 0.6 0-2 % NRBC Pct Auto 0.0 0.0-0.2 /100WBC Neutrophils Absolute Auto 6.0 2.0-8.3 x10*3/u L Imm Gran Abs Auto 0.03 0.00-0.03 X10*3/uL Lymphocytes Absolute Auto 0.8 1.2-4.9 X10*3/u L Monocytes Absolute Auto 0.9 0.1-1.2 X10*3/uL Eosinophils Absolute Auto 0.3 0.0-0.4 X10*3/u L Basophils Absolute Auto 0.1 0.0-0.2 X10*3/uL NRBC Abs Auto 0.000 0.0-0.012 X10*3/uL Comprehensive Wet[place]. Panel Fa st Reviewed date:05/15/2025 06:51:36 PM Interpretation: Performing Lab:[facility], [address] [place] [address] Notes/Report: Sodium 141 135-145 mmol/L Potassium 4.1 3.3-5.1 mmol/L Chloride 105 96-108 mmol/L Carbon Dioxide 28 22-29 mmol/L Anion Gap 12 12-20 Blood Urea Nitrogen 25 9-16 mg/dL Creatinine 1.00 0.5-1.4 mg/dL Estimated Glomerular Filt Rate > 60 Chronic Kidney Disease: Estimated GFR < 60 mL/min/1.73m2 Severe Kidney Disease: Estimated GFR < 15 mL/min/1.73m2 Glucose Fasting 189 60-99 mg/dL A fasting glucose of 126 mg/dl or greater on more than one occasion is considered diagnostic of diabetes. Calcium 9.5 8.4-10.2 mg/dL Bilirubin Total 1.4 0.0-1.0 mg/dL Aspartate Amino Transferase 31 5-37 U/L Alanine Aminotransferase 27 0-40 U/L Total Protein 6.7 6.5-8.0 g/dL Albumin Level 4.0 3.5-5.0 g/dL Alkaline Phosphatase 67 39-117 U/L Lipid Panel Reviewed date:05/15/2025 06:41:15 PM Interpretation: Performing Lab:[facility], [address] [place] [address] Notes/Report: Triglycerides 52 <150 mg/dL Desirable Triglyceride: less than 150 mg/dL Borderline High Triglyceride 150-199 mg/dL High Triglyceride: 200-499 mg/dL Very High Triglyceride: greater than or equal to 5OO mg/dL Cholesterol 119 <200 mg/dL Desirable Cholesterol: less than 200 mg/dL Borderline High Cholesterol: 200-239 mg/dL High Cholesterol: greater than 239 mg/dL LDL Cholesterol Calculated 67 <100 mg/dL Desirable LDL: less than 100 mg/dL Near Optimal/Above Optimal LDL: 110-129 mg/dL Borderline High LDL: 130-159 mg/dL High LDL: 160-189 mg/dL Very High LDL: greater than or equal to 190 mg/dL HDL Cholesterol 42 >40 mg/dL Desirable HDL: greater than 40 mg/dL Note: This HDL assay may give artificially low results in patients with liver disease. PSA,Total (Free>4and<10) Reviewed date:05/15/2025 06:40:45 PM Interpretation: Performing Lab:[facility], [address] [place] [address] Notes/Report: PSA,Total (Free>4and<10) 1.37 0.00-4.00 ng/mL A Free PSA was not [...] Chemiluminescent Microparticle Immunoassay (CMIA) Microalbumin, Random Reviewed date:05/15/2025 06:41:04 PM Interpretation: Performing Lab:[facility], [address] [place] [address] Notes/Report: Creatinine Urine 147.30 Microalbumin Urine 25.0 Microalbum/Creatinine Ratio Ur 16.9 <30 ug/mg cr Albumin/Creatinine Ratio Reference Ranges: Normal: < 30 ug/mg creatinine Microalbuminuria: 30 - 300 ug/mg creatinine Clinical Albuminuria: > 300 ug/mg creatinine Hemoglobin A1c Reviewed date:05/15/2025 06:40:56 PM Interpretation: Performing Lab:[facility], [address] [place] [address] Notes/Report: Hemoglobin A1c % 7.1 <6.0 % Hemoglobin A1C Reference Range Adults: 4.8 - 6.0 % Non diabetic: < 6.0 % Goal: < 7.0 % Additional Action Suggested: > 8.0 % Note: Hemoglobin A1c results are invalid for patients with abnormal amounts of HbF. Blood transfusions may impact the HbA1c concentration in the patient sample. Estimated Average Glucose 157 eAG = Estimated average glucose which is %A1C expressed as average glucose, using the formula of the U9V-Bfuvxze Average Glucose study (ADAG), Diabetes Care, Vol.31,#8, Apr. 2007 UA ClnCatch+Micro w/rflx Cul t Reviewed date:05/15/2025 06:52:13 PM Interpretation: Performing Lab:[facility], [address] [place] [address] Notes/Report: Urine, Clean Catch Color Urine Dark Yellow Appearance Urine Clear PH 6.0 5.0-9.0 Glucose Urine UA 100 Negative mg/dL Urine Blood Negative Negative Specific [place] - Urine 1.025 1.005-1.025 Urine Protein Trace Neg-Trace mg/dL Urine Ketones Trace Negative mg/dL Nitrite Urine Negative Negative Leukocyte Esterase Urine Negative Negative RBC Urine 0-2 0-2 /HPF WBC Urine 0-5 0-5 /HPF Squamous Epithelial Cell Urine 0-2 0-2 /HPF Bacteria Urine None Seen None Seen Hyaline Casts Urine 0-2 0-2 /LPF REASON FOR VISIT yearly fasting labs Encounters Encounter Location Date Provider Diagnosis Pablo Schwartz MD [address] [place], [place] [phone] 05/15/2025 Pablo Schwartz Essential hypertensi on I10 ; Type 2 diabetes mellitus without complication E11.9 ; Pure hypercholesterolemia E78.00 and Prostatism N40.0 Assessments Encounter Date Diagnosis (ICD Code) Assessment Notes Treatment Notes Treatment Clinical Notes Section Notes 05/15/2025 Essential hypertensi on (ICD-10 - I10) 05/15/2025 Type 2 diabetes jhony itus without complication (ICD-10 - E11.9) 05/15/2025 Pure hypercholesterolemia (ICD-10 - E78.00) 05/15/2025 Prostatism (ICD-10 - N40.0) Plan Of Treatment Next Appt Details Provider Name:Pablo Huerta ier, 09/14/2025 10:00:00 AM, [address], [address] [facility], [place], [place], [phone], Provider Name:Pablo Huerta ier, 11/20/2025 07:30:00 AM, [address] [place] [address], [address] [facility], [place], [place], [phone], Provider Name:Pablo Huerta ier, 11/26/2025 09:00:00 AM, [address] [place] [address], [address] [facility], [place], [place], [phone], Provider Name:Pablo Huerta ier, 05/18/2026 07:45:00 AM, [address] [place] [address], [address] [facility], [place], [place], [id number], Provider Name:Pablo Huerta ier, 05/25/2026 10:30:00 AM, [address] [place] [address] Drive, [address] [facility], [place], [place], [phone], Progress Notes * INDY MENDEZ MDOB: [birth year] (69 yo M)Acc No.[id number]:05/15/2025 Progress Note Patient: Gilberto MICHAUDINDY Provider: Prabhu Schwartz MD :1955 A ge:69 Y S ex:Male Date:05/15/2025 Address:[address] [place], [place] [phone] Subjective: * Chief Complaints: * 1 . Yearly fasting labs. * Medical History: Objective: * Vitals: Assessment: * Assessment: 1. E ssential hypertension - I10 (Primary) 2 . T ype 2 diabetes mellitus without complication - E11.9 3 . P ure hypercholesterolemia - E78.00 ?4. P rostatism - N40.0 Plan: * Treatment: 2. T ype 2 diabetes mellitus without complication L AB: Complete Blood Count Auto Diff (Collection Date & Time - 05/15/2025 07:45 AM) L AB: Comprehensive [place]. Panel Fast (Collection Date & Time - 05/15/2025 07:45 AM) L AB: Lipid Panel (Collection Date & Time - 05/15/2025 07:45 AM) L AB: PSA,Total (Free>4and<10) (Collection Date & Time - 05/15/2025 07:45 AM) L AB: Microalbumin, Random (Collection Date & Time - 05/15/2025 07:45 AM) L AB: Hemoglobin A1c (Collection Date & Time - 05/15/2025 07:45 AM) L AB: UA ClnCatch+Micro w/rflx Cult (Collection Date & Time - 05/15/2025 07:45 AM) 3. P ure hypercholesterolemia L AB: Complete Blood Count Auto Diff (Collection Date & Time - 05/15/2025 07:45 AM) L AB: Comprehensive [place]. Panel Fast (Collection Date & Time - 05/15/2025 07:45 AM) L AB: Lipid Panel (Collection Date & Time - 05/15/2025 07:45 AM) L AB: PSA,Total (Free>4and<10) (Collection Date & Time - 05/15/2025 07:45 AM) L AB: Microalbumin, Random (Collection Date & Time - 05/15/2025 07:45 AM) L AB: Hemoglobin A1c (Collection Date & Time - 05/15/2025 07:45 AM) L AB: UA ClnCatch+Micro w/rflx Cult (Collection Date & Time - 05/15/2025 07:45 AM) 4. P rostatism L AB: Complete Blood Count Auto Diff (Collection Date & Time - 05/15/2025 07:45 AM) L AB: Comprehensive [place]. Panel Fast (Collection Date & Time - 05/15/2025 07:45 AM) L AB: Lipid Panel (Collection Date & Time - 05/15/2025 07:45 AM) L AB: PSA,Total (Free>4and<10) (Collection Date & Time - 05/15/2025 07:45 AM) L AB: Microalbumin, Random (Collection Date & Time - 05/15/2025 07:45 AM) L AB: Hemoglobin A1c (Collection Date & Time - 05/15/2025 07:45 AM) L AB: UA ClnCatch+Micro w/rflx Cult (Collection Date & Time - 05/15/2025 07:45 AM) * Procedure Codes: 3 6415 VENIPUNCT, ROUTINE* * * The named appointment provid er may or may not be the originator of this progress note, and it is not deemed complete until electronically signed by the appointment provider. Sign off status: Pending * Provider: Prabhu Schwartz MD Date: 0 05/15/2025 Generated for Kenya navarrete/Carly/Max on: 1 10/12/2024 07:43 AM EST
--- OUTSIDE RECORDS SUMMARY | 2025-05-22 04:30 | XMS_ITS ---
Author Organization Pablo Schwartz MD Address [address] [place], [place] [id number] Care Team Providers Care Canal Equipment Mechanic Name Role Phone Pablo Schwartz Primary [...] kg/m2 05/22/2025 weight is down 8 pounds [facility] tania 01-27-25 Encounters Encounter Location Date Provider Diagnosis Pablo Schwartz MD [address] [place] [address] [place] [phone] 05/22/2025 Pablo Schwartz Obstructive sleep ap rosario [...] score/ booked for 06-09-25 at 11am at [facility], stable, will cntinue current regiment 05/22/2025 Essential [...] score/ booked for 06-09-25 at 11am at [facility], stable, will cntinue current regiment Essential hypertension stable, will cont inue current regiment Encounter for administration of vaccine HD flu vaccine admnistered Colon cancer screening guaiac negative Depression screening Negative screen Pending Test Test Name Order Date CT Coronary Calcium Score 05/22/2025 Next Appt Details Follow Up: 2 Months, Reason: Provider Name:Pablo lozoya, 09/14/2025 10:00:00 AM, [address] [place] [address], [address], [phone], Provider Name:Pablo lozoya, 11/20/2025 07:30:00 AM, [address] [place] [address], [address], [phone], Provider Name:Pablo lozoya, 11/26/2025 09:00:00 AM, [address] [place] [address], [address], [phone], Provider Name:Pablo lozoya, 05/18/2026 07:45:00 AM, [address] [place] [address], [address], [phone], Provider Name:Pablo lozoya, 05/25/2026 10:30:00 AM, [address] [place] [address], [address], [phone], Progress Notes * INDY MENDEZ MDOB: [birth year] (69 yo M)Acc No.[id number]:05/22/2025 Patient: INDY OLIVAS Provider: Prabhu Schwartz MD :1955 A ge:69 Y S ex:Male Date:05/22/2025 Address:[address] [place], [place] [phone] Subjective: * Chief Complaints: * C omp [...] mg/dL Urine Blood Negative Negative - Specific [place] - Urine 1.025 1.005-1.025 - Urine Protein [...] Urine 0-2 0-2 - /LPF L ab:Comprehensive [place]. Panel Fast (Order Date - 05/15/2025) (Collection [...] score/ booked for 06-09-25 at 11am at [facility], stable, will cntinue current regiment 4. E [...] 9 0662 FLU VACC PRSV FREE INC [id number] ADMN FLU VAC NO FEE SCHED SAME [...] 05/22/2025 Generated for Kenya navarrete/Carly/eTransmitting on: 1 10/12/2024 07:44 AM EST History [...]
--- OUTSIDE RECORDS SUMMARY | 2025-07-24 04:00 | XMS_ITS ---
Author Organization Pablo Schwartz MD Address [address] [place], [place] [phone] Care Team Providers Care Card Feeder Name Role Phone Pablo Schwartz Primary Care Provider [phone] Allergies No Known Allergies Results Component Value Reference Range Notes Glucose, finger stick Reviewed date:07/24/2025 08:47:59 AM Interpretation: Performing Lab: Notes/Report: Value 178 TSH reflex Free T4 Reviewed date:07/24/2025 12:26:24 PM Interpretation: Performing Lab:[facility], [address] [place] [phone] Notes/Report: TSH reflex Free T4 0.84 0.32-4.0 [...] Location Date Provider Diagnosis Pablo Schwartz MD [address] [place] [address] [place] [phone] 07/24/2025 Pablo Schwartz Type 2 diabetes mellitus [...] Up: 6 Weeks, Reason: Provider Name:Pablo lozoya, 09/14/2025 10:00:00 AM, [address] [place] [address], [place] [address], [place], [place], [phone], Provider Name:Pablo lozoya, 11/20/2025 07:30:00 AM, [address] [place] [address], [place] [address], [place], [place], [phone], Provider Name:Pablo Huerta ier, 11/26/2025 09:00:00 AM, [address], [address], [place], [phone], Provider Name:Pablo Huerta ier, 05/18/2026 07:45:00 AM, [address], [address], [place], [phone], Provider Name:Pablo Huerta ier, 05/25/2026 10:30:00 AM, [address], [address], [place], [phone], Progress Notes * INDY MENDEZ MDOB: [birth year] (69 yo M)Acc No.[id number]:07/24/2025 Progress Notes Patient: Gilberto MARTINEZTOBY INDY Watkins Provider: Prabhu Schwartz MD :1955 A ge:69 Y S ex:Male Date:07/24/2025 Address:[address] [place], [place] [phone] Subjective: * Chief Complaints: * 2 MO [...] regiment?? * Procedure Codes: 3 6415 VENIPUNCT, ROUTINE*32345 ASSAY, GLUCOSE, BLOOD QUANT, Modifiers: QW * Follow Up: 6 Weeks * * Sign off status: Completed true * Provider: Prabhu Schwartz MD Date: 09/23/2024 Generated for [place] navarrete/Carly/eTransmitting on: 10/12/2024 07:44 AM EST History and [...]
--- OUTSIDE RECORDS SUMMARY | 2025-07-30 06:15 | XMS_ITS ---
Author Organization Pablo Schwartz MD Address [address] [place], [place] [phone] Care Team Providers Care Respiratory Scientist Name Role Phone Pablo Schwartz Primary Care Provider Allergies No Known Allergies REASON FOR VISIT running nose, tingling in throat x 2 months Video [phone] [phone], Covid results are negative from this AM [...] Status W/U Status Risk Notes Problem Sinusitis (49591268) Sinusitis (J32.9) Active confirmed Vital Signs Height 68 in 07/30/2025 weight is 270 at home BP not taken at home no temp Encounters Encounter Location Date Provider Diagnosis Pablo Schwartz MD [address] [place] [phone] 07/30/2025 Pablo Schwartz Sinusitis J32.9 Assessments Encounter [...] use Next Appt Details Provider Name:Pablo lozoya, 09/14/2025 10:00:00 AM, [address] [place] [address], [phone], Provider Name:Pablo lozoya, 11/20/2025 07:30:00 AM, [address] [place] [address], [phone], Provider Name:Pablo lozoya, 11/26/2025 09:00:00 AM, [address] [place] [address], [phone], Provider Name:Pablo lozoya, 05/18/2026 07:45:00 AM, [address] [place] [address], [phone], Provider Name:Pablo lozoya, 05/25/2026 10:30:00 AM, [address] [place] [address], [phone], Progress Notes * INDY MENDEZ MDOB: [birth year] (69 yo M)Acc No.[id number]:07/30/2025 Patient: INDY OLIVAS Provider: Prabhu Schwartz MD :1955 A ge:69 Y S ex:Male Date:07/30/2025 Address:[address], [id number] Subjective: * Chief Complaints: * 1 . running nose, tingling in throat x 2 months Video [phone]. 2. Covid results are negative from this AM. * HPI: S ymptom(s): Telehealth L ocation of provider rendering services: [address], [address], L ocation of patient: a [...] 2 months. * ROS: G eneral/Constitutional: Admits C hills. D enies F atigue. D [...] 09/01/24 colonoscopy, no further testing required. * Medications: [...] CAPSULE BY MOUTH EVERY DAY , Taking Sildenafil Citrate 100 MG Tablet TAKE ONE TABLET BY MOUTH ONCE A DAY IF NEEDED , Taking Lisinopril-hydroCHLOROthiazide 20-25 MG Tablet TAKE [...] N .K.D.A. Objective: * Vitals: H t: 68. weight is 270 at home BP not taken at home no temp. * Examination: G eneral Examination: GENERAL APPEARANCE: a lert, well hydrated, in no distress.? Assessment: * Assessment: Tracy davis - J32.9 (Primary) Plan: * Treatment: * * The named appointment provid er may or may not be the originator of this progress note, and it is not deemed complete until electronically signed by the appointment provider. Sign off status: Pending * Provider: Prabhu Schwartz MD Date: 09/29/2024 Generated for Kenya navarrete/Carly/Khadarsmitting on: 10/12/2024 07:43 AM EST History and Physical Notes * HPI (History of Present Illness) Category Sub-Category Detail Notes Category Not es Symptom(s) Telehealth Location of [facility] rendering services:: [address], [address] patient is a 69 [...]
--- OUTSIDE RECORDS SUMMARY | 2025-08-10 04:23 | XMS_ITS ---
Author Organization Pablo Schwartz MD Address [address] [place] [phone] Care Team Providers Care Supportability Engineer Name Role Phone Pablo Schwartz Primary Care Provider Encounters Encounter Location Date Provider Diagnosis Pablo Schwartz MD [address] [place] [address] [place] [phone] 08/10/2025 Pablo Schwartz Plan Of Treatment Next Appt Details Provider Name:Pablo lozoya, 09/14/2025 10:00:00 AM, [address] [place] [address], [address], [phone], Provider Name:Pablo lozoya, 11/20/2025 07:30:00 AM, [address] [place] [address], [address], [phone], Provider Name:Pablo lozoya, 11/26/2025 09:00:00 AM, [address] [place] [address], [address], [phone], Provider Name:Pablo lozoya, 05/18/2026 07:45:00 AM, [address], [address], [place], [phone], Provider Name:Pablotisha Ramososmin ier, 05/25/2026 10:30:00 AM, [address], [address], [place], [phone], Progress Notes * INDY MENDEZ MDOB: [birth year] (69 yo M)Acc No.[id number]:08/10/2025 Patient: Gilberto INDY MICHAUD :1955 A ge:69 Y S ex:Male Address: [address], [facility] [place], [address] * true * Date: Generated for Kenya navarrete/Carly/Khadarsmitting on: 10/12/2024 07:44 AM EST
--- NOTE | ~2025-08-12 | NM_ITS ---
EXERCISE MYOCARDIAL PERFUSION STUDY INDICATION: Positive coronary artery calcium TECHNIQUE: The patient was brought in for an exercise perfusion study on 08/12/2025. Patient performed exercise as per Camacho protocol and was injected 40 mCi of sestamibi once target heart rate was achieved. Images were obtained using the SPECT gamma camera interlaced with the gating device. Images were obtained in supine position. Resting perfusion study was performed on 08/18/2025. Patient was administered 40 mCi of sestamibi intravenously at rest. Images were then obtained in supine position. Total DLP 135 mGy-cm. Images were processed with the software and compared side to side in short axis, horizontal long axis and vertical long axis views. FINDINGS: Raw aquisition reviewed. The stress perfusion study showed decreased tracer uptake in the inferior wall. There is improvement with CT attenuation correction suggestive of diaphragmatic attenuation artifact. The gated study shows normal LV systolic function with calculated LVEF of 56%. LV cavity is normal in size. The gated study shows normal wall thickening and contraction of segments. Resting study shows diminished tracer uptake along the inferior wall. There is improvement with CT attenuation correction suggestive of diaphragmatic attenuation artifact. Gating at rest reveals normal wall motion with ejection fraction at 69%. The findings are consistent with fixed inferior perfusion defect probably from diaphragmatic attenuation artifact. No clear reversible defects. NM/NM cardiolite stress test IMPRESSION: 1. Myocardial perfusion imaging study shows probably normal myocardial perfusion. 2. Gated LVEF is 56% during stress and 69% during rest. Correlate with echocardiogram. 3. Transient ischemic dilatation not present. EKG component of the test reported separately. Electronically signed by: Zay Kovacs MD 08/18/2025 04:01 PM [facility]
--- OUTSIDE RECORDS SUMMARY | 2025-08-12 07:43 | XMS_ITS | Clinical Summary ---
Author Organization [facility] Address [address] [place] [address] Phone Care Team Providers Care Grain Processor Name Role Phone Unavailable Primary Care Provider [...] 09/04/2025 7:30 AM EST Hospital Encounter [address] [phone] Augustine Adan MD [address] [phone] 09/04/2025 7:30 AM EST - 09/04/2025 9:00 AM EST Surgery [address] [phone] Augustine Adan MD [address] [address] CYSTOSCOPY TUR PROSTATE [85615 (CPT )] Scheduled Procedures Name Priority Associated [...] Diagnosed Date Autogenerated Problem 06/25/2025 Insurance MEDICARE [facility]
--- OUTSIDE RECORDS SUMMARY | 2025-08-12 07:44 | XMS_ITS | Clinical Summary ---
Author Organization [facility] Address [address] [place] [address] Phone Care Team Providers Care Firer Boiler Name Role Phone Pablo Schwartz MD Primary [...] Narrative 10/06/2004 12:00 AM EST Report Number: [id number] Report Status: Final Type: Colonoscopy Date: 10/06/2004 [...] biopsied. - This procedure was done in [facility], [place], [address] Signed Date: 10/06/2004 3:12:47 PM Note generated on 10/06/2004 2:51:06 PM CC letter to: Procedure Note Sys, Conversion Provider Not In - 10/06/2004 12:00 AM EST Report Number: [id number] Report Status:Final Type: Colonoscopy Date: 10/06/2004 Gastrointestinal [...] biopsied. - This procedure was done in [facility] [place], [address] Signed Date: 10/06/2004 3:12:47 PM Note generated on 10/06/2004 2:51:06 PM CC letter to: us Conversion Provider Not In Sys GI PROCEDURE ORDE LORENZO Final Result from Last 3 Months or Most Recently Relevant to Health Maintenance Insurance MEDICARE PART A & B [facility] MEDICARE PART A & B [facility] MEDICARE PART A & B MEDICARE PART A & B MEDICARE PART A & B [facility] MEDICARE PART A & B [facility] MEDICARE PART A & B MEDICARE PART A & B MEDICARE PART A & B [facility] [employer] Care Teams Firer Boiler Relationship Specialty Start Date End Date Pablo Schwartz MD [address] [place] [address] [place] [address] PCP - General Internal Medicine 06/21/22 Additional Source Comments The information contained in this document represents components of the legal health record. It is not the complete legal health record.[facility]
--- OUTSIDE RECORDS SUMMARY | 2025-08-12 07:44 | XMS_ITS | Patient Health Record ---
Author Organization Pablo Schwartz MD Address [address] [place], [place] [phone] Care Team Providers Care Special Weapons Unit Officer Name Role Phone Pablo Schwartz Primary Care Provider Allergies No Known Allergies Results Component Value Reference Range Notes Hemoglobin A1c Reviewed date:01/27/2025 02:03:46 PM Interpretation: Performing Lab: Notes/Report: Hemoglobin A1c 6.7 Liver Panel Reviewed date:11/11/2024 02:49:48 PM Interpretation: Performing Lab:[facility], [address] [place] [address] Notes/Report: Bilirubin Total 2.0 0.0-1.0 mg/dL SLIGHT ICTE YOUNG Bilirubin Direct 0.5 0.0-0.5 mg/dL SLIGHT ICT ERUS Aspartate Amino Transferase 24 5-37 U/L Alanine Aminotransferase 18 0-40 U/L Total Protein 7.3 6.5-8.0 g/dL Albumin Level 4.0 3.5-5.0 g/dL Alkaline Phosphatase 68 39-117 U/L Glucose Fasting Reviewed date:11/11/2024 02:41:45 PM Interpretation: Performing Lab:[facility], [address] [place] [address] Notes/Report: Glucose Fasting 192 60-99 mg/dL A fasting glucose of 126 mg/dl or greater on more than one occasion is considered diagnostic of diabetes. Lipid Panel with Reflex Reviewed date:11/11/2024 04:44:08 PM Interpretation: Performing Lab:[facility], [address] [place] [address] Notes/Report: Triglycerides 76 <150 mg/dL Desirable Triglyceride: [...] A1c Reviewed date:11/11/2024 12:39:23 PM Interpretation: Performing Lab:[facility], [address] [place] [address] Notes/Report: Hemoglobin A1c % 7.5 <6.0 % [...] average glucose, using the formula of the Y4W-Awxaque Average Glucose study (ADAG), Diabetes Care, Vol.31,#8, Apr. 2007 Complete Blood Count Auto Di ff Reviewed date:05/15/2025 06:51:54 PM Interpretation: Performing Lab:[facility], [address] [place] [address] Notes/Report: White Blood Count 8.0 4.8-10.8 X10*3/uL [...] NRBC Abs Auto 0.000 0.0-0.012 X10*3/uL Comprehensive Waymart. Panel Fa st Reviewed date:05/15/2025 06:51:36 PM Interpretation: Performing Lab:[facility], [address] [place] [address] Notes/Report: Sodium 141 135-145 mmol/L Potassium 4.1 [...] Panel Reviewed date:05/15/2025 06:41:15 PM Interpretation: Performing Lab:[address] [address] Notes/Report: Triglycerides 52 <150 mg/dL Desirable Triglyceride: [...] (Free>4and<10) Reviewed date:05/15/2025 06:40:45 PM Interpretation: Performing Lab:[address] [address] Notes/Report: PSA,Total (Free>4and<10) 1.37 0.00-4.00 ng/mL A [...] Random Reviewed date:05/15/2025 06:41:04 PM Interpretation: Performing Lab:[address] [address] Notes/Report: Creatinine Urine 147.30 Microalbumin Urine 25.0 Microalbum/Creatinine Ratio Ur 16.9 <30 ug/mg cr Albumin/Creatinine Ratio Reference Ranges: Normal: < 30 ug/mg creatinine Microalbuminuria: 30 - 300 ug/mg creatinine Clinical Albuminuria: > 300 ug/mg creatinine Hemoglobin A1c Reviewed date:05/15/2025 06:40:56 PM Interpretation: Performing Lab:[address] [address] Notes/Report: Hemoglobin A1c % 7.1 <6.0 % [...] average glucose, using the formula of the K2A-Abygnxj Average Glucose study (ADAG), Diabetes Care, Vol.31,#8, Apr. 2007 UA ClnCatch+Micro w/rflx Cul t Reviewed date:05/15/2025 06:52:13 PM Interpretation: Performing Lab:[address] [address] Notes/Report: Urine, Clean Catch Color Urine Dark Yellow Appearance Urine Clear PH 6.0 5.0-9.0 Glucose Urine UA 100 Negative mg/dL Urine Blood Negative Negative Specific [place] - Urine 1.025 1.005-1.025 Urine Protein Trace Neg-Trace mg/dL Urine Ketones Trace Negative mg/dL Nitrite Urine Negative Negative Leukocyte Esterase Urine Negative Negative RBC Urine 0-2 0-2 /HPF WBC Urine 0-5 0-5 /HPF Squamous Epithelial Cell Urine 0-2 0-2 /HPF Bacteria Urine None Seen None Seen Hyaline Casts Urine 0-2 0-2 /LPF Glucose, finger stick Reviewed date:11/17/2024 10:07:43 AM Interpretation: Performing Lab: Notes/Report: Value 191 Glucose, finger stick Reviewed date:01/27/2025 01:57:03 PM Interpretation: Performing Lab: Notes/Report: Value 146 Glucose, finger stick Reviewed date:07/24/2025 08:47:59 AM Interpretation: Performing Lab: Notes/Report: Value 178 TSH reflex Free T4 Reviewed date:07/24/2025 12:26:24 PM Interpretation: Performing Lab:[facility], [address] [place] [address] Notes/Report: TSH reflex Free T4 0.84 0.32-4.0 uIU/mL Glucose, Whole Blood Reviewed date:09/01/2024 12:18:10 PM Interpretation: Performing Lab:[facility], [address] [place] [address] Notes/Report: Glucose, Whole Blood 154 60-115 mg/dL METER # : [id number] Hold Anselmo Reviewed date:11/11/2024 12:27:43 PM Interpretation: Performing Lab:[facility], [address] [place] [address] Notes/Report: Derek Gold See Note Specimen held untested for 24 hours; Call to request Chemistry testing. XR chest 2V Reviewed date:01/27/2025 08:16:26 PM Interpretation: Performing Lab: Notes/Report: [address] [address] XRay Report Signed Patient: Indy Mendez MR#: [id number] : 1955 Acct:[id number] Age/Sex: 69 / M ADM Date: 01/27/25 Loc: LY Attending Dr: Pablo Schwartz MD Ordering Physician: Pablo Schwartz MD Date of Service: 01/27/25 Procedure(s): XR chest 2V Accession Number(s): [id number] cc: Pablo Schwartz MD EXAMINATION: XR CHEST [...] OV> 01/27/25 1551 DD/ 1450 TD/TT: 01/27/251454 Contract Manager: [place] [address] XRay Report Signed Patient: Felipe Mendez MR#: [id number] : 1955 Acct:[id number] Age/Sex: 69 / M ADM Date: 01/27/25 Loc: HO.XRAY Attending Dr: Pablo Schwartz MD Ordering Physician: Pablo Schwartz MD Date of Service: 01/27/25 Procedure(s): XR cristine st 2V Accession Number(s): [id number] cc: Pablo Schwartz MD EXAMINATION: XR CHES [...] 01/27/25 1551 DD/ 1450 TD/TT: 01/27/25 1455 Contract Manager: Derek Briones Reviewed date:07/24/2025 12:26:16 PM Interpretation: Performing Lab:[facility], [address] [place] [address] Notes/Report: Derek Briones See Note Specimen held untested for 24 hours; Call to request Chemistry testing. Reason For Referral Reason prostatism Diagnosis 1 Prostatism (N40.0) Referral Organization Pablo Schwartz MD Referring Provider First Name Pablo Referring Provider Last Name Lana Referring Provider Speciality Internal edicine Referred Provider KATE DACOSTA Referred Provider Specialty Urology General Notes Alisson Dyson 0 01/29/2025 08:58:59 AM > info faKiel marina Annette 02/06/2025 03:20:45 PM > patient is [...] A DAY WITH MEALS for 90 Active Sildenafil Citrate 100 MG TAKE ONE TABLE T BY MOUTH ONCE A DAY IF NEEDED for 30 Active Amoxicillin-Pot Clavulanate 875-125 MG 1 tablet Orally every 12 hrs for 10 days 07/30/2025 Active NIFEdipine ER 60 MG TAKE 1 TABLET BY CARMEN TH EVERY DAY Active OneTouch Verio - as directed In Vitro daily for 90 days 04/28/2019 Active OneTouch Verio - TEST ONCE A DAY for 90 Active Immunizations Vaccine Route Administration Date Status Comme nts Flu Vaccine Unknown 07/05/2015 Administered recived it at work at [facility] [facility] Fluarix Quadrivalent Unknown 06/26/2016 Administered C Tetanus Unknown 07/18/2016 Administered given at [facility] Flu Vaccine Unknown 07/03/2017 Administered given at [facility]. PPSV23 (Pnemovax) IM Intramuscular 01/28/2018 Administered Fluarix Quadrivalent IM Intramuscular 08/13/2018 Administe red Prevnar 13 IM Intramuscular 02/17/2019 Administered Influenza High Dose IM Intramuscular 07/31/2019 Administer ed pt was given the vaccine at [facility]. Fluarix Quadrivalent Unknown 07/30/2020 Administered S SARS-COV-2 Pfizer Unknown 11/23/2020 Administered SARS-COV-2 [...] Status W/U Status Risk Notes Problem Prostatism (74338979) Prostatism (N40.0) Active confirmed Problem Insomnia (607938715) Insomnia (G47.00) Active confirmed Problem Sinusitis (95103961) Sinusitis (J32.9) Active confirmed Problem Gilbert syndrome (17230671) Gilbert syndrome (E80.4) Active confirmed Problem 59472849 Essential hypert ension (I10) Active confirmed Problem 14555746 Type 2 diabetes mellitus without complication (E11.9) Active confirmed Problem 24128247 Type 2 diabetes, controlled, with neuropathy (E11.40) Active confirmed Problem Obstructive sleep apnea (69933155) Obstructive sleep apnea (G47.33) Active confirmed Problem 8095265885082 Vasculogenic ere ctile dysfunction, unspecified vasculogenic erectile dysfunction type (N52.9) Active confirmed Problem 21893494 Dysthymia (F34.1) Active confirmed Problem Hypersomnia (67484198) Hypersomnia (G47.10) Active confirmed Problem 434716527 Pure hypercholesterolemia (E78.00) Active confirmed Problem Computed tomography result abnormal (881964321) Abnormal CAT scan (R93.89) Active confirmed Vital Signs Blood pressure diastolic 72 mm Hg 07/24/2025 michael ght is up 20 pounds since 05-22-25 Height 68 in 07/30/2025 weight is 270 a t home BP not taken at home no temp Blood pressure systolic 140 mm Hg 07/24/2025 weig ht is up 20 pounds since 05-22-25 Weight 270 lbs 07/24/2025 weight is up 20 pounds since 05-22-25 BMI 41.05 kg/m2 07/24/2025 weight is up 20 pounds since 05-22-25 Encounters Encounter Location Date Provider Diagnosis Pablo Schwartz MD [address] [place] [id number] 11/11/2024 Pablo Schwartz Type 2 diabetes jhony itus without complication E11.9 and Pure hypercholesterolemia E78.00 Pablo Schwartz MD [address] [place] [id number] 05/15/2025 Pablo Schwartz Essential hypertensi on I10 ; Type 2 diabetes mellitus without complication E11.9 ; Pure hypercholesterolemia E78.00 and Prostatism N40.0 Pablo Schwartz MD [address] [place] [id number] 07/30/2025 Pablo Schwartz Sinusitis J32.9 Pablo Schwartz MD [address] [place] [id number] 11/17/2024 Pablo Schwartz Type 2 diabetes jhony itus without complication E11.9 ; Pure hypercholesterolemia E78.00 and Cough R05.9 Pablo Schwartz MD [address] [id number] 01/27/2025 Pablo Schwartz Type 2 diabetes jhony itus without complication E11.9 ; Cough R05.9 and Prostatism N40.0 Pablo Schwartz MD [address] [id number] 05/22/2025 Pablo Schwartz Obstructive sleep ap rosario G47.33 ; Type 2 diabetes mellitus without complication E11.9 ; Pure hypercholesterolemia E78.00 ; Essential hypertension I10 ; Prostatism N40.0 ; Encounter for administration of vaccine Z23 ; Colon cancer screening Z12.11 and Depression screening Z13.31 Pablo Schwartz MD [address] [id number] 07/24/2025 Pablo Schwartz Type 2 diabetes jhony itus without complication E11.9 ; Lethargy R53.83 and Essential hypertension I10 Pablo Schwartz MD [address] [id number] 02/05/2025 Pablo Schwartz MD [address] [place] [id number] 08/10/2025 Pablo Schwartz Assessments Encounter Date Diagnosis (ICD Code) Assessment Notes Treatment Notes Treatment Clinical Notes Section Notes 11/11/2024 Type 2 diabetes mellitus without complication (ICD-10 - E11.9) 05/15/2025 Essential hypertensi on (ICD-10 - I10) 07/30/2025 Sinusitis (ICD-10 - J32.9) patient verbalized understanding of medication and directions for use 11/17/2024 Type 2 diabetes mellitus without complication [...] needs to diet, will continue current regiment 07/24/2025 Type 2 diabetes mellitus without complication (ICD-10 - E11.9) stable, will continue current regiment and will continue to monitor 07/24/2025 Lethargy (ICD-10 - R53.83) 11/11/2024 Pure hypercholesterolemia (ICD-10 - E78.00) 05/15/2025 Type 2 diabetes mellitus without complication (ICD-10 - E11.9) 11/17/2024 Cough (ICD-10 - R05.9) taras nt states that it started out as an illness like the flu. sounds allergic at present 01/27/2025 Prostatism (ICD-10 - N40.0) referral to dr dacosta in [place] 05/22/2025 Pure hypercholesterolemia (ICD-10 - E78.00) order calcium score/ booked for 06-09-25 at 11am at [facility], stable, will cntinue current regiment 07/24/2025 Essential hypertensi on (ICD-10 - I10) stable, will continue current regiment 05/15/2025 Pure hypercholesterolemia (ICD-10 - [...] 01/27/2025 US LEG BILATERAL VENOUS DOPPLER 09/12/20 Sleep Study - Baseline 07/22/2024 CT Coronary Calcium Score 05/22/2025 Next Appt Details Provider Name:Pablo Huerta ier, 09/14/2025 10:00:00 AM, [address] [place] [address], [address], [place], [place], [id number], Provider Name:Pablo Huerta ier, 11/20/2025 07:30:00 AM, [address] [place] [address], [address], [place], [place], [phone], Provider Name:Pablo Huerta ier, 11/26/2025 09:00:00 AM, [address] [place] [address], Suite [facility], [place], [phone], Provider Name:Pablo Huerta ier, 05/18/2026 07:45:00 AM, [address] [place] [address], Suite [facility], [place], [place], [phone], Provider Name:Pablo Huerta ier, 05/25/2026 10:30:00 AM, [address] [place] [address], [address], [place], [place], [phone], Insurance Providers Payer Name Payer Address Payer Phone Subscriber Number Group Number Insured Name Patient Relationship to Insured Coverage Start Date Coverage End Date MEDICARE [employer] [address] [place] [address] [id number] INDY MENDEZ Self - patient is the insured [employer] [address] [place], [place] [id number] INDY MENDEZ Self - patient is the insured Medical (General) History Medical History History ICD Code 2002 had an infection from [place] was in hospital for 6 mo. colonoscopy 01/2013. repeat 1 0 years09/01/24 colonoscopy, no further testing required Surgical History Surgery Date(Month/Year) Excision of dermal lesion in lt buttocks by Dr. Mandujano 08/2016
--- OUTSIDE RECORDS SUMMARY | 2025-08-12 07:44 | XMS_ITS | Patient Health Record ---
Author Organization [facility] Address [address] [place] [address] Care Team Providers Care Print Line Supervisor Name Role Phone Pablo Schwartz MD Primary Care Provider Gómez Lopez Unavailable [phone] Allergies No Known Allergies Results Component Value Reference Range Flag Notes Glucose, Whole Blood Reviewed date:09/01/2024 10:19:54 PM Interpretation: Performing Lab:[facility], [address] [place] [phone] Notes/Report: Glucose, Whole Blood 154 60-115 mg/dL H DC TER #: [id number] Reason For Referral No Information Medications Medication SIG (Take, Route, Frequency, Duration) Notes Start Date End Date Status NIFEdipine 62mg Acti ve Meloxicam 15 MG Tablet 1 tablet Orally Once a day; Duration: 30 day(s) Not-Taking/PRN potassium 1 tab Oral; Duration: 14 days Active Rosuvastatin Calcium 20 MG Tablet 1 tablet Orally Once a day; Duration: 30 day(s) Active metFORMIN HCl 500 MG Tablet 1 tablet wit h a meal Orally Once a day; Duration: 30 day(s) Active Lisinopril 20mg Acti ve hydroCHLOROthiazide 25mg Active Immunizations Vaccine Route Administration Date Status Comme nts Influenza Unknown 08/07/2023 Administered Social History Social History Drugs/Alcohol: Social Info Question Answer Notes Alcohol Screen Did you have a drink containing alcohol in the past year? Yes How often did you have a drink containing alcohol in the past year? 4 or more times a week (4 points) How many drinks did you have on a typical day when you were drinking in the past year? 1 or 2 drinks (0 point) How often did you have 6 or more drinks on one occasion in the past year? Never (0 point) Points 4 Interpretation Positive Additional Details Category Social Info Options Details Miscellaneous: Marital status: Occupation: Retired Section Notes: He does not smoke nor use an y significant amounts of alcohol He does not smoke; [address] duncan occasionally Problems Problem Type SNOMED Code ICD Code Onset Dates Problem Status W/U Status Risk Notes Problem Colon cancer screening (279943948) Colon cancer screening (Z12.11) Active confirmed Problem Pre-procedure evaluation check (783300480) Encounter for other preprocedural examination (Z01.818) Active confirmed Problem Diverticular disease of colon (539785654) Diverticulosis of large intestine without perforation or abscess without bleeding (K57.30) Active confirmed Problem Long-term current use of drug therapy (964255496) Encounter for long-term (current) use of high-risk medication (Z79.899) Active confirmed Encounters Encounter Location Date Provider Diagnosis [facility] Outpatient [address] [place] [phone] 09/01/2024 Gómez Giraldo Colon cancer scree jerson [...] Date MEDICARE OF [place] [address] [place] [address] [id number] INDY MENDEZ Self - patient is the insured [facility] [address] [place], [place] [id number] INDY MENDEZ Self - patient is the insured Medical (General) History Medical History History ICD Code Hyperlipidemia Hypertension He describes a hospitalizati on in early for some type of infectious diarrhea, and describes undergoing colonoscopies at [facility] and [facility] during his evaluation-these were negative for polyps and he was advised to have another colonoscopy 10 years thereafter for screening Denies NC,CVA,Lung disease,renal disease Negative screening colonoscopy in 2012 Surgical History Surgery Date(Month/Year) Nasal polyps Bilateral knee replacements in approx 20 19
--- NOTE | 2025-08-12 07:45 | CA_ITS ---
Acquisition Time: 2025-08-12 07:55:00 Total Exercise Time: 00:05:30 Test Indications: ca calcification Medications: see h&p Protocol: RAFFI Max HR: 142 BPM 95% of Pred: 149 BPM Max BP: 152/84 mmHG Max Work Load: 7.0 METS Exercise stress test with exercise 5 mins 30 secs of Raffi Protocol, achieving 94% MPHR, with reports of SOB, no chest pain, with frequent PVCs- one vent couplet, with normotensive response to exercise. Without any EKG changes meeting criteria for ischemia. In recovery, pt's breathing improved and pt feeling back to baseline. Nuclear images pending. Test reviewed with Dr. Edgar. Referred By: Zay Kovacs Electronically Signed By: Rahul Cruz
== END ==
LOC: HO.CARD 07:39
PROVIDERS: PCP Internal Medicine; Visit Provider Internal Medicine
DX: I25.10 Atherosclerotic heart disease of native coronary artery without angina pectoris (principal)
CPT/HCPCS: 78452; 93017; A9500

== ENCOUNTER → 2025-08-12 07:45 | Outpatient (BNV) | payer MEDICARE, BC, SELFPAY | PROVIDERS: PCP Internal Medicine | DX: I49.3 Ventricular premature depolarization (principal); R06.02 Shortness of breath | CPT/HCPCS: 78452; 93016; 93018 ==

== ENCOUNTER → 2025-08-18 12:45 | Outpatient (REF) | payer MEDICARE, BC, SELFPAY ==
--- NOTE | 2025-08-18 12:48 | CA_ITS ---
Transthoracic Echocardiogram Patient (Last, First, Middle): James Quintanilla M Gender: Male Date of : 1955 Age: 69 Procedure Date: 08/18/2025 Procedure Type: Transthoracic Echocardiogram Location: OP Height: 175. cm Weight: 117.94 kg BSA: 2.31 m2 Heart Rate: 76 bpm BP: 95 / 60 mmHg [employer] Supervisor: BALDEV Referring MD: Zay Kovacs MD Symptoms: I25.10 - Atherosclerotic heart disease of [place] coronary artery without... Study Quality: Fair ECG Rhythm: Sinus Conclusions: - The left ventricular systolic function is normal. The calculated ejection fraction is 57% by biplane method. - No obvious valvular pathology seen on this study. - There is mild dilatation of the ascending aorta measuring 4.50 cm and mild dilatation of the aortic arch measuring 4.20 cm. Findings Left Ventricle Normal left ventricular cavity size. There is mildly increased left ventricular wall thickness. The left ventricular systolic function is normal. The calculated ejection fraction is 57% by biplane method. There is no evidence of regional wall motion abnormalities. Diastolic function is normal for age. Right Ventricle Normal right ventricular cavity size and systolic function. Atria Both atria are normal in size. Aortic Valve There is a normal trileaflet aortic valve. There is no aortic valve stenosis. There is no aortic valve regurgitation. Mitral Valve The mitral valve appears normal. There is trace mitral valve regurgitation. There is no mitral valve stenosis. Pulmonic Valve The pulmonic valve is likely normal. Tricuspid Valve There is trace tricuspid valve regurgitation. There is no evidence of pulmonary hypertension. Great Vessels There is mild dilatation of the ascending aorta measuring 4.50 cm and mild dilatation of the aortic arch measuring 4.20 cm. Venous The inferior vena cava is normal in size and collapses greater than 50% with inspiration. Pericardium/Pleural There is no evidence of pericardial effusion. Prior Study Comparison No prior study available for comparison. Recommendations, Care & Conclusions No obvious valvular pathology seen on this study. Measurements 2D Linear Measurements IVSd: 1.15 0.6-0.9/0.6-1.0 cm LVIDd: 5.04 3.9-5.3/4.2-5.9 cm LVIDd Index: 2.18 2.4-3.2/2.2-3.1 cm/m2 LVIDs: 2.96 2.0-3.6 cm LVPWd: 1.22 0.7-1.1 cm LA Diam: 4.50 2.7-3.8/3.0-4.0 cm LAIDs Index: 1.95 1.5-2.3 cm/m2 LV Mass: 290.00 67-162/88-224 g LV Mass Index: 125.54 43-95/49-115 g/m2 LVOT Diam: 2.20 3.0+(-)1.3 cm 2D Systolic Function EF 4C: 60.30 >55% EF 2C: 58.60 >55% EF BiP: 56.80 >55% Mitral Valve MV Pk E: 0.69 MV PK A: 0.81 MV Decel Time: 332.00 E/A: 0.90 E'Lateral: 4.68 E'Medial: 5.98 E/E' Med: 11.60 E/E' Lat: 14.80 PHT: 97.00 MVA PHT: 2.27 Decel [place]: 2.09 Aortic Valve AoV Pk Eric: 1.52 AoV Mn Eric: 0.95 AoV VTI: 0.26 AoV Pk Grad: 9.00 Aov Mn Grad: 4.00 DULCE Cont.VTI: 3.36 LVOT LVOT Pk Eric: 1.22 LVOT Mn Eric: 0.84 LVOT VTI: 0.23 LVOT Pk Grad: 6.00 LVOT Mn Grad: 3.00 LVOT Diam: 2.20 LVOT Area: 3.80 Diastolic Function MV Pk E: 0.69 MV Pk A: 0.81 E/A: 0.90 E'Medial: 5.98 E/E' Med: 11.60 E' Laterial: 4.68 E/E' Lat: 14.80 Right Ventricle TAPSE (mm): 23.40 TVS' Eric: 13.70 Tricuspid Valve TR Pk Eric: 2.42 TR Pk Grad: 23.00 RA Press: 3.00 RVSP: 26.00 Great Vessels Aorta Sinus of Valsalva: 3.70 2.0-3.5 cm Ao Asc: 4.50 2.1-3.4 cm Ao Arch: 4.20 Pulmonary Veins Pulm Vein S/D 1.00 Pulmonary Valve PV Pk Eric: 1.15 Peak PV Grad: 5.00 Updated in Other Vendor System with Status of Final Zay Kovacs MD electronically signed on 08/19/2025 12:20:11 PM with status of Final
--- OUTSIDE RECORDS SUMMARY | 2025-08-18 14:39 | XMS_ITS | Clinical Summary ---
Author Organization [facility] Address [address] [place] [phone] Phone Care Team Providers Care Juvenile Probation Officer Name Role Phone Pablo Schwartz MD Primary [...] Narrative 10/06/2004 12:00 AM EST Report Number: [id number] Report Status: Final Type: Colonoscopy Date: 10/06/2004 [...] biopsied. - This procedure was done in [facility] [place], [id number] Signed Date: 10/06/2004 3:12:47 PM Note generated on 10/06/2004 2:51:06 PM CC letter to: Procedure Note Sys, Conversion Provider Not In - 10/06/2004 12:00 AM EST Report Number: [id number] Report Status:Final Type: Colonoscopy Date: 10/06/2004 Gastrointestinal [...] biopsied. - This procedure was done in [facility] [place], [id number] Signed Date: 10/06/2004 3:12:47 PM Note generated on 10/06/2004 2:51:06 PM CC letter to: us Conversion Provider Not In Sys GI PROCEDURE ORDE LORENZO Final Result from Last 3 Months or Most Recently Relevant to Health Maintenance Insurance MEDICARE PART A & B [facility] MEDICARE PART A & B [facility] MEDICARE PART A & B MEDICARE PART A & B MEDICARE PART A & B [facility] MEDICARE PART A & B [facility] MEDICARE PART A & B MEDICARE PART A & B MEDICARE PART A & B [facility] [employer] Care Teams Juvenile Probation Officer Relationship Specialty Start Date End Date Pablo Schwartz MD [address] [place] [address] [place] [address] PCP - General Internal Medicine 06/21/22 Additional Source Comments The information contained in this document represents components of the legal health record. It is not the complete legal health record.[facility]
--- OUTSIDE RECORDS SUMMARY | 2025-08-18 14:39 | XMS_ITS | Clinical Summary ---
Author Organization [facility] Address [address] [place] [address] Phone Care Team Providers Care Supervisor Prop Making Name Role Phone Unavailable Primary Care Provider Unavailabl e Allergies No known active allergies Medications metFORMIN (GLUCOPHAGE) 500 mg tablet Take 2 tablets (1,000 mg total) by mouth 2 (two) times a day with meals. Active finasteride (PROSCAR) 5 mg tablet Take 1 tablet (5 mg total) by mouth 1 (one) time each day. Do not crush, chew, or split. Active potassium bicarbonate (EFFER-K) 10 mEq effervescent tablet Take 1 tablet (10 mEq total) by mouth 1 (one) time each day. Active lisinopril-hydroC HLOROthiazide (PRINZIDE,ZESTORE TIC) 20-25 mg per tablet Take 1 tablet by mouth 1 (one) time each day. Active tamsulosin (FLOMAX) 0.4 mg 24 hr capsule Take 1 capsule (0.4 mg total) by mouth 1 (one) time each day with breakfast. Capsules should be taken 30 minutes following the same meal each day. Active rosuvastatin (CRESTOR) 20 mg tablet Take 1 tablet (20 mg total) by mouth 1 (one) time each day. Active NIFEdipine CC (ADALAT CC) 60 mg 24 hr tablet Take 1 tablet (60 mg total) by mouth 1 (one) time each day before breakfast. Do not crush, chew, or split. Active Surgical History Surgery Date Site/Laterality Comments KNEE ARTHROPLASTY Bilateral NASAL POLYP SURGERY Medical History Medical History Date Comments Diabetes mellitus (CMS/HCC V24, CMS/HCC V28) Hypertension Sleep apnea cpap BPH (benign prostatic hyperplasia) Social History Tobacco Use Types Packs/Day Years Used Date Smoking Tobacco: Never Assessed Sex and Gender Information Value Date Recorded Sex Assigned at Not on file Legal Sex Male 12:15 PM EST Gender Identity Not on file Sexual Orientation Not on file Obstetrics History Last Filed Vital Signs Vital Sign Reading Time Taken Comments Blood Pressure - - Pulse - - Temperature - - Respiratory Rate - - Oxygen Saturation - - Inhaled Oxygen Concentration - - Weight 117 kg (258 lb) 08/17/2025 1:00 PM EST Height 175.3 cm (5' 9 ) 08/17/2025 1:00 PM EST Body Mass Index 38.1 08/17/2025 1:00 PM EST Plan of Treatment Upcoming Encounters Date Type Department Care Team (Latest Contact Info) Description 09/04/2025 7:30 AM EST Hospital Encounter [facility] Main OR [address] [place] [phone] Augustine Adan MD [address] [phone] 09/04/2025 7:30 AM EST - 09/04/2025 9:00 AM EST Surgery [facility] OR [address] [place] [phone] Augustine Adan MD [address] [phone] CYSTOSCOPY TUR PROSTATE [55274 (CPT )] Scheduled Procedures Name Priority Associated [...] Diagnosed Date Autogenerated Problem 06/25/2025 Insurance MEDICARE [facility]
== END ==
LOC: HO.CARD 12:45
PROVIDERS: PCP Internal Medicine; Visit Provider Internal Medicine
DX: I25.10 Atherosclerotic heart disease of native coronary artery without angina pectoris (principal)
CPT/HCPCS: 93306

== ENCOUNTER → 2025-08-18 12:48 | Outpatient (BNV) | payer MEDICARE, BC, SELFPAY | PROVIDERS: PCP Internal Medicine; Visit Provider Internal Medicine | DX: I71.21 Aneurysm of the ascending aorta, without rupture (principal) | CPT/HCPCS: 93306 ==

== ENCOUNTER 2025-08-31 15:46 | Outpatient (REF) | payer MEDICARE, BC, SELFPAY ==
--- OUTSIDE RECORDS SUMMARY | 2024-09-01 07:40 | XMS_ITS ---
Author Organization [facility] Address [address] [place] [address] Care Team Providers Care Electrician Helper Powerhouse Name Role Phone Pablo Schwartz MD Primary Care Provider Gómez Lopez [phone] REASON FOR VISIT screening Problems Problem Type SNOMED Code ICD Code Onset Dates Problem Status W/U Status Risk Notes Problem Diverticular disease of colon (811844827) Diverticulosis of large intestine without perforation or abscess without bleeding (K57.30) Active confirmed Encounters Encounter Location Date Provider Diagnosis [facility] Outpatient [address] [place] [phone] 09/01/2024 Gómez Giraldo Colon cancer scree jerson Z12.11 ; Diverticulosis of large intestine without perforation or abscess without bleeding K57.30 and Other hemorrhoids K64.8 Assessments Encounter Date Diagnosis (ICD Code) Assessment Notes Treatment Notes Treatment Clinical Notes Section Notes 09/01/2024 Colon cancer screening (ICD-10 - Z12.11) 09/01/2024 Diverticulosis of large intestine without perforation or abscess without bleeding (ICD-10 - K57.30) 09/01/2024 Other hemorrhoids (ICD-10 - K64.8) Plan Of Treatment No Information Progress Notes * VANESSAINDY LUISDOB: 4 (69 yo M)Acc No.[id number]:09/01/2024 COLON WITH MAC Patient: INDY OLIVAS Provider: Adriana Giraldo MD :1955 A ge:68 Y S ex:Male Date:09/01/2024 Address:[address] [place], [place] [phone] Pcp:Pablo Schwartz MD Subjective: * Chief Complaints: * S creening Assessment: * Assessment: 1. C olon cancer screening - Z12.11 (Primary) 2 . D iverticulosis of large intestine without perforation or abscess without bleeding - K57.30 3 . O ther hemorrhoids - K64.8 Plan: * Procedure Codes: G 0121 COLOREC CNCR SCR;COLNSCPY NO HI [id number] INTRVL 3+YRS PTS CLNSCP [id number] RCMND FLW-UP 10 YRS DOCD, Modifiers: 1P Billing Information: * Procedure Codes: G0121 COLOREC CNCR SCR;COLNSCPY NO HI RSK. 0529F INTRVL 3+YRS PTS CLNSCP DOCD. 0528F RCMND FLW-UP 10 YRS DOCD. Modifiers: 1P * The named appointment provid er may or may not be the originator of this progress note, and it is not deemed complete until electronically signed by the appointment provider. Sign off status: Pending * Provider: Adriana Giraldo MD Date: 11/02/2023 Generated for Kenya navarrete/Carly/Jaxsonitting on: 11/01/2024 01:23 PM EST
--- OUTSIDE RECORDS SUMMARY | 2024-11-11 02:15 | XMS_ITS ---
Author Organization Pablo Schwartz MD Address [address] [place], [place] [phone] Care Team Providers Care Research Scholar Name Role Phone Pablo Schwartz Primary Care Provider Results Component Value Reference Range Notes Liver Panel Reviewed date:11/11/2024 02:49:48 PM Interpretation: Performing Lab:[facility], [address] [place] [phone] Notes/Report: Bilirubin Total 2.0 0.0-1.0 mg/dL SLIGHT ICTE YOUNG Bilirubin Direct 0.5 0.0-0.5 mg/dL SLIGHT ICT ERUS Aspartate Amino Transferase 24 5-37 U/L Alanine Aminotransferase 18 0-40 U/L Total Protein 7.3 6.5-8.0 g/dL Albumin Level 4.0 3.5-5.0 g/dL Alkaline Phosphatase 68 39-117 U/L Glucose Fasting Reviewed date:11/11/2024 02:41:45 PM Interpretation: Performing Lab:[facility], [address] [place] [phone] Notes/Report: Glucose Fasting 192 60-99 mg/dL A fasting glucose of 126 mg/dl or greater on more than one occasion is considered diagnostic of diabetes. Lipid Panel with Reflex Reviewed date:11/11/2024 04:44:08 PM Interpretation: Performing Lab:[facility], [address] [place] [phone] Notes/Report: Triglycerides 76 <150 mg/dL Desirable Triglyceride: [...] A1c Reviewed date:11/11/2024 12:39:23 PM Interpretation: Performing Lab:[facility], [address] [place] [phone] Notes/Report: Hemoglobin A1c % 7.5 <6.0 % [...] average glucose, using the formula of the D6B-Dcznihr Average Glucose study (ADAG), Diabetes Care, Vol.31,#8, 2007 REASON FOR VISIT fasting lipids Encounters Encounter Location Date Provider Diagnosis Pablo Schwartz MD [address] [place] [address] [address] [place], [place] [phone] 11/11/2024 Pablo Schwartz Type 2 diabetes jhony itus without complication E11.9 and Pure hypercholesterolemia E78.00 Assessments Encounter Date Diagnosis (ICD Code) Assessment Notes Treatment Notes Treatment Clinical Notes Section Notes 11/11/2024 Type 2 diabetes jhony itus without complication (ICD-10 - E11.9) 11/11/2024 Pure hypercholesterolemia (ICD-10 - E78.00) Plan Of Treatment Next Appt Details Provider Name:Pablo Huerta ier, 09/07/2025 09:00:00 AM, [address], [address] [facility], [place], [place], [phone], Provider Name:Pablo Huerta ier, 09/14/2025 10:00:00 AM, [address], [address], [place], [place], [phone], Provider Name:Pablo Huerta ier, 11/20/2025 07:30:00 AM, [address], [address] [facility], [place], [place], [phone], Provider Name:Pablo Huerta ier, 11/26/2025 09:00:00 AM, [address] [place] [address], [address] [facility], [place], [place], [phone], Provider Name:Pablo Huerta ier, 05/18/2026 07:45:00 AM, [address], [address] [facility], [place], [place], [phone], Provider Name:Pablo Huerta ier, 05/25/2026 10:30:00 AM, [address] [place] [address] Drive, [address] [facility], [place], [place], [phone], Progress Notes * INDY MENDEZ MDOB: [birth year] (69 yo M)Acc No.[id number]:11/11/2024 Progress Note Patient: Gilberto INDY MICHAUD Provider: Prabhu Schwartz MD :1955 A ge:69 Y S ex:Male Date:11/11/2024 Address:[address] [place], [place] [phone] Subjective: * Chief Complaints: * 1 . [...] MD Date: 0 11/11/2024 Generated for Kenya navarrete/Carly/Max on: 1 11/01/2024 10:12 PM EST
--- OUTSIDE RECORDS SUMMARY | 2024-11-17 05:15 | XMS_ITS ---
Author Organization Pablo Schwartz MD Address [address] [place], [place] [phone] Care Team Providers Care Boiler Washer Name Role Phone Pablo Schwartz Primary Care [...] Location Date Provider Diagnosis Pablo Schwartz MD [address] [place] [phone] 11/17/2024 Pablo Schwartz Type 2 diabetes jhony [...] Up: 6 Months, Reason: Provider Name:Pablo lozoya, 09/07/2025 09:00:00 AM, [address] [place] [address], [address], [phone], Provider Name:Pablo lozoya, 09/14/2025 10:00:00 AM, [address] [place] [address], [address], [phone], Provider Name:Pablo lozoya, 11/20/2025 07:30:00 AM, [address] [place] [address], [address], [phone], Provider Name:Pablo lozoya, 11/26/2025 09:00:00 AM, [address] [place] [address], [address], [phone], Provider Name:Pablo Huerta ier, 05/18/2026 07:45:00 AM, [address], [address], [place], [phone], Provider Name:Pablo Huerta ier, 05/25/2026 10:30:00 AM, [address], [address], [place], [phone], Progress Notes * INDY MENDEZ MDOB: [birth year] (69 yo M)Acc No.[id number]:11/17/2024 Progress Notes Patient: Gilberto INDY MICHAUD Provider: Prabhu Schwartz MD :1955 A ge:69 Y S ex:Male Date:11/17/2024 Address:[address] [place], [place] [phone] Subjective: * Chief Complaints: * 6 months [...] MD Date: 0 11/17/2024 Generated for Kenya navarrete/Carly/eTransmitting on: 1 11/01/2024 10:13 PM EST History and Physical Notes * [...]
--- OUTSIDE RECORDS SUMMARY | 2025-01-27 09:30 | XMS_ITS ---
Author Organization Pablo Schwartz MD Address [address] [place], [place] [phone] Care Team Providers Care Groundman/Lineman Name Role Phone Pablo Schwartz Primary Care Provider Allergies No Known Allergies Results Component Value Reference Range Notes Hemoglobin A1c Reviewed date:01/27/2025 02:03:46 PM Interpretation: Performing Lab: Notes/Report: Hemoglobin A1c 6.7 Glucose, finger stick Reviewed date:01/27/2025 01:57:03 PM Interpretation: Performing Lab: Notes/Report: Value 146 Reason For Referral Reason prostatism Diagnosis 1 Prostatism (N40.0) Referral Organization Pablo Schwartz MD Referring Provider First Name Pablo Referring Provider Last Name Lana Referring Provider Speciality Internal M edicine Referred Provider KATE DACOSTA Referred Provider Specialty Urology General Notes Alisson Dyson 0 01/29/2025 08:58:59 AM > info faxedKiel Annette 02/06/2025 03:20:45 PM > patient is aware of appt, Concha Mandujano 02/13/2025 01:00:14 PM >OFFICE NOTE RECD Referral Priority Routine Referral Appointment Date 02/13/2025 REASON FOR VISIT Wants a referral to Urology Medications Medication SIG (Take, Route, Frequency, Duration) Notes Start Date End Date Status OneTouch Verio - TEST ONCE A DAY for 90 Active OneTouch Verio - as directed In Vitro daily for 90 days 04/28/2019 Active Sildenafil Citrate 100 MG TAKE ONE TABLE T BY MOUTH ONCE DAILY IF NEEDED for 30 Active Rosuvastatin Calcium 20 MG TAKE 1 TABLET BY MOUTH EVERY DAY for 90 Active NIFEdipine ER 60 MG TAKE 1 TABLET BY CARMEN TH EVERY DAY Active metFORMIN HCl 500 MG TAKE 2 TABLET BY MO UTH TWICE A DAY WITH MEALS Active Tamsulosin HCl 0.4 MG take 1 capsule by mouth every day for 90 days twice a day Active Potassium Chloride ER 10 MEQ TAKE 1 TABLET BY MOUTH EVERY DAY WITH FOOD for 90 Active Lisinopril-hydroCHLOROthiaz shyla 20-25 MG TAKE 1 TABLET BY MOUTH EVERY DAY for 90 Active Vital Signs Blood pressure systolic 142 mm Hg 01/28/20 25 Blood pressure diastolic 90 mm Hg 025 Height 68 in 01/27/2025 Weight 258 lbs 01/27/2025 BMI 39.22 kg/m2 01/27/2025 weight is down 5 pounds [facility] e 11-17-24 Encounters Encounter Location Date Provider Diagnosis Pablo Schwartz MD [address] [place] [address] [place] [phone] 01/27/2025 Pablo Schwartz Type 2 diabetes mellitus without complication E11.9 ; Cough R05.9 and Prostatism N40.0 Assessments Encounter Date Diagnosis (ICD Code) Assessment Notes Treatment Notes Treatment Clinical Notes Section Notes 01/27/2025 Type 2 diabetes mellitus without complication (ICD-10 - E11.9) stable, will continue current regiment 01/27/2025 Cough (ICD-10 - R05.9) pending diagnostic testing/ order given to patient 01/27/2025 Prostatism (ICD-10 - N40.0) referral to dr dacosta in [place] [place] Plan Of Treatment Medication Medication Name Sig Start Date Stop Date Notes metFORMIN HCl 500 MG TAKE 2 TABLET BY MO UTH TWICE A DAY WITH MEALS Tamsulosin HCl 0.4 MG take 1 capsule by mouth every day for 90 days twice a day Treatment Notes Assessment Notes Type 2 diabetes mellitus wit hout complication stable, will continue current regiment Cough pending diagnostic t esting/ order given to patient Prostatism referral to dr dacosta in [place] Pending Test Test Name Order Date XR CHEST 2 VIEW PA & LAT 01/27/2025 Referrals Referral Date Details 01/27/2025 01/27/2025, prostati sm, KATE DACOSTA Next Appt Details Provider Name:Pablo Huerta ier, 09/07/2025 09:00:00 AM, [address] [place] [address], [address], [place], [place], [phone], Provider Name:Pablo Paz Deanna ier, 09/14/2025 10:00:00 AM, [address] [place] [address], [address], [place], [place], [phone], Provider Name:Pablo Ramososmin ier, 11/20/2025 07:30:00 AM, [address] [place] [address], [address], [place], [place], [phone], Provider Name:Pablo Ramososmin ier, 11/26/2025 09:00:00 AM, [address] [place] [address], [address], [place], [place], [phone], Provider Name:Pablo Huerta ier, 05/18/2026 07:45:00 AM, [address] [place] [address], [address], [place], [place], [phone], Provider Name:Pablo Huerta ier, 05/25/2026 10:30:00 AM, [address] [place] [address], [address], [place], [place], [phone], Progress Notes * INDY MENDEZ MDOB: [birth year] (69 yo M)Acc No.[id number]:01/27/2025 Progress Notes Patient: Gilberto INDY MICHAUD Provider: Prabhu Schwartz MD :1955 A ge:69 Y S ex:Male Date:01/27/2025 Address:[address] [employer] [place], [place] [phone] Subjective: * Chief Complaints: * W ants a referral to Urology * HPI: S ymptom(s): patient is a 69 yo male here to discuss referral to Urology/ having frequent uriantion. / also having a lot of coughing and phlegm. losing voice when talking and getting diarrhea from the metformin. having erectile dysfunction. * ROS: G eneral/Constitutional: Denies C hills. D enies F atigue. D enies F ever. D enies H eadache. E NT: Denies S ore throat. E ndocrine: Admits D ifficulty sleeping. D enies D izziness.?Denies E xcessive sweating. D enies E xcessive thirst. A dmits F requent urination. R espiratory: Denies C ough. D enies S hortness of breath at rest. D enies S hortness of breath with exertion. G astrointestinal: Admits D iarrhea. D enies N ausea. G enitourinary: Denies A bdominal pain/swelling. D enies B lood in urine. D enies D ifficulty urinating. A dmits F requent urination. * Medical History: * Surgical History: * Hospitalization/Major Diagno stic Procedure: * Medications: T akingOneTouch Verio - Strip TEST ONCE A DAY OneTouch Verio - Strip as directed In Vitro daily Sildenafil Citrate 100 MG Tablet TAKE ONE TABLET BY MOUTH ONCE DAILY IF NEEDED Tamsulosin HCl 0.4 MG Capsule take 1 capsule by mouth every day for 90 days twice a day NIFEdipine ER 60 MG Tablet Extended Release 24 Hour TAKE 1 TABLET BY MOUTH EVERY DAY metFORMIN HCl 500 MG Tablet TAKE 2 TABLET BY MOUTH TWICE A DAY WITH MEALS Rosuvastatin Calcium 20 MG Tablet TAKE 1 TABLET BY MOUTH EVERY DAY Potassium Chloride ER 10 MEQ Tablet Extended Release TAKE 1 TABLET BY MOUTH EVERY DAY WITH FOOD Lisinopril-hydroCHLOROthiazide 20-25 MG Tablet TAKE 1 TABLET BY MOUTH EVERY DAY Medication List reviewed and reconciled with the patientTaking OneTouch Verio - Strip TEST ONCE A DAY Taking OneTouch Verio - Strip as directed In Vitro daily Taking Sildenafil Citrate 100 MG Tablet TAKE ONE TABLET BY MOUTH ONCE DAILY IF NEEDED Taking Tamsulosin HCl 0.4 MG Capsule take 1 capsule by mouth every day for 90 days twice a day Taking NIFEdipine ER 60 MG Tablet Extended Release 24 Hour TAKE 1 TABLET BY MOUTH EVERY DAY Taking metFORMIN HCl 500 MG Tablet TAKE 2 TABLET BY MOUTH TWICE A DAY WITH MEALS Taking Rosuvastatin Calcium 20 MG Tablet TAKE 1 TABLET BY MOUTH EVERY DAY Taking Potassium Chloride ER 10 MEQ Tablet Extended Release TAKE 1 TABLET BY MOUTH EVERY DAY WITH FOOD Taking Lisinopril-hydroCHLOROthiazide 20-25 MG Tablet TAKE 1 TABLET BY MOUTH EVERY DAY Medication List reviewed and reconciled with the patient * Allergies: N .K.D.A.yes[Allergies Verified] Objective: * Vitals: H t: 68, Wt: 258, BMI:39.22, BP:142/90, Repeat BP:120/78, Wt-k.03. weight is down 5 pounds since 11-17-24. * Examination: G eneral Examination: GENERAL APPEARANCE: h oarse voice at times. comes and goes.. HEAD: n ormocephalic. SKIN: g ood turgor. HEART: r egular rate and rhythm. LUNGS: n o wheezes, rales, rhonchi, good air movement, clear to auscultation bilaterally. Assessment: * Assessment: 1. T ype 2 diabetes mellitus without complication - E11.9 (Primary) 2 . C ough - R05.9 3 . P rostatism - N40.0 Plan: * Treatment: Value Reference Range H emoglobin A1c 6.7 ?LAB: Glucose, finger stick (Collection Date & Time - 01/27/2025)* Value Reference Range V alue 146 Notes: stable, will continue current regiment??2.?Cough?Imaging: XR CHEST 2 VIEW PA & LAT Notes: pending diagnostic testing/ order given to patient??3.?Prostatism? Continue Tamsulosin HCl Capsule, 0.4 MG, take 1 capsule by mouth every day for 90 days, twice a day.?? Notes: referral to dr dacosta in [facility]? Referral To:KATE DACOSTA??Urology ?Reason:prostatism * Procedure Codes: 8 2947 ASSAY, GLUCOSE, BLOOD QUANT, Modifiers: QW 76009 GLYCATED HEMOGLOBIN TEST, Modifiers: QW * * Sign off status: Completed true * Provider: Prabhu Schwartz MD Date: 0 01/27/2025 Generated for [place] navarrete/Carly/eTransmitting on: 1 11/01/2024 10:13 PM EST History and Physical Notes * HPI (History of Present Illness) Category Sub-Category Detail Notes Category Not es Symptom(s) patient is a 69 yo male here to discuss referral to Urology/ having frequent uriantion. / also having a lot of coughing and phlegm. losing voice when talking and getting diarrhea from the metformin. having erectile dysfunction Examination Category Sub-Category Detail Notes Category Not es General Examination GENERAL APPEARANCE: hoarse v oice at times. comes and goes. HEAD: normocephalic HEART: regular rate and rhy thm LUNGS: no wheezes, rales, r honchi, good air movement, clear to auscultation bilaterally SKIN: good turgor Consultation Request Notes Referral Date Referring Provider Referred Provider Not es 01/27/2025 Pablo Schwartz ADAM prostatism
--- OUTSIDE RECORDS SUMMARY | 2025-02-05 04:46 | XMS_ITS ---
Author Organization Pablo Schwartz MD Address [address] [place] [phone] Care Team Providers Care Environmental Health And Safety Leader Name Role Phone Pablo Schwartz Primary Care Provider REASON FOR VISIT chest x-ray results Encounters Encounter Location Date Provider Diagnosis Pablo Schwartz MD [address] [place] [address] [address] [place] [phone] 02/05/2025 Pablo Schwartz Plan Of Treatment Next Appt Details Provider Name:Pablo lozoya, 09/07/2025 09:00:00 AM, [address] [place] [address], [address], [phone], Provider Name:Pablo lozoya, 09/14/2025 10:00:00 AM, [address] [place] [address], [address], [phone], Provider Name:Pablo lozoya, 11/20/2025 07:30:00 AM, [address] [place] [address], [address], [phone], Provider Name:Pablo lozoya, 11/26/2025 09:00:00 AM, [address], [place], [place], [phone], Provider Name:Pablo Huerta ier, 05/18/2026 07:45:00 AM, [address], [address], [place], [phone], Provider Name:Pablo Huerta ier, 05/25/2026 10:30:00 AM, [address], [address], [place], [phone], Progress Notes * INDY MENDEZ MDOB: [birth year] (69 yo M)Acc No.[id number]:02/05/2025 Patient: Gilberto INDY MICHAUD :1955 A ge:69 Y S ex:Male Address:[address] [place] [address], [address] * true * Date: Generated for Kenya navarrete/Carly/eTransmitting on: 1 11/01/2024 10:11 PM EST
--- OUTSIDE RECORDS SUMMARY | 2025-05-15 02:45 | XMS_ITS ---
Author Organization Pablo Schwartz MD Address [address] [place], [place] [phone] Care Team Providers Care Senior Net C Developer Name Role Phone Pablo Schwartz Primary Care Provider Results Component Value Reference Range Notes Complete Blood Count Auto Di ff Reviewed date:05/15/2025 06:51:54 PM Interpretation: Performing Lab:[facility], [address] [phone] Notes/Report: White Blood Count 8.0 4.8-10.8 X10*3/uL [...] NRBC Abs Auto 0.000 0.0-0.012 X10*3/uL Comprehensive [place]. Panel Fa st Reviewed date:05/15/2025 06:51:36 PM Interpretation: Performing Lab:[facility], [address] [phone] Notes/Report: Sodium 141 135-145 mmol/L Potassium 4.1 [...] Panel Reviewed date:05/15/2025 06:41:15 PM Interpretation: Performing Lab:[facility], [address] [phone] Notes/Report: Triglycerides 52 <150 mg/dL Desirable Triglyceride: [...] (Free>4and<10) Reviewed date:05/15/2025 06:40:45 PM Interpretation: Performing Lab:[facility], [address] [phone] Notes/Report: PSA,Total (Free>4and<10) 1.37 0.00-4.00 ng/mL A [...] Random Reviewed date:05/15/2025 06:41:04 PM Interpretation: Performing Lab:[facility], [address] [place] [phone] Notes/Report: Creatinine Urine 147.30 Microalbumin Urine 25.0 Microalbum/Creatinine Ratio Ur 16.9 <30 ug/mg cr Albumin/Creatinine Ratio Reference Ranges: Normal: < 30 ug/mg creatinine Microalbuminuria: 30 - 300 ug/mg creatinine Clinical Albuminuria: > 300 ug/mg creatinine Hemoglobin A1c Reviewed date:05/15/2025 06:40:56 PM Interpretation: Performing Lab:[facility], [address] [phone] Notes/Report: Hemoglobin A1c % 7.1 <6.0 % [...] average glucose, using the formula of the B1D-Yhjafid Average Glucose study (ADAG), Diabetes Care, Vol.31,#8, Apr. 2007 UA ClnCatch+Micro w/rflx Cul t Reviewed date:05/15/2025 06:52:13 PM Interpretation: Performing Lab:[facility], [address] [place] [phone] Notes/Report: Urine, Clean Catch Color Urine Dark Yellow Appearance Urine Clear PH 6.0 5.0-9.0 Glucose Urine UA 100 Negative mg/dL Urine Blood Negative Negative Specific [place] - Urine 1.025 1.005-1.025 Urine Protein Trace [...] Date Provider Diagnosis Pablo Schwartz MD [address] [place], [place] [phone] 05/15/2025 Pablo Schwartz Essential hypertensi on I10 [...] Provider Name:Pablo Huerta ier, 09/07/2025 09:00:00 AM, [address] [place] [address], [address] [place] [address], [phone], Provider Name:Pablo Huerta ier, 09/14/2025 10:00:00 AM, [address] [place] [address], [address] [place] [address], [phone], Provider Name:Pablo Huerta ier, 11/20/2025 07:30:00 AM, [address] [place] [address], [address], [phone], Provider Name:Pablo Huerta ier, 11/26/2025 09:00:00 AM, [address] [place] [address], [address], [phone], Provider Name:Pablo Huerta ier, 05/18/2026 07:45:00 AM, [address] [place] [address], [address] [place] [address], [phone], Provider Name:Pablo Huerta ier, 05/25/2026 10:30:00 AM, [address] [place] [address], [address], [phone], Progress Notes * INDY MENDEZ MDOB: [birth year] (69 yo M)Acc No.[id number]:05/15/2025 Progress Note Patient: Gilberto INDY MICHAUD Provider: Prabhu Schwartz MD :1955 A ge:69 Y S ex:Male Date:05/15/2025 Address:[address] [place], [place] [phone] Subjective: * Chief Complaints: * 1 . [...] - 05/15/2025 07:45 AM) L AB: Comprehensive [place]. Panel Fast (Collection Date & Time - [...] - 05/15/2025 07:45 AM) L AB: Comprehensive [place]. Panel Fast (Collection Date & Time - [...] - 05/15/2025 07:45 AM) L AB: Comprehensive [place]. Panel Fast (Collection Date & Time - [...] MD Date: 0 05/15/2025 Generated for [place] navarrete/Carly/Jaxsonitting on: 1 11/01/2024 10:12 PM EST
--- OUTSIDE RECORDS SUMMARY | 2025-05-22 04:30 | XMS_ITS ---
Author Organization Pablo Schwartz MD Address [address] [place], [place] [id number] Care Team Providers Care Field Service Representative Name Role Phone Pablo Schwartz Primary Care Provider [phone] Allergies No Known Allergies REASON FOR VISIT [...] kg/m2 05/22/2025 weight is down 8 pounds [facility] tania 01-27-25 Encounters Encounter Location Date Provider Diagnosis Pablo Schwartz MD [address] [place] [address] [place] [phone] 05/22/2025 Pablo Schwartz Obstructive sleep ap rosario [...] score/ booked for 06-09-25 at 11am at [facility], stable, will cntinue current regiment 05/22/2025 [...] score/ booked for 06-09-25 at 11am at [facility], stable, will cntinue current regiment Essential hypertension stable, will cont inue current regiment Encounter for administration of vaccine HD flu vaccine admnistered Colon cancer screening guaiac negative Depression screening Negative screen Pending Test Test Name Order Date CT Coronary Calcium Score 05/22/2025 Next Appt Details Follow Up: 2 Months, Reason: Provider Name:Pablo lozoya, 09/07/2025 09:00:00 AM, [address] [place] [address], [address], [phone], Provider Name:Pablo lozoya, 09/14/2025 10:00:00 AM, [address] [place] [address], [address], [phone], Provider Name:Pablo lozoya, 11/20/2025 07:30:00 AM, [address] [place] [address], [address], [phone], Provider Name:Pablo lozoya, 11/26/2025 09:00:00 AM, [address] [place] [address], [address], [phone], Provider Name:Pablo lozoya, 05/18/2026 07:45:00 AM, [address] [place] [address], [address], [phone], Provider Name:Pablo Huerta ier, 05/25/2026 10:30:00 AM, [address] [facility], [address], [place], [place], [phone], Progress Notes * INDY MENDEZ MDOB: [birth year] (69 yo M)Acc No.[id number]:05/22/2025 Patient: INDY OLIVAS June Provider: Prabhu Schwartz MD :1955 A ge:69 Y S ex:Male Date:05/22/2025 Address:[address] [place], [place] [phone] Subjective: * Chief Complaints: * C omp [...] mg/dL Urine Blood Negative Negative - Specific [place] - Urine 1.025 1.005-1.025 - Urine Protein [...] Urine 0-2 0-2 - /LPF L ab:Comprehensive [place]. Panel Fast (Order Date - 05/15/2025) (Collection [...] score/ booked for 06-09-25 at 11am at [facility], stable, will cntinue current regiment 4. [...] (Dose No:1) (Route: Intramuscular) given by Rani Manijak , Office Staff on Left Deltoid * Procedure Codes: 9 0662 FLU VACC PRSV FREE INC [id number] ADMN FLU VAC NO FEE SCHED SAME [...] MD Date: 0 05/22/2025 Generated for Kenya navarrete/Carly/Max on: 1 11/01/2024 10:12 PM EST History and Physical Notes * [...] Total Score: 0 Interpretation and Intervention Depression Scree jerson Findings: Negative Follow-Up for Depression: : [...]
--- OUTSIDE RECORDS SUMMARY | 2025-07-24 04:00 | XMS_ITS ---
Author Organization Pablo Schwartz MD Address [address] [place], [place] [phone] Care Team Providers Care Director Of Web Marketing Name Role Phone Pablo Schwartz Primary Care Provider Allergies No Known Allergies Results Component Value Reference Range Notes Glucose, finger stick Reviewed date:07/24/2025 08:47:59 AM Interpretation: Performing Lab: Notes/Report: Value 178 TSH reflex Free T4 Reviewed date:07/24/2025 12:26:24 PM Interpretation: Performing Lab:[facility], [address] [place] [phone] Notes/Report: TSH reflex Free T4 0.84 0.32-4.0 uIU/mL REASON FOR VISIT 2 MO F/U Medications Medication SIG (Take, Route, Frequency, Duration) Notes Start Date End Date Status OneTouch Verio - TEST ONCE A DAY for 90 Active OneTouch Verio - as directed In Vitro daily for 90 days 04/28/2019 Active Potassium Chloride ER 10 MEQ TAKE 1 TABLET BY MOUTH EVERY DAY WITH FOOD for 90 Active Rosuvastatin Calcium 20 MG TAKE 1 TABLET BY MOUTH EVERY DAY Active Tamsulosin HCl 0.4 MG TAKE 1 CAPSULE BY MOUTH EVERY DAY Active Lisinopril-hydroCHLOROthiaz shyla 20-25 MG TAKE 1 TABLET BY MOUTH EVERY DAY Active metFORMIN HCl 500 MG TAKE 2 TABLET BY MO UTH TWICE A DAY WITH MEALS 90 Active NIFEdipine ER 60 MG TAKE 1 TABLET BY CARMEN TH EVERY DAY Active Sildenafil Citrate 100 MG TAKE ONE TABLE T BY MOUTH ONCE A DAY IF NEEDED for 30 Active Vital Signs Blood pressure systolic 140 mm Hg 07/24/20 25 Blood pressure diastolic 72 mm Hg 025 Height 68 in 07/24/2025 Weight 270 lbs 07/24/2025 BMI 41.05 kg/m2 07/24/2025 weight is up 20 pounds since 05-22-25 Encounters Encounter Location Date Provider Diagnosis Pablo Schwartz MD [address] [place] [address] [place] [phone] 07/24/2025 Pablo Schwartz Type 2 diabetes mellitus without complication E11.9 ; Lethargy R53.83 and Essential hypertension I10 Assessments Encounter Date Diagnosis (ICD Code) Assessment Notes Treatment Notes Treatment Clinical Notes Section Notes 07/24/2025 Type 2 diabetes mellitus without complication (ICD-10 - E11.9) stable, will continue current regiment and will continue to monitor 07/24/2025 Lethargy (ICD-10 - R53.83) 07/24/2025 Essential hypertension (ICD-10 - I10) stable, will continue current regiment Plan Of Treatment Medication Medication Name Sig Start Date Stop Date Notes Lisinopril-hydroCHLOROthiazi de 20-25 MG TAKE 1 TABLET BY MOUTH EVERY DAY metFORMIN HCl 500 MG TAKE 2 TABLET BY MO UTH TWICE A DAY WITH MEALS 90 NIFEdipine ER 60 MG TAKE 1 TABLET BY CARMEN TH EVERY DAY Treatment Notes Assessment Notes Type 2 diabetes mellitus without complic ation stable, will continue current regiment and will continue to monitor Essential hypertension stable, will cont inue current regiment Next Appt Details Follow Up: 6 Weeks, Reason: Provider Name:Pablo lozoya, 09/07/2025 09:00:00 AM, [address] [place] [address], [place] [address], [place], [place], [phone], Provider Name:Pablo lozoya, 09/14/2025 10:00:00 AM, [address] [place] [address], [place] [address], [place], [place], [phone], Provider Name:Pablo Huerta ier, 11/20/2025 07:30:00 AM, [address], [address], [place], [place], [phone], Provider Name:Pablo Huerta ier, 11/26/2025 09:00:00 AM, [address], [address], [place], [place], [phone], Provider Name:Pablo Huerta ier, 05/18/2026 07:45:00 AM, [address], [address], [place], [place], [phone], Provider Name:Pablo Huerta ier, 05/25/2026 10:30:00 AM, [address], [address], [place], [place], [phone], Progress Notes * INDY MENDEZ MDOB: [birth year] (69 yo M)Acc No.[id number]:07/24/2025 Progress Notes Patient: Gilberto INDY MICHAUD Provider: Prabhu Schwartz MD :1955 A ge:69 Y S ex:Male Date:07/24/2025 Address:[address] [place], [place] [phone] Subjective: * Chief Complaints: * 2 MO F/U * HPI: S ymptom(s): patient is a 69yo male here for 2 month follow up visit. tired all the time. is up 20 pounds/ has mucous every few days. is cold all the time. having prostate surgery. * ROS: G eneral/Constitutional: Denies C hills. A dmits F atigue. D enies F ever. D enies H eadache. E NT: Denies S ore throat. E ndocrine: Denies D ifficulty sleeping. D enies D izziness.?Denies E xcessive sweating. D enies E xcessive thirst. A dmits F requent urination. R espiratory: Denies C ough. D enies S hortness of breath at rest. D enies S hortness of breath with exertion. G astrointestinal: Denies D iarrhea. D enies N ausea. * Medical History: * Surgical History: * Hospitalization/Major Diagno stic Procedure: * Medications: T akingOneTouch Verio - Strip TEST ONCE A DAY OneTouch Verio - Strip as directed In Vitro daily Potassium Chloride ER 10 MEQ Tablet Extended Release TAKE 1 TABLET BY MOUTH EVERY DAY WITH FOOD Rosuvastatin Calcium 20 MG Tablet TAKE 1 TABLET BY MOUTH EVERY DAY Lisinopril-hydroCHLOROthiazide 20-25 MG Tablet TAKE 1 TABLET [...] Tablet TAKE ONE TABLET BY MOUTH ONCE A DAY IF NEEDED Medication List reviewed and reconciled with the patientTaking OneTouch Verio - Strip TEST ONCE A DAY Taking OneTouch Verio - Strip as directed In Vitro daily Taking Potassium Chloride ER 10 MEQ Tablet Extended Release TAKE 1 TABLET BY MOUTH EVERY DAY WITH FOOD Taking Rosuvastatin Calcium 20 MG Tablet TAKE 1 TABLET BY MOUTH EVERY DAY Taking Lisinopril-hydroCHLOROthiazide 20-25 MG Tablet TAKE 1 [...] Tablet TAKE ONE TABLET BY MOUTH ONCE A DAY IF NEEDED Medication List reviewed and reconciled with the patient * Allergies: N .K.D.A.yes[Allergies Verified] Objective: * Vitals: H t: 68, Wt: 270, BMI:41.05, BP:140/72, Repeat BP:120/70, Wt-k.47. weight is up 20 pounds since 05-22-25. * Examination: G eneral Examination: GENERAL APPEARANCE: w ell developed, well nourished. HEAD: n ormocephalic. SKIN: g ood turgor. HEART: r egular rate and rhythm, no murmurs, rubs, gallops.? LUNGS: n o wheezes, rales, rhonchi, good air movement, clear to auscultation bilaterally. Assessment: * Assessment: 1. T ype 2 diabetes mellitus without complication - E11.9 (Primary) 2 . L ethargy - R53.83 3 . E ssential hypertension - I10 Plan: * Treatment: Value Reference Range V alue 178 ?LAB: TSH reflex Free T4 (Collection Date & Time - 07/24/2025 09:00 AM) Notes: stable, will continue current regiment and will continue to monitor?? 2.?Essential hypertension? Continue Lisinopril-hydroCHLOROthiazide Tablet, 20-25 MG, TAKE 1 TABLET BY MOUTH EVERY DAY;?Continue NIFEdipine ER Tablet Extended Release 24 Hour, 60 MG, TAKE 1 TABLET BY MOUTH EVERY DAY.? Notes: stable, will continue current regiment?? * Procedure Codes: 3 6415 VENIPUNCT, ROUTINE*29366 ASSAY, GLUCOSE, BLOOD QUANT, Modifiers: QW * Follow Up: 6 Weeks * * Sign off status: Completed true * Provider: Prabhu Schwartz MD Date: 09/23/2024 Generated for [place] navarrete/Carly/eTransmitting on: 11/01/2024 10:12 PM EST History and Physical Notes * HPI (History of Present Illness) Category Sub-Category Detail Notes Category Not es Symptom(s) patient is a 69 yo male here for 2 month follow up visit. tired all the time. is up 20 pounds/ has mucous every few days. is cold all the time. having prostate surgery Examination Category Sub-Category Detail Notes Category Not es General Examination GENERAL APPEARANCE: well developed , well nourished HEAD: normocephalic HEART: regular rate and rhy thm, no murmurs, rubs, gallops LUNGS: no wheezes, rales, r honchi, good air movement, clear to auscultation bilaterally SKIN: good turgor
--- OUTSIDE RECORDS SUMMARY | 2025-07-30 06:15 | XMS_ITS ---
Author Organization Pablo Schwartz MD Address [address] [place], [place] [phone] Care Team Providers Care Loan Interviewer Name Role Phone Pablo Schwartz Primary Care Provider Allergies No Known Allergies REASON FOR VISIT running nose, tingling in throat x 2 months Video , Covid results are negative from this AM Medications Medication SIG (Take, Route, Frequency, Duration) Notes Start Date End Date Status Lisinopril-hydroCHLOROthiaz shyla 20-25 MG TAKE 1 TABLET BY MOUTH EVERY DAY Active Sildenafil Citrate 100 MG TAKE ONE TABLE T BY MOUTH ONCE A DAY IF NEEDED for 30 Active Amoxicillin-Pot Clavulanate 875-125 MG 1 tablet Orally every 12 hrs for 10 days 07/30/2025 Active NIFEdipine ER 60 MG TAKE 1 TABLET BY CARMEN TH EVERY DAY Active metFORMIN HCl 500 MG TAKE 2 TABLET BY MO UTH TWICE A DAY WITH MEALS 90 Active Rosuvastatin Calcium 20 MG TAKE 1 TABLET BY MOUTH EVERY DAY Active Potassium Chloride ER 10 MEQ TAKE 1 TABLET BY MOUTH EVERY DAY WITH FOOD for 90 Active Tamsulosin HCl 0.4 MG TAKE 1 CAPSULE BY MOUTH EVERY DAY Active OneTouch Verio - as directed In Vitro daily for 90 days 04/28/2019 Active OneTouch Verio - TEST ONCE A DAY for 90 Active Problems Problem Type SNOMED Code ICD Code Onset Dates Problem Status W/U Status Risk Notes Problem Sinusitis (89549281) Sinusitis (J32.9) Active confirmed Vital Signs Height 68 in 07/30/2025 weight is 270 at home BP not taken at home no temp Encounters Encounter Location Date Provider Diagnosis Pablo Schwartz MD [address] [place] [phone] 07/30/2025 Pablo Schwartz Sinusitis J32.9 Assessments Encounter Date Diagnosis (ICD Code) Assessment Notes Treatment Notes Treatment Clinical Notes Section Notes 07/30/2025 Sinusitis (ICD-10 - J32.9) patient verbalized understanding of medication and directions for use Plan Of Treatment Medication Medication Name Sig Start Date Stop Date Notes Amoxicillin-Pot Clavulanate 875-125 MG 1 tablet Orally every 12 hrs for 10 days 07/30/2025 Treatment Notes Assessment Notes Sinusitis patient verbalized u nderstanding of medication and directions for use Next Appt Details Provider Name:Pablo lozoya, 09/07/2025 09:00:00 AM, [address] [place] [address], [phone], Provider Name:Pablo lozoya, 09/14/2025 10:00:00 AM, [address] [place] [address], [phone], Provider Name:Pablo lozoya, 11/20/2025 07:30:00 AM, [address] [place] [address], [phone], Provider Name:Pablo lozoya, 11/26/2025 09:00:00 AM, [address] [place] [address], [phone], Provider Name:Pablo lozoya, 05/18/2026 07:45:00 AM, [address] [place] [address], [phone], Provider Name:Pablo lozoya, 05/25/2026 10:30:00 AM, [address] [place] [address], [place], [phone], Progress Notes * INDY MENDEZ MDOB: [birth year] (69 yo M)Acc No.[id number]:07/30/2025 Patient: INDY OLIVAS Provider: Prabhu Schwartz MD :1955 A ge:69 Y S ex:Male Date:07/30/2025 Address:[address] [place], [place] [phone] Subjective: * Chief Complaints: * r unning nose, tingling in throat x 2 months Video [phone] [phone] results are negative from this AM * HPI: S ymptom(s): Telehealth L ocation of provider rendering services: [address] [facility], [address], L ocation of patient: a t address listed in demographics for today's visit, P atient identification confirmed using: NATHALIE Contreras ame, T elehealth method: V ideo conference where patient is visible to the provider of care, C onsent: P atient verbally consented to treatment, Patient verbally consented to billing insurance company, Patient informed of any privacy concerns related to method of visit, T otal time spend talking with patient (minutes) 2 0. patient is a 69 yo male video telehealth visit with complaint of runny nose and tingling in throat for 2 months. * ROS: G eneral/Constitutional: Admits Lucio hills. D enies F atigue. D enies F ever. D enies H eadache. E NT: Denies S ore throat, c /o tingling throat. R espiratory: Admits C ough. D enies S hortness of breath at rest. D enies S hortness of breath with exertion. A dmits S putum production. A dmits W heezing. G astrointestinal: Denies D iarrhea. D enies [...] TAKE 1 CAPSULE BY MOUTH EVERY DAY Sildenafil Citrate 100 MG Tablet TAKE ONE TABLET BY MOUTH ONCE A DAY IF NEEDED Lisinopril-hydroCHLOROthiazide 20-25 MG Tablet TAKE 1 TABLET [...] 1 CAPSULE BY MOUTH EVERY DAY Taking Sildenafil Citrate 100 MG Tablet TAKE ONE TABLET BY MOUTH ONCE A DAY IF NEEDED Taking Lisinopril-hydroCHLOROthiazide 20-25 MG Tablet TAKE 1 [...] .K.D.A.yes[Allergies Verified] Objective: * Vitals: H t: 68. weight is 270 at home BP not taken at home no temp. * Examination: G eneral Examination: GENERAL APPEARANCE: a lert, well hydrated, in no distress.? Assessment: * Assessment: 1. S inusitis - J32.9 (Primary) Plan: * Treatment: * Procedure Codes: * * Sign off status: Completed true * Provider: Prabhu Schwartz MD Date: 09/29/2024 Generated for Kenya navarrete/Carly/Max on: 11/01/2024 10:11 PM EST History and Physical Notes * HPI (History of Present Illness) Category Sub-Category Detail Notes Category Not es Symptom(s) [facility] [address], [address] patient is a 69 yo male video telehealth visit with complaint of runny nose and tingling in throat for 2 months Location of patient:: at address listed in demographics for today's visit Patient identification confirmed using:: Name, Telehealth method:: Video co nference where patient is visible to the provider of care Consent:: Patient verbally c onsented to treatment, Patient verbally consented to billing insurance company, Patient informed of any privacy concerns related to method of visit Total time spend talking with patient (m inutes): 20 Examination Category Sub-Category Detail Notes Category Not es General Examination GENERAL APPEARANCE: alert, w ell hydrated, in no distress
--- OUTSIDE RECORDS SUMMARY | 2025-08-10 04:23 | XMS_ITS ---
Author Organization Pablo Schwartz MD Address [address] [facility] [address] [place] [phone] Care Team Providers Care Bellman Driver Name Role Phone Pablo Schwartz Primary Care Provider Encounters Encounter Location Date Provider Diagnosis Pablo Schwartz MD [address] [place] [address] [address] [place] [phone] 08/10/2025 Pablo Schwartz Plan Of Treatment Next Appt Details Provider Name:Pablo lozoya, 09/07/2025 09:00:00 AM, [address] [place] [address], [address], [phone], Provider Name:Pablo lozoya, 09/14/2025 10:00:00 AM, [address] [place] [address], [address], [phone], Provider Name:Pablo lozoya, 11/20/2025 07:30:00 AM, [address] [place] [address], [address], [phone], Provider Name:Palbo lozoya, 11/26/2025 09:00:00 AM, [address] [place] [address], [address], [place], [place], [phone], Provider Name:Pablo Huerta devora, 05/18/2026 07:45:00 AM, [address] [facility], [address], [place], [place], [phone], Provider Name:Pablo Huerta ier, 05/25/2026 10:30:00 AM, [address] [place] [address], [address], [place], [place], [phone], Progress Notes * INDY MENDEZ MDOB: [birth year] (69 yo M)Acc No.[id number]:08/10/2025 Patient: Gilberto INDY MICHAUD :1955 A ge:69 Y S ex:Male Address:[address] [place] [address], [address] * true * Date: Generated for Kenya navarrete/Carly/Khadarsmitting on: 1 11/01/2024 10:13 PM EST
--- NOTE | ~2025-08-31 | XR_ITS ---
EXAMINATION: XR CHEST CLINICAL INFORMATION: [place] COMPARISON: January 27, 2025 TECHNIQUE: 2 views of the chest were obtained. FINDINGS: No significant abnormality is noted involving the heart, lungs, mediastinum, bony thorax or soft tissues. XR/XR chest 2V IMPRESSION: No acute disease Electronically signed by: Santiago Davis MD 08/31/2025 04:09 PM [facility]
--- OUTSIDE RECORDS SUMMARY | 2025-08-31 09:15 | XMS_ITS ---
Author Organization Pablo Schwartz MD Address [address] [place], [place] [id number] Care Team Providers Care Metal Moulder'S Assistant Name Role Phone Pablo Schwartz Primary Care Provider Allergies No Known Allergies REASON FOR VISIT congested coughing 3 weeks just got back from [place] will test for Covid, Video [phone] Medications Medication SIG (Take, Route, Frequency, Duration) [...] A DAY WITH MEALS for 90 Active Tamsulosin HCl 0.4 MG TAKE 1 CAPSULE BY MOUTH EVERY DAY Active Rosuvastatin Calcium 20 MG TAKE 1 TABLET BY MOUTH EVERY DAY Active Potassium Chloride ER 10 MEQ TAKE 1 TABLET BY MOUTH EVERY DAY WITH FOOD for 90 Active levoFLOXacin 500 MG 1 tablet Orally Once a day for 10 day(s) 08/31/2025 Active OneTouch Verio - as directed In Vitro daily for 90 days 04/28/2019 Active OneTouch Verio - TEST ONCE A DAY for 90 Active Vital Signs Height 68 in 08/31/2025 Weight 258 lbs 08/31/2025 BMI 39.22 kg/m2 08/31/2025 weight is 258 at home BP not taken no temp today. Encounters Encounter Location Date Provider Diagnosis Pablo Schwartz MD [address] [place] [address] [place] [phone] 08/31/2025 Pablo Schwartz Bronchitis J40 Assessments Encounter Date Diagnosis (ICD Code) Assessment Notes Treatment Notes Treatment Clinical Notes Section Notes 08/31/2025 Bronchitis (ICD-10 - J40) will hold off surgery for now/ THE XRAY ORDER HAS BEEN FAXED TO [facility] PATIENT REG AND PATIENT IS INFORMED Plan Of Treatment Medication Medication Name Sig Start Date Stop Date Notes levoFLOXacin 500 MG 1 tablet Orally Once a day for 10 day(s) 08/31/2025 Treatment Notes Assessment Notes Bronchitis will hold off surger y for now/ THE XRAY ORDER HAS BEEN FAXED TO [facility] PATIENT REG AND PATIENT IS INFORMED Pending Test Test Name Order Date XR CHEST 2 VIEW PA & LAT 08/31/2025 Next Appt Details Follow Up: 1 Week, Reason: Provider Name:aPblo lozoya, 09/07/2025 09:00:00 AM, [address] [place] [address], [address], [phone], Provider Name:Pablo lozoya, 09/14/2025 10:00:00 AM, [address] [place] [address], [address], [phone], Provider Name:Pablo lozoya, 11/20/2025 07:30:00 AM, [address] [place] [address], [address], [phone], Provider Name:Pablo lozoya, 11/26/2025 09:00:00 AM, [address] [place] [address], [address], [phone], Provider Name:Pablo lozoya, 05/18/2026 07:45:00 AM, [address], [address], [place], [place], [phone], Provider Name:Pablo Huerta ier, 05/25/2026 10:30:00 AM, [address], [address], [place], [phone], Progress Notes * INDY MENDEZ MDOB: [birth year] (69 yo M)Acc No.[id number]:08/31/2025 Patient: INDY OLIVAS Provider: Prabhu Schwartz MD :1955 A ge:69 Y S ex:Male Date:08/31/2025 Address:[address], [facility] Subjective: * Chief Complaints: * 1 . congested coughing 3 weeks just got back from [place] will test for Covid. 2. Video [phone]. * HPI: S ymptom(s): still with cough. is having surgery this sunday. has been coughing for 3 or 4 weeks. Telehealth L ocation of provider rendering services: [...] spend talking with patient (minutes) 2 0. * ROS: G eneral/Constitutional: Admits C hills. A dmits F atigue. A dmits F ever, f our days ago had a temp in [place]. D enies H eadache. E NT: Denies S ore throat. R espiratory: Admits C ough. D enies S hortness of breath at rest. D enies S hortness of breath with exertion. A dmits S putum production. A dmits W heezing. G astrointestinal: Admits D iarrhea, h ad diarrhea 5 days ago. D enies?Nausea. * Medical History: 2 003 had an infection from nereida lozadaard was [...] TABLET BY MOUTH EVERY DAY , Taking NIFEdipine ER 60 MG Tablet Extended Release 24 Hour TAKE 1 TABLET BY MOUTH EVERY DAY , Taking Amoxicillin-Pot Clavulanate 875-125 MG Tablet 1 tablet Orally every 12 hrs , Taking metFORMIN HCl 500 MG Tablet TAKE 2 TABLET BY MOUTH TWICE A DAY WITH MEALS * Allergies: N .K.D.A. Objective: * Vitals: H t: 68, Wt: 258, BMI:39.22, Wt-k.03. weight is 258 at home BP not taken n o temp today. Assessment: * Assessment: 1. B rubina - Gayle (Primary) Plan: * Treatment: * Follow Up: 1 Week * * The named appointment provid er may or may not be the originator of this progress note, and it is not deemed complete until electronically signed by the appointment provider. Sign off status: Pending * Provider: Prabhu Schwartz MD Date: 11/01/2024 Generated for Kenya navarrete/Carly/Jaxsonitting on: 11/01/2024 10:11 PM EST History and Physical Notes * HPI (History of Present Illness) Category Sub-Category Detail Notes Category Not es Symptom(s) Telehealth Location of [facility] rendering services:: [address], [address] Location of patient:: at address listed in [...]
--- OUTSIDE RECORDS SUMMARY | 2025-08-31 22:11 | XMS_ITS | Clinical Summary ---
Author Organization [facility] Address [address] [place] [address] Phone Care Team Providers Care Printing Gray Cloth Tender Name Role Phone Unavailable Primary Care Provider [...] Do not crush, chew, or split. Active Encounters Date Type Department Care Team Description 08/21/2025 Lab Requisition [facility] [address] [facility] [place] [address] Madelin Reno, MATHEW Frequency of micturition from Last 3 Months Surgical History Surgery Date Site/Laterality Comments KNEE [...] on file Sexual Orientation Not on file Last Filed Vital Signs Vital Sign Reading [...] Description 09/04/2025 7:30 AM EST Hospital Encounter [facility] OR [address] [place] [phone] Augustine Adan MD [address] [phone] 09/04/2025 7:30 AM EST - 09/04/2025 9:00 AM EST Surgery [address] [phone] Augustine Adan MD [address] [phone] CYSTOSCOPY TUR PROSTATE [75202 (CPT )] Scheduled Procedures Name Priority Associated [...] Care Plan Autogenerated Problem No Urmila Rushing Procedures Procedure Name Priority Date/Time Associated Diagnosis Comments BACTERIAL IDENTIFICATION AND SUSCEPTIBILITY, AEROBIC Routine 08/20/2025 12:00 AM EST Frequency of micturition from Last 3 Months Results * Baterial identification and susceptibility, aerobic (08/20/2025 12:00 AM EST) Culture, Bacterial ID and Sensitivity Mixed urogenital wanda, no uropathogens present. Suggest repeat specimen, if clinically indicated. 08/21/2025 10:52 AM EST [facility] Other Urine specimen from urethra / Unknown 08/20/2025 08/21/2025 10:32 AM EST us Madelin [facility] MICROBIOLOGY - GENERAL ORDER MILVIA Final Result [facility] [address] [place] [address], [place] [phone] from Last 3 Months Additional Health Concerns Active Problems Noted Date Diagnosed Date Autogenerated Problem 06/25/2025 Insurance MEDICARE [facility]
--- OUTSIDE RECORDS SUMMARY | 2025-08-31 22:11 | XMS_ITS | Encounter Summary ---
Author Organization [facility] Address [address] [place] [address] Care Team Providers Care Mobile Engineer Name Role Phone Unavailable Primary Care Provider Unavailabl e Encounter Details Date Type Department Care Team (Late st Contact Info) Description 08/21/2025 Lab Requisition [facility] [address] [facility] [place] [phone] Madelin Reno, MATHEW [address] [address] Frequency of micturition Social History Tobacco Use Types Packs/Day Years [...] Description 09/04/2025 7:30 AM EST Hospital Encounter [address] [phone] Augustine Adan MD [address] [phone] 09/04/2025 7:30 AM EST - 09/04/2025 9:00 AM EST Surgery [address] [phone] Augustine Adan MD [address] [phone] CYSTOSCOPY TUR PROSTATE [88338 (CPT )] Scheduled Procedures Name Priority Associated Diagnoses Date/Ti me CYSTOSCOPY TUR PROSTATE Benign prostatic hyperplasia with lower urinary tract symptoms 09/04/2025 7:30 AM EST documented as of this encounter Goals Goal Patient Goal Type Associated Problems Recent Progress Patient-Stated? Author Autogenerat ed Goal Care Plan Autogenerated Problem No Urmila Rushing documented as of this encounter Procedures Procedure Name Priority Date/Time Associated Diagnosis Comments BACTERIAL IDENTIFICATION AND SUSCEPTIBILITY, AEROBIC Routine 08/20/2025 12:00 AM EST Frequency of micturition documented in this encounter Results * Baterial identification and susceptibility, aerobic (08/20/2025 12:00 AM EST) Culture, Bacterial ID and Sensitivity Mixed urogenital wanda, no uropathogens present. Suggest repeat specimen, if clinically indicated. 08/21/2025 10:52 AM EST [facility] Other Urine specimen from urethra / Unknown 08/20/2025 08/21/2025 10:32 AM EST us Madelin [facility] MICROBIOLOGY - GENERAL ORDER MILVIA Final Result [facility] [address] [place] [address], documented in this encounter Visit Diagnoses Diagnosis Frequency of micturition Urinary frequency Benign prostatic hyperplasia with lower urinary tract symptoms documented in this encounter Additional Health Concerns Active Problems Noted Date Diagnosed Date Autogenerated Problem 06/25/2025 documented as of this encounter
--- OUTSIDE RECORDS SUMMARY | 2025-08-31 22:12 | XMS_ITS | Patient Health Record ---
Author Organization Pablo Schwartz MD Address [address] [place], [place] [id number] Care Team Providers Care Associate Of Science In Nursing Name Role Phone Pablo Schwartz Primary Care Provider [phone] Allergies No Known Allergies Results Component Value Reference Range Notes Hemoglobin A1c Reviewed date:01/27/2025 02:03:46 PM Interpretation: Performing Lab: Notes/Report: Hemoglobin A1c 6.7 Liver Panel Reviewed date:11/11/2024 02:49:48 PM Interpretation: Performing Lab:[facility], [address] [place] [phone] Notes/Report: Bilirubin Total 2.0 0.0-1.0 mg/dL SLIGHT ICTE YOUNG Bilirubin Direct 0.5 0.0-0.5 mg/dL SLIGHT ICT ERUS Aspartate Amino Transferase 24 5-37 U/L Alanine Aminotransferase 18 0-40 U/L Total Protein 7.3 6.5-8.0 g/dL Albumin Level 4.0 3.5-5.0 g/dL Alkaline Phosphatase 68 39-117 U/L Glucose Fasting Reviewed date:11/11/2024 02:41:45 PM Interpretation: Performing Lab:[facility], [address] [place] [phone] Notes/Report: Glucose Fasting 192 60-99 mg/dL A fasting glucose of 126 mg/dl or greater on more than one occasion is considered diagnostic of diabetes. Lipid Panel with Reflex Reviewed date:11/11/2024 04:44:08 PM Interpretation: Performing Lab:[facility], [address] [place] [phone] Notes/Report: Triglycerides 76 <150 mg/dL Desirable Triglyceride: [...] A1c Reviewed date:11/11/2024 12:39:23 PM Interpretation: Performing Lab:[facility], [address] [place] [phone] Notes/Report: Hemoglobin A1c % 7.5 <6.0 % [...] average glucose, using the formula of the B2G-Omypeln Average Glucose study (ADAG), Diabetes Care, Vol.31,#8, Apr. 2007 Complete Blood Count Auto Di ff Reviewed date:05/15/2025 06:51:54 PM Interpretation: Performing Lab:[facility], [address] [place] [phone] Notes/Report: White Blood Count 8.0 4.8-10.8 X10*3/uL [...] NRBC Abs Auto 0.000 0.0-0.012 X10*3/uL Comprehensive [place]. Panel Fa st Reviewed date:05/15/2025 06:51:36 PM Interpretation: Performing Lab:[facility], [address] [place] [phone] Notes/Report: Sodium 141 135-145 mmol/L Potassium 4.1 [...] Panel Reviewed date:05/15/2025 06:41:15 PM Interpretation: Performing Lab:[address] [phone] Notes/Report: Triglycerides 52 <150 mg/dL Desirable Triglyceride: [...] (Free>4and<10) Reviewed date:05/15/2025 06:40:45 PM Interpretation: Performing Lab:[address] [address] Notes/Report: PSA,Total (Free>4and<10) 1.37 0.00-4.00 ng/mL A [...] Random Reviewed date:05/15/2025 06:41:04 PM Interpretation: Performing Lab:[address] [address] Notes/Report: Creatinine Urine 147.30 Microalbumin Urine 25.0 Microalbum/Creatinine Ratio Ur 16.9 <30 ug/mg cr Albumin/Creatinine Ratio Reference Ranges: Normal: < 30 ug/mg creatinine Microalbuminuria: 30 - 300 ug/mg creatinine Clinical Albuminuria: > 300 ug/mg creatinine Hemoglobin A1c Reviewed date:05/15/2025 06:40:56 PM Interpretation: Performing Lab:[address] [phone] Notes/Report: Hemoglobin A1c % 7.1 <6.0 % [...] average glucose, using the formula of the H6Z-Hsnvysy Average Glucose study (ADAG), Diabetes Care, Vol.31,#8, Apr. 2007 UA ClnCatch+Micro w/rflx Cul t Reviewed date:05/15/2025 06:52:13 PM Interpretation: Performing Lab:[address] [address] Notes/Report: Urine, Clean Catch Color Urine Dark Yellow Appearance Urine Clear PH 6.0 5.0-9.0 Glucose Urine UA 100 Negative mg/dL Urine Blood Negative Negative Specific Stover - Urine 1.025 1.005-1.025 Urine Protein Trace [...] T4 Reviewed date:07/24/2025 12:26:24 PM Interpretation: Performing Lab:[facility], [address] [place] [phone] Notes/Report: TSH reflex Free T4 0.84 0.32-4.0 uIU/mL Glucose, Whole Blood Reviewed date:09/01/2024 12:18:10 PM Interpretation: Performing Lab:[facility], [address] [place] [phone] Notes/Report: Glucose, Whole Blood 154 60-115 mg/dL METER # : [id number] Hold Anselmo Reviewed date:11/11/2024 12:27:43 PM Interpretation: Performing Lab:[facility], [address] [place] [phone] Notes/Report: Derek Gold See Note Specimen held untested for 24 hours; Call to request Chemistry testing. XR chest 2V Reviewed date:01/27/2025 08:16:26 PM Interpretation: Performing Lab: Notes/Report: [address] [address] XRay Report Signed Patient: Indy Mendez MR#: [id number] : 1955 Acct:[id number] Age/Sex: 69 / M ADM Date: 01/27/25 Loc: [facility] Attending Dr: Pablo Schwartz MD Ordering Physician: Pablo Schwartz MD Date of Service: 01/27/25 Procedure(s): XR chest 2V Accession Number(s): [id number] cc: Pablo Schwartz MD EXAMINATION: XR CHEST [...] OV> 01/27/25 1551 DD/ 1450 TD/TT: 01/27/251454 Transformer Repairer: [place] [address] XRay Report Signed Patient: Felipe Mendez MR#: [id number] : 1955 Acct:[id number] Age/Sex: 69 / M ADM Date: 01/27/25 Loc: HO.XRAY Attending Dr: Pablo Schwartz MD Ordering Physician: Pablo Schwartz MD Date of Service: 01/27/25 Procedure(s): XR cristine st 2V Accession Number(s): [id number] cc: Pablo Schwartz MD EXAMINATION: XR CHES [...] 01/27/25 1551 DD/ 1450 TD/TT: 01/27/25 1455 Transformer Repairer: Derek Briones Reviewed date:07/24/2025 12:26:16 PM Interpretation: Performing Lab:[facility], [address] [place] [address] Notes/Report: Derek Briones See Note Specimen held untested for 24 hours; Call to request Chemistry testing. NM cardiolite stress test Reviewed date:08/19/2025 01:34:27 PM Interpretation: Performing Lab: Notes/Report: [facility] [address] 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 EXERCISE MYOCARDIAL PERFUSION STUDY INDICATION: Positive coronary artery calcium TECHNIQUE: The patient was brought in for an exercise perfusion study on 08/12/2025. Patient performed exercise as per Camacho protocol and was injected 40 mCi of sestamibi once target heart rate was achieved. Images were obtained using the SPECT gamma camera interlaced with the gating device. Images were obtained in supine position. Resting perfusion study was performed on 08/18/2025. Patient was administered 40 mCi of sestamibi intravenously at rest. Images were then obtained in supine position. Total DLP 135 mGy-cm. Images were processed with the software and compared side to side in short axis, horizontal long axis and vertical long axis views. FINDINGS: Raw aquisition reviewed. The stress perfusion study showed decreased tracer uptake in the inferior wall. There is improvement with CT attenuation correction suggestive of diaphragmatic attenuation artifact. The gated study shows normal LV systolic function with calculated LVEF of 56%. LV cavity is normal in size. The gated study shows normal wall thickening and contraction of segments. Resting study shows diminished tracer uptake along the inferior wall. There is improvement with CT attenuation correction suggestive of diaphragmatic attenuation artifact. Gating at rest reveals normal wall motion with ejection fraction at 69%. The findings are consistent with fixed inferior perfusion defect probably from diaphragmatic attenuation artifact. No clear reversible defects. NM/NM cardiolite stress test IMPRESSION: 1. Myocardial perfusion imaging study shows probably normal myocardial perfusion. 2. Gated LVEF is 56% during stress and 69% during rest. Correlate with echocardiogram. 3. Transient ischemic dilatation not present. EKG component of the test reported separately. Electronically signed by: Zya Kovacs MD 08/18/2025 04:01 PM [facility] Workstation: PT PAL Dictated By: Zay Kovcas MD Signed By: <Electronically signed by Zay Kovacs MD in OV> 08/18/25 1601 DD/ 0908 TD/TT: 08/18/25 1225 Transformer Repairer: [place] [address] Nuclear Medicine Report Signed Patient: Felipe Mendez MR#: [id number] : 1955 Acct:[id number] Age/Sex: 69 / M ADM Date: 08/12/25 [facility] Attending Dr: Dona Kovacs MD Ordering Physician: Zay Kovacs MD Date of Service: 08/12/25 Procedure(s): LA cardiolite stress test Accession Number(s): [id number] cc: Pablo Schwartz MD; Zay Kovacs MD Reason for Exam: I25 .10 - Atherosclerotic heart disease of [place] coronary artery without... EXERCISE MYOCARDIAL PERFUSION STUDY INDICATION: Positive coronary artery calcium TECHNIQUE: The patient was brou t in for an exercise perfusion study on 08/12/2025. Patient performed exercise as per Camacho protocol and was injected 40 mCi of sestamibi once target heart rate was achieved. Images were obtained using the SPECT gamma camera interlaced with the gating device. Image s were obtained in supine position. Resting perfusion st udy was performed on 08/18/2025. Patient was administered 40 mCi of sestamibi intravenously at rest. Images were then obtained in sup ine position. Total DLP 135 mGy-cm. Images were processe d with the software and compared side to side in short axis, horizont al long axis and vertical long axis views. FINDINGS: Raw aquisition reviewed. The stress perfusion study showed decreased tracer uptake in the inferior wall. There is improvement with CT attenuation correction suggestive of diaphragmatic attenuation artifact. The gated study shows normal LV systolic function with calculated LVEF of 56%. LV cavity is normal in size. The gated study shows normal wall thickening and contraction of segments. Resting study shows diminished tracer uptake along the inferior wall. There is improvement with CT attenuation correction suggestive of diaphragmatic attenuation artifact. Gating at rest reveals normal wall motion with ejection fraction at 69%. The findings are consistent with fixed inferior perfusion defect probably from diaphragmatic attenuation artifact. No clear reversible defects. NM/NM cardiolite stress test IMPRESSION: 1. Myocardial perfus ion imaging study shows probably normal myocardial perfusion. 2. Gated LVEF is 56% during stress and 69% during rest. Correlate with echocardiogram. 3. Transient ischemi c dilatation not present. EKG component of the test reported separately. Electronically yomaira d by: Zay Kovacs MD 08/18/2025 04:01 PM EST Workstatio n: [id number] Dictated By: Zay Kovacs MD Signed By: <Electronically signed by Zay Kovacs MD in OV> 08/18/25 1601 DD/ 0908 TD/TT: 08/18/25 1225 Transformer Repairer: XR chest 2V Reviewed date:08/31/2025 04:24:55 PM Interpretation: Performing Lab: Notes/Report: [address] [address] XRay Report Signed Patient: Indy Mendez MR#: [id number] : 1955 Acct:[id number] Age/Sex: 69 / M ADM Date: 08/31/25 Loc: [facility] Attending Dr: Pablo Schwartz MD Ordering Physician: Pablo Schwartz MD Date of Service: 08/31/25 Procedure(s): XR chest 2V Accession Number(s): [id number] cc: Pablo Schwartz MD Reason for Exam: BRONCITIS EXAMINATION: XR CHEST CLINICAL INFORMATION: BRONCITIS COMPARISON: January 27, 2025 TECHNIQUE: 2 views of the chest were obtained. FINDINGS: No significant abnormality is noted involving the heart, lungs, mediastinum, bony thorax or soft tissues. XR/XR chest 2V IMPRESSION: No acute disease Electronically signed by: Santiago Davis MD 08/31/2025 04:09 PM EST RP Dictated By: Santiago Davis MD Signed By: <Electronically signed by Santiago Davis MD in OV> 08/31/25 1609 DD/ 155 TD/TT: 08/31/251554 Transformer Repairer: [place] [address] XRay Report Signed Patient: Felipe Mendez MR#: [id number] : 1955 Acct:[id number] Age/Sex: 69 / M ADM Date: 08/31/25 Loc: HO.XRAY Attending Dr: Pablo Schwartz MD Ordering Physician: Pablo Schwartz MD Date of Service: 08/31/25 Procedure(s): XR cristine st 2V Accession Number(s): [id number] cc: Pablo Schwartz MD Reason for Exam: BRONCITIS EXAMINATION: XR CHEST CLINICAL INFORMATION: BRONCITIS COMPARISON: January 27, 2025 TECHNIQUE: 2 views of the chest were obtained. FINDINGS: No significant abnormality is noted involving the heart, lungs, mediastinum, bony thorax or soft tissues. XR/XR chest 2V IMPRESSION: No acute disease Electronically yomaira d by: Santiago Davis MD 08/31/2025 04:09 PM EST RP Dictated By: Santiago Davis MD Signed By: <Electronically signed by Santiago Davis MD in OV> 08/31/25 1609 DD/ 1554 TD/TT: 08/31/25 9831 Transformer Repairer: Reason For Referral Reason prostatism Diagnosis 1 [...] Provider Speciality Internal edicine Referred Provider JHONNY KOVACS Referred Provider Specialty Cardiology General Notes Alisson Dyson 0 06/12/2025 12:40:17 PM >referral info faKiel marina Annette 07/06/2025 03:11:20 PM >patient is aware [...] a day for 10 day(s) 08/31/2025 Active metFORMIN HCl 500 MG TAKE 2 TABLET BY MO UTH TWICE A DAY WITH MEALS for 90 Active OneTouch Verio - as directed In Vitro daily for 90 days 04/28/2019 Active OneTouch Verio - TEST ONCE A DAY for 90 Active Immunizations Vaccine Route Administration Date Status Comme nts Flu Vaccine Unknown 07/05/2015 Administered recived it at work at [facility] Fluarix Quadrivalent Unknown 06/26/2016 Administered BM C Tetanus Unknown 07/18/2016 Administered given at [facility] Flu Vaccine Unknown 07/03/2017 Administered given at [facility]. PPSV23 (Pnemovax) IM Intramuscular 01/28/2018 Administered Fluarix Quadrivalent IM Intramuscular 08/13/2018 Administe red Prevnar 13 IM Intramuscular 02/17/2019 Administered Influenza High Dose IM Intramuscular 07/31/2019 Administer ed pt was given the vaccine at [facility]. Fluarix Quadrivalent Unknown 07/30/2020 Administered [...] Status W/U Status Risk Notes Problem Prostatism (18101347) Prostatism (N40.0) Active confirmed Problem Insomnia (511228167) Insomnia (G47.00) Active confirmed Problem Sinusitis (10015820) Sinusitis (J32.9) Active confirmed Problem Gilbert syndrome (66911078) Gilbert syndrome (E80.4) Active confirmed Problem 25393259 Essential hypert ension (I10) Active confirmed Problem 48662434 Type 2 diabetes mellitus without complication (E11.9) Active confirmed Problem 50459900 Type 2 diabetes, controlled, with neuropathy (E11.40) Active confirmed Problem Obstructive sleep apnea (40829838) Obstructive sleep apnea (G47.33) Active confirmed Problem 4888189448070 Vasculogenic ere ctile dysfunction, unspecified vasculogenic erectile dysfunction type (N52.9) Active confirmed Problem 08034192 Dysthymia (F34.1) Active confirmed Problem Hypersomnia (68163082) Hypersomnia (G47.10) Active confirmed Problem 224539399 Pure hypercholesterolemia (E78.00) Active confirmed Problem Computed tomography result abnormal (831445698) Abnormal CAT scan (R93.89) Active confirmed Vital Signs Blood pressure diastolic 72 mm Hg 07/24/2025 michael ght is up 20 pounds since 05-22-25 Height 68 in 08/31/2025 weight is 258 a t home BP not taken no temp today. Blood pressure systolic 140 mm Hg 07/24/2025 weig ht is up 20 pounds since 05-22-25 Weight 258 lbs 08/31/2025 weight is 258 a t home BP not taken no temp today. BMI 39.22 kg/m2 08/31/2025 weight is 258 a t home BP not taken no temp today. Encounters Encounter Location Date Provider Diagnosis Pablo Schwartz MD [address] [place] [id number] 11/11/2024 Pablo Schwartz Type 2 diabetes jhony itus without complication E11.9 and Pure hypercholesterolemia E78.00 Pablo Schwartz MD [address] [place] [id number] 05/15/2025 Pablo Schwartz Essential hypertensi on I10 ; Type 2 diabetes mellitus without complication E11.9 ; Pure hypercholesterolemia E78.00 and Prostatism N40.0 Pablo Schwartz MD [address] [place] [id number] 08/31/2025 Pablo Schwartz Bronchitis J40 Pablo Schwartz MD [address] [place] [id number] 11/17/2024 Pablo Schwartz Type 2 diabetes jhony itus without complication E11.9 ; Pure hypercholesterolemia E78.00 and Cough R05.9 Pablo Schwartz MD [address] [place] [id number] 01/27/2025 Pablo Schwartz Type 2 diabetes jhony itus without complication E11.9 ; Cough R05.9 and Prostatism N40.0 Pablo Schwartz MD [address] [place] [id number] 05/22/2025 Pablo Schwartz Obstructive sleep ap rosario G47.33 ; Type 2 diabetes mellitus without complication E11.9 ; Pure hypercholesterolemia E78.00 ; Essential hypertension I10 ; Prostatism N40.0 ; Encounter for administration of vaccine Z23 ; Colon cancer screening Z12.11 and Depression screening Z13.31 Pablo Schwartz MD [address] [place] [id number] 07/24/2025 Pablo Schwartz Type 2 diabetes jhony itus without complication E11.9 ; Lethargy R53.83 and Essential hypertension I10 Pablo Schwartz MD [address] [place] [address] [id number] 07/30/2025 Pablo Schwartz Sinusitis J32.9 Pablo Schwartz MD [address] [place] [id number] 02/05/2025 Pablo Schwartz MD [address] [place] [id number] 08/10/2025 Pablo Schwartz Assessments Encounter Date Diagnosis (ICD Code) Assessment Notes Treatment Notes Treatment Clinical Notes Section Notes 11/11/2024 Type 2 diabetes mellitus without complication (ICD-10 - E11.9) 05/15/2025 Essential hypertensi on (ICD-10 - I10) 08/31/2025 Bronchitis (ICD-10 - J40) will hold off surgery for now/ THE XRAY ORDER HAS BEEN FAXED TO [facility] PATIENT REG AND PATIENT IS INFORMED 11/17/2024 Type 2 diabetes mellitus without complication [...] to monitor 07/24/2025 Lethargy (ICD-10 - R53.83) 07/30/2025 Sinusitis (ICD-10 - J32.9) patient verbalized understanding of medication and directions for use 11/11/2024 Pure hypercholesterolemia (ICD-10 - E78.00) 05/15/2025 Type 2 diabetes mellitus without complication (ICD-10 - E11.9) 11/17/2024 Cough (ICD-10 - R05.9) patie nt states that it started out as an illness like the flu. sounds allergic at present 01/27/2025 Prostatism (ICD-10 - N40.0) referral to dr dacosta in [place] 05/22/2025 Pure hypercholesterolemia (ICD-10 - E78.00) order calcium score/ booked for 06-09-25 at 11am at [facility], stable, will cntinue current regiment 07/24/2025 [...] CHEST 2 VIEW PA & LAT 01/27/2025 XR CHEST 2 VIEW PA & LAT 08/31/2025 US LEG BILATERAL VENOUS DOPPLER 09/12/20 Sleep Study - Baseline 07/22/2024 CT Coronary Calcium Score 05/22/2025 Next Appt Details Provider Name:Pablo Huerta ier, 09/07/2025 09:00:00 AM, [address] [place] [address], Suite [facility], [place], [place], [phone], Provider Name:Pablo Huerta ier, 09/14/2025 10:00:00 AM, [address] [place] [address], [address] [facility], [place], [place], [id number], Provider Name:Pablo Huerta ier, 11/20/2025 07:30:00 AM, [address] [place] [address], [address] [place] [address], [phone], Provider Name:Pablo Huerta ier, 11/26/2025 09:00:00 AM, [address] [place] [address], [address] [facility], [place], [place], [phone], Provider Name:Pablo Huerta ier, 05/18/2026 07:45:00 AM, [address] [place] [address], [address], [phone], Provider Name:Pablo Huerta ier, 05/25/2026 10:30:00 AM, [address] [place] [address], [address], [phone], Insurance Providers Payer Name Payer Address Payer Phone Subscriber Number Group Number Insured Name Patient Relationship to Insured Coverage Start Date Coverage End Date MEDICARE NHIC [address] [place] [address] [id number] INDY MENDEZ Self - patient is the insured [employer] [address] [place], [place] [id number] [phone] [id number] INDY MENDEZ Self - patient is the insured Medical (General) History Medical History History ICD Code 2002 had an infection from [employer] was in hospital for 6 mo. colonoscopy 01/2013. repeat 1 0 years09/01/24 colonoscopy, no further testing required Surgical History Surgery Date(Month/Year) Excision of dermal lesion in lt buttocks by Dr. Mandujano 08/2016
--- OUTSIDE RECORDS SUMMARY | 2025-08-31 22:12 | XMS_ITS | Data Portability ---
Author Organization [place] [facility], [facility] Address [address] [place] [address] Care Team Providers Care Freight Handler Name Role Phone NARESH BLAKE Primary Care [...] [facility], [address], [place], [address], 07:44:19 Medication Orders None recorded. Patient TargetsNo [...] a4ajBk vP9nXo QUaueC m3YtLR FvZlgJ JJ8mAn HZtai3 1n8004 AC0Kqa 3iHVKG mKiQtr MwF INTERFACE [facility] Office [address] [facility] [address], [place], [address], 06/26/2024 11:01:19 06/26/20 24 06/26/2024 XRsheyla, 2 or more view http:/ [email or web address] ?Encry pted=s hAaTro YD8dLq bEUv6g %2BXZw aYqtaq 0bqfl% 2Fg9IQ a4ajBk vP9nXo QUaueC m3YtLR FvZlgJ JJ8mAn HZtai3 7n4958 AC0Kqa 3iHVKG mKiQtr MwF INTERFACE [facility] [address], [place], [address], 06/26/2024 11:01:22 09/07/20 24 09/06/2024 MRI, shoul george, w/o contr ast No observ ation record ed. ecarreiro [facility] [address], [place], [address], 09/08/2024 15:56:42 Result Notes Documentation Provider Name and Address Organization Details Recorded Time Xr, Shoulder, 2 Or More View : [email or web address] Encrypted=ztZpMzpPE3wSosR Uv6g%0YSWeoNewuy1eiid%2Fg 8RSb4voKfnA4aGjOQktxJw3Fh VZJoRrvKDX7xWiBGozw02o643 3EB7Aqd4cSSPOkWsDahKsB Not Available [facility] 06/26/2024 11:01: 20 Xr, Shoulder, 2 Or More View : [email or web address] Encrypted=hzAaXktFD6jMhwJ Uv6g%3ZUAfnQnpmm2svvc%2Fg 2FXt8nrTvnB2hJeLQrsoSo2Yu CZQlBeaSOI2nQtKAcma68r267 6JH9Jov9xVPSYcLnEvcEmP Not Available [facility] 06/26/2024 11:01: 23 Problems Name Problem SNOMED Code Status Onset Date Resolution Date Notes Provider Name and Address Organization Details Recorded Time No complaints 624640206 Active Status : 'A'; Not Available [facility] 4 09:10:52 Problem Notes None recorded. Procedures Surgical History Date Name Laterality Status Provider Name and Address Organization Details Recorded Time 4 Sports Shoulder completed Vilma Harry, PLANT OPERATIONS ENGINEER [address], [place], [address], [facility] 06/26/2024 12:08:39 Imaging Results [...] Updated DateTime 09/19/2024 175.26 cm 36.9 kg/m2 053923.09 g NARA ROBLERO [facility] 09/19/2024 14:55:33 Date Recorded Body height Body mass index (BMI) Body weight Provider Name and Address Organization Details Last Updated DateTime 11/13/2024 175.26 cm 36.9 kg/m2 317096.09 g MOISÉS BUTLER [facility] 11/13/2024 08:34:45 Date Recorded Body height Body mass index (BMI) Body weight Provider Name and Address Organization Details Last Updated DateTime 06/26/2024 175.26 cm 36.9 kg/m2 628805.09 g MOISÉS BUTLER [facility] 06/26/2024 10:54:30 Social [...] Disease N Heart Trouble N Heart Attack (SC) N Gastrointestinal Disease N Cholesterol N Diabetes Y Autoimmune disease N Inflammatory Joint disease N Bleeding Disorder N Orthotics N Seizures/Epilepsy N Arthritis N Blood Clot N AIDS/HIV N Congestive Heart Failure (CHF) N Acid Reflux (GERD) N Cancer N Stroke N Asthma N Circulation Problems N Peripheral Vascular Disease N Sleep Apnea Y Hepatitis N Heart Disease N Rheumatoid Arthritis N Pulmonary Embolism N Arrhythmia N Headaches N Fibromyalgia N Hypertension Y Osteoporosis N Past Encounters Encounter ID Performer Location Encounter Start Date Encounter Closed Date Diagnosis/Indication Diagnosis SNOMED-CT Code Diagnosis ICD10 Code Diagnosis IMO Codes Diagnosis Note [id number] Vilma Harry CNP [facility] [address] [place] [address] 06/26/2024 09:54:32 07/16/2024 07:44:18 Pain of left shoulder joint 9243632150 8688435 M25.878 [id number] MD [facility] [address] [place] [address] 09/19/2024 14:11:22 10/03/2024 12:47:28 Calcific tendinitis of left shoulder 5469591572 85523 M75.32 [id number] Vilma Harry CNP [facility] - [facility] [address] [place] [address] 11/13/2024 08:24:28 11/25/2024 12:47:26 Health Concerns Section Related Observation LastModified by Organization Detai ls LastModified Time None Recorded Concern Status LastModified by Organization Details LastModified Time None Recorded Advance Directives Directive None Recorded Payers Insurance Date Sequence Insurance Name Policy Number Policy [place] Covered Member ID [place] Member ID Guarantor Name 11/11/2024 1 [place] [employer] James Quintanilla [id number] James Quintanilla 11/25/2024 2 [place] [id number] James Quintanilla [id number] James Quintanilla Notes Date Note Type Note [...] here today for further evaluation. Vilma Harry, PLANT OPERATIONS ENGINEER [address] [facility] [address], [place], [address], [facility] 06/26/2024 12:09:07 09/19/2024 text/html [...] the left shoulder ordered and obtained at [facility] 06/26/2024 were reviewed during the visit. These demonstrate a medium sized calcium deposit sitting within the substance of the rotator cuff on Grashey view. Type III acromion. Humeral head centered on axillary view. No proximal migration humeral head. Left shoulder MRI performed at [facility] 09/06/2024 independently reviewed by me on [...] I can appreciate. Sublabral foramen is not [place] complex anatomy. Long head biceps tendon once more normally within the bicipital groove. Modest subcoracoid effusion. Type III acromion. She is well I will Impression: 68-year-old tlsch-wvrv-tltkthxw gentleman with left shoulder pain following a [...] would reserve this for last resort only. [employer] speech recognition needle punch machine operator software was used to create portions of this document. An attempt at proofreading has been made to minimize errors. Please call for corrections. Soni Akins MD [address], [place], [address], [facility] 10/08/2024 16:19:09 11/13/2024 text/html [...] Harry CNP [address], [place], [address], [facility] 11/13/2024 09:02:57
--- OUTSIDE RECORDS SUMMARY | 2025-08-31 22:12 | XMS_ITS | Patient Health Record ---
Author Organization [facility] Address [address] [place] [address] Care Team Providers Care Rehabilitation Assistant Name Role Phone Pablo Schwartz MD Primary Care Provider Gómez Lopez Unavailable [phone] Allergies No Known Allergies Results Component Value Reference Range Flag Notes Glucose, Whole Blood Reviewed date:09/01/2024 10:19:54 PM Interpretation: Performing Lab:[facility], [address] [place] [address] Notes/Report: Glucose, Whole Blood 154 60-115 mg/dL H MI TER #: [id number] Reason For Referral No Information Medications Medication [...] Status Risk Notes Problem Colon cancer screening (403449524) Colon cancer screening (Z12.11) Active confirmed Problem Pre-procedure evaluation check (402705505) Encounter for other preprocedural examination (Z01.818) Active confirmed Problem Diverticular disease of colon (025747095) Diverticulosis of large intestine without perforation or abscess without bleeding (K57.30) Active confirmed Problem Long-term current use of drug therapy (458455596) Encounter for long-term (current) use of high-risk medication (Z79.899) Active confirmed Encounters Encounter Location Date Provider Diagnosis [facility] [address] [place] [id number] 09/01/2024 Gómez Giraldo Colon cancer scree jerson [...] Date MEDICARE OF [place] [address] [place] [address] [id number] INDY MENDEZ Self - patient is the insured [facility] [address] [place], [place] [id number] INDY MENDEZ Self - patient is the insured Medical (General) History Medical History History ICD Code Hyperlipidemia Hypertension He describes a hospitalizati on in early for some type of infectious diarrhea, and describes [place] [facility] during his evaluation-these were negative for polyps and he was advised to have another colonoscopy 10 years thereafter for screening Denies VA,CVA,Lung disease,renal disease Negative screening colonoscopy in 2012 Surgical History Surgery Date(Month/Year) Nasal polyps Bilateral knee replacements in approx 20 19
--- OUTSIDE RECORDS SUMMARY | 2025-08-31 22:13 | XMS_ITS | Clinical Summary ---
Author Organization [facility] Address [address] [place] [address] Phone Care Team Providers Care Registered Dental Assistant Rda Name Role Phone Pablo Schwartz MD Primary [...] Narrative 10/06/2004 12:00 AM EST Report Number: [id number] Report Status: Final Type: Colonoscopy Date: 10/06/2004 [...] biopsied. - This procedure was done in [facility] [place], [id number] Signed Date: 10/06/2004 3:12:47 PM Note generated on 10/06/2004 2:51:06 PM CC letter to: Procedure Note Sys, Conversion Provider Not In - 10/06/2004 12:00 AM EST Report Number: [id number] Report Status:Final Type: Colonoscopy Date: 10/06/2004 Gastrointestinal [...] biopsied. - This procedure was done in [facility] [place], [id number] Signed Date: 10/06/2004 3:12:47 PM Note generated on 10/06/2004 2:51:06 PM CC letter to: us Conversion Provider Not In Sys GI PROCEDURE ORDE LORENZO Final Result from Last 3 Months or Most Recently Relevant to Health Maintenance Insurance MEDICARE PART A & B [facility] MEDICARE PART A & B [facility] MEDICARE PART A & B MEDICARE PART A & B MEDICARE PART A & B [facility] MEDICARE PART A & B [facility] MEDICARE PART A & B MEDICARE PART A & B MEDICARE PART A & B [facility] FED[employer] Care Teams Registered Dental Assistant Rda Relationship Specialty Start Date End Date Pablo Schwartz MD [address] [place] [address] [place] [address] PCP - General Internal Medicine 06/21/22 Additional Source Comments The information contained in this document represents components of the legal health record. It is not the complete legal health record.[facility]
== END 2025-08-31 15:47 | disposition home or self-care (01) ==
LOC: HO.XRAY 15:46
PROVIDERS: PCP Internal Medicine; Visit Provider Internal Medicine
DX: J40 Bronchitis, not specified as acute or chronic (principal)
CPT/HCPCS: 71046

== ENCOUNTER → 2025-08-31 15:54 | Outpatient (BNV) | payer MEDICARE, BC, SELFPAY | PROVIDERS: PCP Internal Medicine; Visit Provider Radiology Diagnostic Radiology | DX: J40 Bronchitis, not specified as acute or chronic (principal) | CPT/HCPCS: 71046 ==